=== PATIENT | female | born 1960 | race Caucasian/White ===

== ENCOUNTER → 2018-03-02 08:46 | Outpatient (CLI) | payer MEDICAID, SELFPAY ==
--- NOTE | 2018-03-02 08:52 | XR_ITS ---
XR shoulder LT min 2V HISTORY: ITS.REASON: LT SHOULDER PAIN ORDERING PHYSICIAN: Doyle Wilks MD PATIENT AGE: 57 years Comparison: None FINDINGS: There are mild hypertrophic changes of the acromioclavicular joint inferiorly with mild subacromial stenosis. No fracture or dislocation. No lytic or blastic change. IMPRESSION: Mild subacromial stenosis otherwise negative
== END ==
PROVIDERS: PCP Family Medicine; Visit Provider Family Medicine
DX: M25.512 Pain in left shoulder (principal)
CPT/HCPCS: 73030

== ENCOUNTER → 2018-08-07 14:34 | Outpatient (CLI) | payer MEDICAID, SELFPAY ==
[2018-08-07 14:55] LABS: Basophils % 0.5 % (0.1-2.0); Eosinophils # 0.1 K/mm3 (0.0-0.4); Eosinophils % 1.7 % (0.1-12.0); Hematocrit 48.3 % (37.0-47.0); Hemoglobin 15.5 g/dL (12.2-16.2); Lymphocytes # 2.3 K/mm3 (0.7-4.5); Lymphocytes % 32.7 % (10-50); Mean Corpuscular HGB Conc 32.1 g/dL (31.8-35.4); Mean Corpuscular Hemoglobin 28.9 pg (27.0-31.2); Mean Corpuscular Volume 90.2 fl (81-99); Monocytes # 0.5 K/mm3 (0.1-1.0); Monocytes % 7.3 % (1.7-9.3); Neutrophils # 4.1 K/mm3 (1.8-7.8); Neutrophils % 57.9 % (37.0-80.0); Platelet Count 234 K/mm3 (142-424); Red Blood Count 5.36 M/mm3 (4.20-5.40)
[2018-08-07 16:17] LABS: Alanine Aminotransferase 68 U/L (12-78); Albumin Level 4.1 gm/dL (3.4-5.0); Albumin/Globulin Ratio 1.1 (1.1-1.8); Alkaline Phosphatase 137 U/L (46-116); Anion Gap 14.5 mEq/L (5-15); Aspartate Amino Transferase 25 U/L (15-37); Bilirubin,Total 0.3 mg/dL (0.2-1.0); Blood Urea Nitrogen 21 mg/dL (7-18); Calcium 9.8 mg/dL (8.5-10.1); Carbon Dioxide 28 mmol/L (21.0-32.0); Chloride 99 mmol/L (98-107); Chol/HDL Ratio 3.8 (1-3.5); Cholesterol 154 mg/dL (140-200); Creatinine,Serum 0.86 mg/dL (0.55-1.02); Estimated Glomerular Filt Rate 68 ml/min (>60); GFR (African American) 82 ML/MIN (>60); Globulin 3.6 gm/dl (1.3-3.2); HDL Cholesterol 41 mg/dL (29-89); LDL Cholesterol 90 mg/dL (0-130); Potassium 4.5 mmoL/L (3.5-5.1); Sodium 137 mmol/L (136-145); T4 (Thyroxine) 8.5 ug/dl (4.7-13.3); Thyroid Stimulating Hormone 3.95 uIU/ml (0.358-3.740); Total Protein,Serum 7.7 gm/dL (6.4-8.2); Triglycerides 116 mg/dL (30-200); VLDL Cholesterol 23 mg/dL (0-40)
[2018-08-07 16:21] LABS: Glucose 432 mg/dL (74-106)
[2018-08-07 16:41] LABS: Hemoglobin A1C 11.2 % (0.0-7.0)
[2018-08-10 06:20] LABS: Vitamin D 25 Hydroxy 18.6 ng/mL (30.0-100.0)
[2018-08-10 06:21] LABS: Microalbumin, Urine 8.5 ug/mL (Not Estab.)
== END ==
PROVIDERS: Visit Provider Physician Assistant
DX: E11.69 Type 2 diabetes mellitus with other specified complication (principal); E66.9 Obesity, unspecified; Z79.4 Long term (current) use of insulin; Z79.84 Long term (current) use of oral hypoglycemic drugs
CPT/HCPCS: 80053; 80061; 82043; 82652; 83036; 84436; 84443; 85025

== ENCOUNTER → 2018-08-16 09:38 | Outpatient (CLI) | payer MEDICAID, SELFPAY ==
[2018-08-16 10:30] VITALS: PULSE 78; PULSE 80
--- NOTE | 2018-08-16 15:02 | CT_ITS ---
CT lung screening EXAM: CT LUNG LOW DOSE WO CONTRAST HISTORY: 46 pack year smoking history, asymptomatic for lung cancer ITS.REASON: Smoked from age [age] ORDERING PHYSICIAN: JASON Hagan PATIENT AGE: 58 years COMPARISON: None TECHNIQUE: The exam was performed on a GE Light Speed [address] scanner using 2.90 mGy CTDI. A low dose helical CT CHEST was performed on a multi-detector scanner. All CT scans at the facility use one or more dose reduction, viz: automated exposure control, ma/kV adjustment per patient size (including targeted exams where dose is matched to indication, i.e. head), or iterative reconstruction technique. The LDCT was performed in a facility that meets the criteria for the screening program. Data regarding this exam was submitted to ACR which is an approved registry. The order for this exam indicates that it came as a result of a lung cancer screening counseling shard decision-making visit that included all the elements required of such a visit including smoking cessation. The radiologist interpreting this exam meets the CMS criteria for the LDCT lung cancer screening program. The exam is reported using the Lung-RADS classification scale and reported to the ACR registry. NOTE: This study was performed for the specific purposes of lung cancer screening and is not an alternative to diagnostic chest CT. RADIATION DOSE: CTDI vol(CT dose Index-volume) = 2.90mG DLP (Dose Length Product) = 96.38 mGcm FINDINGS: There is bronchial thickening with mild coarsening of the bronchovascular markings consistent with COPD. No suspicious pulmonary nodules demonstrated. Coronary artery calcifications and stents are noted. IMPRESSION: 1. Lung RADS Category: 1, negative 2. Other findings: COPD, coronary artery disease RECOMMENDATIONS: 12 month LDCT follow-up
== END ==
PROVIDERS: PCP Physician Assistant; Visit Provider Physician Assistant
DX: Z12.2 Encounter for screening for malignant neoplasm of respiratory organs (principal); Z87.891 Personal history of nicotine dependence; R06.00 Dyspnea, unspecified
CPT/HCPCS: 94060; 94640

== ENCOUNTER → 2018-09-07 10:44 | Outpatient (CLI) | payer MEDICAID, SELFPAY ==
--- NOTE | 2018-09-07 10:48 | MM_ITS ---
MM Dig screening mamm BI w/CAD CAD Screening COMPARISON: None, the patient has had previous mammograms but they're not available for review at this time. INDICATION: There is no personal or family history of breast cancer TECHNIQUE: Standard CC and MLO images were obtained. R2 CAD reviewed. FINDINGS: Moderate scattered fibroglandular densities are seen throughout both breasts. There is a benign-appearing microcalcifications left breast. There is no suspicious lesion and there are no suspicious microcalcifications. There are small nodes in both axilla. IMPRESSION: Fibrofatty parenchyma no suspicious lesion seen BI-RADS Category: 2 Benign Finding(s) RECOMMENDED FOLLOW-UP: 1YR - 1 YEAR FOLLOW-UP (A letter has been sent to the patient regarding results of the study.)
== END ==
PROVIDERS: PCP Emergency Medicine; Visit Provider Physician Assistant
DX: Z12.31 Encounter for screening mammogram for malignant neoplasm of breast (principal)
CPT/HCPCS: 77067

== ENCOUNTER 2018-10-15 16:05 | Outpatient (RCR) | payer MEDICAID, SELFPAY | END 2018-11-16 15:32 | disposition home or self-care (01) | LOC: PT 16:05 | PROVIDERS: Visit Provider Internal Medicine | DX: Z95.5 Presence of coronary angioplasty implant and graft (principal) ==

== ENCOUNTER → 2018-11-08 13:58 | Outpatient (CLI) | payer MEDICAID, SELFPAY ==
[2018-11-08 14:51] LABS: Alanine Aminotransferase 38 U/L (12-78); Albumin Level 3.7 gm/dL (3.4-5.0); Albumin/Globulin Ratio 1.1 (1.1-1.8); Alkaline Phosphatase 111 U/L (46-116); Anion Gap 14.3 mEq/L (5-15); Aspartate Amino Transferase 16 U/L (15-37); Bilirubin,Total 0.3 mg/dL (0.2-1.0); Blood Urea Nitrogen 26 mg/dL (7-18); Calcium 9.4 mg/dL (8.5-10.1); Carbon Dioxide 27 mmol/L (21.0-32.0); Chloride 104 mmol/L (98-107); Chol/HDL Ratio 3.4 (1-3.5); Cholesterol 145 mg/dL (140-200); Creatinine,Serum 0.94 mg/dL (0.55-1.02); Estimated Glomerular Filt Rate 61 ml/min (>60); GFR (African American) 74 ML/MIN (>60); Globulin 3.5 gm/dl (1.3-3.2); Glucose 264 mg/dL (74-106); HDL Cholesterol 43 mg/dL (29-89); LDL Cholesterol 82 mg/dL (0-130); Potassium 4.3 mmoL/L (3.5-5.1); Sodium 141 mmol/L (136-145); T4 (Thyroxine) 8.1 ug/dl (4.7-13.3); Thyroid Stimulating Hormone 2.19 uIU/ml (0.358-3.740); Total Protein,Serum 7.2 gm/dL (6.4-8.2); Triglycerides 99 mg/dL (30-200); VLDL Cholesterol 20 mg/dL (0-40)
[2018-11-08 15:09] LABS: Basophils # 0.1 K/mm3 (0-0.2); Basophils % 0.7 % (0.1-2.0); Eosinophils # 0.2 K/mm3 (0.0-0.4); Hematocrit 41.4 % (37.0-47.0); Hemoglobin 13.1 g/dL (12.2-16.2); Lymphocytes # 2.1 K/mm3 (0.7-4.5); Mean Corpuscular HGB Conc 31.6 g/dL (31.8-35.4); Mean Corpuscular Hemoglobin 28.5 pg (27.0-31.2); Mean Corpuscular Volume 90.3 fl (81-99); Mean Platelet Volume 9.1 fl (7.4-10.4); Monocytes # 0.5 K/mm3 (0.1-1.0); Monocytes % 7.6 % (1.7-9.3); Neutrophils # 4.2 K/mm3 (1.8-7.8); Neutrophils % 58.7 % (37.0-80.0); Platelet Count 275 K/mm3 (142-424); Red Blood Count 4.58 M/mm3 (4.20-5.40); White Blood Count 7.1 K/mm3 (4.8-10.8)
[2018-11-08 19:17] LABS: Hemoglobin A1C 9.1 % (0.0-7.0)
[2018-11-10 18:01] LABS: Vitamin D 25 Hydroxy 38.1 ng/mL (30.0-100.0)
== END ==
PROVIDERS: Visit Provider Physician Assistant
DX: E11.9 Type 2 diabetes mellitus without complications (principal); Z79.4 Long term (current) use of insulin
CPT/HCPCS: 80053; 80061; 82652; 83036; 84436; 84443; 85025

== ENCOUNTER → 2019-05-15 13:31 | Outpatient (CLI) | payer OTHER, SELFPAY ==
--- NOTE | 2019-05-15 13:34 | CA_ITS ---
APPROVED REPORT EXAM: Comprehensive 2D, Doppler, and color-flow Echocardiogram Coding Director: Haylie Barron RVT Ht: 5 ft 1 in Wt: 204lbs BSA: 1.90 BP: 142/75 mmHg Indications: Congestive Heart Failure, COPD, Dyspnea, CAD, Hypertension/HDD 2D Dimensions LVOT 1.88 cm (M/F) 1.5-2.5 M-Mode Dimensions RVDd 2.69 cm (0.9-2.6) LVDd 4.58 cm (3.5-5.7) LVDs 3.30 cm (3.5-5.7) IVSd 1.04 cm (0.6-1.1) PWd 0.68 cm (0.6-1.1) EF (Teich) 54.20% FS 27.90% EDV (Teich) 96.30 mL ESV (Teich) 44.10 mL LV Diastology E/A Ratio 0.61 Mitral Valve MV A Velocity 66.00 (40-130 cm/s) Left Ventricle Left atrium is mildly enlarged, left ventricle is normal size, mild concentric left ventricular hypertrophy, visually estimated ejection fraction 55% with no regional wall motion abnormality, grade 1 diastolic dysfunction seen without tissue Doppler evidence of raise left atrial pressure. Right Ventricle Right atrium and right ventricle mildly enlarged with normal contractility. Aortic Valve Aortic valve is minimally thickened and fibrosed. There is no aortic stenosis or aortic insufficiency. Mitral Valve Mitral valve is grossly normal, there is mild mitral regurgitation. Tricuspid Valve Tricuspid valve is grossly normal, there is mild tricuspid regurgitation, tricuspid regurgitation jet velocity is inadequate for calculation of the right ventricular systolic pressure. Pulmonic Valve Pulmonic valve is poorly visualized. Great Vessels Aortic root is normal size. Pericardium No significant pericardial effusion noted. Conclusion 1. Mild biatrial enlargement, normal left ventricular size, mild concentric left ventricular hypertrophy, visually estimated ejection fraction 55% with no regional wall motion abnormality, grade 1 diastolic dysfunction seen without tissue Doppler evidence of raise left atrial pressure. 2. Mildly enlarged right ventricle with normal contractility. 3. Mild mitral and tricuspid regurgitation. 4. No significant pericardial effusion noted. Electronically signed by : Maximilian Chan, 05/16/2019 16:55:14
== END ==
PROVIDERS: PCP Physician Assistant; Visit Provider Internal Medicine Cardiovascular Disease
DX: R00.0 Tachycardia, unspecified (principal); R06.00 Dyspnea, unspecified; I25.10 Atherosclerotic heart disease of native coronary artery without angina pectoris; E78.5 Hyperlipidemia, unspecified; I10 Essential (primary) hypertension; I51.89 Other ill-defined heart diseases
CPT/HCPCS: 93306

== ENCOUNTER → 2019-09-09 10:42 | Outpatient (CLI) | payer OTHER, SELFPAY ==
[2019-09-09 12:03] LABS: Basophils % 0.4 % (0.1-2.0); Eosinophils # 0.2 K/mm3 (0.0-0.4); Eosinophils % 2.1 % (0.1-12.0); Hematocrit 45.1 % (37.0-47.0); Hemoglobin 14.5 g/dL (12.2-16.2); Lymphocytes # 2.5 K/mm3 (0.7-4.5); Lymphocytes % 25.4 % (10-50); Mean Corpuscular HGB Conc 32.2 g/dL (31.8-35.4); Mean Corpuscular Hemoglobin 28.1 pg (27.0-31.2); Mean Corpuscular Volume 87.1 fl (81-99); Mean Platelet Volume 8.3 fl (7.4-10.4); Monocytes # 0.4 K/mm3 (0.1-1.0); Monocytes % 4.4 % (1.7-9.3); Neutrophils # 6.8 K/mm3 (1.8-7.8); Neutrophils % 67.8 % (37.0-80.0); Platelet Count 281 K/mm3 (142-424); Red Blood Count 5.18 M/mm3 (4.20-5.40); Red Cell Distribution Width 14.7 % (11.5-17.5)
[2019-09-09 13:04] LABS: Anion Gap 15.6 mEq/L (5-15); Blood Urea Nitrogen 29 mg/dl (7-17); Calcium 10.2 mg/dl (8.4-10.2); Carbon Dioxide 31 mmol/L (22.0-30.0); Chloride 94 mmol/L (98-107); Estimated Glomerular Filt Rate 85 ml/min (>60); GFR (African American) 103 ML/MIN (>60); Glucose 387 mg/dl (74-100); Potassium 4.6 mmoL/L (3.5-5.1); Sodium 136 mmol/L (136-145)
[2019-09-09 15:23] LABS: Coronavirus 19 IgG Antibody Negative (Negative); Coronavirus 19 IgM Antibody Negative (Negative)
== END ==
PROVIDERS: Visit Provider Surgery
DX: L02.11 Cutaneous abscess of neck (principal)
CPT/HCPCS: 36415; 80048; 85025; 86328

== ENCOUNTER → 2019-09-10 08:02 | Outpatient (CLI) | payer OTHER, SELFPAY ==
--- NOTE | 2019-09-10 08:03 | CT_ITS ---
PROCEDURE: CT LUNG SCREENING CLINICAL INDICATION: 12 mth f/u LDCT Fifty pack-year smoking history, asymptomatic for lung cancer COMPARISON: LUNGSCREEN CT lung screening from 08/16/2018 TECHNIQUE: The exam was performed on a GE [employer] Speed [address] scanner using 2.90 mGy CTDI. A low dose helical CT CHEST was performed on a multi-detector scanner. All CT scans at the facility use one or more dose reduction, viz: automated exposure control, ma/kV adjustment per patient size (including targeted exams where dose is matched to indication, i.e. head), or iterative reconstruction technique. The LDCT was performed in a facility that meets the criteria for the screening program. Data regarding this exam was submitted to ACR which is an approved registry. The order for this exam indicates that it came as a result of a lung cancer screening counseling shard decision-making visit that included all the elements required of such a visit including smoking cessation. The radiologist interpreting this exam meets the CMS criteria for the LDCT lung cancer screening program. The exam is reported using the Lung-RADS classification scale and reported to the ACR registry. NOTE: This study was performed for the specific purposes of lung cancer screening and is not an alternative to diagnostic chest CT. RADIATION DOSE: CTDI vol(CT dose Index-volume) = 2.90mG DLP (Dose Length Product) = 96.38 mGcm Lung Rads Category: FINDINGS: COPD with mild prominence of the interstitium. No suspicious pulmonary nodules. Coronary artery calcifications OTHER FINDINGS: Coronary artery calcifications IMPRESSION: Lung rads category 1, negative Recommend annual LD CT Dictated by: Jules Fuller MD 09/23/2019 10:38 Electronically signed by Jules Fuller MD in [place] 09/23/2019 10:38
== END ==
PROVIDERS: PCP Physician Assistant; Visit Provider Physician Assistant
DX: Z87.891 Personal history of nicotine dependence (principal)

== ENCOUNTER 2019-09-11 06:37 | Day surgery (SDC) | payer OTHER, SELFPAY ==
[2019-09-10 11:48] VITALS: BMI 40.2
[2019-09-11] VITALS (10 sets, daily range): BP systolic 106–135; BP diastolic 54–93; PULSE 72–88; RESP 12–18; TEMP 36.2–36.4; O2SAT 93–99
[2019-09-11 07:18] LABS: POC Glucose,Bedside 258 (70-110)
--- NOTE | 2019-09-11 07:23 | HMH.ANESCL ---
[facility] Anesthesia Checklist - Patient Identification Patient Identification: Arm Band, Verbal (Name & ) - Structural Data Admitted From: Home Planned Operative Procedure/s: ex lesion Consent for Planned Operative Procedure(s) Verified: Yes Verified Documents: History and Physical - NPO Status Verified Time NPO: 00:00 - Additional verifications Patient : No Anesthesia Reactions: No Hx Blood Transfusions: No Blood Transfusion Reaction: No Cephalosporin Allergy: No Previous Colonoscopy: Yes - Cardiovascular Assessment Heart Sounds: S1 & S2 Pulse Strength: Baseline Pulse Rhythm: Regular Peripheral Edema: No - Airway Assessment C-Spine Mobility Assessed: Yes TMJ Mobility Assessed: Yes Dentition: Edentulous - Neurological Assessment Level of Consciousness: Awake, Alert, Appropriate Hx Seizures: No Numbness or tingling in extremities: No - Anesthesia Plan Anesthesia Risk discussed: Yes Anesthesia Plan: Verified ASA Class: III Anesthesia Type: General [facility] History I have reviewed the patient's past medical history: Yes Medical History: Reports:: Atherosclerotic Heart Disease, Chronic Obstructive Pulmonary Disease (COPD), Diabetes Mellitus Type 2, Gastroesophageal Reflux Disease(GERD), Hiatal Hernia, Hyperlipidemia, Hypertension, Kidney Stones, Myocardial Infarction Denies:: Cancer, Deep Vein Thrombosis, Diabetes Mellitus Type 1, Internal Pacemaker, MRSA, Pulmonary Embolism, Seizures, Transient Ischemic Attacks (TIA) *Have you ever received a pneumonia vaccine?: No *Have you received a flu vaccine this season?: No Other Medical History: Reports: Arthritis. Denies: Blood Transfusion Reaction, Thyroid Disease Anesthesia experience/problems:: none Other Surgeries: Yes: Cardiac Catheterization, Colonoscopy, Coronary Stent, Hysterectomy-Total, Other. No: Pacemaker Amputation: No Fractures: No - *Social History Educational Level: Attended High School Smoking Status: Former smoker Tobacco Type: cigarettes # Packs/Day (cigarettes): 1 Alcohol Intake: never Alcohol Intake Frequency:: other Substance Use Type: denies use *Occupational Status:: disabled Housing: house Household Members: spouse *Travel in the last 8 weeks: None Family Hx:: No significant family history
--- NOTE | 2019-09-11 09:06 | HMH.OPNOTE ---
Date of procedure: 09/11/19 Pre-op Diagnosis:: Inflamed sebaceous cysts on the back of the neck Post-op Diagnosis:: Same Procedure performed:: Excision of inflamed, possibly abscessed, posterior neck sebaceous cyst with simple closure Surgeon:: Alvarez Caal MD PSYCHOLOGY PROFESSOR:: Demetrius Haro Anesthesia: LMA Estimated blood loss (mL): 15 Clinical Note:: Patient is a 59-year-old female with history of diabetes, COPD, tobacco dependence, coronary artery disease referred by Carolina Dsouza for abscess on the back of the neck. She was seen in the office a couple of days ago. Patient states that this is been present for about 2 weeks. She states it is quite tender and she states that it interferes with her beauty sleep . This has been refractory to a couple courses of antibiotics. She has never had any drainage. Patient is on Plavix. Plan was made for excision of presumed sebaceous cyst with possible closure. Operative findings:: Consistent with ruptured inflamed sebaceous cyst Operative note:: Consent was obtained and patient was taken the operating room. She was positioned in a supine position. General anesthesia was induced via LMA. She was repositioned in the lateral position. The area was prepped and draped in the standard surgical fashion. It appeared relatively not infected at this time but possibly inflamed. Skin was marked with a skin marker for planned elliptical incision. Skin incision was performed and dissection was carried down. There was some cloudy fluid which exuded from the incision. Dissection was carried out excising the skin ellipse and underlying affected tissues which appeared to be consistent with a previously abscessed sebaceous cyst. This was sent off as a specimen. Wound was irrigated. Hemostasis was achieved with electrocautery. Local anesthetic was infiltrated. The wound was closed with interspersed 3-0 nylon vertical mattress sutures to allow for any wound drainage if necessary. Clean dry sterile dressing was applied. Condition: stable Disposition: PACU Specimens:: Sebaceous cyst Complications:: None immediately apparent
--- NOTE | 2019-09-11 09:06 | HMH.ANESI ---
[facility] Anesthesia Record Part I Intake, IV Amount: 800 Estimated blood loss (mL): 0 Urine output (mL): 0 Blood Pressure: 129/83 SaO2: 93 Pulse Rate: 81 Respiratory Rate: 12 Temperature: 97.5 F Patient is:: Awake, Stable Stable to PACU at:: 09:00
[2019-09-11 09:15] LABS: POC Glucose,Bedside 243 (70-110)
--- NOTE | 2019-09-11 09:21 | PC.NURSE ---
0907-checked fsbs with results of 243, notified LUPE Galarza-no further orders given
--- NOTE | 2019-09-11 09:22 | PC.NURSE ---
0922-pt eating ice chips w/out difficulty , denies nausea
--- NOTE | 2019-09-11 09:35 | PC.NURSE ---
0996-detailed report called to IVAN Mayfield 0984-pt transported to post op via stretcher w/debra rails up and left in care of IVAN Mayfield with bed locked in lowest position, vss, pt stable
--- NOTE | 2019-09-11 11:56 | P.PN_ITS ---
[facility] Anesthesia Record Part II Discharge Time: 09:30 Destination: Surgical Day Care (OP Surgery) PACU nurse assessment reviewed?: Yes Patient Condition:: Good Anesthesia Complications:: None Swallowing reflex intact?: Yes Cyanosis?: No Blood Pressure: 122/65 Pulse Rate: 81 Temperature: 97.2 F Mental Status: Alert & Oriented Pain level:: 0 Nausea and/or vomitting:: None Intake, IV Amount: 0
== END 2019-09-11 10:00 | disposition home or self-care (01) ==
LOC: OR 06:37
PROVIDERS: PCP Physician Assistant; Visit Provider Surgery
PROC: (CPT 11420; principal; 2019-09-11 08:30)
DX: L02.11 Cutaneous abscess of neck (principal); L72.3 Sebaceous cyst; L08.89 Other specified local infections of the skin and subcutaneous tissue; Z79.82 Long term (current) use of aspirin; Z79.4 Long term (current) use of insulin; Z79.51 Long term (current) use of inhaled steroids; Z79.899 Other long term (current) drug therapy; I25.10 Atherosclerotic heart disease of native coronary artery without angina pectoris; J44.9 Chronic obstructive pulmonary disease, unspecified; E11.9 Type 2 diabetes mellitus without complications; K21.9 Gastro-esophageal reflux disease without esophagitis; I25.2 Old myocardial infarction
CPT/HCPCS: 11420; 82962; 96374; J2405

== ENCOUNTER → 2019-09-23 06:05 | Outpatient (CLI) | payer OTHER, SELFPAY ==
--- NOTE | 2019-09-23 | CA_ITS ---
APPROVED REPORT Exam: Pharmacologic Technologist: oumou pemberton, Ht: 5 ft 1 in Wt: 213 lbs BSA: 1.94 m2 HR: 80 bpm BP: 128/74 mmHg Indications: Angina, SOB Medical History Medications: Amlodipine,,,,, Asa,,,,, Metformin,,,,, Synthroid,,,,, Losartan,,,,, Glimepiride,,,,, INSULIN,,,,, Lipitor,,,,, Protonix,,,,, CloPIdogrel,,,,, Vitamin D,,,,, BisOPROLOL,,,,, Allergies: Bees, Chocolate foods. Cardiac Risk Factors: HTN, Hyperlipidemia, Diabetes (insulin), FHX of CAD, Smoking Stress Test Details Test: LEXISCAN HR Resting HR: 88 bpm Max Heart Rate (APMHR): 160 bpm Max HR Achieved: 108 bpm Target HR (85% APMHR): 136 bpm % of APMHR: 67 Recovery HR: 94 bpm BP Resting BP: 128/74 mmHg Max BP: 149/75 mmHg Recovery BP: 143.0/69.0 mmHg ECG Resting ECG: Sinus Rhythm Clinical Exercise duration: 04:00 min Highest Stage Achieved: Exercise capacity: 1.0 METs Stress ECG Conclusion Lexiscan portion completed. Only complaint was SOB that resolved during recovery. Occ PVC. Less than 1.5mm ST Depression. Images to follow. Electronically signed by : Maximilian Chan, 09/23/2019 18:56:00
--- NOTE | 2019-09-23 06:06 | NM_ITS ---
APPROVED REPORT Exam: Nuclear Stress Test Indication: Angina, SOB, Palpitations, CAD, Hx of [place], HTN, DM, High cholesterol, Former tobacco use, Family history Patient Location: Outpatient Stress Tech: Hannah ReedBairoa La [place] Tech:Norma Gaxiola, ARRT, RT (R)(N) Ht: 5 ft 1 in Wt: 213 lbs Bra Size: 38DD HR: 80 bpm BP: 128/74 mmHg BSA: 1.94 m2 BMI: 40.2 History: Angina, SOB, Palpitations, CAD, Hx of [place], HTN, DM, High cholesterol, Former tobacco use, Family history Procedure: Patient received a 0.4 mg of intravenous Lexiscan, resting heart rate 80 bpm, resting blood pressure 128/74 mmHg, with Lexiscan maximum heart rate achived was 105 bpm which is Less than 85 % of the maximum predicted heart rate and blood pressure was 131/86 mmHg. With Lexiscan, patient denied any complaint of chest pain. Electrocardiogram Resting electrocardiogram showed sinus rhythm, with Lexiscan there is less than 1.[address] segment depression noted from the baseline EKG. The EKG portion of the Lexiscan is nondiagnostic. Cardiac Stress and Resting SPECT Images: Cardiac Stress and Resting SPECT images were obtained using technetium 99m Myoview 30.0 mCi stress and 10.24 mCi at rest. Gated SPECT for the analysis of segmental wall motion and calculation of the ejection fraction also done. Cardiac stress and resting SPECT images show a mild fixed defect in the anterior wall with normal contractility to SPECT is likely secondary to soft tissue attenuation, no reversible ischemia seen. Computer derived ejection fraction is over 65% with no regional wall motion abnormality, right ventricle is normal size and contractility. Conclusion: 1. The EKG portion of the Lexiscan is nondiagnostic. 2. No scintigraphic evidence of reversible ischemia seen, computer derived ejection fraction is over 65% with no regional wall motion abnormality, right ventricle is normal size and contractility. 3. Likely normal Lexiscan Myoview study. Electronically signed by : Maximilian Chan, 09/23/2019 18:58:29
--- NOTE | 2019-09-23 07:18 | HMH.ITSHM ---
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 []SERTRALINE [place] LEVOTHYROXINE INSULIN GLIMEPIRIDE METFORMIN VITAMIN D3 BISOPROLOL ASA ALBUTEROL PROTONIX DOXYCYCLINE CLOPIDOGREL ATORVASTATIN AMLODIPINE
== END ==
PROVIDERS: PCP Physician Assistant; Visit Provider Physician Assistant
DX: E11.59 Type 2 diabetes mellitus with other circulatory complications (principal); E11.69 Type 2 diabetes mellitus with other specified complication; E66.9 Obesity, unspecified; E78.5 Hyperlipidemia, unspecified; I10 Essential (primary) hypertension; I20.9 Angina pectoris, unspecified; Z79.4 Long term (current) use of insulin
CPT/HCPCS: 78452; 93017; A9502; J2785

== ENCOUNTER → 2020-08-12 15:40 | Outpatient (CLI) | payer OTHER, SELFPAY ==
--- NOTE | 2020-08-12 15:48 | XR_ITS ---
PROCEDURE: XR KNEE LT 3V CLINICAL INDICATION: l Knee pain COMPARISON: No exams were available for comparison FINDINGS: No fracture or dislocation. No lytic or blastic change. There is normal mineralization. Early degenerative changes with prominence of the intercondylar tubercles are noted. Early osteophyte formation. Mild medial compartment joint space loss. No significant suprapatellar joint effusion. Prepatellar soft tissue swelling is noted. No other soft tissue abnormality. IMPRESSION: No acute fractures or dislocations. Early degenerative changes. Prepatellar soft tissue swelling, likely sequela of injury. Dictated by: Lo Omalley 08/13/2020 09:45 Lo Omalley in [place] 08/13/2020 09:45
== END ==
PROVIDERS: PCP Physician Assistant; Visit Provider Nurse Practitioner Family
DX: M25.569 Pain in unspecified knee (principal)
CPT/HCPCS: 73562

== ENCOUNTER → 2020-08-12 17:49 | Outpatient (CLI) | payer OTHER, SELFPAY ==
[2020-08-12 18:09] LABS: Basophils # 0.1 K/mm3 (0-0.2); Basophils % 0.9 % (0.1-2.0); Eosinophils # 0.1 K/mm3 (0.0-0.4); Eosinophils % 1.5 % (0.1-12.0); Hematocrit 48.9 % (37.0-47.0); Lymphocytes % 36.5 % (10-50); Mean Corpuscular HGB Conc 30.7 g/dL (31.8-35.4); Mean Corpuscular Hemoglobin 29.3 pg (27.0-31.2); Mean Corpuscular Volume 95.5 fl (81-99); Mean Platelet Volume 9.8 fl (7.4-10.4); Monocytes # 0.3 K/mm3 (0.1-1.0); Neutrophils # 3.1 K/mm3 (1.8-7.8); Neutrophils % 55.2 % (37.0-80.0); Platelet Count 234 K/mm3 (142-424); Red Blood Count 5.12 M/mm3 (4.20-5.40); Red Cell Distribution Width 13.9 % (11.5-17.5); White Blood Count 5.5 K/mm3 (4.8-10.8)
[2020-08-12 18:14] LABS: Alanine Aminotransferase 83 U/L (12-78); Albumin Level 4.5 g/dl (3.5-5.0); Albumin/Globulin Ratio 1.6 (1.1-1.8); Alkaline Phosphatase 127 U/L (38-126); Anion Gap 17.9 mEq/L (5-15); Aspartate Amino Transferase 67 U/L (14-36); Bilirubin,Total 0.7 mg/dl (0.2-1.3); Blood Urea Nitrogen 16 mg/dl (7-17); Carbon Dioxide 24 mmol/L (22.0-30.0); Chloride 100 mmol/L (98-107); Chol/HDL Ratio 6.4 (1-3.5); Cholesterol 305 mg/dl (140-200); Estimated Glomerular Filt Rate 125 ml/min (>60); GFR (African American) 152 ML/MIN (>60); Globulin 2.8 g/dL (1.3-3.2); Glucose 385 mg/dl (74-100); HDL Cholesterol 48 mg/dl (40-60); Potassium 4.9 mmoL/L (3.5-5.1); Sodium 137 mmol/L (136-145); Total Protein,Serum 7.3 g/dl (6.3-8.2); Triglycerides 149 mg/dl (30-150); VLDL Cholesterol 30 mg/dL (0-40)
[2020-08-12 18:25] LABS: Direct LDL Cholesterol 220.75 mg/dL (100-129)
[2020-08-12 18:30] LABS: 25-OH Vitamin D, Total 29.1 ng/mL (30-100)
[2020-08-12 18:31] LABS: Free T4 (Free Thyroxine) 1.28 ng/dl (0.78-2.19)
[2020-08-12 18:45] LABS: Thyroid Stimulating Hormone 1.73 uIU/mL (0.465-4.68)
[2020-08-12 22:06] LABS: Hemoglobin A1C > 14.0 % (4.0-6.0)
== END ==
PROVIDERS: Visit Provider Nurse Practitioner Family
DX: I25.10 Atherosclerotic heart disease of native coronary artery without angina pectoris (principal); E03.9 Hypothyroidism, unspecified; E11.69 Type 2 diabetes mellitus with other specified complication; E66.9 Obesity, unspecified; E78.5 Hyperlipidemia, unspecified; Z68.38 Body mass index [BMI] 38.0-38.9, adult; E55.9 Vitamin D deficiency, unspecified; Z79.84 Long term (current) use of oral hypoglycemic drugs
CPT/HCPCS: 80053; 80061; 82306; 83036; 84439; 84443; 85025

== ENCOUNTER 2020-09-21 10:33 | Observation (INO) | payer OTHER, SELFPAY ==
[2020-09-21] VITALS (10 sets, daily range): BP systolic 132–175; BP diastolic 74–103; PULSE 78–108; RESP 16–18; TEMP 36.4–37.1; O2SAT 94–99; BMI 37.8; BMI 38.4; BMI 37.5
--- NOTE | 2020-09-21 12:29 | HMH.EDUTC ---
[facility] [place] Disposition Clinical Impression: Abdominal pain Qualifiers: Abdominal location: unspecified location Qualified Code(s): R10.9 - Unspecified abdominal pain Disposition: Home, Self-Care Condition on Discharge: Good Referrals: Carolina Dsouza PA [Primary Care Provider] - Medical Decision Making - Dewayne Inquiry Pt receiving controlled substance: No Dewayne was queried for this patient: No Vital Signs: 09/21/20 10:47 09/21/20 11:45 09/21/20 12:50 Temperature 98.0 F 98.0 F 97.5 F L Temperature Source Oral Oral Oral Pulse Rate [Left Radial] 104 H 104 H 94 H Respiratory Rate 18 18 16 Blood Pressure [Left Arm] 152/96 H 152/96 H 143/75 H Blood Pressure Mean [Left Arm] 114 114 97 Blood Pressure Source [Left Arm] Automatic Cuff Automatic Cuff Automatic Cuff Blood Pressure Position [Left Arm] Sitting Sitting Sitting 02 Sat by Pulse Oximetry 95 95 97 Oxygen Delivery Method Room Air Room Air Room Air - Lab Data Lab Results 09/21/20 13:03: WBC 6.4, RBC 5.17, Hgb 15.7, Hct 47.6 H, MCV 92.2, MCH 30.4, MCHC 33.0, RDW 13.5, Plt Count 207, MPV 9.5, Neut % (Auto) 57.1, Lymph % (Auto) 35.0, [place] % (Auto) 5.3, Eos % (Auto) 1.9, Baso % (Auto) 0.7, Neut # (Auto) 3.7, Lymph # (Auto) 2.3, [place] # (Auto) 0.3, Eos # (Auto) 0.1, Baso # (Auto) 0.0 09/21/20 13:03: Sodium 136, Potassium 4.9, Chloride 95 L, Carbon Dioxide 29, Anion Gap 16.9 H, BUN 17, Creatinine 0.50 L, Estimated Creat Clear 89, Estimated GFR 125, Est GFR ( Amer) 152, Glucose 568 H*, Calcium 9.9 Result diagrams: 09/21/20 13:03 09/21/20 13:03 Orders (Tests/Meds): ED MEDICATIONS Generic Name Dose Route Start Last Admin Trade Name Freq PRN Reason Stop Dose Admin Lactated Ringer's 1,000 mls @ 999 mls/hr 09/21/20 14:45 09/21/20 15:32 Lactated Ringer's 1000 Ml Bag IV 09/21/20 15:45 999 mls/hr .Q1H1M ALTA Administration Discontinued Medications Generic Name Dose Route Start Last Admin Trade Name Julia PRN Reason Stop Dose Admin Ceftriaxone Sodium 1 gm/ 50 mls @ 100 mls/hr 09/21/20 13:45 09/21/20 13:48 Sodium Chloride IV 09/21/20 14:14 100 mls/hr ONCE ONE Administration Protocol Insulin Human Lispro 10 unit 09/21/20 14:43 09/21/20 15:32 Humalog 100 Units/Ml 3ml Vial (Ssi) SQ 09/21/20 14:44 10 unit ONCE ONE Administration Iopamidol 75 ml 09/21/20 14:53 09/21/20 14:54 Iopamidol-370 (76%);100ml Bottle IV 09/21/20 14:54 75 ml ONCE ONE Administration Sodium Chloride 10 ml 09/21/20 14:53 09/21/20 14:54 Sodium Chloride 0.9% 10ml Syr (Rad Only) IV 09/21/20 14:54 10 ml ONCE ONE Administration ORDERS Category Date Time Status VBG [Venous Blood Gas] Stat RT 09/21/20 14:42 Ordered Medical Decision Narrative: After examining patient and noting redness, warmth and discolored area on left side of umbilical area with redness of surround skin on abdomen extending down towards groin concern for more extensive testing and evaluation was needed. Discussed patient with ED physician Lonnie Ha and he came to [facility] and viewed umbilical area and surrounding redness and agreed Patient to be transferred to ED for CT scan and lab work for further evaluation and testing Called ED spoke with Luis and patient was assigned room 9 Patient transferred without complications [facility] HPI - General Stated complaint: pain, bleeding from navel Time Seen by Provider: 09/21/20 12:29 Mode of Arrival: Ambulatory Source of Information: Patient Limitations: No Limitations Description of Symptoms (Recalled from Triage Doc. by RN): PATIENT C/O SCABBED AREA TO UMBILICUS WITH REDNESS AROUND THE AREA. C/O PAIN WITH BENDING OVER. STATES THAT SHE HAS SEEN PCP FOR IT WHO INSTRUCTED HER TO APPLY TRIPLE ANTIBIOTIC OINTMENT TO IT. HEENT Symptoms (Recalled from RN notes): No Resp Symptoms (Recalled from RN notes): No Skin Symptoms (Recalled from RN notes): Yes MS Symptoms (Recalled from RN notes): No Functional Status (Recalled
--- NOTE | 2020-09-21 12:47 | PC.NURSE ---
PATIENT SENT TO ER PER Quinton RENNER APRN FOR FURTHER EVALUATION FOR POSSIBLE ABSCESS. REPORT GIVEN BY Quinton RENNER APRN TO CANDI LOVE
--- NOTE | 2020-09-21 13:05 | CT_ITS ---
PROCEDURE: CT ABDOMEN PELVIS W CON CLINICAL INDICATION: cellulitis periumbilical COMPARISON: CT ABDPELW/O CT ABD PELVIS W/O CONTRAST from 07/15/2015 TECHNIQUE: IV Contrast: 75ML Isovue 370 Oral Contrast None Axial images obtained with sagittal and coronal reformats. All CT scans at the facility use one or more dose reduction, viz: automated exposure control, ma/kV adjustment per patient size (including targeted exams where dose is matched to indication, i.e. head), or iterative reconstruction technique. FINDINGS: LOWER THORAX: There are 2 nodular opacities in the fissural region on the right the region of the major fissure each measuring 3 mm. Coronary artery calcifications and/or stents noted. ABDOMEN & PELVIS: Mild fatty liver. The gallbladder, spleen, adrenal glands, and pancreas have an unremarkable appearance. No renal or ureteral calculi. No hydronephrosis. There is a 1.5 cm left renal cyst. No intestinal obstruction or free air. There is a mild amount of retained colonic feces. No evidence of appendicitis. No evidence of diverticulitis. There has been a prior hysterectomy. There is an umbilical hernia which contains fat. There is increased density of the fat within the hernia and just deep to the hernia with some fluid density along the lower and anterior aspect of the hernia. There is also mild thickening of the subcutaneous fat at the region of the hernia. The hernia orifice measures approximately 1.9 cm in with previously measuring 1.2 cm in with. No abscess apparent. Degenerative changes are present in the lower thoracic spine. IMPRESSION: There is a small umbilical hernia containing fat and a small amount of fluid. There is increased density of the fat within the hernia and just deep to the hernia within the anterior peritoneal region. There is mild stranding of the subcutaneous fat adjacent to the hernia. Cellulitis/omphalitis is considered. The increased density of the fat within the hernia and a small amount of fluid within the hernia sac could be related to local inflammation as well. A strangulated hernia could have a similar appearance. The hernia has increased in size since 07/15/2015. Dictated by: Jules Fuller MD 09/21/2020 15:33 Jules Fuller MD in [place] 09/21/2020 15:33
--- NOTE | 2020-09-21 13:06 | HMH.EDGENADL ---
ED Disposition Clinical Impression: Abdominal pain Qualifiers: Abdominal location: unspecified location Qualified Code(s): R10.9 - Unspecified abdominal pain Disposition: Home, Self-Care Condition on Discharge: Good Time of Disposition: 14:30 - Critical Care Critical Care Time: No Attestation: On 09/21/20, the high probability of a clinically significant, sudden or life threatening deterioration of the following system(s) required my full and direct attention, intervention and personal management. The time I documented below is in addition to time spent performing reported procedures but includes the following listed in this critical care notation. Medical Decision Making - Dewayne Inquiry Pt receiving controlled substance: No Vital Signs: 09/21/20 10:47 09/21/20 11:45 09/21/20 12:50 Temperature 98.0 F 98.0 F 97.5 F L Temperature Source Oral Oral Oral Pulse Rate Pulse Rate [Left Radial] 104 H 104 H 94 H Respiratory Rate 18 18 16 Blood Pressure Blood Pressure [Left Arm] 152/96 H 152/96 H 143/75 H Blood Pressure Mean Blood Pressure Mean [Left Arm] 114 114 97 Blood Pressure Source [Left Arm] Automatic Cuff Automatic Cuff Automatic Cuff Blood Pressure Position [Left Arm] Sitting Sitting Sitting 02 Sat by Pulse Oximetry 95 95 97 Oxygen Delivery Method Room Air Room Air Room Air 09/21/20 13:30 09/21/20 14:00 09/21/20 15:30 Temperature Temperature Source Pulse Rate 94 H 98 H 96 H Pulse Rate [Left Radial] Respiratory Rate 18 18 18 Blood Pressure 138/89 162/91 H 158/89 H Blood Pressure [Left Arm] Blood Pressure Mean 106 110 Blood Pressure Mean [Left Arm] Blood Pressure Source [Left Arm] Blood Pressure Position [Left Arm] 02 Sat by Pulse Oximetry 94 L 98 94 L Oxygen Delivery Method 09/21/20 16:00 09/21/20 18:32 Temperature 98 F Temperature Source Oral Pulse Rate 93 H 78 Pulse Rate [Left Radial] Respiratory Rate 18 16 Blood Pressure 175/103 H 132/74 Blood Pressure [Left Arm] Blood Pressure Mean 127 Blood Pressure Mean [Left Arm] Blood Pressure Source [Left Arm] Blood Pressure Position [Left Arm] 02 Sat by Pulse Oximetry 95 Oxygen Delivery Method Room Air - Lab Data Lab Results 09/21/20 13:03: WBC 6.4, RBC 5.17, Hgb 15.7, Hct 47.6 H, MCV 92.2, MCH 30.4, MCHC 33.0, RDW 13.5, Plt Count 207, MPV 9.5, Neut % (Auto) 57.1, Lymph % (Auto) 35.0, Blount % (Auto) 5.3, Eos % (Auto) 1.9, Baso % (Auto) 0.7, Neut # (Auto) 3.7, Lymph # (Auto) 2.3, Blount # (Auto) 0.3, Eos # (Auto) 0.1, Baso # (Auto) 0.0 09/21/20 13:03: Sodium 136, Potassium 4.9, Chloride 95 L, Carbon Dioxide 29, Anion Gap 16.9 H, BUN 17, Creatinine 0.50 L, Estimated Creat Clear 89, Estimated GFR 125, Est GFR ( Amer) 152, Glucose 568 H*, Calcium 9.9 09/21/20 14:42: VBG pH 7.28 L, VBG pCO2 56.4 H, VBG pO2 33.8, VBG HCO3 26.1, VBG Total CO2 27.9 H, VBG O2 Saturation 61.1, VBG Base Excess -0.5 09/21/20 16:25: POC Glucose 416 H* 09/21/20 17:30: SARS-CoV-2 (PCR) Not detected, Influenza A Untype (PCR) Not detected, Influenza Type B (PCR) Not detected Result diagrams: 09/22/20 07:48 09/22/20 06:29 Orders (Tests/Meds): ED MEDICATIONS Discontinued Medications Generic Name Dose Route Start Last Admin Trade Name Julia PRN Reason Stop Dose Admin Amlodipine Besylate 2.5 mg 09/22/20 09:00 Amlodipine 2.5mg Tablet PO 10/22/20 08:59 DAILY ALTA Amlodipine Besylate 2.5 mg 09/22/20 09:00 Amlodipine 2.5mg Tablet PO 10/22/20 08:59 DAILY ALTA Aspirin 81 mg 09/22/20 09:00 Aspirin Ec 81mg Tablet PO 10/22/20 08:59 DAILY ALTA Aspirin 81 mg 09/22/20 09:00 09/22/20 09:10 Aspirin Ec 81mg Tablet PO 10/22/20 08:59 81 mg DAILY ALTA Administration Atorvastatin Calcium 40 mg 09/22/20 09:00 Atorvastatin 40mg Tablet PO 10/22/20 08:59 DAILY [facility] Atorvastatin Calcium 40 mg 09/22/20 09:00 Atorvastatin 40mg Tablet PO 10/22/20 08:59 DAILY [facility] Atorvastatin
[2020-09-21 13:11] LABS: Basophils % 0.7 % (0.1-2.0); Eosinophils # 0.1 K/mm3 (0.0-0.4); Eosinophils % 1.9 % (0.1-12.0); Hematocrit 47.6 % (37.0-47.0); Hemoglobin 15.7 g/dL (12.2-16.2); Lymphocytes # 2.3 K/mm3 (0.7-4.5); Mean Corpuscular Hemoglobin 30.4 pg (27.0-31.2); Mean Corpuscular Volume 92.2 fl (81-99); Mean Platelet Volume 9.5 fl (7.4-10.4); Monocytes # 0.3 K/mm3 (0.1-1.0); Monocytes % 5.3 % (1.7-9.3); Neutrophils # 3.7 K/mm3 (1.8-7.8); Neutrophils % 57.1 % (37.0-80.0); Platelet Count 207 K/mm3 (142-424); Red Blood Count 5.17 M/mm3 (4.20-5.40); Red Cell Distribution Width 13.5 % (11.5-17.5); White Blood Count 6.4 K/mm3 (4.8-10.8)
[2020-09-21 14:02] LABS: Chloride 95 mmol/L (98-107); Potassium 4.9 mmoL/L (3.5-5.1); Sodium 136 mmol/L (136-145)
[2020-09-21 14:05] LABS: Blood Urea Nitrogen 17 mg/dl (7-17); Creatinine Clearance Estimated 89 mL/min (50-200); Estimated Glomerular Filt Rate 125 ml/min (>60); GFR (African American) 152 ML/MIN (>60)
[2020-09-21 14:06] LABS: Anion Gap 16.9 mEq/L (5-15); Calcium 9.9 mg/dl (8.4-10.2); Carbon Dioxide 29 mmol/L (22.0-30.0)
[2020-09-21 14:10] LABS: Glucose 568 mg/dl (74-100)
[2020-09-21 15:48] LABS: VBG Base Excess -0.5 mmol/L (-2.4-2.3); VBG HCO3 26.1 mmol/L (23-30); VBG Oxygen Saturation 61.1 % (50-70); VBG PH 7.28 mmol/L (7.31-7.41); VBG PO2 33.8 mmol/L (28-40); VBG Total CO2 27.9 mmol/L (23-27)
[2020-09-21 15:49] LABS: VBG PCO2 56.4 mmol/L (35-51)
--- NOTE | 2020-09-21 16:25 | PC.NURSE ---
patient FSBS recheck is 416
[2020-09-21 16:32] LABS: POC Glucose,Bedside 416 (70-110)
[2020-09-21 17:39] LABS: Coronavirus 19, PCR Not Detected (NotDetected); Influenza A, PCR Not Detected (NotDetected); Influenza B, PCR Not Detected (NotDetected)
--- NOTE | 2020-09-21 17:42 | PC.NURSE ---
HOUSE CALLED FOR BED
--- NOTE | 2020-09-21 18:03 | PC.NURSE ---
REPORT CALLED TO CHIN LOVE
--- NOTE | 2020-09-21 19:56 | HMH.HP ---
*Admission Date: 09/21/20 *Chief complaint: corry-umbilical cellulitis *History of present illness: Patient is a 60-year-old white female who sees our office, primarily Carolina Dsouza. She was seen in the urgent care center previously for increasing redness around her umbilical area. She was initially treated for a Nila infection. The redness and tenderness progressed and she presented again for reevaluation. This included a CT of the abdomen. On examination she has a fairly large periumbilical hernia with some redness and overlying cellulitis. There is no diffuse abdominal tenderness. Patient is a longstanding diabetic. She has been less than compliant with her regimen. 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 I suspect that administration has been somewhat erratic. Her blood sugars are markedly elevated. Patient has a history of coronary artery disease, stent deployment x4. She has episodic palpitations. She is followed by [facility] but has not been seen recently. She has peripheral neuropathy. 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 Spent some time discussing the importance of tight glucose control. We will emphasize this in the office following her discharge from here. [facility] History Medical History: Reports:: Atherosclerotic Heart Disease, Chronic Obstructive Pulmonary Disease (COPD), Coronary Artery Disease, Diabetes Mellitus Type 2, Gastroesophageal Reflux Disease(GERD), Hiatal Hernia, Hyperlipidemia, Hypertension, Kidney Stones, Myocardial Infarction Denies:: Cancer, Deep Vein Thrombosis, Diabetes Mellitus Type 1, Internal Pacemaker, MRSA, Pulmonary Embolism, Seizures, Transient Ischemic Attacks (TIA) *Have you ever received a pneumonia vaccine?: Yes *Have you received a flu vaccine this season?: Yes Other Medical History: Reports: Arthritis, Hypothyroidism. Denies: Blood Transfusion Reaction, Thyroid Disease Other Surgeries: Yes: Cardiac Catheterization, Colonoscopy, Coronary Stent, Hysterectomy-Total, Other. No: Pacemaker Amputation: No Fractures: No - *Social History Last grade of school completed: High school graduate Smoking Status: Former smoker Tobacco Type: cigarettes # Packs/Day (cigarettes): 1 Alcohol Intake: never Alcohol Intake Frequency:: other Substance Use Type: denies use *Occupational Status:: unemployed Housing: house Household Members: spouse *Travel in the last 8 weeks: None Family Hx:: No significant family history Review of Systems - Constitutional Reports weakness, Denies fever(s) - Eyes Reports blurry vision, Reports change in vision, Reports loss of vision - ENT Reports abnormal hearing - *Cardiovascular Reports rapid, pounding, or irregular heartbeat, Denies chest pain - *Respiratory Denies chest congestion - *Gastrointestinal Reports abdominal pain, Denies bloating, Denies black, tarry stools - *Genitourinary Denies difficulty starting urination - *Musculoskeletal Reports numbness - Integumentary/Breasts Reports new lesions, Denies yellowing of the skin - *Neurologic Reports numbness, Denies behavioral changes - Psychiatric Denies behavioral changes - Endocrine Reports increased urination - Hematologic/Lymphatic Denies easy bleeding, Denies easy bruising - Allergic/Immunologic Denies hives Meds Home Medications Medication Instructions Recorded Confirmed Type Pantoprazole Sodium [Protonix 40mg 40 mg PO QHS 03/16/19 09/21/20 History tablet] sertraline 50 mg tablet 50 mg PO DAILY #90 tab 05/22/19 09/21/20 Rx Amlodipine Besylate 2.5 mg PO DAILY 09/10/19 09/21/20 History cholecalciferol (vitamin D3) 25 See Rx Instructions .ROUTE 06/29/20 09/21/20 Rx mcg (1,000 unit) capsule .COMPLEX #90 cap albuterol sulfate 90 mcg/actuation 1 puff INHALATION Q6H PRN #18 g 08/12/20 09/21/20 Rx aerosol inhaler aspirin 81 mg tablet,delayed 81 mg PO DAILY #100 tab 08/12/20 09/21/20 Rx release atorvastatin 40
--- NOTE | 2020-09-21 20:45 | PC.NURSE ---
Ice water passed, trash pulled, and snack passed at this time
[2020-09-22 00:35] LABS: POC Glucose,Bedside 248 (70-110)
[2020-09-22 00:35] LABS: POC Glucose,Bedside 428 (70-110)
--- NOTE | 2020-09-22 03:16 | PC.NURSE ---
No acute changes this shift. Pt rested well all night. IV is patent. Admin meds per JUN. Pt is A/O x4. Room Air. Pt is able to make needs known to staff. VSS, call light within reach. No concerns at this time.
[2020-09-22 04:00] VITALS: BP 155/77; PULSE 94; RESP 16; TEMP 37.2; O2SAT 98
[2020-09-22 05:15] VITALS: BMI 37.5
--- NOTE | 2020-09-22 05:27 | PC.NURSE ---
ice water passed and trash pulled at this time
[2020-09-22 06:58] LABS: Chloride 101 mmol/L (98-107); Potassium 3.6 mmoL/L (3.5-5.1); Sodium 141 mmol/L (136-145)
[2020-09-22 07:00] LABS: Chol/HDL Ratio 6.8 (1-3.5); Cholesterol 291 mg/dl (140-200); HDL Cholesterol 43 mg/dl (40-60); Triglycerides 195 mg/dl (30-150); VLDL Cholesterol 39 mg/dL (0-40)
[2020-09-22 07:01] LABS: Anion Gap 15.6 mEq/L (5-15); Blood Urea Nitrogen 14 mg/dl (7-17); Carbon Dioxide 28 mmol/L (22.0-30.0); Creatinine Clearance Estimated 84 mL/min (50-200); Estimated Glomerular Filt Rate 162 ml/min (>60); GFR (African American) 196 ML/MIN (>60)
[2020-09-22 07:02] LABS: Calcium 9.4 mg/dl (8.4-10.2); Glucose 310 mg/dl (74-100)
[2020-09-22 07:25] VITALS: BP 157/88; PULSE 119; RESP 20; TEMP 37; O2SAT 97
--- NOTE | 2020-09-22 07:25 | HMH.PHAVTE ---
[facility] Pharmacy VTE Monitoring - Patient Demographics Admission date: 09/21/20 Report Date: 09/22/20 Time: 07:25 Allergies/Adverse Reactions: Patient Allergies venom-honey bee [BEE VENOM (HONEY BEE)] Allergy (Unknown, Verified 09/21/20 17:14) CHOCOLATE (FOOD) Allergy (Unknown, Uncoded 08/12/20 14:56) HYPER Height: 1.55 m Weight: 90.265 kg Patient Problems: Current Active Problems (Last Updated 05/09/19 @ 14:54 by Joselyn Oscar RN) Abdominal pain (Acute) Cellulitis (Acute) Omphalitis in adult (Acute) Renal insufficiency (Acute) Hypothyroidism (Acute) Coronary artery disease (Chronic) Stented coronary artery (Acute) Diabetes mellitus type 2 in obese (Chronic) Hypertensive disorder (Chronic) - VTE Risk Labs: VTE Related Lab Results Hgb 15.7 g/dL (12.2-16.2) 09/21/20 13:03 Hct 47.6 % (37.0-47.0) H 09/21/20 13:03 Plt Count 207 K/mm3 (142-424) 09/21/20 13:03 BUN 14 mg/dl (7-17) 09/22/20 06:29 Creatinine 0.40 mg/dl (0.52-1.04) L 09/22/20 06:29 Estimated Creat Clear 84 mL/min (50-200) 09/22/20 06:29 - Prophylaxis VTE Prophylaxis Ordered?: Yes Types of VTE Prophylaxis: IPCS Thigh High, Pharmacological Location of Applied Device: Bilateral Lower Extremeties Pharmacologic Type: Enoxaparin
[2020-09-22 07:32] LABS: Thyroid Stimulating Hormone 3.54 uIU/mL (0.465-4.68)
--- NOTE | 2020-09-22 07:36 | HMH.CNCARD ---
History of Present Illness Consult date: 09/22/20 Requesting physician: Zoran Vergara Consult reason: pre-op evaluation Chief complaint: Umbilical hernia, cellulitis Additional Medical History:: 1. CAD with prior [place] A. Inferolateral STEMI, 3 [place]AN[place] to Circ and LAD, 11/2016 B. LHC, 09/2018, CAD in 2.75 mm Diagonal artery, recommendation for medical therapy unless having recalcitrant angina C. Roverto myoview, 09/2019, No ischemia, EF 65%. 2. Diabetes mellitus type 2, poorly controlled A. Hgb A1c >14, 08/2020 3. Hyperlipidemia A. LDL 214, 09/2020 4. 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 Remote history of tobacco use A. COPD 6. Hypertension A. Echocardiogram, 05/2019, mild biatrial enlargement, normal LV size, mild concentric LVH, EF 55%, grade 1 diastolic dysfunction. No regional wall motion abnormalities. Mildly enlarged right ventricle with normal contractility. Mild MR and TR. 7. GERD History of present illness: 60-year-old white female with known coronary artery disease was admitted for umbilical pain and cellulitis. Work-up included CT of the abdomen revealing evidence of periumbilical hernia with plans for consideration of surgical repair. Cardiology has been consulted for evaluation for preop clearance. Patient was last seen in our office in September 2019 at which time she was having some slight chest discomfort and a stress test was ordered which showed no evidence of ischemia with normal ejection fraction. She does have a known diagonal artery with coronary disease that is best treated medically. Patient denies any chest pain at this time. Patient relates poorly controlled diabetes and a dislike for needles. Hemoglobin A1c last month was greater than 14. Blood sugar on admission was greater than 500. [facility] History Medical History: Reports:: Atherosclerotic Heart Disease, Chronic Obstructive Pulmonary Disease (COPD), Coronary Artery Disease, Diabetes Mellitus Type 2, Gastroesophageal Reflux Disease(GERD), Hiatal Hernia, Hyperlipidemia, Hypertension, Kidney Stones, Myocardial Infarction Denies:: Cancer, Deep Vein Thrombosis, Diabetes Mellitus Type 1, Internal Pacemaker, MRSA, Pulmonary Embolism, Seizures, Transient Ischemic Attacks (TIA) *Have you ever received a pneumonia vaccine?: Yes *Have you received a flu vaccine this season?: Yes Other Medical History: Reports: Arthritis, Hypothyroidism. Denies: Blood Transfusion Reaction, Thyroid Disease Other Surgeries: Yes: Cardiac Catheterization, Colonoscopy, Coronary Stent, Hysterectomy-Total, Other. No: Pacemaker Amputation: No Fractures: No - *Social History Last grade of school completed: High school graduate Smoking Status: Former smoker Tobacco Type: cigarettes # Packs/Day (cigarettes): 1 Alcohol Intake: never Alcohol Intake Frequency:: other Substance Use Type: denies use *Occupational Status:: unemployed Housing: house Household Members: spouse *Travel in the last 8 weeks: None Family Hx:: No significant family history Meds Home Medications Medication Instructions Recorded Confirmed Type Pantoprazole Sodium [Protonix 40mg 40 mg PO QHS 03/16/19 09/21/20 History tablet] sertraline 50 mg tablet 50 mg PO DAILY #90 tab 05/22/19 09/21/20 Rx Amlodipine Besylate 2.5 mg PO DAILY 09/10/19 09/21/20 History cholecalciferol (vitamin D3) 25 See Rx Instructions .ROUTE 06/29/20 09/21/20 Rx mcg (1,000 unit) capsule .COMPLEX #90 cap albuterol sulfate 90 mcg/actuation 1 puff INHALATION Q6H PRN #18 g 08/12/20 09/21/20 Rx aerosol inhaler aspirin 81 mg tablet,delayed 81 mg PO DAILY #100 tab 08/12/20 09/21/20 Rx release atorvastatin 40 mg tablet 40 mg PO DAILY #90 tab 08/12/20 09/21/20 Rx bisoprolol fumarate 10 mg tablet 10 mg PO DAILY #90 tab 08/12/20 09/21/20 Rx clopidogrel 75 mg tablet 75 mg PO DAILY #90 tab 08/12/20 09/21/20 Rx lancets 33 gauge See Rx Instructions .ROUTE 08/12/20 09/21/20 Rx .MEDSUPPLY #100 each losartan 50 mg-hydrochlorothiazide 1
--- NOTE | 2020-09-22 07:58 | CA_ITS ---
APPROVED REPORT EXAM: Comprehensive 2D, Doppler, and color-flow Echocardiogram Wound Care Technician: JAYCE Garces, RVS Ht: 5 ft 1 in Wt: 199lbs BSA: 1.89 BP: 157/88 mmHg Indications: Hypokalemia, CAD, DD, HTN, COPD, HLD Diabetes Echo Enhancing Agent Comments: Poor acoustics throughout exam 2D Dimensions LVOT 1.83 cm (M/F) 1.5-2.5 LA Volume 46.80 mL LA Volume Index 24.80 mL/m2 (M/F) 16-34 M-Mode Dimensions RVDd 2.06 cm (0.9-2.6) LA Diam 3.63 cm (1.9-4.0) LVDd 4.48 cm (3.5-5.7) Ao Diam 2.95 cm (2.0-3.7) LVDs 2.50 cm (3.5-5.7) IVSd 0.89 cm (0.6-1.1) PWd 0.89 cm (0.6-1.1) EF (Teich) 75.60% EPSs 0.40 cm FS 44.20% EDV (Teich) 91.50 mL TAPSE 2.17 (<1.7) ESV (Teich) 22.30 mL LV Diastology E Decel Time 190.00 (160-240 msec) E/A Ratio 0.81 MED E' 7.80 (< 7 cm/sec) MED A' 11.30 cm/s E'/MED E' Ratio 11.12 (>14) LAT E' 11.10 (<10 cm/sec) LAT A' 13.20 cm/s E/LAT E' Ratio 7.81 (>14) Aortic Valve LVOT Max 125.00 (70-110 cm/s) LVOT VTI 22.73 cm AoV Peak Jayson. 172.00 (50-130 cm/s) AO Peak GR. 11.80 mmHg AO Mean GR. 6.50 (<5 mmHg) AO VTI 31.13 (18-25 cm) ASHLEIGH (VTI) 1.92 (2.5-4.5 cm2) Mitral Valve MV A Velocity 107.00 (40-130 cm/s) E/A Ratio 0.81 MV Decel. Time 190.00 (160-240 ms) Pulmonary Valve PV Peak Velocity 106.00 (50-150 cm/s) Tricuspid Valve TR P. Velocity 161.00 cm/s RAP Estimate 10.00 mmHg RVSP 20.40 mmHg Left Ventricle Left atrium is mildly enlarged, left ventricle is normal size, mild concentric left ventricular hypertrophy, visually estimated ejection fraction 55% with no regional wall motion abnormality, grade 1 diastolic dysfunction seen without tissue Doppler evidence of raise left atrial pressure. Right Ventricle Right atrium and right ventricle mildly enlarged with normal contractility. Aortic Valve Aortic valve is minimally thickened and fibrosed, there is no aortic stenosis or aortic insufficiency. Mitral Valve Mitral valve grossly normal, there is trace mitral regurgitation. Tricuspid Valve Tricuspid grossly normal, there is trace tricuspid regurgitation. Tricuspid rotation jet velocity is inadequate for calculation of the right ventricular systolic pressure. Pulmonic Valve Pulmonic valve is poorly visualized. Great Vessels Aortic root is normal size. Pericardium No significant pericardial effusion noted. Conclusion 1. Mild biatrial enlargement, normal left ventricular size, mild concentric left ventricular hypertrophy, visually estimated ejection fraction 55% with no regional wall motion abnormality, grade 1 diastolic dysfunction seen without tissue Doppler evidence of raise left atrial pressure. 2. Mildly enlarged right ventricle with normal contractility. 3. Trace mitral and tricuspid regurgitation. 4. No significant pericardial effusion noted. Electronically signed by : Maximilian Chan, 09/22/2020 21:12:37
[2020-09-22 08:01] LABS: Basophils % 0.5 % (0.1-2.0); Eosinophils # 0.1 K/mm3 (0.0-0.4); Eosinophils % 1.9 % (0.1-12.0); Hematocrit 44.3 % (37.0-47.0); Hemoglobin 14.7 g/dL (12.2-16.2); Lymphocytes # 2.2 K/mm3 (0.7-4.5); Lymphocytes % 32.4 % (10-50); Mean Corpuscular HGB Conc 33.1 g/dL (31.8-35.4); Mean Corpuscular Hemoglobin 30.8 pg (27.0-31.2); Mean Platelet Volume 9.5 fl (7.4-10.4); Monocytes # 0.5 K/mm3 (0.1-1.0); Monocytes % 7.3 % (1.7-9.3); Neutrophils # 3.9 K/mm3 (1.8-7.8); Platelet Count 204 K/mm3 (142-424); Red Blood Count 4.76 M/mm3 (4.20-5.40); Red Cell Distribution Width 13.6 % (11.5-17.5); White Blood Count 6.7 K/mm3 (4.8-10.8)
--- NOTE | 2020-09-22 08:43 | HMH.PHACONS ---
- Pharmacy Consult Date: 09/22/20 Time: 08:43 Referring provider: SEFERINO Reason for Consult:: VANCOMYCIN CONSULT Allergies and ADEs:: Allergies Allergy/AdvReac Type Severity Reaction Status Date / Time venom-honey bee Allergy Unknown Verified 09/21/20 17:14 [BEE VENOM (HONEY BEE)] CHOCOLATE (FOOD) Allergy Unknown HYPER Uncoded 08/12/20 14:56 Home Medications:: Home Medications Medication Instructions Recorded Confirmed Type Pantoprazole Sodium [Protonix 40mg 40 mg PO QHS 03/16/19 09/21/20 History tablet] sertraline 50 mg tablet 50 mg PO DAILY #90 tab 05/22/19 09/21/20 Rx Amlodipine Besylate 2.5 mg PO DAILY 09/10/19 09/21/20 History cholecalciferol (vitamin D3) 25 See Rx Instructions .ROUTE 06/29/20 09/21/20 Rx mcg (1,000 unit) capsule .COMPLEX #90 cap albuterol sulfate 90 mcg/actuation 1 puff INHALATION Q6H PRN #18 g 08/12/20 09/21/20 Rx aerosol inhaler aspirin 81 mg tablet,delayed 81 mg PO DAILY #100 tab 08/12/20 09/21/20 Rx release atorvastatin 40 mg tablet 40 mg PO DAILY #90 tab 08/12/20 09/21/20 Rx bisoprolol fumarate 10 mg tablet 10 mg PO DAILY #90 tab 08/12/20 09/21/20 Rx clopidogrel 75 mg tablet 75 mg PO DAILY #90 tab 08/12/20 09/21/20 Rx lancets 33 gauge See Rx Instructions .ROUTE 08/12/20 09/21/20 Rx .MEDSUPPLY #100 each losartan 50 mg-hydrochlorothiazide 1 tab PO DAILY #30 tab 08/12/20 09/21/20 Rx 12.5 mg tablet pen needle, diabetic 32 gauge x See Rx Instructions .ROUTE 08/12/20 09/21/20 Rx 5/16 .MEDSUPPLY #100 each Glimepiride See Rx Instructions .ROUTE .COMPLEX 09/21/20 09/21/20 History Ipratropium/Albuterol Sulfate 1 puff INHALATION Q6H 09/21/20 09/21/20 History [Combivent Respimat] Levothyroxine Sodium [Synthroid See Rx Instructions .ROUTE .COMPLEX 09/21/20 09/21/20 History 25mcg (0.025mg) tablet] Pen Needle, Diabetic [Techlite Pen See Rx Instructions .ROUTE 09/21/20 09/21/20 History Needle] .MEDSUPPLY Venlafaxine HCl [Effexor Xr] 75 mg PO DAILY 09/21/20 09/21/20 History Height: 1.55 m Weight: 90.265 kg Laboratory Results:: Laboratory Results - last 24 hr 09/21/20 13:03: WBC 6.4, RBC 5.17, Hgb 15.7, Hct 47.6 H, MCV 92.2, MCH 30.4, MCHC 33.0, RDW 13.5, Plt Count 207, MPV 9.5, Neut % (Auto) 57.1, Lymph % (Auto) 35.0, [place] % (Auto) 5.3, Eos % (Auto) 1.9, Baso % (Auto) 0.7, Neut # (Auto) 3.7, Lymph # (Auto) 2.3, [place] # (Auto) 0.3, Eos # (Auto) 0.1, Baso # (Auto) 0.0 09/21/20 13:03: Sodium 136, Potassium 4.9, Chloride 95 L, Carbon Dioxide 29, Anion Gap 16.9 H, BUN 17, Creatinine 0.50 L, Estimated Creat Clear 89, Estimated GFR 125, Est GFR ( Amer) 152, Glucose 568 H*, Calcium 9.9 09/21/20 14:42: VBG pH 7.28 L, VBG pCO2 56.4 H, VBG pO2 33.8, VBG HCO3 26.1, VBG Total CO2 27.9 H, VBG O2 Saturation 61.1, VBG Base Excess -0.5 09/21/20 16:25: POC Glucose 416 H* 09/21/20 17:30: SARS-CoV-2 (PCR) Not detected, Influenza A Untype (PCR) Not detected, Influenza Type B (PCR) Not detected 09/21/20 18:34: POC Glucose 248 H 09/21/20 21:03: POC Glucose 428 H* 09/22/20 06:29: Sodium 141, Potassium 3.6 D, Chloride 101, Carbon Dioxide 28, Anion Gap 15.6 H, BUN 14, Creatinine 0.40 L, Estimated Creat Clear 84, Estimated GFR 162, Est GFR ( Amer) 196 D, Glucose 310 H D, Calcium 9.4, TSH 3.54 09/22/20 06:29: Triglycerides 195 H, Cholesterol 291 H, LDL Cholesterol Direct 214.58 H, VLDL Cholesterol 39, HDL Cholesterol 43, Cholesterol/HDL Ratio 6.8 H 09/22/20 07:48: WBC 6.7, RBC 4.76, Hgb 14.7, Hct 44.3, MCV 93.0, MCH 30.8, MCHC 33.1, RDW 13.6, Plt Count 204, MPV 9.5, Neut % (Auto) 58.0, Lymph % (Auto) 32.4, [place] % (Auto) 7.3, Eos % (Auto) 1.9, Baso % (Auto) 0.5, Neut # (Auto) 3.9, Lymph # (Auto) 2.2, [place] # (Auto) 0.5, Eos # (Auto) 0.1, Baso # (Auto) 0.0 Medical History: Reports:: Atherosclerotic Heart Disease, Chronic Obstructive Pulmonary Disease (COPD), Coronary Artery Disease, Diabetes Mellitus Type 2, Gastroesophageal Reflux Disease(GERD), Hiatal Hernia, Hyperlipidemia, Hypertensi
[2020-09-22 08:45] LABS: POC Glucose,Bedside 356 (70-110)
--- NOTE | 2020-09-22 11:49 | PC.NURSE ---
1104 - Called Dr. Da Silva's office to speak w/ physician, pt's FSBS is 475. Per SS nurse to call MD for additional orderes. 1136 - Charly Sutton called back @ this time, states to given 20 units of humalog SQ.
[2020-09-22 12:10] LABS: POC Glucose,Bedside 475 (70-110)
[2020-09-22 15:10] VITALS: BP 114/67; PULSE 72; RESP 17; TEMP 36.7; O2SAT 96
--- NOTE | 2020-09-22 15:46 | HMH.GSCON ---
*Admission Date: 09/21/20 *Reason for consult:: Umbilical hernia *History of present illness: Patient is a 60-year-old diabetic female. She states that for about a month she has had some irritation and redness at her umbilical area. She had been treated for skin infection with topical therapy. She presented to the emergency department yesterday and was admitted for inpatient management. Surgical consultation was obtained. Review of Systems - Review of Systems Review of systems:: pertinent systems reviewed and negative unless documented below - *Neurologic Reports abnormal hearing, Reports loss of vision, Reports numbness, Reports weakness, Denies behavioral changes [facility] History I have reviewed the patient's past medical history: Yes Medical History: Reports:: Atherosclerotic Heart Disease, Chronic Obstructive Pulmonary Disease (COPD), Coronary Artery Disease, Diabetes Mellitus Type 2, Gastroesophageal Reflux Disease(GERD), Hiatal Hernia, Hyperlipidemia, Hypertension, Kidney Stones, Myocardial Infarction Denies:: Cancer, Deep Vein Thrombosis, Diabetes Mellitus Type 1, Internal Pacemaker, MRSA, Pulmonary Embolism, Seizures, Transient Ischemic Attacks (TIA) *Have you ever received a pneumonia vaccine?: Yes *Have you received a flu vaccine this season?: Yes Other Medical History: Reports: Arthritis, Hypothyroidism. Denies: Blood Transfusion Reaction, Thyroid Disease Other Surgeries: Yes: Cardiac Catheterization, Colonoscopy, Coronary Stent, Hysterectomy-Total, Other. No: Pacemaker Amputation: No Fractures: No - *Social History Last grade of school completed: High school graduate Smoking Status: Former smoker Tobacco Type: cigarettes # Packs/Day (cigarettes): 1 Alcohol Intake: never Alcohol Intake Frequency:: other Substance Use Type: denies use *Occupational Status:: unemployed Housing: house Household Members: spouse *Travel in the last 8 weeks: None Family Hx:: No significant family history Meds Home Medications Medication Instructions Recorded Confirmed Type Pantoprazole Sodium [Protonix 40mg 40 mg PO QHS 03/16/19 09/21/20 History tablet] sertraline 50 mg tablet 50 mg PO DAILY #90 tab 05/22/19 09/21/20 Rx cholecalciferol (vitamin D3) 25 See Rx Instructions .ROUTE 06/29/20 09/22/20 Rx mcg (1,000 unit) capsule .COMPLEX #90 cap aspirin 81 mg tablet,delayed 81 mg PO DAILY #100 tab 08/12/20 09/21/20 Rx release atorvastatin 40 mg tablet 40 mg PO DAILY #90 tab 08/12/20 09/21/20 Rx bisoprolol fumarate 10 mg tablet 10 mg PO DAILY #90 tab 08/12/20 09/21/20 Rx clopidogrel 75 mg tablet 75 mg PO DAILY #90 tab 08/12/20 09/21/20 Rx losartan 50 mg-hydrochlorothiazide 1 tab PO DAILY #30 tab 08/12/20 09/21/20 Rx 12.5 mg tablet Glimepiride 1 tab PO DAILY 09/21/20 09/22/20 History Ipratropium/Albuterol Sulfate 1 puff INHALATION Q6H 09/21/20 09/21/20 History [Combivent Respimat] Levothyroxine Sodium [Synthroid 1 tab PO DAILY 09/21/20 09/22/20 History 25mcg (0.025mg) tablet] Venlafaxine HCl [Effexor Xr] 75 mg PO DAILY 09/21/20 09/21/20 History Allergies Allergy/AdvReac Type Severity Reaction Status Date / Time venom-honey bee Allergy Unknown Verified 09/21/20 17:14 [BEE VENOM (HONEY BEE)] CHOCOLATE (FOOD) Allergy Unknown HYPER Uncoded 08/12/20 14:56 Exam Vital signs and Labs for Last 24 Hours: Temp Pulse Resp BP Pulse Ox 98.1 F 72 17 114/67 96 09/22/20 15:10 09/22/20 15:10 09/22/20 15:10 09/22/20 15:10 09/22/20 15:10 Laboratory Results - last 24 hr 09/21/20 14:42: VBG pH 7.28 L, VBG pCO2 56.4 H, VBG pO2 33.8, VBG HCO3 26.1, VBG Total CO2 27.9 H, VBG O2 Saturation 61.1, VBG Base Excess -0.5 09/21/20 16:25: POC Glucose 416 H* 09/21/20 17:30: SARS-CoV-2 (PCR) Not detected, Influenza A Untype (PCR) Not detected, Influenza Type B (PCR) Not detected 09/21/20 18:34: POC Glucose 248 H 09/21/20 21:03: POC Glucose 428 H* 09/22/20 05:10: POC Glucose 356 H* 09/22/20 06:29: Sodium 141, P
--- NOTE | 2020-09-22 16:03 | HMH.DCSUM ---
General - General Admission date:: 09/21/20 Discharge date: 09/22/20 HPI HPI: Patient is a 60-year-old white female who sees our office, primarily Carolina Dsouza. She was seen in the urgent care center previously for increasing redness around her umbilical area. She was initially treated for a Nila infection. The redness and tenderness progressed and she presented again for reevaluation. This included a CT of the abdomen. On examination she has a fairly large periumbilical hernia with some redness and overlying cellulitis. There is no diffuse abdominal tenderness. Patient is a longstanding diabetic. She has been less than compliant with her regimen. 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 I suspect that administration has been somewhat erratic. Her blood sugars are markedly elevated. Patient has a history of coronary artery disease, stent deployment x4. She has episodic palpitations. She is followed by [facility] but has not been seen recently. She has peripheral neuropathy. 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 Spent some time discussing the importance of tight glucose control. We will emphasize this in the office following her discharge from here. Hospital Course Hospital Course: Patient is a 60-year-old white female who sees our office, primarily Carolina Dsouza. She was seen in the urgent care center previously for increasing redness around her umbilical area. She was initially treated for a Nila infection. The redness and tenderness progressed and she presented again for reevaluation. This included a CT of the abdomen. On examination she has a fairly large periumbilical hernia with some redness and overlying cellulitis. There is no diffuse abdominal tenderness. Patient is a longstanding diabetic. She has been less than compliant with her regimen. 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 I suspect that administration has been somewhat erratic. Her blood sugars are markedly elevated. Patient has a history of coronary artery disease, stent deployment x4. She has episodic palpitations. She is followed by [facility] but has not been seen recently. She has peripheral neuropathy. She has loss of vision in the right eye. Spent some time discussing the importance of tight glucose control. We will emphasize this in the office following her discharge from here. 09/21/20 Abd/Pelvis CT: FINDINGS: LOWER THORAX: There are 2 nodular opacities in the fissural region on the right the region of the major fissure each measuring 3 mm. Coronary artery calcifications and/or stents noted. ABDOMEN & PELVIS: Mild fatty liver. The gallbladder, spleen, adrenal glands, and pancreas have an unremarkable appearance. No renal or ureteral calculi. No hydronephrosis. There is a 1.5 cm left renal cyst. No intestinal obstruction or free air. There is a mild amount of retained colonic feces. No evidence of appendicitis. No evidence of diverticulitis. There has been a prior hysterectomy. There is an umbilical hernia which contains fat. There is increased density of the fat within the hernia and just deep to the hernia with some fluid density along the lower and anterior aspect of the hernia. There is also mild thickening of the subcutaneous fat at the region of the hernia. The hernia orifice measures approximately 1.9 cm in with previously measuring 1.2 cm in with. No abscess apparent. Degenerative changes are present in the lower thoracic spine. IMPRESSION: There is a small umbilical hernia containing fat and a small amount of fluid. There is increased density of the fat within the hernia and just deep to the hernia within the anterior peritoneal region. There is mild stranding of the subcutaneous fat adjacent to the hernia. Cellulitis/omphalitis is considered. The increased density of the fat within the he
[2020-09-22 17:31] LABS: POC Glucose,Bedside 281 (70-110)
--- NOTE | 2020-09-22 17:38 | PC.NURSE ---
DC paperwork reviewed w/ pt, verbalized understanding. Pt educated on diabetic diet and monitoring of blood glucose, pt did have questions and they were answered appropriately. Pt states she does have a glucometer @ home to monitor FSBS. Family member present @ bedside during discharge instructions, no further questions.
[2020-09-22 18:34] LABS: Hemoglobin A1C > 14.0 % (4.0-6.0)
== END 2020-09-22 17:38 | disposition home or self-care (01) ==
LOC: UTC 10:55 → ER 12:48 → 2ND 18:40
PROVIDERS: Admitting Provider Family Medicine; Emergency Provider Family Medicine; PCP Physician Assistant; Visit Provider Emergency Medicine
DX: K42.0 Umbilical hernia with obstruction, without gangrene (principal); L03.316 Cellulitis of umbilicus; L08.82 Omphalitis not of newborn; E11.9 Type 2 diabetes mellitus without complications; I25.10 Atherosclerotic heart disease of native coronary artery without angina pectoris; Z95.5 Presence of coronary angioplasty implant and graft; K21.9 Gastro-esophageal reflux disease without esophagitis; Z79.84 Long term (current) use of oral hypoglycemic drugs; I25.2 Old myocardial infarction; I10 Essential (primary) hypertension; E78.5 Hyperlipidemia, unspecified; Z79.899 Other long term (current) drug therapy; E03.9 Hypothyroidism, unspecified; Z79.01 Long term (current) use of anticoagulants
CPT/HCPCS: 36415; 74177; 80048; 80061; 82803; 82962; 83036; 84443; 85025; 93306; 96365; 96366; 96372; 99284; G0378; J3370; Q9967; U0003

== ENCOUNTER → 2020-12-28 15:11 | Outpatient (CLI) | payer OTHER, SELFPAY ==
[2020-12-28 15:25] LABS: Chloride 99 mmol/L (98-107); Sodium 138 mmol/L (136-145)
[2020-12-28 15:26] LABS: Potassium 4.8 mmoL/L (3.5-5.1)
[2020-12-28 15:27] LABS: Basophils # 0.1 K/mm3 (0-0.2); Basophils % 0.6 % (0.1-2.0); Eosinophils # 0.2 K/mm3 (0.0-0.4); Hematocrit 51.3 % (37.0-47.0); Lymphocytes # 1.9 K/mm3 (0.7-4.5); Lymphocytes % 26.4 % (10-50); Mean Corpuscular HGB Conc 31.2 g/dL (31.8-35.4); Mean Corpuscular Hemoglobin 29.3 pg (27.0-31.2); Mean Corpuscular Volume 93.9 fl (81-99); Mean Platelet Volume 9.7 fl (7.4-10.4); Monocytes # 0.4 K/mm3 (0.1-1.0); Monocytes % 5.4 % (1.7-9.3); Neutrophils # 4.7 K/mm3 (1.8-7.8); Neutrophils % 64.5 % (37.0-80.0); Platelet Count 269 K/mm3 (142-424); Red Blood Count 5.46 M/mm3 (4.20-5.40); Red Cell Distribution Width 13.3 % (11.5-17.5); White Blood Count 7.3 K/mm3 (4.8-10.8)
[2020-12-28 15:28] LABS: Alanine Aminotransferase 58 U/L (12-78); Alkaline Phosphatase 124 U/L (38-126); Anion Gap 13.8 mEq/L (5-15); Aspartate Amino Transferase 48 U/L (14-36); Bilirubin,Total 0.3 mg/dl (0.2-1.3); Blood Urea Nitrogen 23 mg/dl (7-17); Carbon Dioxide 30 mmol/L (22.0-30.0); Cholesterol 187 mg/dl (140-200); Estimated Glomerular Filt Rate 125 ml/min (>60); GFR (African American) 152 ML/MIN (>60); Triglycerides 108 mg/dl (30-150); VLDL Cholesterol 22 mg/dL (0-40)
[2020-12-28 15:29] LABS: Albumin Level 4.3 g/dl (3.5-5.0); Albumin/Globulin Ratio 1.4 (1.1-1.8); Chol/HDL Ratio 3.4 (1-3.5); Globulin 3.1 g/dL (1.3-3.2); Glucose 288 mg/dl (74-100); HDL Cholesterol 55 mg/dl (40-60); Total Protein,Serum 7.4 g/dl (6.3-8.2)
[2020-12-28 15:40] LABS: Direct LDL Cholesterol 103.05 mg/dL (100-129)
[2020-12-28 16:00] LABS: Thyroid Stimulating Hormone 2.34 uIU/mL (0.465-4.68)
[2020-12-28 20:55] LABS: Hemoglobin A1C > 14.0 % (4.0-6.0)
== END ==
PROVIDERS: Visit Provider Nurse Practitioner Family
DX: E03.9 Hypothyroidism, unspecified (principal); E11.69 Type 2 diabetes mellitus with other specified complication; E66.9 Obesity, unspecified; E78.5 Hyperlipidemia, unspecified; I10 Essential (primary) hypertension; I25.10 Atherosclerotic heart disease of native coronary artery without angina pectoris; Z79.4 Long term (current) use of insulin; Z68.39 Body mass index [BMI] 39.0-39.9, adult
CPT/HCPCS: 80053; 80061; 82306; 83036; 84436; 84443; 85025

== ENCOUNTER → 2021-02-08 16:14 | Outpatient (CLI) | payer MEDICARE, OTHER, SELFPAY ==
--- NOTE | 2021-02-08 16:18 | XR_ITS ---
PROCEDURE: XR KNEE LT 3V CLINICAL INDICATION: pain COMPARISON: CR XR KNEE LT 3V from 08/12/2020 FINDINGS: No fracture or dislocation. No lytic or blastic change. There is normal mineralization. Minimal osteoarthritic change medial compartment and patellofemoral joint. Mild prepatellar soft tissue swelling. Overall no significant change from the previous study. Other findings:None. IMPRESSION: No change minimal osteoarthritis Dictated by: Jules Fuller MD 02/08/2021 17:26 Jules Fuller MD in [place] 02/08/2021 17:26
== END ==
PROVIDERS: PCP Physician Assistant; Visit Provider Nurse Practitioner Family
DX: M25.562 Pain in left knee (principal)
CPT/HCPCS: 73562

== ENCOUNTER 2021-04-01 16:27 | Emergency (ER) | payer MEDICARE, OTHER, SELFPAY ==
[2021-04-01 17:04] VITALS: BMI 42.5
[2021-04-01 17:13] LABS: Basophils # 0.1 K/mm3 (0-0.2); Basophils % 1.3 % (0.1-2.0); Eosinophils # 0.1 K/mm3 (0.0-0.4); Eosinophils % 1.9 % (0.1-12.0); Hematocrit 48.5 % (37.0-47.0); Hemoglobin 15.4 g/dL (12.2-16.2); Lymphocytes # 2.2 K/mm3 (0.7-4.5); Lymphocytes % 30.9 % (10-50); Mean Corpuscular HGB Conc 31.8 g/dL (31.8-35.4); Mean Corpuscular Hemoglobin 28.6 pg (27.0-31.2); Mean Corpuscular Volume 90.1 fl (81-99); Mean Platelet Volume 9.2 fl (7.4-10.4); Monocytes # 0.5 K/mm3 (0.1-1.0); Monocytes % 6.5 % (1.7-9.3); Neutrophils # 4.3 K/mm3 (1.8-7.8); Neutrophils % 59.4 % (37.0-80.0); Platelet Count 222 K/mm3 (142-424); Red Blood Count 5.39 M/mm3 (4.20-5.40); White Blood Count 7.2 K/mm3 (4.8-10.8)
--- NOTE | 2021-04-01 17:15 | CT_ITS ---
PROCEDURE INFORMATION: Exam: CT Head Without Contrast Exam date and time: 04/01/2021 5:15 PM Age: 60 years old Clinical indication: Weakness, extremity; Right; Additional info: Stroke TECHNIQUE: Imaging protocol: Computed tomography of the head without contrast. Radiation optimization: All CT scans at this facility use at least one of these dose optimization techniques: automated exposure control; mA and/or kV adjustment per patient size (includes targeted exams where dose is matched to clinical indication); or iterative reconstruction. Other technique: STROKE PROTOCOL was implemented. COMPARISON: No relevant prior studies available. FINDINGS: Brain: Normal. No hemorrhage. Unremarkable white matter. No mass effect. Cerebral ventricles: No ventriculomegaly. Paranasal sinuses: Visualized sinuses are unremarkable. No fluid levels. Mastoid air cells: Visualized mastoid air cells are well aerated. Bones/joints: Unremarkable. No acute fracture. Soft tissues: Unremarkable. IMPRESSION: No acute intracranial abnormality. ASSESSMENT: ASPECTS ([place] Stroke Program Early CT Score) is 10.
--- NOTE | 2021-04-01 17:16 | CT_ITS ---
PROCEDURE INFORMATION: Exam: CT Angiography Head With Contrast, Arteriography Exam date and time: 04/01/2021 5:16 PM Age: 60 years old Clinical indication: Weakness; Additional info: Stroke TECHNIQUE: Imaging protocol: Computed tomography angiography of the head with contrast. Exam focused on the arteries. 3D rendering (Not supervised by radiologist): MIP and/or 3D reconstructed images were created by the technologist. Radiation optimization: All CT scans at this facility use at least one of these dose optimization techniques: automated exposure control; mA and/or kV adjustment per patient size (includes targeted exams where dose is matched to clinical indication); or iterative reconstruction. Contrast material: ISOVUE 370; Contrast volume: 100 ml; Contrast route: INTRAVENOUS (IV); COMPARISON: CT HEAD/BRAIN WO CON 04/01/2021 5:52 PM FINDINGS: ANTERIOR CIRCULATION: Right internal carotid artery: Unremarkable. Intracranial segment is patent with no significant stenosis. No aneurysm. Right middle cerebral artery: Unremarkable. No occlusion or significant stenosis. No aneurysm. Right anterior cerebral artery: Unremarkable. No occlusion or significant stenosis. No aneurysm. Left internal carotid artery: Unremarkable. Intracranial segment is patent with no significant stenosis. No aneurysm. Left middle cerebral artery: Unremarkable. No occlusion or significant stenosis. No aneurysm. Left anterior cerebral artery: Unremarkable. No occlusion or significant stenosis. No aneurysm. POSTERIOR CIRCULATION: Right vertebral artery: Unremarkable. No occlusion or significant stenosis. No aneurysm. Left vertebral artery: Unremarkable. No occlusion or significant stenosis. No aneurysm. Basilar artery: Unremarkable. No occlusion or significant stenosis. No aneurysm. Right posterior cerebral artery: Unremarkable. No occlusion or significant stenosis. No aneurysm. Left posterior cerebral artery: Unremarkable. No occlusion or significant stenosis. No aneurysm. Brain: No definite mass, mass effect, or midline shift. Cerebral ventricles: No ventriculomegaly. Bones/joints: Unremarkable. No acute fracture. Soft tissues: Unremarkable. IMPRESSION: No large vessel stenosis or occlusion.
--- NOTE | 2021-04-01 17:17 | CT_ITS ---
PROCEDURE INFORMATION: Exam: CT Angiography Neck With Contrast Exam date and time: 04/01/2021 5:17 PM Age: 60 years old Clinical indication: Weakness; Additional info: Stroke TECHNIQUE: Imaging protocol: Computed tomography angiography of the neck with contrast. 3D rendering (Not supervised by radiologist): MIP and/or 3D reconstructed images were created by the technologist. Radiation optimization: All CT scans at this facility use at least one of these dose optimization techniques: automated exposure control; mA and/or kV adjustment per patient size (includes targeted exams where dose is matched to clinical indication); or iterative reconstruction. Contrast material: ISOVUE 370; Contrast volume: 100 ml; Contrast route: INTRAVENOUS (IV); COMPARISON: CT HEAD/BRAIN WO CON 04/01/2021 5:52 PM FINDINGS: Right common carotid artery: No stenosis. No dissection or occlusion. Right internal carotid artery: No stenosis of the extracranial segment. No dissection or occlusion. Right external carotid artery: No occlusion or stenosis of the origin. Left common carotid artery: No stenosis. No dissection or occlusion. Left internal carotid artery: No stenosis of the extracranial segment. No dissection or occlusion. Left external carotid artery: No occlusion or stenosis of the origin. Right vertebral artery: No stenosis. No dissection or occlusion. Left vertebral artery: No stenosis. No dissection or occlusion. Soft tissues: Normal. No significant soft tissue swelling. Bones/joints: No acute fracture. IMPRESSION: No stenosis or occlusion. REFERENCES: NASCET CRITERIA. The degree of internal carotid artery stenosis is based on NASCET criteria. Normal is no stenosis. Mild is less than 50% stenosis. Moderate is 50-69% stenosis. Severe is 70% to 99% stenosis. Total occlusion is no detectable patent lumen.
[2021-04-01 17:18] LABS: Alanine Aminotransferase 44 U/L (12-78); Albumin Level 4.3 g/dl (3.5-5.0); Albumin/Globulin Ratio 1.4 (1.1-1.8); Alkaline Phosphatase 107 U/L (38-126); Anion Gap 13.1 mEq/L (5-15); Aspartate Amino Transferase 42 U/L (14-36); Bilirubin,Total 0.4 mg/dl (0.2-1.3); Blood Urea Nitrogen 24 mg/dl (7-17); Carbon Dioxide 28 mmol/L (22.0-30.0); Chloride 99 mmol/L (98-107); Creatinine Clearance Estimated 45 mL/min (50-200); Estimated Glomerular Filt Rate 102 ml/min (>60); GFR (African American) 123 ML/MIN (>60); Globulin 3.1 g/dL (1.3-3.2); Glucose 382 mg/dl (74-100); Potassium 4.1 mmoL/L (3.5-5.1); Sodium 136 mmol/L (136-145); Total Protein,Serum 7.4 g/dl (6.3-8.2)
[2021-04-01 17:59] VITALS: BP 148/98; PULSE 98; RESP 18; O2SAT 98; BMI 42.5
[2021-04-01 18:12] VITALS: BP 192/103; PULSE 97; O2SAT 94
[2021-04-01 18:31] VITALS: BP 189/108; PULSE 105; O2SAT 95
--- NOTE | 2021-04-01 18:41 | HMH.EDWEAK ---
ED Disposition Clinical Impression: Weakness Disposition: Home, Self-Care Condition on Discharge: Good Instructions: DI for Muscle Weakness Additional Instructions: Please follow up with your primary care physician in 2-3 days for further management and MRI. Please continue to monitor your symptoms closely, if numbness, weakness, new visual changes, speech difficulties, difficulty ambulating or any other concerning symptoms occur please return back to emergency department. Referrals: Antonia Hendrickson APRN [Primary Care Provider] - Time of Disposition: 19:40 - Critical Care Critical Care Time: No Attestation: On 04/01/21, the high probability of a clinically significant, sudden or life threatening deterioration of the following system(s) required my full and direct attention, intervention and personal management. The time I documented below is in addition to time spent performing reported procedures but includes the following listed in this critical care notation. Medical Decision Making - Medical Records Medical records reviewed: Yes: I reviewed the patient's medical records. - Dewayne Inquiry Pt receiving controlled substance: No Vital Signs: 04/01/21 17:59 04/01/21 18:12 04/01/21 18:31 Temperature Temperature Source Pulse Rate 97 H 105 H Pulse Rate [Right Radial] 98 H Respiratory Rate 18 Blood Pressure 192/103 H 189/108 H Blood Pressure [Right Arm] 148/98 H Blood Pressure Mean [Right Arm] 114 Blood Pressure Source [Right Arm] Automatic Cuff Blood Pressure Position [Right Arm] Sitting 02 Sat by Pulse Oximetry 98 94 L 95 Oxygen Delivery Method Room Air 04/01/21 18:55 Temperature 98.7 F Temperature Source Oral Pulse Rate 105 H Pulse Rate [Right Radial] Respiratory Rate 18 Blood Pressure 186/100 H Blood Pressure [Right Arm] Blood Pressure Mean [Right Arm] Blood Pressure Source [Right Arm] Blood Pressure Position [Right Arm] 02 Sat by Pulse Oximetry Oxygen Delivery Method Room Air - Lab Data Lab results reviewed: Yes: I reviewed the patient's lab results. Lab Results 04/01/21 16:50: WBC 7.2, RBC 5.39, Hgb 15.4, Hct 48.5 H, MCV 90.1, MCH 28.6, MCHC 31.8, RDW 14.0, Plt Count 222, MPV 9.2, Neut % (Auto) 59.4, Lymph % (Auto) 30.9, Quay % (Auto) 6.5, Eos % (Auto) 1.9, Baso % (Auto) 1.3, Neut # (Auto) 4.3, Lymph # (Auto) 2.2, Quay # (Auto) 0.5, Eos # (Auto) 0.1, Baso # (Auto) 0.1 04/01/21 16:50: Sodium 136, Potassium 4.1, Chloride 99, Carbon Dioxide 28, Anion Gap 13.1, BUN 24 H, Creatinine 0.60, Estimated Creat Clear 45, Estimated GFR 102, Est GFR ( Amer) 123, Glucose 382 H, Calcium 10.0, Total Bilirubin 0.4, AST 42 H, ALT 44, Alkaline Phosphatase 107, Total Protein 7.4, Albumin 4.3, Globulin 3.1, Albumin/Globulin Ratio 1.4 Result diagrams: 04/01/21 16:50 04/01/21 16:50 Orders (Tests/Meds): ED MEDICATIONS Discontinued Medications Generic Name Dose Route Start Last Admin Trade Name Freq PRN Reason Stop Dose Admin Iopamidol 70 ml 04/01/21 18:03 04/01/21 18:04 Iopamidol-370 (76%);100ml Bottle IV 04/01/21 18:04 70 ml ONCE ONE Administration Sodium Chloride 40 ml 04/01/21 18:03 04/01/21 18:04 0.9 % Sodium Chloride 50 Ml Vial IV 04/01/21 18:04 40 ml ONCE ONE Administration Sodium Chloride 10 ml 04/01/21 18:03 04/01/21 18:04 Sodium Chloride 0.9% 10ml Syr (Rad Only) IV 04/01/21 18:04 10 ml ONCE ONE Administration Medical Decision Narrative: Miss Wright is a 60 yo female w/ no significant PMH who presents to the ED for evaluation of weakness, worse in RLE. Patient is neurovascularly intact and hemodynamically stable on arrival. Physical exam benign. No focal deficits on exam. Visual aquity in tact. No gait abnormalities. Differentials to consider but not limited to include: CVA, metabolic/electrolte derangement, peripheral neuropathy. Basic labs are remarkable for no significant electrolte abnormality. CT head and CTA head and
[2021-04-01 18:55] VITALS: BP 186/100; PULSE 105; RESP 18; TEMP 37.1; O2SAT 98
== END 2021-04-01 18:58 | disposition home or self-care (01) ==
PROVIDERS: Emergency Provider Student in an Organized Health Care Education/Training Program; PCP Nurse Practitioner Family
DX: R20.2 Paresthesia of skin (principal); R53.1 Weakness; E11.9 Type 2 diabetes mellitus without complications; I25.2 Old myocardial infarction; E03.9 Hypothyroidism, unspecified; I25.10 Atherosclerotic heart disease of native coronary artery without angina pectoris; J44.9 Chronic obstructive pulmonary disease, unspecified; K21.9 Gastro-esophageal reflux disease without esophagitis; E78.5 Hyperlipidemia, unspecified; I10 Essential (primary) hypertension; Z87.891 Personal history of nicotine dependence; Z79.899 Other long term (current) drug therapy
CPT/HCPCS: 70450; 70496; 70498; 80053; 85025; 99283; Q9967

== ENCOUNTER → 2021-07-19 07:18 | Outpatient (CLI) | payer MEDICARE, OTHER, SELFPAY ==
--- NOTE | 2021-07-19 07:19 | NM_ITS ---
APPROVED REPORT Exam: Nuclear Stress Test Indication: Chest pain, SOB, HTN, CAD, High cholesterol, DM, Family history Patient Location: Outpatient Stress Tech: Chantal Castano [place] Tech:Norma Gaxiola, ARRT, RT (R)(N) Ht: 5 ft 1 in Wt: 224 lbs Bra Size: 38DD HR: 94 bpm BP: 154/104 mmHg BSA: 1.98 m2 BMI: 42.3 History: Chest pain, SOB, HTN, CAD, High cholesterol, DM, Family history Procedure: Patient received a 0.4 mg of intravenous Lexiscan, resting heart rate 94 bpm, resting blood pressure 154/104 mmHg, with Lexiscan maximum heart rate achived was 105 bpm which is Less than 85 % of the maximum predicted heart rate and blood pressure was 169/78 mmHg. Electrocardiogram Resting electrocardiogram showed sinus rhythm, with Lexiscan there is less than 1.[address] segment depression noted from the baseline EKG. The EKG portion of the Lexiscan is nondiagnostic. Cardiac Stress and Resting SPECT Images: Cardiac Stress and Resting SPECT images were obtained using technetium 99m Myoview 29.4 mCi stress and 10.24 mCi at rest. Gated SPECT analysis of segmental wall motion and calculation of the ejection fraction also done. Prone images were also obtained. Cardiac stress and rest SPECT images show uniform myocardial activity without segmental perfusion abnormality, computer derived ejection fraction is over 65% with no regional wall motion abnormality, right ventricle is normal size and contractility. Conclusion: 1. The EKG portion of the Lexiscan is nondiagnostic. 2. No scintigraphic evidence of reversible ischemia seen, computer derived ejection fraction is over 65% with no regional wall motion abnormality, right ventricle is normal size and contractility. 3. Normal Lexiscan Myoview study. Electronically signed by : Maximilian Chan MD 07/19/2021 18:04:18
--- NOTE | 2021-07-19 07:38 | CA_ITS ---
APPROVED REPORT EXAM: Comprehensive 2D, Doppler, and color-flow Echocardiogram Drawer In: Haylie Barron RVT Ht: 5 ft 1 in Wt: 227lbs BSA: 1.99 BP: 180/88 mmHg Indications: CP,DD,GERD,CAD,DM,HTN,HLD,COPD TDS-PT BODY HABITUS,OVERLAYING LUNG 2D Dimensions LVOT 2.09 cm (M/F) 1.5-2.5 LA Volume 18.30 mL LA Volume Index 9.19 mL/m2 (M/F) 16-34 M-Mode Dimensions RVDd 2.80 cm (0.9-2.6) LA Diam 3.43 cm (1.9-4.0) LVDd 4.04 cm (3.5-5.7) Ao Diam 2.97 cm (2.0-3.7) LVDs 2.60 cm (3.5-5.7) IVSd 1.08 cm (0.6-1.1) PWd 0.68 cm (0.6-1.1) EF (Teich) 65.70% FS 35.60% EDV (Teich) 71.70 mL TAPSE 2.13 (<1.7) ESV (Teich) 24.60 mL LV Diastology E Decel Time 150.00 (160-240 msec) E/A Ratio 0.8 MED E' 6.70 (< 7 cm/sec) E'/MED E' Ratio 10.88 (>14) LAT E' 8.60 (<10 cm/sec) E/LAT E' Ratio 8.48 (>14) Aortic Valve AO Peak GR. 4.80 mmHg Mitral Valve MV E Max Jayson. 73.00 (40-130 cm/s) MV A Velocity 89.00 (40-130 cm/s) E/A Ratio 0.82 MV Decel. Time 150.00 (160-240 ms) MV PHT 44.00 ms Pulmonary Valve PV Peak Velocity 101.00 (50-150 cm/s) Left Ventricle Left atrium is mildly enlarged, left ventricle is normal size, mild concentric left ventricular hypertrophy, estimated ejection fraction 55% with no regional wall motion abnormality, grade 1 diastolic dysfunction seen without tissue Doppler evidence of raise left atrial pressure. Right Ventricle Right atrium and right ventricle mildly enlarged with normal contractility. Aortic Valve Aortic valve is minimally thickened and fibrosed there is no aortic stenosis or aortic insufficiency. Mitral Valve Mitral valve is grossly normal, there is trace mitral regurgitation. Tricuspid Valve Tricuspid valve grossly normal, there is trace tricuspid regurgitation, tricuspid regurgitation jet velocity is inadequate for calculation of the right ventricular systolic pressure. Pulmonic Valve Pulmonic valve is poorly visualized. Great Vessels Aortic root is normal size. Inferior vena cava is normal size with normal inspiratory collapse. Pericardium No significant pericardial effusion noted. Conclusion 1. Mild biatrial enlargement, normal left ventricular size, mild concentric left ventricular hypertrophy, estimated ejection fraction 55% with no regional wall motion abnormality, grade 1 diastolic dysfunction seen without tissue Doppler evidence of raised left atrial pressure. 2. Mildly enlarged right ventricle with normal contractility. 3. Trace mitral and tricuspid regurgitation. 4. No significant pericardial effusion noted. 5. Inferior vena cava normal size with normal inspiratory collapse. Electronically signed by : Maximilian Chan MD 07/19/2021 21:20:06
--- NOTE | 2021-07-19 09:35 | HMH.ITSHM ---
Current Home Medications as stated by this patient Georgia Wright or claims customer service representative. []SERTRALINE PANTOPRAZOLE OXYBUTYNIN METFORMIN ASA LOSARTAN INSULIN FLUTICASONE CLOPIDOGREL BISOPROLOL ATORVASTATIN IPRATROPIUM GLIMEPIRIDE
--- NOTE | 2021-07-19 10:15 | CA_ITS ---
APPROVED REPORT Exam: Pharmacologic Technologist: Chantal Gannon, Ht: 5 ft 1 in Wt: 227 lbs BSA: 1.99 m2 HR: 94 bpm BP: 154/104 mmHg Medical History Medications: Aspirin,,,,, Metformin,,,,, Pantoprazole,,,,, Glimepiride,,,,, Flonase,,,,, Duoneb,,,,, CloPIdogrel,,,,, Sertraline,,,,, OxYbutynin,,,,, Losartan HCTZ,,,,, AtorvaASTATIN,,,,, CHloride,,,,, Stress Test Details Test: LEXISCAN HR Resting HR: 97 bpm Max Heart Rate (APMHR): 158 bpm Max HR Achieved: 122 bpm Target HR (85% APMHR): 134 bpm % of APMHR: 77 Recovery HR: 99 bpm BP Resting BP: 154/104 mmHg Max BP: 169/78 mmHg Recovery BP: 158.0/85.0 mmHg ECG Clinical Exercise duration: 04:00 min Highest Stage Achieved: Stress ECG Conclusion Symptoms: dull aching chest pain & SOB with Lexiscan Arrhythmias/Ectopy: None ST-T Changes: <1.5mm ST Segment changes Conclusion: The EKG portion of the Lexiscan is nondiagnostic. Electronically signed by : Maximilian Chan MD 07/19/2021 17:58:25
== END ==
PROVIDERS: PCP Nurse Practitioner Family; Visit Provider Internal Medicine Cardiovascular Disease
DX: E78.2 Mixed hyperlipidemia (principal); I10 Essential (primary) hypertension; I20.9 Angina pectoris, unspecified; I25.10 Atherosclerotic heart disease of native coronary artery without angina pectoris; I51.89 Other ill-defined heart diseases; R06.09 Other forms of dyspnea
CPT/HCPCS: 78452; 93017; 93306; A9502; J2785

== ENCOUNTER → 2021-07-23 10:19 | Outpatient (CLI) | payer MEDICARE, OTHER, SELFPAY ==
[2021-07-23 11:27] LABS: Anion Gap 11.6 mEq/L (5-15); Blood Urea Nitrogen 31 mg/dl (7-17); Calcium 9.8 mg/dl (8.4-10.2); Carbon Dioxide 28 mmol/L (22.0-30.0); Chloride 102 mmol/L (98-107); Estimated Glomerular Filt Rate 85 ml/min (>60); GFR (African American) 103 ML/MIN (>60); Glucose 374 mg/dl (74-100); Potassium 4.6 mmoL/L (3.5-5.1); Sodium 137 mmol/L (136-145)
[2021-07-23 11:34] LABS: NT Pro Brain Natriuretic Pep. 40.8 pg/mL (0-125)
== END ==
PROVIDERS: Visit Provider Internal Medicine Cardiovascular Disease
DX: E78.2 Mixed hyperlipidemia (principal); I10 Essential (primary) hypertension; I20.9 Angina pectoris, unspecified; R06.09 Other forms of dyspnea
CPT/HCPCS: 36415; 80048; 83880

== ENCOUNTER → 2021-09-24 14:44 | Outpatient (CLI) | payer MEDICARE, OTHER, SELFPAY ==
[2021-09-24 15:35] LABS: Potassium 4.3 mmoL/L (3.5-5.1)
[2021-09-24 15:38] LABS: Blood Urea Nitrogen 19 mg/dl (7-17); Carbon Dioxide 30 mmol/L (22.0-30.0); Estimated Glomerular Filt Rate 125 ml/min (>60); GFR (African American) 151 ML/MIN (>60); Glucose 246 mg/dl (74-100)
[2021-09-24 15:39] LABS: Anion Gap 9.3 mEq/L (5-15); Chloride 103 mmol/L (98-107); Sodium 138 mmol/L (136-145)
[2021-09-24 15:40] LABS: Calcium 10.3 mg/dl (8.4-10.2)
[2021-09-24 15:56] LABS: Triiodothryronine (T3) Uptake 32 % (23.5-40.5)
[2021-09-24 15:57] LABS: Free Thyroxine Index 3.3 ug/dL (5.93-13.13); T4 (Thyroxine) 10.3 ug/dl (5.53-11.0)
[2021-09-24 16:11] LABS: Thyroid Stimulating Hormone 2.71 uIU/mL (0.465-4.68)
== END ==
PROVIDERS: PCP Emergency Medicine; Visit Provider Internal Medicine Cardiovascular Disease
DX: E11.69 Type 2 diabetes mellitus with other specified complication (principal); E66.9 Obesity, unspecified; E78.2 Mixed hyperlipidemia; F17.200 Nicotine dependence, unspecified, uncomplicated; I10 Essential (primary) hypertension; I25.10 Atherosclerotic heart disease of native coronary artery without angina pectoris; R06.09 Other forms of dyspnea; Z95.5 Presence of coronary angioplasty implant and graft; Z79.4 Long term (current) use of insulin; Z68.41 Body mass index [BMI] 40.0-44.9, adult
CPT/HCPCS: 36415; 80048; 84436; 84443; 84479

== ENCOUNTER → 2021-10-13 14:31 | Outpatient (CLI) | payer MEDICARE, OTHER, SELFPAY ==
[2021-10-18 12:07] LABS: C-Peptide 3.1 ng/mL (1.1-4.4)
== END ==
PROVIDERS: PCP Emergency Medicine; Visit Provider Emergency Medicine
DX: E11.69 Type 2 diabetes mellitus with other specified complication (principal); E66.9 Obesity, unspecified; Z79.4 Long term (current) use of insulin; Z68.41 Body mass index [BMI] 40.0-44.9, adult
CPT/HCPCS: 84681

== ENCOUNTER → 2021-11-24 06:36 | Outpatient (CLI) | payer MEDICARE, OTHER, SELFPAY ==
[2021-11-24 18:04] LABS: Alanine Aminotransferase 35 U/L (12-78); Albumin Level 3.9 g/dl (3.5-5.0); Albumin/Globulin Ratio 1.4 (1.1-1.8); Alkaline Phosphatase 142 U/L (38-126); Anion Gap 21.5 mEq/L (5-15); Aspartate Amino Transferase 36 U/L (14-36); Bilirubin,Total 0.5 mg/dl (0.2-1.3); Blood Urea Nitrogen 21 mg/dl (7-17); Calcium 9.2 mg/dl (8.4-10.2); Carbon Dioxide 18 mmol/L (22.0-30.0); Chloride 99 mmol/L (98-107); Estimated Glomerular Filt Rate 73 ml/min (>60); GFR (African American) 88 ML/MIN (>60); Globulin 2.7 g/dL (1.3-3.2); Potassium 5.5 mmoL/L (3.5-5.1); Sodium 133 mmol/L (136-145); Total Protein,Serum 6.6 g/dl (6.3-8.2)
[2021-11-24 18:19] LABS: Glucose 517 mg/dl (74-100)
[2021-11-24 19:37] LABS: Hemoglobin A1C > 14.0 % (4.0-6.0)
== END ==
PROVIDERS: PCP Emergency Medicine; Visit Provider Emergency Medicine
DX: E11.69 Type 2 diabetes mellitus with other specified complication (principal); E66.9 Obesity, unspecified; Z79.84 Long term (current) use of oral hypoglycemic drugs; Z68.41 Body mass index [BMI] 40.0-44.9, adult
CPT/HCPCS: 80053; 83036

== ENCOUNTER → 2022-01-06 10:30 | Outpatient (CLI) | payer MEDICARE, OTHER, SELFPAY | PROVIDERS: PCP Student in an Organized Health Care Education/Training Program; Visit Provider Student in an Organized Health Care Education/Training Program | DX: J02.9 Acute pharyngitis, unspecified (principal) | CPT/HCPCS: 87070 ==

== ENCOUNTER 2022-01-07 03:51 | Inpatient (IN) | payer MEDICARE, OTHER, SELFPAY ==
[2022-01-07] VITALS (30 sets, daily range): BP systolic 110–177; BP diastolic 37–125; PULSE 88–110; RESP 14–28; TEMP 36.4–36.9; O2SAT 79–100; BMI 39.5; BMI 32.8; BMI 32.7
--- NOTE | 2022-01-07 03:53 | HMH.EDABDPAI ---
Discharge Plan Disposition Chief Complaint: Abdominal Pain Prescriptions Prescriptions: No Action aspirin 81 mg tablet,delayed release (DR/EC) 81 mg PO DAILY Qty: 100 4RF atorvastatin 40 mg tablet 40 mg PO DAILY Qty: 90 0RF pantoprazole 40 mg tablet,delayed release (DR/EC) 40 mg PO QHS Qty: 90 3RF (DME) Comfort EZ Pen [place] 33 gauge x 3/16 needle See Rx Instructions .Route Qty: 100 0RF Rx Instructions: As directed fluticasone propionate [Flonase Allergy Relief] 50 mcg/actuation spray,suspension 1 spray INTRANASAL QDAY Qty: 9.9 0RF Rx Instructions: administer into each nostril spironolactone [Aldactone] 25 mg tablet 25 mg PO DAILY Qty: 30 5RF bisoprolol fumarate 10 mg tablet 10 mg PO BID Qty: 60 5RF doxycycline hyclate 100 mg tablet 100 mg PO BID Qty: 20 0RF Trelegy Ellipta 200-62.5-25 mcg blister with device 1 inh inhalation DAILY Qty: 28 2RF glipizide 10 mg tablet extended release 24hr 10 mg PO BID Qty: 180 3RF Farxiga 10 mg tablet 10 mg PO DAILY Qty: 90 3RF Januvia 100 mg tablet 100 mg PO QDAY Qty: 90 3RF azithromycin [Zithromax Z-Nolberto] 250 mg tablet See Rx Instructions PO .COMPLEX Qty: 6 0RF Rx Instructions: For 250 mg dose pack: take 500 mg today (day 1), then 250 mg for 4 days (days 2-5) PO mupirocin 2 % ointment 1 applic topical BID Qty: 15 0RF dextromethorphan-guaifenesin 30-600 mg tablet extended release 12 hr 1 tab PO Q12H Qty: 60 0RF sertraline 50 mg tablet 50 mg PO DAILY Qty: 90 3RF oxybutynin chloride 15 mg tablet extended release 24hr 15 mg PO DAILY Qty: 30 2RF (DME) insulin pump cartridge Cartridge See Rx Instructions .ROUTE .MEDSUPPLY Qty: 15 2RF Rx Instructions: change every 72 hours. clopidogrel 75 mg tablet 75 mg PO DAILY Qty: 90 3RF (DME) FreeStyle Michele 2 [place] Misc See Rx Instructions .ROUTE .COMPLEX Qty: 1 0RF Dose Instruction: USE DIRECTED Rx Instructions: USE DIRECTED losartan-hydrochlorothiazide 100-25 mg tablet See Rx Instructions .ROUTE .COMPLEX Qty: 30 11RF Dose Instruction: TAKE ONE TABLET BY MOUTH EVERY DAY Rx Instructions: TAKE ONE TABLET BY MOUTH EVERY DAY [place] 100/33 100 unit-33 mcg/mL insulin pen 15 unit SQ DAILY Qty: 15 2RF (DME) pen needle, diabetic [Comfort EZ Pen [place]] 32 gauge x 5/16 needle See Rx Instructions .Route Qty: 100 0RF Rx Instructions: As directed (DME) FreeStyle Michele 2 Sensor Kit See Rx Instructions .ROUTE .COMPLEX Qty: 2 0RF Dose Instruction: USE DIRECTED. CHANGE sensor every 14 DAYS Rx Instructions: USE DIRECTED. CHANGE sensor every 14 DAYS ipratropium-albuterol 120 PUFF mist 1 puff INHALATION Q6H Instructions Patient Instructions: DI for Acute Abdominal Pain Discharge ED Provider: Gloria Hernandez Abdominal Pain HPI General Chief Complaint: Abdominal Pain Stated Complaint: Hernia pain Time Seen by Provider: 01/07/22 03:54 Mode of Arrival: EMS Source of Information: EMS and Medical Record Limitations: Altered Mental Status History of Present Illness HPI narrative: 61yo F w/pmhx of insulin dependent DM and umbilical hernia w/cc of confusion, abdominal pain, and inability to ambulate by herself to the restroom. History is limited because patient is confused and there is no family at bedside. Per EMS, patient has not taken her DM meds in several days. Per record review, umbilical hernia has been discolored with occasional bleeding at baseline. Seen yesteray at PCP for hernia. MD complaint: abdominal pain Onset (ago): day(s) Location: periumbilical Related Data Home Medications Medication Instructions Recorded Confirmed ipratropium 20 mcg-albuterol 100 1 puff inhalation Q6H Asthma 09/21/20 01/06/22 mcg/actuation mist for inhalation Previous Rx's Medication Instructions Recorded sertraline 50 mg tabl
--- NOTE | 2022-01-07 04:02 | CT_ITS ---
PROCEDURE INFORMATION: Exam: CT Abdomen And Pelvis With Contrast Exam date and time: 01/07/2022 5:43 AM Age: 61 years old Clinical indication: Abdominal pain TECHNIQUE: Imaging protocol: Computed tomography of the abdomen and pelvis with contrast. Radiation optimization: All CT scans at this facility use at least one of these dose optimization techniques: automated exposure control; mA and/or kV adjustment per patient size (includes targeted exams where dose is matched to clinical indication); or iterative reconstruction. Contrast material: ISOVUE; Contrast volume: 75 ml; Contrast route: IV; COMPARISON: CT ABDOMEN PELVIS W CON 09/21/2020 2:47 PM FINDINGS: Lungs: Small area of consolidation in the left lower lobe. Liver: Normal. No mass. Gallbladder and bile ducts: Normal. No calcified stones. No ductal dilation. Pancreas: Normal. No ductal dilation. Spleen: Normal. No splenomegaly. Adrenal glands: Normal. No mass. Kidneys and ureters: Are left renal cyst. No hydronephrosis. Stomach and bowel: Unremarkable. No obstruction. No mucosal thickening. Appendix: No evidence of appendicitis. Intraperitoneal space: Unremarkable. No free air. No significant fluid collection. Vasculature: Moderate burden of atherosclerotic plaque in the abdominal aorta and branch vessels. No aneurysm. Lymph nodes: Unremarkable. No enlarged lymph nodes. Urinary bladder: Verduzco catheter in the bladder. Circumferential bladder wall thickening. Reproductive: Hysterectomy. Bones/joints: Unremarkable. No acute fracture. Soft tissues: Moderate fat containing umbilical hernia. IMPRESSION: 1. Circumferential bladder wall thickening may be seen in the setting of cystitis. 2. Small area of consolidation in the left lower lobe could reflect atelectasis versus infection. COMMENTS: Consistent with the [employer]'s Incidental Findings Committee white paper (J Am Laxmi Radiol 2018): Any incidental renal lesion less than 1 cm or classified as too small to characterize, or any incidental cystic renal lesion characterized as simple-appearing, is likely benign. No follow-up imaging is recommended for these lesions per consensus recommendations based on imaging criteria.
--- NOTE | 2022-01-07 04:02 | XR_ITS ---
PROCEDURE INFORMATION: Exam: XR Chest Exam date and time: 01/07/2022 5:44 AM Age: 61 years old Clinical indication: Screening exam; Other screening; Additional info: R/O underlying infection TECHNIQUE: Imaging protocol: Radiologic exam of the chest. Views: 1 view. COMPARISON: CR XR CHEST 2V 03/16/2019 10:05 PM FINDINGS: Lungs: Patchy left basilar airspace opacities. Pleural spaces: Unremarkable. No pleural effusion. No pneumothorax. Heart/Mediastinum: Unremarkable. No cardiomegaly. Bones/joints: Unremarkable. IMPRESSION: Patchy left basilar airspace opacities may reflect atelectasis versus pneumonia.
--- NOTE | 2022-01-07 04:12 | ECG_ITS ---
APPROVED REPORT Exam: Resting ECG HR:110 bpm ECG Measurements Heart Rate 110 AXES NC 136 P 53 QRSd 88 QRS 90 QT 343 T 40 QTc [address] ELEVATION is noted, but similar to changes in 2019 UNCONFIRMED REPORT Electronically signed by : Lico Ramos MD 01/08/2022 17:41:08
[2022-01-07 04:13] LABS: Microscopic, Urine URINE MICROSCOPIC (MICROSCOPIC)
[2022-01-07 04:13] LABS: Coronavirus 19, PCR Not Detected (NotDetected); Influenza A, PCR Not Detected (NotDetected); Influenza B, PCR Not Detected (NotDetected)
[2022-01-07 04:15] LABS: Basophils # 0.1 K/mm3 (0-0.2); Basophils % 0.8 % (0.1-2.0); Eosinophils % 0.2 % (0.1-12.0); Hemoglobin 16.3 g/dL (12.2-16.2); Lymphocytes # 0.6 K/mm3 (0.7-4.5); Lymphocytes % 8.2 % (10-50); Mean Corpuscular HGB Conc 26.3 g/dL (31.8-35.4); Mean Corpuscular Hemoglobin 29.5 pg (27.0-31.2); Mean Corpuscular Volume 112.4 fl (81-99); Mean Platelet Volume 9.3 fl (7.4-10.4); Monocytes # 0.3 K/mm3 (0.1-1.0); Monocytes % 4.2 % (1.7-9.3); Neutrophils # 6.8 K/mm3 (1.8-7.8); Neutrophils % 86.6 % (37.0-80.0); Platelet Count 247 K/mm3 (142-424); Red Blood Count 5.54 M/mm3 (4.20-5.40); Red Cell Distribution Width 14.1 % (11.5-17.5); White Blood Count 7.8 K/mm3 (4.8-10.8)
--- NOTE | 2022-01-07 04:16 | PC.NURSE ---
Fall risk bracelet placed on pt left arm
[2022-01-07 04:20] LABS: Acetone, Serum (Rapid) Small (None Detect)
[2022-01-07 04:21] LABS: Appearance,Urine CLEAR (Clear); Bilirubin,Urine Negative (Negative); Blood, Urine 2+ (Negative); Color,Urine YELLOW (Yellow); Glucose,Urine (UA) 3+ (Negative); Ketones,Urine TRACE (Negative); Leukocyte Esterase,Urine Negative (Negative); Nitrate,Urine Negative (Negative); PH,Urine 5.5 (5.0-8.5); Protein,Urine Negative (Negative); Specific Gravity, Urine <= 1.005 (1.005-1.030); Urobilinogen,Urine 0.2 EU/dl (0.2)
[2022-01-07 04:23] LABS: VBG Base Excess -7.6 mmol/L (-2.4-2.3); VBG HCO3 19.7 mmol/L (23-30); VBG Oxygen Saturation 74.4 % (50-70); VBG PCO2 46.9 mmol/L (35-51); VBG PH 7.24 mmol/L (7.31-7.41); VBG PO2 44.6 mmol/L (28-40); VBG Total CO2 21.2 mmol/L (23-27)
[2022-01-07 04:23] LABS: Alanine Aminotransferase 48 U/L (12-78); Albumin Level 4.6 g/dl (3.5-5.0); Albumin/Globulin Ratio 1.8 (1.1-1.8); Alkaline Phosphatase 191 U/L (38-126); Anion Gap 33.3 mEq/L (5-15); Aspartate Amino Transferase 39 U/L (14-36); Bilirubin,Total 0.4 mg/dl (0.2-1.3); Blood Urea Nitrogen 72 mg/dl (7-17); Calcium 9.6 mg/dl (8.4-10.2); Carbon Dioxide 18 mmol/L (22.0-30.0); Chloride 77 mmol/L (98-107); Creatine Kinase 69 U/L (30-135); Estimated Glomerular Filt Rate 50 ml/min (>60); GFR (African American) 61 ML/MIN (>60); Globulin 2.5 g/dL (1.3-3.2); Sodium 122 mmol/L (136-145); Total Protein,Serum 7.1 g/dl (6.3-8.2)
[2022-01-07 04:25] LABS: Hematocrit 62.2 % (37.0-47.0); MANUAL DIFFERENTIAL MANUAL DIFFERENTIAL (MANUAL DIFF)
--- NOTE | 2022-01-07 04:26 | PC.NURSE ---
Patients blood glucose was high on bedside glucometer. I asked the patient what her blood glucose has been running at home and she states that the glucometer she has has just been reading high at home for the prior 3 days. I asked the patient if she has been taking her diabetes medication and she said that she has not because her glucometer has been reading high.
--- NOTE | 2022-01-07 04:28 | PC.NURSE ---
Spoke with Rosario in lab. Critical hematocrit of 62.2 called. notified. Orders being entered.
[2022-01-07 04:33] LABS: Bacteria,Urine 2+ /lpf
--- NOTE | 2022-01-07 04:33 | PC.NURSE ---
Patient is oriented to name, date of and location, however, she is very lethargic and difficult to rouse. Patient is confused about why she is here and is unable to focus on the conversation. Patient is only able to answer very short questions and is quick to fall asleep during the conversation.
[2022-01-07 04:35] LABS: CKMB Relative Index 2.9 U/L (0-4.0)
[2022-01-07 04:42] LABS: Lipase 96 U/L (23-300); Magnesium 2.1 mg/dl (1.6-2.3); Troponin I < 0.01 ng/ml (0.00-0.034)
[2022-01-07 04:53] LABS: Lactic Acid 4.8 mmol/L (0.7-2.1)
--- NOTE | 2022-01-07 04:54 | PC.NURSE ---
Critical lactic of 4.8 called by Rosario in Lab. notified. No new orders.
[2022-01-07 05:25] LABS: Creatinine Clearance Estimated 93 mL/min (50-200); Potassium 6.3 mmoL/L (3.5-5.1)
--- NOTE | 2022-01-07 05:25 | PC.NURSE ---
Critical potassium of 6.3 called by Rosario in lab. notified.
--- NOTE | 2022-01-07 05:33 | PC.NURSE ---
RAD at for CXR
--- NOTE | 2022-01-07 05:42 | PC.NURSE ---
Lab called and provided update that glucose is still reading greater than 1250 and they will continue to dilute.
[2022-01-07 05:51] LABS: Glucose 2006 mg/dl (74-100)
--- NOTE | 2022-01-07 05:53 | PC.NURSE ---
Patients blood glucose is 2005, called by Rosario in lab. notified.
--- NOTE | 2022-01-07 05:53 | PC.NURSE ---
Critical glucose of 2006 reported to MD at this time. Awaiting new orders.
[2022-01-07 06:01] LABS: Lymphocytes % 11 % (10-50); Macrocytosis 2+; Monocytes % 1 % (2-9); Neutrophils % 88 % (42-76); Platelet Estimate Normal; Total Cells Counted 100
--- NOTE | 2022-01-07 06:14 | EXP.HP ---
History of Present Illness *Admission Date: 01/07/22 *Reason for visit:: confusion, abdominal pain *History of present illness: Ms. Wright is a 61 year old female with a past medical history that is positive for Diabetes, Emphysema, CAD, GERD, Hyperlipidemia, known umbilical hernia and Urinary Incontinence. She presented to the facility by EMS due to abdominal pain and confusion. Blood glucose was found to in the 2000 mg/dl range, with a high anion gap, small ketones and high anion gap metabolic acidosis. The patient was also noted to be confused, she has a known umbilical hernia that is discolored that she has been followed by her PCP. Information for the patient's history and physical was obtained from the chart and ER staff due to the patient's confusion. ER staff reports that for the last 3 days her home glucometer has been reading high so the patient has not been taking her diabetic medications. The patient will be admitted with initial impression: DKA. She will be transitioned from the ER to the ICU. She has been placed on the facility DKA protocol. In addition, chart review shows cardiac history including: CAD, history of GHANSHYAM 11/2016.? She continues on aspirin and Plavix Cardiac cath 09/2018, coronary disease in a 2.75 mm diagonal artery for which medical therapy was recommended. Patient's son gave additional history after arriving to the floor. Patient has been afebrile. She has been urinating frequently. Was marginally confused yesterday but more or less at her baseline. Not complaining of any headaches but has been complaining of abdominal pain for the past few days. [facility] Medical History CAD (coronary artery disease) Chest pain COPD (chronic obstructive pulmonary disease) Coronary artery disease Diabetes mellitus type 2 in obese Dyspnea Dyspnea and respiratory abnormalities Emphysema of lung Ex-smoker for more than 1 year Gastroesophageal reflux disease Hyperlipidemia Hypertensive disorder Sinus tachycardia Urinary incontinence Social History (Updated 01/07/22 @ 12:17 by Kassandra Pacheco RN) Smoking Status: Current every day smoker tobacco type: cigarettes packs per day: 1 alcohol intake: never substance use type: denies use current occupational status: unemployed Travel in the last 8 weeks: None household members: spouse housing: house lives independently: Yes marital status: number of children: 1 current occupational exposures/hazards: No 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 Complete review of systems performed, pertinent positives and negatives as per HPI Meds Home Medications and Allergies Home Medications Medication Instructions Recorded Confirmed Type sertraline 50 mg tablet 50 mg PO DAILY Depression #90 tabs 05/22/19 01/06/22 Rx atorvastatin 40 mg tablet 40 mg PO DAILY Cholesterol #90 tabs 08/12/20 01/06/22 Rx ipratropium 20 mcg-albuterol 100 1 puff inhalation Q6H Asthma 09/21/20 01/06/22 History mcg/actuation mist for inhalation pen needle, diabetic 33 gauge x #100 ea 10/26/20 01/06/22 Rx 3/16 (Comfort EZ Pen [place]) fluticasone propionate 50 1 spray intranasal QDAY #9.9 mL 02/08/21 01/06/22 Rx mcg/actuation nasal spray,suspension (Flonase Allergy Relief) insulin pump cartridge #15 ea 07/28/21 01/06/22 Rx bisoprolol fumarate 10 mg tablet 10 mg PO BID High blood pressure 08/27/21 01/07/22 Rx #60 tabs flash glucose scanning reader #1 ea 10/26/21 01/06/22 Rx (FreeStyle Michele 2 [place]) insulin glargine 100 15 unit (0.15 mL) SQ DAILY #15 mL 11/29/21 01/06/22 Rx unit-lixisenatide 33 mcg/mL subcutaneous pe
--- NOTE | 2022-01-07 06:33 | CT_ITS ---
FINAL REPORT CLINICAL HISTORY: confusion, ams COMPARISON: 04/01/2021 FINDINGS: Axial images of the head were obtained without contrast. Coronal reformatted images were also obtained.This study was performed with techniques to keep radiation doses as low as reasonably achievable (ALARA). Individualized dose reduction techniques using automated exposure control or adjustment of mA and/or kV according to the patient's size were employed. Residual contrast in the vasculature makes evaluation difficult. There is a questionable focus of contrast enhancement in the right frontal lobe on image 46. This is of uncertain significance. Mild hemorrhage is felt unlikely. The ventricular size is within normal limits. There is no evidence of shift of the midline structures. No abnormal extra axial fluid collection is identified. No skull abnormality is seen on the bone window images. IMPRESSION: Questionable focus of contrast enhancement in the right frontal lobe of uncertain significance. Further evaluation with MR of the head without and with contrast may be helpful. Reviewed, Interpreted and Dictated by Alvarez Messer III, MD Transcribed by Sussy Lin Authenticated and [facility]
--- NOTE | 2022-01-07 06:46 | PC.NURSE ---
Per , she requests that the patients insulin drip not be titrated from 10ml/hr until or Binu (hospitalist) sees the patients and makes the change as part of their inpatient assessment.
--- NOTE | 2022-01-07 06:55 | PC.NURSE ---
Unable to complete med rec d/t pt AMS she can not remember her meds
--- NOTE | 2022-01-07 07:21 | PC.NURSE ---
shift report received by alee rn
--- NOTE | 2022-01-07 07:24 | PC.NURSE ---
received in shift report by that insulin drip not be titrated until dr mims evaluates pt and orders otherwise. fsbs to be recollected at 0730.
--- NOTE | 2022-01-07 07:26 | PC.NURSE ---
per , hold pepcid and lovenox. medication not given at this time
--- NOTE | 2022-01-07 07:34 | PC.NURSE ---
yudith heller checked fsbs at this time, read high on monitor. Notified ARGENIS CAMERON. Notified ER a BMP is scheduled for pt at 0800 would it be okay to go ahead and draw this and that way we could verify glucose level also, ER states yes go ahead and draw BMP. yudith Heller at
--- NOTE | 2022-01-07 07:44 | PC.NURSE ---
lab called for bmp collection
--- NOTE | 2022-01-07 07:45 | PC.NURSE ---
per MD dr mims states to increase the drip by 50% until he sees and evaluates pt for further orders. to place order.
--- NOTE | 2022-01-07 07:52 | PC.NURSE ---
speaking with pharmacy for insulin drip order placement
--- NOTE | 2022-01-07 08:04 | PC.NURSE ---
lab at the bedside for blood collection
--- NOTE | 2022-01-07 08:15 | PC.NURSE ---
drip adjusted per order
--- NOTE | 2022-01-07 08:25 | PC.NURSE ---
spoke with pharmacy to clarify drip order for pt. verified new pump settings with yudith francisco
--- NOTE | 2022-01-07 08:26 | PC.NURSE ---
2000ml emptied from monzon
[2022-01-07 08:34] LABS: Reflex Lactic Add Lactic Reflex
[2022-01-07 08:37] LABS: Chloride 93 mmol/L (98-107)
[2022-01-07 08:38] LABS: Potassium 4.7 mmoL/L (3.5-5.1); Sodium 139 mmol/L (136-145)
[2022-01-07 08:40] LABS: Blood Urea Nitrogen 65 mg/dl (7-17); Creatinine Clearance Estimated 102 mL/min (50-200); Estimated Glomerular Filt Rate 63 ml/min (>60); GFR (African American) 77 ML/MIN (>60)
[2022-01-07 08:41] LABS: Anion Gap 27.7 mEq/L (5-15); Calcium 10.1 mg/dl (8.4-10.2); Carbon Dioxide 23 mmol/L (22.0-30.0)
[2022-01-07 09:09] LABS: Glucose 1316 mg/dl (74-100)
--- NOTE | 2022-01-07 09:15 | PC.NURSE ---
critical glucose called from lab. notified
[2022-01-07 09:19] LABS: Lactic Acid Follow Up (RFLX 1) 4.8 mmol/L (0.7-2.1)
--- NOTE | 2022-01-07 09:22 | PC.NURSE ---
notified dr. sanchez of critical lactic, also notified him of 0800 BMP values (anion gap and glucose and uop). Also notified him of pt requesting something to drink, reports if pt is alert enough to drink he is okay with her drinking fluids.
--- NOTE | 2022-01-07 09:25 | PC.NURSE ---
attempted to call report to second floor, nurse requested that she call me back r/t in with another pt.
--- NOTE | 2022-01-07 09:36 | EXP.PHA.VTE ---
[facility] Pharmacy VTE Monitoring Patient Demographics Admission date: 01/07/22 Report Date: 01/07/22 Time: 09:36 Patient Allergies insulin lispro Allergy (Intermediate, Verified 01/06/22 10:13) Vomiting venom-honey bee [BEE VENOM (HONEY BEE)] Allergy (Unknown, Verified 01/07/22 07:40) Unknown allergy reaction chocolate flavor Adverse Reaction (Verified 01/07/22 07:40) Hyper Height: 1.68 m Weight: 111.13 kg Current Active Problems (Updated 01/07/22 @ 06:42 by Binu Humphrey DNP) Umbilical hernia (Acute) Hyperkalemia (Acute) Urinary incontinence (Acute) Hyperlipidemia (Acute) CAD (coronary artery disease) (Acute) COPD (chronic obstructive pulmonary disease) (Acute) High anion gap metabolic acidosis (Acute) Encephalopathy acute (Acute) DKA (diabetic ketoacidosis) (Acute) VTE Risk Labs: VTE Related Lab Results Hgb 16.3 g/dL (12.2-16.2) H 01/07/22 04:01 Hct 62.2 % (37.0-47.0) H* 01/07/22 04:01 Plt Count 247 K/mm3 (142-424) 01/07/22 04:01 BUN 65 mg/dl (7-17) H 01/07/22 08:00 Creatinine 0.90 mg/dl (0.52-1.04) 01/07/22 08:00 Estimated Creat Clear 102 mL/min (50-200) 01/07/22 08:00 Prophylaxis VTE Prophylaxis Ordered?: Yes Types of VTE Prophylaxis: Pharmacological Pharmacologic Type: Enoxaparin
--- NOTE | 2022-01-07 09:44 | PC.NURSE ---
Pt son @ bs at this time, son just got to ED and asked for update on mother, Landy RN is speaking with pt at this time
--- NOTE | 2022-01-07 09:46 | PC.NURSE ---
pt given glass of water
--- NOTE | 2022-01-07 09:49 | PC.NURSE ---
report called to yudith zhu on second floor at this time. states she will send staff down to transport pt
--- NOTE | 2022-01-07 10:01 | PC.NURSE ---
med surg staff to the ed to take pt to the floor
--- NOTE | 2022-01-07 10:03 | PC.NURSE ---
green top sent to lab at this time for stat glucose r/t fsbs continuing to read high. 2 sticks to obtain blood on pt.
--- NOTE | 2022-01-07 10:07 | PC.NURSE ---
pateint arrived by stretcher form ED
[2022-01-07 10:32] LABS: Glucose,Random 990 mg/dL (74-100)
--- NOTE | 2022-01-07 10:33 | PC.NURSE ---
[address] Elizabeth that the pt fsbs reads hi . per pt does not need a stat glucose ordered at this time, no changes in insulin drip (16units/hr) lab called critical lab result of glucose of 990. 1032 nno
[2022-01-07 10:51] LABS: Reflex Lactic (2 hrs) Add Lactic Reflex
--- NOTE | 2022-01-07 11:27 | PC.NURSE ---
fsbs reading of hi. per md keep drip at current rate. blood draw not needed at this time.
--- NOTE | 2022-01-07 11:31 | PC.NURSE ---
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
[2022-01-07 12:09] LABS: Basophils % 0.4 % (0.1-2.0); Eosinophils # 0.2 K/mm3 (0.0-0.4); Eosinophils % 1.7 % (0.1-12.0); Hematocrit 53.6 % (37.0-47.0); Hemoglobin 16.5 g/dL (12.2-16.2); Lymphocytes # 1.2 K/mm3 (0.7-4.5); Lymphocytes % 10.7 % (10-50); Mean Corpuscular HGB Conc 30.7 g/dL (31.8-35.4); Mean Corpuscular Hemoglobin 29.2 pg (27.0-31.2); Mean Corpuscular Volume 95.1 fl (81-99); Mean Platelet Volume 9.5 fl (7.4-10.4); Monocytes # 0.6 K/mm3 (0.1-1.0); Neutrophils # 9.2 K/mm3 (1.8-7.8); Neutrophils % 82.2 % (37.0-80.0); Platelet Count 270 K/mm3 (142-424); Red Blood Count 5.64 M/mm3 (4.20-5.40); White Blood Count 11.2 K/mm3 (4.8-10.8)
[2022-01-07 12:14] LABS: Chloride 102 mmol/L (98-107); Potassium 3.7 mmoL/L (3.5-5.1); Sodium 147 mmol/L (136-145)
[2022-01-07 12:17] LABS: Anion Gap 20.7 mEq/L (5-15); Blood Urea Nitrogen 57 mg/dl (7-17); Carbon Dioxide 28 mmol/L (22.0-30.0); Creatinine Clearance Estimated 85 mL/min (50-200); Estimated Glomerular Filt Rate 63 ml/min (>60); GFR (African American) 77 ML/MIN (>60)
[2022-01-07 12:18] LABS: Calcium 10.5 mg/dl (8.4-10.2)
[2022-01-07 12:30] LABS: Glucose 738 mg/dl (74-100); Lactic Acid Follow up (RFLX 2) 5.8 mmol/L (0.7-2.1)
--- NOTE | 2022-01-07 12:32 | PC.NURSE ---
critical lab values reported to Dr Elizabeth at 1230. lactic acid 5.8 glucose 738 no new orders. drip to stay at the same rate of 16units/hr
--- NOTE | 2022-01-07 13:03 | PC.NURSE ---
pt placed on 2 lpm o2 r/t sats dropping to the mid to upper 80's when asleep. since being on o2 while alseep sats have been 95
--- NOTE | 2022-01-07 13:56 | PC.NURSE ---
[address] Elizabeth that pt fsbs was 525. per MD change insulin drip to 0.1unit/kg/hr (9 units/hr)
--- NOTE | 2022-01-07 14:01 | PC.NURSE ---
pt is still noticeably confused and restless in the bed. family remains at bedside and attempting to keep pt calm. will continue to monitor.
[2022-01-07 16:06] LABS: VBG Base Excess 4.8 mmol/L (-2.4-2.3); VBG HCO3 28.1 mmol/L (23-30); VBG Oxygen Saturation 64.9 % (50-70); VBG PCO2 37.3 mmol/L (35-51); VBG PO2 28.9 mmol/L (28-40); VBG Total CO2 29.3 mmol/L (23-27)
--- NOTE | 2022-01-07 16:21 | PC.NURSE ---
[address] Elizabeth that pt o2 sats continue to drop to the mis 80's when asleep, even though pt is currently on 3lpm nc. new orders are to place the pt on 40% venti. also notified Dr elizabeth that pt VBG results were available in the computer. new orders are for a stat abg. RT notified
[2022-01-07 16:26] LABS: Chloride 103 mmol/L (98-107); Potassium 3.8 mmoL/L (3.5-5.1); Sodium 149 mmol/L (136-145)
[2022-01-07 16:27] LABS: ABG Base Excess 2.4 mmol/L (-2.4-2.3); ABG Oxygen Saturation 97 % (90-100); ABG PCO2 30.3 mmhg (35.0-45.0); ABG PH 7.53 mmol/L (7.35-7.45); ABG TCO2 25.9 mmhg (23-27)
[2022-01-07 16:28] LABS: Allen's Test Acceptable; Source Left Radial
[2022-01-07 16:29] LABS: Anion Gap 19.8 mEq/L (5-15); Blood Urea Nitrogen 53 mg/dl (7-17); Calcium 10.4 mg/dl (8.4-10.2); Carbon Dioxide 30 mmol/L (22.0-30.0); Creatinine Clearance Estimated 85 mL/min (50-200); Estimated Glomerular Filt Rate 85 ml/min (>60); GFR (African American) 103 ML/MIN (>60)
[2022-01-07 16:39] LABS: Glucose 459 mg/dl (74-100)
--- NOTE | 2022-01-07 17:31 | PC.NURSE ---
notified Dr Elizabeth that labs ordered were available for review. also gave verbal order at 1640 for pt to have 0.25mg of ativan x 1 and 20units of lantus x 1. 1730 order received to decrease insulin drip to 4.5units/hr ativan and lantus administered at 1645 awaiting order to be entered into computer. medications were verified with Albert Ramirez RN.
--- NOTE | 2022-01-07 18:51 | PC.NURSE ---
pt has remained confused since admission this am. this afternoon pt became noticeably more qagitated and expressed feeling of anxiety to family. lung sounds remain clear, bowel sounds active. pt does have noted grimacing with palpation of abdomen. skin is intact with the exception of healing scratches to legs. nad noted. pt responded well to ativan that was given. pt appears more relaxed and was able to sleep.
[2022-01-07 20:25] LABS: POC Glucose,Bedside 376 (70-110)
[2022-01-07 20:49] LABS: Chloride 105 mmol/L (98-107); Potassium 3.8 mmoL/L (3.5-5.1); Sodium 147 mmol/L (136-145)
[2022-01-07 20:52] LABS: Anion Gap 14.8 mEq/L (5-15); Blood Urea Nitrogen 52 mg/dl (7-17); Calcium 9.8 mg/dl (8.4-10.2); Carbon Dioxide 31 mmol/L (22.0-30.0); Creatinine Clearance Estimated 85 mL/min (50-200); Estimated Glomerular Filt Rate 85 ml/min (>60); GFR (African American) 103 ML/MIN (>60)
[2022-01-07 21:00] LABS: Glucose 330 mg/dl (74-100)
[2022-01-07 21:17] LABS: POC Glucose,Bedside 267 (70-110)
--- NOTE | 2022-01-07 21:26 | PC.NURSE ---
Addendum entered by Connie Patel RN 01/07/22 21:54: did talk with Binu about allergy to lispro, Binu stated that it was ok to give Original Note: Deb Schmid DNP rounded on patient and reviewed labs and FSBS, Binu stated to stop insulin gtt based on latest labs, she will put in order for sliding scale insulin and another dose of lantus for tonight, stated to keep the 1/2 NS @ 125 mL/hr
[2022-01-07 22:04] LABS: POC Glucose,Bedside 266 (70-110)
[2022-01-07 23:22] LABS: POC Glucose,Bedside 293 (70-110)
--- NOTE | 2022-01-07 23:33 | PC.NURSE ---
Binu, DNP notified of pt's HTN, will review meds and put in orders, also stated it was ok to do FSBS every 2 hours instead of every hour
[2022-01-08] VITALS (15 sets, daily range): BP systolic 82–161; BP diastolic 39–94; PULSE 60–91; RESP 16–20; TEMP 36.4–36.6; O2SAT 94–100; BMI 33.1
[2022-01-08 00:14] LABS: POC Glucose,Bedside 287 (70-110)
[2022-01-08 02:13] LABS: POC Glucose,Bedside 375 (70-110)
[2022-01-08 02:40] LABS: POC Glucose,Bedside 458 (70-110)
[2022-01-08 02:40] LABS: POC Glucose,Bedside 525 (70-110)
[2022-01-08 02:40] LABS: POC Glucose,Bedside 424 (70-110)
[2022-01-08 02:40] LABS: POC Glucose,Bedside 368 (70-110)
[2022-01-08 02:40] LABS: POC Glucose,Bedside 321 (70-110)
[2022-01-08 02:40] LABS: POC Glucose,Bedside 376 (70-110)
[2022-01-08 04:13] LABS: POC Glucose,Bedside 347 (70-110)
--- NOTE | 2022-01-08 05:12 | PC.NURSE ---
at beginning of shift, pt was oriented but delayed with her speech, as shift progressed pt became more alert and was able to converse easier, she has remained oriented t/o shift, insulin gtt turned off around 2130 per Binu, ERIC, FS done every 2 hours from 0000 on, pt did have some HTN and Binu was contacted, reviewed home medications and gave one time doses for those meds, has remained on venti mask with O2 sats 96-100%, monzon in place and is draining bright yellow urine, pt able to get up to BSC with assistance to have a BM this shift
[2022-01-08 06:05] LABS: POC Glucose,Bedside 382 (70-110)
--- NOTE | 2022-01-08 06:08 | PC.NURSE ---
Binu rounded at this time and gave the ok to leave pt on room air, O2 sats currently 97% on room air
--- NOTE | 2022-01-08 07:45 | EXP.ACUTE.PN ---
Subjective *Date: 01/08/22 *Time: 10:36 Interval history: Continues to have hyperglycemia. On rounds this morning she is doing significantly better. She is alert and oriented to person place and time. Does not recall how she got to the hospital. Son at bedside feels she is at baseline mentation. Denies any chest pain or shortness of breath. Denies any confusion. Able to carry on an appropriate conversation with appropriate answers to questioning. Abdominal pain is better today. Denies any pain with her umbilical hernia. Is off of supplemental oxygen. No nausea or vomiting. Further history today, she reports that she has been missing her insulin/diabetes meds most days. Does not take it many times when she gets frustrated with her . [place] that she was doing okay and that it would not hurt her. Remains afebrile. Tolerating breakfast. Medical Exam Vital signs and Labs for Last 24 Hours: Temp Pulse Resp BP Pulse Ox 97.9 F 72 20 111/94 H 97 01/08/22 04:00 01/08/22 07:00 01/08/22 07:00 01/08/22 07:00 01/08/22 07:00 Laboratory Results - last 24 hr 01/07/22 03:55: Urine Color Yellow, Urine Appearance Clear, Urine pH 5.5, Ur Specific [place] <= 1.005, Urine Protein Negative, Urine Glucose (UA) 3+, Urine Ketones Trace, Urine Blood 2+, Urine Nitrate Negative, Urine Bilirubin Negative, Urine Urobilinogen 0.2, Ur Leukocyte Esterase Negative, Urine RBC 10-20, Urine WBC 3-5, Urine Bacteria 2+ 01/07/22 08:00: Sodium 139, Potassium 4.7 D, Chloride 93 L, Carbon Dioxide 23, Anion Gap 27.7 H, BUN 65 H, Creatinine 0.90, Estimated Creat Clear 102, Estimated GFR 63, Est GFR ( Amer) 77 D, Glucose 1316 H* D, Calcium 10.1 01/07/22 08:45: Lactate 4.8 H 01/07/22 10:01: Random Glucose 990 H* 01/07/22 12:00: Sodium 147 H, Potassium 3.7 D, Chloride 102, Carbon Dioxide 28, Anion Gap 20.7 H, BUN 57 H, Creatinine 0.90, Estimated Creat Clear 85, Estimated GFR 63, Est GFR ( Amer) 77, Glucose 738 H* D, Calcium 10.5 H 01/07/22 12:00: WBC 11.2 H D, RBC 5.64 H, Hgb 16.5 H, Hct 53.6 H, MCV 95.1, MCH 29.2, MCHC 30.7 L, RDW 14.0, Plt Count 270, MPV 9.5, Neut % (Auto) 82.2 H, Lymph % (Auto) 10.7, [place] % (Auto) 5.0, Eos % (Auto) 1.7, Baso % (Auto) 0.4, Neut # (Auto) 9.2 H, Lymph # (Auto) 1.2, [place] # (Auto) 0.6, Eos # (Auto) 0.2, Baso # (Auto) 0.0 01/07/22 12:00: Lactate 5.8 H 01/07/22 13:50: POC Glucose 525 H* 01/07/22 14:37: POC Glucose 458 H* 01/07/22 14:55: VBG pH 7.50 H, VBG pCO2 37.3, VBG pO2 28.9, VBG HCO3 28.1, VBG Total CO2 29.3 H, VBG O2 Saturation 64.9, VBG Base Excess 4.8 H 01/07/22 15:50: POC Glucose 424 H* 01/07/22 15:55: Sodium 149 H, Potassium 3.8, Chloride 103, Carbon Dioxide 30, Anion Gap 19.8 H, BUN 53 H, Creatinine 0.70 D, Estimated Creat Clear 85, Estimated GFR 85, Est GFR ( Amer) 103 D, Glucose 459 H* D, Calcium 10.4 H 01/07/22 16:12: Specimen Source Left radial, O2 % 3lpm, ABG pH 7.53 H, ABG pCO2 30.3 L, ABG pO2 79.0 L, ABG HCO3 25.0, ABG Total CO2 25.9, ABG O2 Saturation 97, ABG Base Excess 2.4 H, Jules Test Acceptable 01/07/22 16:58: POC Glucose 376 H* 01/07/22 18:11: POC Glucose 321 H* 01/07/22 18:51: POC Glucose 368 H* 01/07/22 20:05: POC Glucose 376 H* 01/07/22 20:33: Sodium 147 H, Potassium 3.8, Chloride 105, Carbon Dioxide 31 H, Anion Gap 14.8, BUN 52 H, Creatinine 0.70, Estimated Creat Clear 85, Estimated GFR 85, Est GFR ( Amer) 103, Glucose 330 H D, Calcium 9.8 01/07/22 20:56: POC Glucose 267 H 01/07/22 21:50: POC Glucose 266 H 01/07/22 23:07: POC Glucose 293 H 01/08/22 00:05: POC Glucose 287 H 01/08/22 02:05: POC Glucose 375 H* 01/08/22 04:04: POC Glucose 347 H* 01/08/22 05:58: POC Glucose 382 H* I & O for Labs for Last 24 Hours: Intake & Output 01/05/22 01/06/22 01/07/22 01/08/22 23:59 23:59 23:59 23:59 Intake Total 1458 / 1458 Output Total 2625 / 2625 0 / 0 Balance -1167 / -1167 0 / 0 Weight 92.27 kg 93.6 kg Microbiology Reports for the Last 24 Hours: Microbiology 01/07/22
[2022-01-08 08:11] LABS: VBG Base Excess 4.3 mmol/L (-2.4-2.3); VBG HCO3 28.8 mmol/L (23-30); VBG Oxygen Saturation 78.5 % (50-70); VBG PH 7.42 mmol/L (7.31-7.41); VBG Total CO2 30.2 mmol/L (23-27)
[2022-01-08 09:23] LABS: Basophils # 0.2 K/mm3 (0-0.2); Basophils % 1.5 % (0.1-2.0); Eosinophils % 0.2 % (0.1-12.0); Hematocrit 44.3 % (37.0-47.0); Lymphocytes # 2.6 K/mm3 (0.7-4.5); Lymphocytes % 19.8 % (10-50); Mean Corpuscular HGB Conc 31.6 g/dL (31.8-35.4); Mean Corpuscular Volume 91.8 fl (81-99); Mean Platelet Volume 10.5 fl (7.4-10.4); Monocytes # 0.6 K/mm3 (0.1-1.0); Monocytes % 4.5 % (1.7-9.3); Neutrophils # 9.6 K/mm3 (1.8-7.8); Platelet Count 211 K/mm3 (142-424); Red Blood Count 4.82 M/mm3 (4.20-5.40); Red Cell Distribution Width 14.5 % (11.5-17.5)
[2022-01-08 09:28] LABS: Chloride 101 mmol/L (98-107); Potassium 3.9 mmoL/L (3.5-5.1); Sodium 141 mmol/L (136-145)
[2022-01-08 09:31] LABS: Alanine Aminotransferase 31 U/L (12-78); Albumin Level 3.5 g/dl (3.5-5.0); Albumin/Globulin Ratio 1.3 (1.1-1.8); Anion Gap 12.9 mEq/L (5-15); Aspartate Amino Transferase 38 U/L (14-36); Blood Urea Nitrogen 45 mg/dl (7-17); Carbon Dioxide 31 mmol/L (22.0-30.0); Creatinine Clearance Estimated 86 mL/min (50-200); Estimated Glomerular Filt Rate 85 ml/min (>60); GFR (African American) 103 ML/MIN (>60); Globulin 2.8 g/dL (1.3-3.2); Total Protein,Serum 6.3 g/dl (6.3-8.2)
[2022-01-08 09:39] LABS: Alkaline Phosphatase 99 U/L (38-126); Bilirubin,Total 0.2 mg/dl (0.2-1.3); Calcium 8.7 mg/dl (8.4-10.2); Glucose 351 mg/dl (74-100)
[2022-01-08 11:31] LABS: POC Glucose,Bedside 335 (70-110)
[2022-01-08 14:57] LABS: Hemoglobin A1C > 14.0 % (4.0-6.0)
--- NOTE | 2022-01-08 16:15 | PC.NURSE ---
per Dr. Elizabeth: give 15 units SSI instead of 10 units for FSBS 277 and give 1L bolus LR over 2hrs for hypotension.
[2022-01-08 16:18] LABS: POC Glucose,Bedside 277 (70-110)
--- NOTE | 2022-01-08 17:30 | PC.NURSE ---
shift summary: GCS 15. Continues with hyperglycemia. FSBS ACHS. Hypotension requiring 1L LR bolus. On RA. Denies dyspnea, n/v/d, and pain. Tolerates a diabetic diet. Bed or chair alarm on at all times. Continued education provided regarding diabetes dx and medication management when discharged home.
[2022-01-08 20:18] LABS: POC Glucose,Bedside 157 (70-110)
[2022-01-09] VITALS: BP 95/57; PULSE 73; RESP 18; TEMP 36.7; O2SAT 96
[2022-01-09 03:26] VITALS: BP 109/60; PULSE 73; RESP 16; TEMP 36.8; O2SAT 96
--- NOTE | 2022-01-09 04:59 | PC.NURSE ---
NO ACUTE CHANGES SINCE PREVIOUS ASSESSMENT. PT HAS RESTED WELL THIS SHIFT. LUNG SOUNDS ARE CLEAR BILATERALLY AND IS TOLERATING ROOM AIR WELL. PT HAS AMBULATED TO THE BATHROOM WITH STANDBY ASSIST. PT HAS BECOME SLIGHTLY SHORT OF BREATH WHEN WALKING BACK FROM THE BATHROOM. PT QUICKLY CATCHES HER BREATH WHEN RESTING. VSS. NO C/O N/V/D. BED ALARM IN PLACE FOR PT SAFETY.
[2022-01-09 05:00] VITALS: BMI 33.3
[2022-01-09 06:00] LABS: POC Glucose,Bedside 172 (70-110)
--- NOTE | 2022-01-09 07:40 | EXP.DC.SUM ---
General Admission date:: 01/07/22 Discharge date: 01/09/22 HPI HPI HPI: Ms. Wright is a 61 year old female with a past medical history that is positive for Diabetes, Emphysema, CAD, GERD, Hyperlipidemia, known umbilical hernia and Urinary Incontinence. She presented to the facility by EMS due to abdominal pain and confusion. Blood glucose was found to in the 2000 mg/dl range, with a high anion gap, small ketones and high anion gap metabolic acidosis. The patient was also noted to be confused, she has a known umbilical hernia that is discolored that she has been followed by her PCP. Information for the patient's history and physical was obtained from the chart and ER staff due to the patient's confusion. ER staff reports that for the last 3 days her home glucometer has been reading high so the patient has not been taking her diabetic medications. The patient will be admitted with initial impression: DKA. She will be transitioned from the ER to the ICU. She has been placed on the facility DKA protocol. In addition, chart review shows cardiac history including: CAD, history of GHANSHYAM 11/2016.? She continues on aspirin and Plavix Cardiac cath 09/2018, coronary disease in a 2.75 mm diagonal artery for which medical therapy was recommended. Patient's son gave additional history after arriving to the floor. Patient has been afebrile. She has been urinating frequently. Was marginally confused yesterday but more or less at her baseline. Not complaining of any headaches but has been complaining of abdominal pain for the past few days. Hospital Course Hospital Course Hospital Course: 61-year-old female admitted for severely elevated glucose concerning for DKA versus HHS.? Also noted to have acute gap metabolic acidosis, and MAURICIO.? Did well over the course of her first day of admission with DKA protocol. Was able to wean off insulin drip and transition to a basal/bolus regimen. Has tolerated titration of this regimen well with improved control of her glucose. Has returned back to baseline mentation, stable on room air for the past 24 hours. Meeting criteria for discharge home. Would benefit from close follow-up with her primary care (Dr. Da Silva) for further adjustments to her diabetes and hypertensive regimen. Problems addressed as follows: Hyperglycemia DKA/HHS Hyperkalemia/hypo and hypernatremia, resolved Uncontrolled type 2 diabetes -Initially on an insulin drip, transitioned back to a basal bolus regimen. Treated with Lantus while admitted, will transition back to her Soliqua on discharge. Patient to take 40 units of Soliqua daily once home. Additionally on metformin, and Farxiga. A1c consistently above 14 for the past year. Needs close follow-up and monitoring. UTI -Urine abnormal on presentation. Positive for bacteria and leukesterase. Culture grew E cloacae A. Sensitive to Levaquin. Will finish empiric 7-day course given severity of illness on presentation. Encephalopathy, resolved after correcting metabolic disturbances. Has been back to baseline for more than 24 hours.? No focal neurologic deficits. Umbilical Hernia Discolored on Exam - Underwent a CT of the abdomen and Pelvis, no incarceration. Has follow-up scheduled with surgery to address as an outpatient COPD - Continue Home Inhalers CAD Essential hypertension - Continue Atorvastatin, Aspirin, Bisoprolol, Hold Spironolactone, Losartan at half dose for now Spent 35 minutes in discharge counseling and direct care with patient and family. Counseled on changes to medication. Importance of adhering to diabetes regimen and the need for close follow-up and monitoring with her PCP. Exam Data for Last 24 hours Vital signs and Labs for Last 24 Hours: Temp Pulse Resp BP Pulse Ox 98.2 F 73 16 109/60 L 96 01/09/22 03:26 01/09/22 03:26 01/09/22 03:26 01/09/22 03:26 01/09/22 03:26 Laboratory Results - last 24 hr 01/08/22 07:35: VBG pH 7.42 H, VBG
[2022-01-09 07:41] VITALS: BP 124/65; PULSE 77; RESP 18; TEMP 36.9; O2SAT 96
--- NOTE | 2022-01-09 10:29 | DIET.NUTRFU ---
Included diabetic handouts in discharge information, can also consult RD as outpatient.
[2022-01-09 11:10] LABS: Chloride 101 mmol/L (98-107); Potassium 3.9 mmoL/L (3.5-5.1); Sodium 138 mmol/L (136-145)
[2022-01-09 11:13] LABS: Alanine Aminotransferase 47 U/L (12-78); Albumin Level 3.4 g/dl (3.5-5.0); Albumin/Globulin Ratio 1.3 (1.1-1.8); Alkaline Phosphatase 112 U/L (38-126); Anion Gap 14.9 mEq/L (5-15); Aspartate Amino Transferase 66 U/L (14-36); Bilirubin,Total 0.3 mg/dl (0.2-1.3); Blood Urea Nitrogen 37 mg/dl (7-17); Carbon Dioxide 26 mmol/L (22.0-30.0); Creatinine Clearance Estimated 87 mL/min (50-200); Estimated Glomerular Filt Rate 63 ml/min (>60); GFR (African American) 77 ML/MIN (>60); Globulin 2.7 g/dL (1.3-3.2); Total Protein,Serum 6.1 g/dl (6.3-8.2)
[2022-01-09 11:14] LABS: Glucose 284 mg/dl (74-100)
[2022-01-09 11:33] LABS: Basophils # 0.1 K/mm3 (0-0.2); Basophils % 1.3 % (0.1-2.0); Eosinophils # 0.1 K/mm3 (0.0-0.4); Eosinophils % 1.1 % (0.1-12.0); Hematocrit 47.3 % (37.0-47.0); Lymphocytes # 2.6 K/mm3 (0.7-4.5); Lymphocytes % 33.4 % (10-50); Mean Corpuscular HGB Conc 31.7 g/dL (31.8-35.4); Mean Corpuscular Hemoglobin 29.7 pg (27.0-31.2); Mean Corpuscular Volume 93.8 fl (81-99); Mean Platelet Volume 11.2 fl (7.4-10.4); Monocytes # 0.5 K/mm3 (0.1-1.0); Monocytes % 6.3 % (1.7-9.3); Neutrophils # 4.5 K/mm3 (1.8-7.8); Neutrophils % 57.8 % (37.0-80.0); Platelet Count 210 K/mm3 (142-424); Red Blood Count 5.04 M/mm3 (4.20-5.40); Red Cell Distribution Width 14.5 % (11.5-17.5); White Blood Count 7.8 K/mm3 (4.8-10.8)
[2022-01-09 11:42] LABS: POC Glucose,Bedside 283 (70-110)
[2022-01-09 12:00] VITALS: BP 106/55; PULSE 78; RESP 18; TEMP 36.8; O2SAT 96
--- NOTE | 2022-01-10 13:24 | CARE MANAGER ---
Contacted patient related to hospital discharge. Patient states her Free Style Michele read as sugar being high and so she checked with finger prick and it was 350. She is taking her anti-diabetic medications as ordered and has not eaten anything crazy. She states she wouldn't have known it was high by how she felt she only knew because of checking it. She states she does not feel bad and has appt. with Dr. Da Silva tomorrow at 1030. Discussed with patient importance of continuing to monitor her blood sugar and seeking medical attention if she starts to feel bad or blood sugar continues to climb. She denies any questions at this time. IVAN Orr
== END 2022-01-09 14:35 | disposition home or self-care (01) | DRG 637 ==
LOC: ER 04:17 → 2ND 06:35
PROVIDERS: Admitting Provider Internal Medicine Adolescent Medicine; Emergency Provider Emergency Medicine; PCP Physician Assistant; Visit Provider Internal Medicine Adolescent Medicine
DX: E11.10 Type 2 diabetes mellitus with ketoacidosis without coma (principal); G93.41 Metabolic encephalopathy; E87.0 Hyperosmolality and hypernatremia; N39.0 Urinary tract infection, site not specified; E87.1 Hypo-osmolality and hyponatremia; K42.9 Umbilical hernia without obstruction or gangrene; E87.5 Hyperkalemia; I25.10 Atherosclerotic heart disease of native coronary artery without angina pectoris; E78.5 Hyperlipidemia, unspecified; R32 Unspecified urinary incontinence; E03.9 Hypothyroidism, unspecified; Z79.4 Long term (current) use of insulin; J43.9 Emphysema, unspecified
CPT/HCPCS: 36415; 51702; 70450; 71045; 74177; 80048; 80053; 81001; 82009; 82550; 82553; 82803; 82947; 82962; 83036; 83605; 83690; 83735; 83930; 84100; 84484; 85007; 85025; 87040; 87070; 87086; 87088; 87186; 93005; 94640; 99291; C9803; J1956; Q9967; U0003; U0005

== ENCOUNTER → 2022-04-22 07:39 | Outpatient (CLI) | payer MEDICARE, OTHER, SELFPAY ==
--- NOTE | 2022-04-22 07:39 | CT_ITS ---
FINAL REPORT TECHNIQUE: Axial CT images of the chest were obtained without contrast. Low-dose protocol was utilized. This study was performed with techniques to keep radiation doses as low as reasonably achievable (ALARA). Individualized dose reduction techniques using automated exposure control or adjustment of mA and/or kV according to the patient's size were employed. CLINICAL HISTORY: lung cancer screening former smoker 2.5ppd x46 years COMPARISON: 09/10/2019 FINDINGS: CT CHEST WITHOUT, LOW DOSE SCREENING CT Di Vol: 2.90 mGy DLP: 85.95 mGy*cm There is no axillary, mediastinal, or hilar adenopathy. The heart size is normal. Prominent coronary artery calcifications. There is no pleural or pericardial effusion. The lung windows show a subpleural 4 mm right lower lobe nodule seen on image 28, unchanged from prior study. The lungs are otherwise clear. Limited images of the upper abdomen are unremarkable. IMPRESSION: Right lower lobe nodule. LR Category 2: 12 month follow-up low-dose chest CT is recommended. Modifier S: Extensive coronary artery calcifications. Reviewed, Interpreted and Dictated by Massiel Davenport MD Transcribed by Jael Garvin Authenticated and [facility]
== END ==
PROVIDERS: PCP Emergency Medicine; Visit Provider Emergency Medicine
DX: Z87.891 Personal history of nicotine dependence (principal); Z12.2 Encounter for screening for malignant neoplasm of respiratory organs
CPT/HCPCS: 71271

== ENCOUNTER → 2022-05-19 09:23 | Outpatient (CLI) | payer MEDICARE, OTHER, SELFPAY ==
--- NOTE | 2022-05-19 09:28 | XR_ITS ---
FINAL REPORT CLINICAL HISTORY: b/l foot pain FINDINGS: Weight-bearing AP, oblique and lateral views of the left foot were obtained. There is no prior exam for comparison. There is no acute fracture or dislocation. The joint spaces are preserved. Soft tissues are normal. IMPRESSION: No acute osseous abnormality of the left foot. Reviewed, Interpreted and Dictated by Massiel Davenport MD Transcribed by Bethany Betancourt Authenticated and [facility]
--- NOTE | 2022-05-19 09:28 | XR_ITS ---
FINAL REPORT CLINICAL HISTORY: b/l foot pain FINDINGS: Weight-bearing AP, oblique and lateral views of the right foot were obtained. There is no prior exam for comparison. There is no acute fracture or dislocation. The joint spaces are preserved. Soft tissues are normal. IMPRESSION: No acute osseous abnormality of the right foot. Reviewed, Interpreted and Dictated by Massiel Davenport MD Transcribed by Bethany Betancourt Authenticated and [facility]
== END ==
PROVIDERS: PCP Emergency Medicine; Visit Provider Nurse Practitioner Family
DX: M79.671 Pain in right foot (principal); M79.672 Pain in left foot
CPT/HCPCS: 73630

== ENCOUNTER → 2022-06-01 14:02 | Outpatient (CLI) | payer MEDICARE, OTHER, SELFPAY ==
[2022-06-01 15:11] LABS: Anion Gap 13.5 mEq/L (5-15); Blood Urea Nitrogen 35 mg/dl (7-17); Calcium 9.7 mg/dl (8.4-10.2); Carbon Dioxide 26 mmol/L (22.0-30.0); Chloride 101 mmol/L (98-107); Estimated Glomerular Filt Rate 73 ml/min (>60); GFR (African American) 88 ML/MIN (>60); Glucose 264 mg/dl (74-100); Potassium 4.5 mmoL/L (3.5-5.1); Sodium 136 mmol/L (136-145)
[2022-06-01 15:17] LABS: NT Pro Brain Natriuretic Pep. 31.6 pg/mL (0-125)
== END ==
PROVIDERS: PCP Emergency Medicine; Visit Provider Internal Medicine Cardiovascular Disease
DX: I51.89 Other ill-defined heart diseases (principal); I50.9 Heart failure, unspecified
CPT/HCPCS: 36415; 80048; 83880

== ENCOUNTER → 2022-06-10 11:29 | Outpatient (CLI) | payer MEDICARE, OTHER, SELFPAY ==
[2022-06-10 12:07] LABS: Chloride 97 mmol/L (98-107); Sodium 137 mmol/L (136-145)
[2022-06-10 12:08] LABS: Potassium 4.3 mmoL/L (3.5-5.1)
[2022-06-10 12:10] LABS: Anion Gap 13.3 mEq/L (5-15); Blood Urea Nitrogen 34 mg/dl (7-17); Carbon Dioxide 31 mmol/L (22.0-30.0); Estimated Glomerular Filt Rate 85 ml/min (>60); GFR (African American) 103 ML/MIN (>60)
[2022-06-10 12:11] LABS: Calcium 9.5 mg/dl (8.4-10.2); Glucose 285 mg/dl (74-100)
[2022-06-10 12:21] LABS: NT Pro Brain Natriuretic Pep. 25.5 pg/mL (0-125)
== END ==
PROVIDERS: PCP Emergency Medicine; Visit Provider Internal Medicine Cardiovascular Disease
DX: E78.5 Hyperlipidemia, unspecified (principal); I20.9 Angina pectoris, unspecified; I51.89 Other ill-defined heart diseases; R60.0 Localized edema; R06.00 Dyspnea, unspecified
CPT/HCPCS: 36415; 80048; 83880

== ENCOUNTER → 2022-07-15 06:30 | Outpatient (CLI) | payer MEDICARE, OTHER, SELFPAY | PROVIDERS: PCP Emergency Medicine; Visit Provider Internal Medicine Cardiovascular Disease | DX: E78.5 Hyperlipidemia, unspecified (principal); I51.89 Other ill-defined heart diseases; R60.0 Localized edema; I20.8 Other forms of angina pectoris | CPT/HCPCS: 78452; 93017; A9502; J2785 ==

== ENCOUNTER → 2022-08-09 23:19 | Outpatient (CLI) | payer MEDICARE, OTHER, SELFPAY ==
[2022-08-09 20:35] LABS: Anion Gap 21.8 mEq/L (5-15); Blood Urea Nitrogen 35 mg/dl (7-17); Calcium 9.1 mg/dl (8.4-10.2); Carbon Dioxide 25 mmol/L (22.0-30.0); Chloride 96 mmol/L (98-107); Estimated Glomerular Filt Rate 85 ml/min (>60); GFR (African American) 102 ML/MIN (>60); Glucose 308 mg/dl (74-100); Potassium 4.8 mmoL/L (3.5-5.1); Sodium 138 mmol/L (136-145)
[2022-08-11 11:26] LABS: C-Peptide 2.6 ng/mL (1.1-4.4)
== END ==
PROVIDERS: PCP Emergency Medicine; Visit Provider Emergency Medicine
DX: E11.51 Type 2 diabetes mellitus with diabetic peripheral angiopathy without gangrene (principal); I51.89 Other ill-defined heart diseases; Z79.4 Long term (current) use of insulin
CPT/HCPCS: 80048; 84681

== ENCOUNTER 2022-10-25 08:49 | Day surgery (SDC) | payer MEDICARE, SELFPAY ==
--- NOTE | 2022-10-18 10:27 | SUR.PREOP ---
pt called department and stated that she was not given instructions for her procedure but that she was told to be here today at 12 and not to take her diabetes medicines. After further discussion pt states she had not ate but had been drinking liquids all night. apologized to patient and pt to be rescheduled for 10/28/2022. instructions given at this time regarding pt's procedure and pt in agreeance. pt informed that she would receive a phone call on regarding procedure.
[2022-10-25] VITALS (13 sets, daily range): BP systolic 103–153; BP diastolic 56–89; PULSE 75–81; RESP 15–18; O2SAT 95–97; BMI 41.5
--- NOTE | 2022-10-25 07:14 | IR_ITS ---
APPROVED REPORT Patient Location: Outpatient PROCEDURES Left heart catheterization Left ventriculogram Selective coronary angiogram Drug-eluting stent deployment to the proximal mid and distal circumflex artery Drug-eluting stent deployment to the ostial proximal and mid dominant right coronary INDICATION Accelerated angina pectoris, Coronary artery disease Informed consent was obtained prior to the procedure. COMPLICATIONS None Estimated Blood Loss: Less than 10 mls TECHNIQUE One percent lidocaine was used to anesthetize the right groin. The right femoral artery was accessed via the Seldinger technique. A 4-Pashto sheath was placed in the right femoral artery. The JL-4 and JR-4 catheter was also used to perform left heart catheterization left ventriculogram and selective coronary angiogram. At the end the diagnostic angiogram the 4 Pashto sheath exchanged for a 6 Pashto sheath and therapeutic heparin was administered giving a therapeutic ACT. An EBU 3.75 guide catheter was placed in the left main artery followed by Choice PT extra-support wire down the circumflex artery. A 2.75 x 38 mm Yousif frontier stent was deployed at 20 stephanie reducing the severe stenosis to 0%. RAF-3 flow was present before and after the procedure. Following this the apparatus was removed and a JR4 catheter was used to cannulate the right coronary followed by Choice PT extra-support wire. A 2.75 x 38 mm Yousif frontier stent was deployed at 20 stephanie in the ostial proximal and mid segment. This reduced the severe stenosis to 0%. RAF-3 flow was present before and after the procedure. At the end the procedure the apparatus was removed the groin was reprepped closure change sheath was removed and hemostasis was achieved using Perclose device patient was transferred to the postop putting in stable condition ANGIOGRAPHIC RESULTS The left main artery Normal The left anterior descending artery Has proximal 30% stenosis followed by a stent which extends throughout the mid segment. There is mild to moderate mid LAD in-stent restenosis of approximately 30 to 40%. The distal LAD is widely patent. A large first diagonal artery has a stent in the ostial segment which has 70 to 80% concentric in-stent restenosis The circumflex artery Is a codominant vessel and has a long proximal tubular eccentric 70 to 80% stenosis. Distally 2 moderate-sized obtuse marginal arteries are widely patent The right coronary artery Is a dominant vessel and has proximal 50% stenosis with additional proximal 80 to 90% stenosis. Distally there are diffuse 30% stenosis The KWON ventriculogram reveals Normal 65% The left ventricular end-diastolic pressure 10 mmHg IMPRESSION Severe two-vessel coronary disease as described above Successful stenting of the proximal mid circumflex artery severe disease reduced to 0% with 1 drug-eluting stent Successful stenting of the ostial proximal mid codominant right coronary severe disease reduced to 0% with 1 drug-eluting stent Normal ejection fraction Normal left ventricular end-diastolic pressure Mild to moderate proximal LAD disease Severe disease in the first diagonal artery which is accompanied by RAF-3 flow and is best managed medically PLAN 1. Dual antiplatelet therapy 2. Patient requires much tighter control of diabetes. Morning blood sugar was 408. This is likely the etiology for her accelerated coronary artery disease 3. LDL less than 55 to be achieved with high intensity statin 4. Cardiac rehabilitation 5. Avoidance of tobacco products 6. Aggressive risk factor modification Electronically signed by : Koby Rios MD 10/25/2022 14:16:05
[2022-10-25 09:21] LABS: Basophils # 0.1 K/mm3 (0-0.2); Eosinophils # 0.3 K/mm3 (0.0-0.4); Eosinophils % 3.5 % (0.1-12.0); Hemoglobin 15.2 g/dL (12.2-16.2); Lymphocytes # 2.4 K/mm3 (0.7-4.5); Lymphocytes % 29.4 % (10-50); Mean Corpuscular HGB Conc 31.1 g/dL (31.8-35.4); Mean Corpuscular Hemoglobin 27.8 pg (27.0-31.2); Mean Corpuscular Volume 89.4 fl (81-99); Mean Platelet Volume 10.2 fl (7.4-10.4); Monocytes # 0.6 K/mm3 (0.1-1.0); Monocytes % 7.5 % (1.7-9.3); Neutrophils # 4.8 K/mm3 (1.8-7.8); Neutrophils % 58.5 % (37.0-80.0); Platelet Count 238 K/mm3 (142-424); Red Blood Count 5.49 M/mm3 (4.20-5.40); Red Cell Distribution Width 14.8 % (11.5-17.5); White Blood Count 8.2 K/mm3 (4.8-10.8)
[2022-10-25 09:27] LABS: Chloride 98 mmol/L (98-107); Potassium 5.4 mmoL/L (3.5-5.1); Sodium 135 mmol/L (136-145)
[2022-10-25 09:30] LABS: Anion Gap 13.4 mEq/L (5-15); Blood Urea Nitrogen 51 mg/dl (7-17); Carbon Dioxide 29 mmol/L (22.0-30.0); Creatinine Clearance Estimated 43 mL/min (50-200); Estimated Glomerular Filt Rate 72 ml/min (>60); GFR (African American) 88 ML/MIN (>60)
[2022-10-25 09:31] LABS: Calcium 9.4 mg/dl (8.4-10.2)
[2022-10-25 09:33] LABS: Glucose 408 mg/dl (74-100)
[2022-10-25 14:07] LABS: CATHL Activated Clotting Time 307 SEC (74-125)
[2022-10-25 14:44] LABS: POC Glucose,Bedside 260 (70-110)
--- NOTE | 2022-10-25 14:52 | P.CONPHA_ITS ---
PHA Superintendent Stations Discharge Med Service Delivery Director: [place] Terra Kyle has received discharge medication counseling on the following medications: ASPIRIN 81 MG DAILY ATORVASTATIN 40 MG DAILY CLOPIDOGREL 75 MG DAILY LOSARTAN HCTZ 50 MG/12.5 MG DAILY METOPROLOL SUCCINATE 100 MG DAILY PATIENT HOLDING METFORMIN UNTIL MONDAY.
== END 2022-10-25 16:05 | disposition home or self-care (01) ==
PROVIDERS: PCP Emergency Medicine; Visit Provider Internal Medicine
DX: E78.5 Hyperlipidemia, unspecified (principal); R00.2 Palpitations; R60.0 Localized edema; I25.118 Atherosclerotic heart disease of native coronary artery with other forms of angina pectoris; E11.9 Type 2 diabetes mellitus without complications; Z79.4 Long term (current) use of insulin; Z79.899 Other long term (current) drug therapy; I10 Essential (primary) hypertension
CPT/HCPCS: 80048; 82962; 85025; 85347; 92928; 93458; 99152; 99153; C1725; C1760; C1769; C1876; C9600; J1644; Q9967

== ENCOUNTER → 2022-11-02 15:00 | Outpatient (CLI) | payer MEDICARE, SELFPAY ==
[2022-11-02 18:57] LABS: Creatinine,Urine Random 28 mg/dL (Not Estab.)
[2022-11-02 18:59] LABS: Microalbumin/Creatinine Ratio 146.7
--- NOTE | 2022-12-23 14:02 | PC.NURSE ---
Spoke with patient about a overnight pulse ox and she refused at this time. Left message with Dr. Lin's staff.
== END ==
PROVIDERS: PCP Emergency Medicine; Visit Provider Emergency Medicine
DX: E11.9 Type 2 diabetes mellitus without complications (principal); Z79.4 Long term (current) use of insulin
CPT/HCPCS: 82043; 82570

== ENCOUNTER → 2023-02-13 10:29 | Outpatient (CLI) | payer MEDICARE, SELFPAY | PROVIDERS: PCP Emergency Medicine; Visit Provider Emergency Medicine | DX: M54.9 Dorsalgia, unspecified (principal); B96.29 Other Escherichia coli [E. coli] as the cause of diseases classified elsewhere | CPT/HCPCS: 87086 ==

== ENCOUNTER → 2023-03-06 15:22 | Outpatient (CLI) | payer MEDICARE, SELFPAY ==
[2023-03-06 15:27] LABS: Microscopic, Urine URINE MICROSCOPIC (MICROSCOPIC)
[2023-03-06 15:55] LABS: Basophils # 0.1 K/mm3 (0-0.2); Basophils % 0.8 % (0.1-2.0); Eosinophils # 0.2 K/mm3 (0.0-0.4); Eosinophils % 2.4 % (0.1-12.0); Hematocrit 48.6 % (37.0-47.0); Hemoglobin 15.7 g/dL (12.2-16.2); Lymphocytes # 2.4 K/mm3 (0.7-4.5); Lymphocytes % 28.4 % (10-50); Mean Corpuscular HGB Conc 32.2 g/dL (31.8-35.4); Mean Corpuscular Hemoglobin 29.1 pg (27.0-31.2); Mean Corpuscular Volume 90.4 fl (81-99); Mean Platelet Volume 9.1 fl (7.4-10.4); Monocytes # 0.6 K/mm3 (0.1-1.0); Monocytes % 6.8 % (1.7-9.3); Neutrophils # 5.1 K/mm3 (1.8-7.8); Neutrophils % 61.6 % (37.0-80.0); Platelet Count 221 K/mm3 (142-424); Red Blood Count 5.38 M/mm3 (4.20-5.40); Red Cell Distribution Width 14.5 % (11.5-17.5); White Blood Count 8.3 K/mm3 (4.8-10.8)
[2023-03-06 16:48] LABS: Anion Gap 16.5 mEq/L (5-15); Blood Urea Nitrogen 34 mg/dl (7-17); Calcium 9.4 mg/dl (8.4-10.2); Carbon Dioxide 23 mmol/L (22.0-30.0); Chloride 102 mmol/L (98-107); Estimated Glomerular Filt Rate 85 ml/min (>60); GFR (African American) 102 ML/MIN (>60); Glucose 264 mg/dl (74-100); Potassium 4.5 mmoL/L (3.5-5.1); Sodium 137 mmol/L (136-145)
[2023-03-06 17:19] LABS: Appearance,Urine CLEAR (Clear); Bilirubin,Urine Negative (Negative); Blood, Urine TRACE-I (Negative); Color,Urine YELLOW (Yellow); Glucose,Urine (UA) 3+ (Negative); Ketones,Urine 1+ (Negative); Leukocyte Esterase,Urine Negative (Negative); Nitrate,Urine Negative (Negative); Protein,Urine 1+ (Negative); Specific Gravity, Urine 1.025 (1.005-1.030); Urobilinogen,Urine 0.2 EU/dl (0.2)
[2023-03-06 18:37] LABS: WBC,Urine Occasional #/hpf (0-3)
[2023-03-06 18:38] LABS: RBC,Urine Occasional #/hpf (0-3); Squamous Epithelial Cell,Urine Occasional #/hpf (0-5)
== END ==
PROVIDERS: PCP Physician Assistant; Visit Provider Urology
DX: N39.0 Urinary tract infection, site not specified (principal); J43.9 Emphysema, unspecified; R32 Unspecified urinary incontinence; B96.89 Other specified bacterial agents as the cause of diseases classified elsewhere
CPT/HCPCS: 36415; 80048; 81001; 82565; 84520; 85025; 87086

== ENCOUNTER → 2023-03-16 08:44 | Outpatient (CLI) | payer MEDICARE, SELFPAY ==
--- NOTE | 2023-03-16 08:55 | CT_ITS ---
FINAL REPORT CLINICAL HISTORY: abdominal pain, RECURRENT UTI'S COMPARISON: 01/07/2022 FINDINGS: The lung bases are clear. There is moderate fatty infiltration of the liver. The gallbladder is present. The spleen is unremarkable. The adrenals are normal. The pancreas is unremarkable. There are benign-appearing cysts present in the left kidney. A large amount of stool is present throughout the colon. There is a moderate fat-containing umbilical hernia defect measuring 2 cm in size, stable. Precontrast images demonstrate no nephrolithiasis. The appendix is normal in appearance. The bladder is incompletely distended. The uterus is surgically absent. IMPRESSION: No acute process Large amount of stool present in the colon. Moderate fat-containing umbilical hernia defect measuring 2 cm in size, stable. Moderate fatty infiltration of the liver. Reviewed, Interpreted and Dictated by Jeremiah Heller MD Transcribed by Emilee Edouard Authenticated and [facility]
== END ==
PROVIDERS: PCP Physician Assistant; Visit Provider Urology
DX: N39.0 Urinary tract infection, site not specified (principal)
CPT/HCPCS: 74178; Q9967

== ENCOUNTER 2023-03-20 08:41 | Day surgery (SDC) | payer MEDICARE, SELFPAY ==
[2023-03-20] MEDS: LACTATED RINGERS 1000ML 1,000 ML 25 ML IV ×2 (08:54→09:11)
[2023-03-20 09:11] VITALS: BP 144/70; PULSE 68; RESP 18; TEMP 36.6; O2SAT 96; BMI 41.1
[2023-03-20] MEDS: IPRATROPIUM/ALBUTEROL 3 ML NEB IH (09:12)
[2023-03-20 09:13] VITALS: PULSE 68; PULSE 70
[2023-03-20 09:20] LABS: POC Glucose,Bedside 112 (70-110)
--- NOTE | 2023-03-20 10:26 | EXP.ANES.CKL ---
[facility] Disclaimer: The information contained in this section may have been updated after the patient was seen, as this information can be updated by other users. Medical History (Updated 03/20/23 @ 08:58 by Paul Acevedo RN) CAD (coronary artery disease) Chest pain COPD (chronic obstructive pulmonary disease) Coronary artery disease Diabetes mellitus type 2 in obese Diastolic dysfunction DKA (diabetic ketoacidosis) Dyspnea Dyspnea and respiratory abnormalities Dyspnea on exertion Edema of both lower extremities Emphysema of lung Encounter for screening for malignant neoplasm of lung Ex-smoker for more than 1 year Foot pain, bilateral Gastroesophageal reflux disease History of smoking 30 or more pack years Hyperlipidemia Hypertensive disorder Nodule of right lung Oxygen dependent Palpitations Sinus tachycardia SOB (shortness of breath) on exertion Typical angina Urinary incontinence Surgical History H/O eye surgery History of intravascular stent placement History of partial hysterectomy Family History (Updated 03/20/23 @ 08:58 by Paul Acevedo RN) Other Family history of diabetes mellitus Family history of heart disease No significant family history Social History (Updated 03/20/23 @ 09:00 by Paul Acevedo RN) Smoking Status: Former smoker tobacco type: cigarettes packs per day: 1 smoking status stop date: 2006 alcohol intake: former substance use type: denies use current occupational status: unemployed Travel in the last 8 weeks: None household members: spouse housing: house lives independently: Yes marital status: number of children: 1 current occupational exposures/hazards: No 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 [facility] Anesthesia Checklist Patient Identification Patient Identification: Arm Band, Family and Verbal (Name & ) Structural Data Admitted From: Home Planned Operative Procedure/s: Cysto, colposcopy Consent for Planned Operative Procedure(s) Verified: Yes Verified Documents: Surgical Consent and History and Physical NPO Status Verified Time NPO: 23:45 Chart Verification Results Verified: CBC, BMP, ECG and Chest Xray Additional verifications Fingerstick Blood Glucose: 112 Patient : No Anesthesia Reactions: No Hx Blood Transfusions: No Blood Transfusion Reaction: No Cardiovascular Assessment Heart Sounds: S1 & S2 Pulse Rhythm: Irregular Peripheral Edema: Yes (3+ JORGE LUIS LE) Airway Assessment Mallampati Score:: Class III C-Spine Mobility Assessed: Yes (FROM) TMJ Mobility Assessed: Yes Dentition: Edentulous Neurological Assessment Level of Consciousness: Awake, Alert, Appropriate and Follows Commands Hx Seizures: No Numbness or tingling in extremities: No Anesthesia Plan Anesthesia Risk discussed: Yes Anesthesia Plan: Verified ASA Class: IV Anesthesia Type: MAC
[2023-03-20] MEDS: LIDOCAINE 2% UROJET 10ML 10 ML (10:35)
[2023-03-20] MEDS: SODIUM CHLORIDE IRRIG SOLUTION 3,000 ML 100 ML IR (10:36)
[2023-03-20 10:47] VITALS: BP 148/97; PULSE 70; RESP 16; TEMP 36.4; O2SAT 94
--- NOTE | 2023-03-20 10:52 | EXP.ANES.I ---
[facility] Anesthesia Record Part I Anesthesia Record I Intake, IV Amount: 100 Hydration: Adequate Estimated blood loss (mL): 0 Urine output (mL): 0 Blood Products used (#): none Blood Pressure: 148/97 SaO2: 93 Pulse Rate: 74 Airway Patency: Patent Respiratory Rate: 16 Temperature: 97.5 F Patient is:: Awake (Talking) and Stable Stable to PACU at:: 10:52
[2023-03-20 10:53] VITALS: BP 148/97; PULSE 74; RESP 16; TEMP 36.4; O2SAT 93
[2023-03-20 10:57] VITALS: BP 129/79; PULSE 75; RESP 16; O2SAT 93
[2023-03-20 11:07] VITALS: BP 122/76; PULSE 69; RESP 18; O2SAT 94
--- NOTE | 2023-03-20 13:40 | P.PCN_ITS ---
[facility] Procedure Note Date: 03/20/23 Time: 10:00 Procedure Note:: The patient was brought to the operating room. She was prepped and draped using a sterile technique. The patient was then the Jules rhoades. She underwent flexible cystoscopy. The patient has a noted urethrocele. The patient does leak with cough in the supine position. This leak seems to be corrected when the finger supports the anterior vaginal wall. This suggest that a pelvic sling would be helpful to control her stress urinary incontinence. However the patient also has an issue of urge incontinence. The urge incontinence requires medication. Patient's been fairly refractory to helping with her urge inconti nence being on a anticholinergic and beta agonist for the urinary bladder. The patient could be considered a candidate for Botox if the above pharmaceuticals do not reach goal. I recommend management of the overactive bladder component prior to surgical sling. The urethra endoscopically is normal. The bladder wall is also free of stone tumor hemorrhage or infection. There were ureteral orifices were normal bilaterally. The patient's bladder capacity is reduced to about 150 cc.
--- NOTE | 2023-03-21 07:02 | HMH.PROCNOTE ---
[facility] Procedure Note Date: 03/20/23 Time: 10:00 Procedure Note:: Cystoscopy--Female SURGEON: Paul Nunez M.D. ANESTHESIA: Under clean conditions, 2% Xylocaine jelly anesthetizes the urethra. FINDINGS AND PROCEDURE: Before the procedure, I reviewed the patient history, physical findings, and current medications. I discussed the procedure with the patient, including possible complications of pain, scar, infection, perforation, or blood. The patient was prepped and draped in the usual fashion for cystoscopy in the supine position in [facility].? Cystoscopy was performed using the flexible cystoscope and sterile water.?? Urethra:? Endoscopically Normal?? __Hypermobile Bladder: No tumors or CIS noted.? No significant trabeculation noted.? Ureter:? Orifices typical configuration and location. POP-Q Measurements: ? (patient)? (normal range) ? Aa: _1 __cm? (-3) ? Ba: _-2__cm? (-2) . ? Ap: _-2__cm? (-2) ? Bp: __-1_cm? (-2) . I removed the cystoscope.? The patient tolerated the procedure well. The patient has a urethrocele. A vaginal sling will help her stress urinary incontinence situation. However, I have emphasized to the patient that her overactive bladder and urge incontinence will need pharmaceutical management and that the surgery would not repair her overactive bladder component. Simple Urodynamics: A simple Cystometrogram was done in the supine position to determine bladder function during filling phase with sterile solution.? Various sensations, compliance and functional capacity were measured as indicated on the record. Patient felt the first sensation of filling at __50___ml.? Patient felt fullness at __140___ml, Patient felt the first urge to void at _150__ml.? Total amount infused into the bladder was _150___ ml. The patient has a reduced bladder capacity.
== END 2023-03-20 11:10 | disposition home or self-care (01) ==
PROVIDERS: PCP Physician Assistant; Visit Provider Urology
PROC: 0TJB8ZZ Inspection of Bladder, Via Natural or Artificial Opening Endoscopic (ICD-10-PCS; CPT 52000; principal; 2023-03-20 09:45)
DX: N81.0 Urethrocele (principal); N39.3 Stress incontinence (female) (male); N32.81 Overactive bladder; E11.9 Type 2 diabetes mellitus without complications
CPT/HCPCS: 51725; 52000; 82962; 94640

== ENCOUNTER 2023-06-21 23:36 | Emergency (ER) | payer MEDICARE, SELFPAY ==
[2023-06-21 23:36] VITALS: BP 100/79; PULSE 75; RESP 18; TEMP 36.4; O2SAT 97; BMI 37.8
--- NOTE | 2023-06-22 00:14 | PC.NURSE ---
vbg results received
[2023-06-22 01:07] VITALS: BP 163/87; PULSE 74; RESP 16; TEMP 36.8; O2SAT 97
--- NOTE | 2023-06-22 01:08 | ED_ITS ---
Discharge Plan Disposition Patient Disposition: Home, Self-Care Prescriptions Prescriptions: No Action spironolactone [Aldactone] 25 mg tablet 25 mg PO BID Qty: 60 5RF losartan-hydrochlorothiazide 50-12.5 mg tablet 1 tab PO DAILY Patient Comments: TAKE 1 TABLET BY MOUTH ONCE DAILY mupirocin 2 % ointment 1 applic topical BID Patient Comments: APPLY OINTMENT TOPICALLY TWICE DAILY ipratropium-albuterol 0.5 mg-3 mg(2.5 mg base)/3 mL solution for nebulization 3 ml inhalation Q4-6H PRN (Reason: shortness of breath or wheezing) Qty: 180 1RF albuterol sulfate 0.63 mg/3 mL solution for nebulization 0.63 mg inhalation Q4-6H PRN (Reason: shortness of breath or wheezing) Qty: 90 2RF lidocaine-prilocaine 2.5-2.5 % cream 1 applic topical ONCE (DME) Dexcom G6 Business Development Analyst Misc See Rx Instructions .Route Qty: 1 0RF Rx Instructions: As directed (DME) Dexcom G6 Transmitter Device See Rx Instructions .Route Qty: 1 3RF Rx Instructions: As directed acetaminophen-codeine 300-30 mg tablet 1 tab PO BID Qty: 30 0RF (DME) Dexcom G6 Sensor Device See Rx Instructions .Route Qty: 3 1RF Rx Instructions: As directed glipizide 10 mg tablet extended release 24hr 10 mg PO BID Qty: 180 3RF oxybutynin chloride 15 mg tablet extended release 24hr See Rx Instructions .ROUTE .COMPLEX Qty: 30 2RF Dose Instruction: TAKE ONE TABLET BY MOUTH EVERY DAY FOR OVERACTIVE FOR BLADDER Rx Instructions: TAKE ONE TABLET BY MOUTH EVERY DAY FOR OVERACTIVE FOR BLADDER mirabegron 50 mg tablet extended release 24 hr 50 mg PO DAILY Qty: 30 3RF (DME) pen needle, diabetic [Comfort EZ Pen [place]] 32 gauge x 5/16 needle See Rx Instructions .Route Qty: 100 2RF Rx Instructions: As directed Fiasp FlexTouch U-100 Insulin 100 unit/mL (3 mL) insulin pen 10 unit SQ BID Qty: 15 2RF atorvastatin 40 mg tablet See Rx Instructions .ROUTE .COMPLEX Qty: 30 1RF Dose Instruction: TAKE ONE TABLET BY MOUTH EVERY DAY Rx Instructions: TAKE ONE TABLET BY MOUTH EVERY DAY levothyroxine 25 mcg tablet See Rx Instructions .ROUTE .COMPLEX Qty: 90 0RF Dose Instruction: Take 1 tablet by mouth once daily Rx Instructions: Take 1 tablet by mouth once daily cephalexin 500 mg capsule 500 mg PO TID Qty: 30 0RF metoprolol succinate 100 mg tablet extended release 24 hr 100 mg PO DAILY Qty: 90 3RF (DME) Omnipod 5 G6 Intro Kit (Gen 5) Cartridge See Rx Instructions .Route Qty: 1 2RF Rx Instructions: As directed (DME) Omnipod 5 G6 Pods (Gen 5) Cartridge See Rx Instructions .Route Qty: 5 1RF Rx Instructions: As directed sertraline 100 mg tablet See Rx Instructions .ROUTE .COMPLEX Qty: 30 2RF Dose Instruction: TAKE ONE TABLET BY MOUTH EVERY DAY Rx Instructions: TAKE ONE TABLET BY MOUTH EVERY DAY Jardiance 25 mg tablet 25 mg PO DAILY Qty: 30 2RF aspirin 81 mg tablet,delayed release (DR/EC) 81 mg PO DAILY clopidogrel 75 mg tablet 75 mg PO DAILY 30 Days Qty: 30 0RF pantoprazole 40 mg tablet,delayed release (DR/EC) 40 mg PO HS 30 Days Qty: 30 0RF Trelegy Ellipta 200-62.5-25 mcg blister with device 1 inh inhalation DAILY 30 Days Qty: 1 0RF Activity Restrictions/Add. Instructions Additional Instructions/Restrictions: Please call in the morning to troubleshoot your devices. Please follow-up with your primary care provider. Please return to the emergency department if you develop any new or worsening symptoms or become concerned for your health. Clinical Impressions Clinical Impression: Hyperglycemia due to type 2 diabetes mellitus, Dehydration Discharge ED Provider: Shyam Hermosillo Adult HPI General Chief complaint: Recheck/Abnormal Lab/Rx Stated complaint: high blood sugar Time Seen by Provider: 06/21/23 23:45 History of Present Illness HPI narrative: 62-year-old female with history of type 2 diabetes with chronic insulin use, obesity, chronic kidney disease, coronary artery disease presents with hyperglycemia. She reports that she has a Dexcom and an insulin reservoir that requires refilling. She has a electronic device that communicates with the reservoir to administer her insulin. The last couple of days it has not been working. She reports that her blood sugar has been in the 200s, but today got up to 400 and so she presents to the ER. She denies any other symptoms such as fever or chills urinary urgency or frequency or pain, reports normal fluid intake. Patient complains of mild low back pain that has been ongoing for the last several months. No recent change. Related Data Home Medications Medication Instructions Recorded Confirmed aspirin 81 mg tablet,delayed 81 mg PO DAILY history of cardiac 01/07/22 03/20/23 release stents mupirocin 2 % topical ointment 1 applic topical BID 01/11/22 03/20/23 lidocaine-prilocaine 2.5 %-2.5 % 1 applic topical ONCE 08/09/22 03/20/23 topical cream losartan 50 mg-hydrochlorothiazide 1 tab PO DAILY 10/13/22 03/20/23 12.5 mg tablet Previous Rx's Medication Instructions Recorded clopidogrel 75 mg tablet 75 mg PO DAILY history of cardiac 01/09/22 stents 30 days #30 tabs fluticasone fur. 200 mcg-umeclid 1 inh inhalation DAILY lung 01/09/22 62.5 mcg-vilant 25 mcg disease 30 days #1 ea inhalat.powder (Trelegy Ellipta) pantoprazole 40 mg tablet,delayed 40 mg PO HS acid reflux 30 days 01/09/22 release #30 tabs pen needle, diabetic 32 gauge x #100 ea 03/18/2208/16 (Comfort EZ Pen [place]) ipratropium 0.5 mg-albuterol 3 mg 3 ml inhalation Q4-6H PRN 04/06/22 (2.5 mg base)/3 mL nebulization shortness of breath or wheezing soln #180 mL albuterol sulfate 0.63 mg/3 mL 0.63 mg (3 mL) inhalation Q4-6H 04/07/22 solution for nebulization PRN shortness of breath or wheezing #90 mL spironolactone 25 mg tablet 25 mg PO BID Hypertension #60 tabs 05/27/22 (Aldactone) insulin aspart 10 unit SQ BID #15 mL 01/19/23 (niacinamide)(U-100) 100 unit/mL(3 mL) subcutaneous pen (Fiasp FlexTouch U-100 Insulin) atorvastatin 40 mg tablet See Rx Instructions .Route 02/01/23 .COMPLEX #30 tabs acetaminophen 300 mg-codeine 30 mg 1 tab PO BID #30 tabs 02/13/23 tablet blood-glucose meter,continuous #1 ea 02/13/23 (Dexcom G6 Business Development Analyst) blood-glucose transmitter (Dexcom #1 ea 02/13/23 G6 Transmitter device) blood-glucose sensor (Dexcom G6 #3 ea 02/14/23 Sensor device) glipizide 10 mg tablet, extended 10 mg PO BID #180 tabs 02/14/23 release 24 hr levothyroxine 25 mcg tablet See Rx Instructions .Route 02/15/23 .COMPLEX #90 tabs cephalexin 500 mg capsule 500 mg PO TID #30 caps 02/21/23 mirabegron 50 mg tablet,extended 50 mg PO DAILY #30 tabs 03/06/23 release 24 hr oxybutynin chloride 15 mg See Rx Instructions .Route 03/06/23 tablet,extended release 24 hr .COMPLEX #30 tabs insulin pump cart,automated,BT #5 ea 03/16/23 (Omnipod 5 G6 Pods (Gen 5) subcutaneous cartridge) insulin pump cartridge,automated #1 ea 03/16/23 dose,BT with controller subcutaneous (Omnipod 5 G6 Intro Kit (Gen 5) subcutaneous cartridge with controller) metoprolol succinate 100 mg 100 mg PO DAILY #90 tabs 03/16/23 tablet,extended release 24 hr sertraline 100 mg tablet See Rx Instructions .Route 03/16/23 .COMPLEX #30 tabs empagliflozin 25 mg tablet 25 mg PO DAILY #30 tabs 04/17/23 (Jardiance) Allergies Allergy/AdvReac Type Severity Reaction Status Date / Time insulin lispro Allergy Intermediate Vomiting Verified 03/20/23 09:03 venom-honey bee Allergy Unknown Unknown Verified 03/20/23 09:03 [BEE VENOM (HONEY BEE)] allergy reaction chocolate flavor AdvReac Hyper Verified 03/20/23 09:03 [facility] Disclaimer: The information contained in this section may have been updated after the patient was seen, as this information can be updated by other users. Medical History (Updated 06/22/23 @ 01:19 by Shyam Hermosillo MD) Oxygen dependent Encounter for screening for malignant neoplasm of lung Nodule of right lung History of smoking 30 or more pack years Dyspnea on exertion SOB (shortness of breath) on exertion Palpitations Typical angina Edema of both lower extremities Diastolic dysfunction Foot pain, bilateral DKA (diabetic ketoacidosis) CAD (coronary artery disease) COPD (chronic obstructive pulmonary disease) Sinus tachycardia Gastroesophageal reflux disease Urinary incontinence Chest pain Dyspnea Dyspnea and respiratory abnormalities Coronary artery disease Ex-smoker for more than 1 year Emphysema of lung Diabetes mellitus type 2 in obese Hyperlipidemia Hypertensive disorder Surgical History History of partial hysterectomy History of intravascular stent placement H/O eye surgery Family History (Updated 03/20/23 @ 08:58 by Paul Acevedo RN) Other Family history of diabetes mellitus Family history of heart disease No significant family history Social History (Updated 03/20/23 @ 09:00 by Paul Acevedo RN) Smoking Status: Former smoker tobacco type: cigarettes packs per day: 1 smoking status stop date: 2006 alcohol intake: former substance use type: denies use current occupational status: unemployed Travel in the last 8 weeks: None household members: spouse housing: house lives independently: Yes marital status: number of children: 1 current occupational exposures/hazards: No 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 for 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: Yes ROS Obtained: Yes All systems reviewed & no additional complaints except as documented Physical Exam General General appearance: alert and in no apparent distress Head Head exam: atraumatic and normocephalic Eye Eye exam: Present normal appearance, PERRL and EOMI ENT ENT exam: Present normal external ear exam and other (Dry mucous membranes) Neck Neck exam: Present normal inspection and full ROM Chest Chest inspection: Present normal inspection and symmetric chest wall rise; A bsent tenderness Respiratory Respiratory exam: Present normal lung sounds bilaterally; Absent respiratory distress Cardiovascular Cardiovascular exam: Present regular rate and normal rhythm Abdominal Exam Abdominal exam: Present soft; Absent distention, tenderness or guarding Extremities Exam Extremities exam: Present normal inspection; Absent edema or joint swelling Back Exam Back exam: Present normal inspection; Absent tenderness Neurological Exam Neurological exam: Present alert and oriented X3; Absent motor sensory deficit Psychiatric Psychiatric exam: Present normal affect and normal mood Skin Skin exam: Present warm, dry and normal color Lymphatic Lymphatic Findings: no adenopathy Medical Decision Making Medical Records Medical records reviewed: Yes I reviewed the patient's medical records. Dewayne Inquiry Pt receiving controlled substance: No Dewayne was queried for this patient: No Lab Data Lab results reviewed: Yes I reviewed the patient's lab results. Orders (Tests/Meds): ORDERS Category Date Time Status Acetone, Serum (Rapid) Stat Lab 06/22/23 01:10 Ordered Complete Blood Count Auto Diff Stat Lab 06/22/23 01:10 Ordered Comprehensive Metabolic Panel Stat Lab 06/22/23 01:10 Ordered Urinalysis and Microscopic Stat Lab 06/22/23 01:10 Ordered VBG [Venous Blood Gas] Stat RT 06/22/23 00:05 Ordered VBG [Venous Blood Gas] Stat RT 06/22/23 01:10 Ordered Medical Decision Narrative: 62-year-old female with history of insulin-dependent type 2 diabetes, CAD, CKD, obesity presents with hypoglycemia at home today, reports that her insulin delivery system has not been functioning properly and she has not been getting insulin.. History was obtained interactive discussion with patient. On arrival, patient is [afebrile, hemodynamically stable, satting appropriately, alert, oriented x4, GCS 15], moving all extremities spontaneously. Full physical exam performed and significant for dry mucous membranes, otherwise no significant physical exam abnormality. Fingerstick on arrival 420. Differential includes but is not limited to hyperglycemia, HHS, DKA, electrolyte derangement, UTI. Patient was given 1 L fluid bolus, Tylenol, lidocaine patch for symptomatic management and correction of underlying abnormalities. Workup initiated including CBC CMP acetone VBG UA. On re-evaluation, patient [remains afebrile, HD stable.] Laboratory workup independently interpreted by me and significant for blood be gar 371 on CMP, normal anion gap, no leukocytosis, urinalysis not convincing for acute UTI given lack of symptoms. VBG shows mildly elevated lactate and minimal acidosis. Likely result of dehydration.. Insulin administration was considered, but on fingerstick recheck after 1 L fluid bolus, patient's blood sugar is 250. Given patient history, exam and workup, patient's presentation most likely represents mild hypoglycemia as result of malfunctioning insulin delivery system as well as mild dehydration. No evidence of DKA HHS or other emergent pathology at this time. Patient will call her equipment hotline in the morning to get it sorted out. Return precautions given. Procedures Risk/Benefits of Procedure(s) Were Explained: Yes Critical Care Critical Care Time Critical Care Time: No
[2023-06-22 01:10] VITALS: BMI 37.8
[2023-06-22 01:19] LABS: VBG HCO3 26.6 mmol/L (23-30); VBG PH 7.29 mmol/L (7.31-7.41); VBG PO2 33.8 mmol/L (28-40); VBG Total CO2 28.3 mmol/L (23-27)
[2023-06-22 01:21] LABS: Lactate Venous 3.6 mmol/L (0.4-2.0); VBG PCO2 56.7 mmol/L (35-51)
[2023-06-22] MEDS: LACTATED RINGERS 1000ML 1,000 ML 999 ML IV (01:23)
[2023-06-22] MEDS: ACETAMINOPHEN 1,000MG/100ML VIAL 1000 MG IV (01:24)
[2023-06-22 01:26] LABS: Alanine Aminotransferase 42 U/L (12-78); Albumin Level 4.6 g/dl (3.5-5.0); Albumin/Globulin Ratio 1.6 (1.1-1.8); Alkaline Phosphatase 103 U/L (38-126); Anion Gap 11.8 mEq/L (5-15); Aspartate Amino Transferase 42 U/L (14-36); Bilirubin,Total 0.5 mg/dl (0.2-1.3); Blood Urea Nitrogen 24 mg/dl (7-17); Calcium 9.3 mg/dl (8.4-10.2); Carbon Dioxide 29 mmol/L (22.0-30.0); Chloride 101 mmol/L (98-107); Creatinine Clearance Estimated 82 mL/min (50-200); Estimated Glomerular Filt Rate 85 ml/min (>60); GFR (African American) 102 ML/MIN (>60); Globulin 2.9 g/dL (1.3-3.2); Glucose 371 mg/dl (74-100); Potassium 3.8 mmoL/L (3.5-5.1); Sodium 138 mmol/L (136-145); Total Protein,Serum 7.5 g/dl (6.3-8.2)
[2023-06-22 01:28] LABS: Acetone, Serum (Rapid) None Detected (None Detect)
[2023-06-22 01:30] VITALS: BP 157/80; PULSE 69; O2SAT 98
[2023-06-22 01:36] LABS: Appearance,Urine CLEAR (Clear); Bilirubin,Urine Negative (Negative); Blood, Urine Negative (Negative); Color,Urine YELLOW (Yellow); Glucose,Urine (UA) 3+ (Negative); Hemoglobin 15.4 g/dL (12.2-16.2); Ketones,Urine Negative (Negative); Leukocyte Esterase,Urine Negative (Negative); Mean Corpuscular HGB Conc 31.4 g/dL (31.8-35.4); Mean Corpuscular Hemoglobin 29.6 pg (27.0-31.2); Mean Corpuscular Volume 94.2 fl (81-99); Microscopic, Urine URINE MICROSCOPIC (MICROSCOPIC); Nitrate,Urine Negative (Negative); Protein,Urine Negative (Negative); Urobilinogen,Urine 0.2 EU/dl (0.2)
[2023-06-22 01:37] LABS: Bacteria,Urine 1+ /lpf; Basophils # 0.1 K/mm3 (0-0.2); Basophils % 1.3 % (0.1-2.0); Eosinophils # 0.2 K/mm3 (0.0-0.4); Eosinophils % 2.9 % (0.1-12.0); Lymphocytes # 1.8 K/mm3 (0.7-4.5); Lymphocytes % 29.4 % (10-50); Mean Platelet Volume 9.4 fl (7.4-10.4); Monocytes # 0.4 K/mm3 (0.1-1.0); Monocytes % 6.1 % (1.7-9.3); Neutrophils # 3.5 K/mm3 (1.8-7.8); Neutrophils % 58.7 % (37.0-80.0); Platelet Count 206 K/mm3 (142-424)
[2023-06-22 01:45] VITALS: BP 157/80; PULSE 70; RESP 16; TEMP 36.7; O2SAT 98
[2023-06-22 05:20] LABS: Reflex Lactic Add Lactic Reflex
== END 2023-06-22 01:55 | disposition home or self-care (01) ==
PROVIDERS: Emergency Provider Emergency Medicine; PCP Internal Medicine
DX: E11.65 Type 2 diabetes mellitus with hyperglycemia (principal); E86.0 Dehydration; E11.22 Type 2 diabetes mellitus with diabetic chronic kidney disease; N18.9 Chronic kidney disease, unspecified; I25.118 Atherosclerotic heart disease of native coronary artery with other forms of angina pectoris; M54.50 Low back pain, unspecified; J44.9 Chronic obstructive pulmonary disease, unspecified; K21.9 Gastro-esophageal reflux disease without esophagitis; E78.5 Hyperlipidemia, unspecified; Z87.891 Personal history of nicotine dependence
CPT/HCPCS: 80053; 81001; 82009; 82803; 85025; 96361; 96374; 99285; J0131

== ENCOUNTER 2023-08-11 18:29 | Outpatient (CLI) | payer MEDICARE, SELFPAY ==
[2023-08-11 19:09] LABS: Chloride 103 mmol/L (98-107); Sodium 138 mmol/L (136-145)
[2023-08-11 19:10] LABS: Potassium 4.7 mmoL/L (3.5-5.1)
[2023-08-11 19:12] LABS: Alanine Aminotransferase 23 U/L (12-78); Alkaline Phosphatase 134 U/L (38-126); Anion Gap 13.7 mEq/L (5-15); Aspartate Amino Transferase 25 U/L (14-36); Bilirubin,Total 0.6 mg/dl (0.2-1.3); Blood Urea Nitrogen 23 mg/dl (7-17); Calcium 10.3 mg/dl (8.4-10.2); Carbon Dioxide 26 mmol/L (22.0-30.0); Estimated Glomerular Filt Rate 101 ml/min (>60); GFR (African American) 122 ML/MIN (>60)
[2023-08-11 19:13] LABS: Albumin Level 4.3 g/dl (3.5-5.0); Albumin/Globulin Ratio 1.9 (1.1-1.8); Globulin 2.3 g/dL (1.3-3.2); Total Protein,Serum 6.6 g/dl (6.3-8.2)
[2023-08-11 19:34] LABS: Glucose 421 mg/dl (74-100)
== END 2023-08-11 23:59 | disposition home or self-care (01) ==
LOC: LAB 18:33
PROVIDERS: PCP Family Medicine; Visit Provider Family Medicine
DX: E11.69 Type 2 diabetes mellitus with other specified complication (principal); E66.9 Obesity, unspecified; Z68.41 Body mass index [BMI] 40.0-44.9, adult; Z79.4 Long term (current) use of insulin; Z79.84 Long term (current) use of oral hypoglycemic drugs
CPT/HCPCS: 80053; 82043

== ENCOUNTER 2023-08-25 19:04 | Emergency (ER) | payer MEDICARE, SELFPAY ==
[2023-08-25 19:06] VITALS: BP 183/98; PULSE 86; RESP 16; TEMP 36.6; O2SAT 96; BMI 39.6
--- NOTE | 2023-08-25 19:20 | XR_ITS ---
PROCEDURE INFORMATION: Exam: XR Left Knee Exam date and time: 08/25/2023 7:59 PM Age: 63 years old Clinical indication: Injury or trauma; Fall; Blunt trauma; Knee; Left TECHNIQUE: Imaging protocol: Radiologic exam of the left knee. Views: 1 or 2 views. COMPARISON: CR XR KNEE LT 3V 02/08/2021 4:20 PM FINDINGS: Bones/joints: No evidence of acute fracture or malalignment. No significant knee joint effusion. Soft tissues: Unremarkable. IMPRESSION: No evidence of acute osseous abnormality in the left knee.
[2023-08-25 19:30] VITALS: BP 181/107; PULSE 85; RESP 18; O2SAT 96
[2023-08-25 20:00] VITALS: BP 190/104; PULSE 82; RESP 17; O2SAT 94
--- NOTE | 2023-08-25 20:07 | XR_ITS ---
PROCEDURE INFORMATION: Exam: XR Left Femur Exam date and time: 08/25/2023 8:11 PM Age: 63 years old Clinical indication: Injury or trauma; Fall; Blunt trauma; Knee; Left; Additional info: Fall, pain TECHNIQUE: Imaging protocol: Radiologic exam of the left femur. Views: 2 views. COMPARISON: CR XR KNEE LT 2V 08/25/2023 7:59 PM FINDINGS: Bones/joints: No evidence of acute fracture or malalignment. Soft tissues: Unremarkable. IMPRESSION: No evidence of acute osseous abnormality in the left femur.
--- NOTE | 2023-08-25 20:07 | XR_ITS ---
PROCEDURE INFORMATION: Exam: XR Left Hip Exam date and time: 08/25/2023 8:13 PM Age: 63 years old Clinical indication: Hip pain; Left hip; Additional info: Fall, pain TECHNIQUE: Imaging protocol: Radiologic exam of the left hip. Views: 2 or 3 views hip with pelvis when performed. COMPARISON: CT ABDOMEN PELVIS WO/W CON 03/16/2023 9:05 AM FINDINGS: Bones/joints: No evidence of acute fracture or malalignment. Pubic symphysis and bilateral sacroiliac joints are congruent. Soft tissues: Unremarkable. IMPRESSION: No evidence of acute osseous abnormality in the left hip.
--- NOTE | 2023-08-25 20:17 | PC.NURSE ---
Pt transported to XR via w/c
--- NOTE | 2023-08-25 21:26 | PC.NURSE ---
Pt ambulated around nurses station with her cane with no issues.
[2023-08-25 21:32] VITALS: BP 146/91; PULSE 82; RESP 16; TEMP 36.6; O2SAT 98
--- NOTE | 2023-08-25 21:43 | ED_ITS ---
Discharge Plan Disposition Patient Disposition: Home, Self-Care Condition: Good Prescriptions Prescriptions: No Action losartan-hydrochlorothiazide 50-12.5 mg tablet 1 tab PO DAILY Patient Comments: TAKE 1 TABLET BY MOUTH ONCE DAILY (DME) Dexcom G6 Sensor Device See Rx Instructions .Route Qty: 3 1RF Rx Instructions: As directed quetiapine [Seroquel] 25 mg tablet 12.5 mg PO ONCE HS Qty: 15 2RF ipratropium-albuterol 0.5 mg-3 mg(2.5 mg base)/3 mL solution for nebulization 3 ml inhalation Q4-6H PRN (Reason: shortness of breath or wheezing) Qty: 180 1RF albuterol sulfate 0.63 mg/3 mL solution for nebulization 0.63 mg inhalation Q4-6H PRN (Reason: shortness of breath or wheezing) Qty: 90 2RF (DME) Dexcom G6 P[employer] Worker Misc See Rx Instructions .Route Qty: 1 0RF Rx Instructions: As directed (DME) Dexcom G6 Transmitter Device See Rx Instructions .Route Qty: 1 3RF Rx Instructions: As directed glipizide 10 mg tablet extended release 24hr 10 mg PO BID Qty: 180 3RF oxybutynin chloride 15 mg tablet extended release 24hr See Rx Instructions .ROUTE .COMPLEX Qty: 30 2RF Dose Instruction: TAKE ONE TABLET BY MOUTH EVERY DAY FOR OVERACTIVE FOR BLADDER Rx Instructions: TAKE ONE TABLET BY MOUTH EVERY DAY FOR OVERACTIVE FOR BLADDER ciprofloxacin HCl [Cipro] 500 mg tablet 500 mg PO BID Qty: 60 0RF (DME) pen needle, diabetic [Comfort EZ Pen [place]] 32 gauge x 5/16 needle See Rx Instructions .Route Qty: 100 2RF Rx Instructions: As directed Fiasp FlexTouch U-100 Insulin 100 unit/mL (3 mL) insulin pen 10 unit SQ BID Qty: 15 2RF levothyroxine 25 mcg tablet See Rx Instructions .ROUTE .COMPLEX Qty: 90 0RF Dose Instruction: Take 1 tablet by mouth once daily Rx Instructions: Take 1 tablet by mouth once daily metoprolol succinate 100 mg tablet extended release 24 hr 100 mg PO DAILY Qty: 90 3RF Jardiance 25 mg tablet 25 mg PO DAILY Qty: 30 2RF (DME) Omnipod 5 G6 Intro Kit (Gen 5) Cartridge See Rx Instructions .Route Qty: 1 2RF Rx Instructions: As directed (DME) Omnipod 5 G6 Pods (Gen 5) Cartridge See Rx Instructions .Route Qty: 5 1RF Rx Instructions: As directed atorvastatin 40 mg tablet See Rx Instructions .ROUTE .COMPLEX Qty: 30 1RF Dose Instruction: TAKE ONE TABLET BY MOUTH EVERY DAY Rx Instructions: TAKE ONE TABLET BY MOUTH EVERY DAY sertraline 100 mg tablet 150 mg PO DAILY Qty: 45 2RF aspirin 81 mg tablet,delayed release (DR/EC) 81 mg PO DAILY Referrals Follow up/Referrals: Jennifer Saeed PA [Primary Care Provider] - See instructions Activity Restrictions/Add. Instructions Additional Instructions/Restrictions: You were evaluated in the emergency department today. Please follow-up closely with orthopedics for further evaluation and management if you continue to have severe pain. Take Tylenol and ibuprofen at home as needed for pain. Return to the emergency department for new or worsening symptoms. Clinical Impressions Clinical Impression: Acute pain of left knee, Fall, Contusion of knee Instructions Patient Instructions: DI for Knee Pain Discharge ED Provider: Faviola Be General Adult HPI General Chief complaint: Extremity Injury, Lower Stated complaint: AO fall 08/21 left knee pain swelling Time Seen by Provider: 08/25/23 19:54 Mode of Arrival: Ambulatory Source of Information: Patient Limitations: No Limitations Description of Symptoms (Recalled from ER Triage Doc. by RN): Pt presents with left knee pain after a fall onto concrete on 08/21. Pt states she is a diabetic and has increased swelling in both legs and feet since fall. History of Present Illness HPI narrative: This patient is a 63-year-old female with history of CAD, obesity, type 2 diabetes presenting to the emergency department for evaluation with concern for left knee pain has been persistent after a fall onto concrete 08/21. She states that she has had increased swelling in her leg and foot since. No other concerns noted. No chest pain, shortness of breath, or other issues. No head injury, loss of consciousness, or pain elsewhere as a result of the fall. Related Data Home Medications Medication Instructions Recorded Confirmed aspirin 81 mg tablet,delayed 81 mg PO DAILY history of cardiac 01/07/22 08/23/23 release stents losartan 50 mg-hydrochlorothiazide 1 tab PO DAILY 10/13/22 08/23/23 12.5 mg tablet Previous Rx's Medication Instructions Recorded pen needle, diabetic 32 gauge x #100 ea 03/18/2208/16 (Comfort EZ Pen [place]) ipratropium 0.5 mg-albuterol 3 mg 3 ml inhalation Q4-6H PRN 04/06/22 (2.5 mg base)/3 mL nebulization shortness of breath or wheezing soln #180 mL albuterol sulfate 0.63 mg/3 mL 0.63 mg (3 mL) inhalation Q4-6H 04/07/22 solution for nebulization PRN shortness of breath or wheezing #90 mL insulin aspart 10 unit SQ BID #15 mL 01/19/23 (niacinamide)(U-100) 100 unit/mL(3 mL) subcutaneous pen (Fiasp FlexTouch U-100 Insulin) blood-glucose meter,continuous #1 ea 02/13/23 (Dexcom G6 P[employer] Worker) blood-glucose transmitter (Dexcom #1 ea 02/13/23 G6 Transmitter device) glipizide 10 mg tablet, extended 10 mg PO BID #180 tabs 02/14/23 release 24 hr levothyroxine 25 mcg tablet See Rx Instructions .Route 02/15/23 .COMPLEX #90 tabs oxybutynin chloride 15 mg See Rx Instructions .Route 03/06/23 tablet,extended release 24 hr .COMPLEX #30 tabs metoprolol succinate 100 mg 100 mg PO DAILY #90 tabs 03/16/23 tablet,extended release 24 hr empagliflozin 25 mg tablet 25 mg PO DAILY #30 tabs 04/17/23 (Jardiance) insulin pump cart,automated,BT #5 ea 06/26/23 (Omnipod 5 G6 Pods (Gen 5) subcutaneous cartridge) insulin pump cartridge,automated #1 ea 06/26/23 dose,BT with controller subcutaneous (Omnipod 5 G6 Intro Kit (Gen 5) subcutaneous cartridge with controller) blood-glucose sensor (Dexcom G6 #3 ea 08/02/23 Sensor device) quetiapine 25 mg tablet (Seroquel) 12.5 mg (1/2 x 25 mg) PO ONCE HS 08/03/23 #15 tabs ciprofloxacin HCl 500 mg tablet 500 mg PO BID #60 tabs 08/11/23 (Cipro) atorvastatin 40 mg tablet See Rx Instructions .Route 08/14/23 .COMPLEX #30 tabs sertraline 100 mg tablet 150 mg (1.5 x 100 mg) PO DAILY #45 08/24/23 tabs Allergies Allergy/AdvReac Type Severity Reaction Status Date / Time insulin lispro Allergy Intermediate Vomiting Verified 08/23/23 14:57 venom-honey bee Allergy Unknown Unknown Verified 08/23/23 14:57 [BEE VENOM (HONEY BEE)] allergy reaction chocolate flavor AdvReac Hyper Verified 08/23/23 14:57 [facility] Disclaimer: The information contained in this section may have been updated after the patient was seen, as this information can be updated by other users. Medical History Oxygen dependent Encounter for screening for malignant neoplasm of lung Nodule of right lung History of smoking 30 or more pack years Dyspnea on exertion SOB (shortness of breath) on exertion Palpitations Typical angina Edema of both lower extremities Diastolic dysfunction Foot pain, bilateral DKA (diabetic ketoacidosis) CAD (coronary artery disease) COPD (chronic obstructive pulmonary disease) Sinus tachycardia Gastroesophageal reflux disease Urinary incontinence Chest pain Dyspnea Dyspnea and respiratory abnormalities Coronary artery disease Ex-smoker for more than 1 year Emphysema of lung Diabetes mellitus type 2 in obese Hyperlipidemia Hypertensive disorder Surgical History History of partial hysterectomy History of intravascular stent placement H/O eye surgery Family History Other Family history of diabetes mellitus Family history of heart disease No significant family history Social History Smoking Status: Current every day smoker tobacco type: cigarettes packs per day: 1 smoking status stop date: 2006 alcohol intake: former substance use type: denies use current occupational status: unemployed Travel in the last 8 weeks: None household members: spouse housing: house lives independently: Yes marital status: number of children: 1 current occupational exposures/hazards: No 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 ROS Obtained: Yes All systems reviewed & no additional complaints except as documented Physical Exam General General appearance: alert and in no apparent distress Head Head exam: atraumatic and normocephalic Eye Eye exam: Present normal appearance, PERRL and EOMI ENT ENT exam: Present normal exam, normal oropharynx, mucous membranes moist and normal external ear exam Neck Neck exam: Present normal inspection, full ROM and trachea midline; Absent tenderness Chest Chest inspection: Present normal inspection and symmetric chest wall rise; Absent tenderness Respiratory Respiratory exam: Present normal lung sounds bilaterally; Absent respiratory distress, wheezes, stridor or accessory muscle use Cardiovascular Cardiovascular exam: Present regular rate and normal rhythm Abdominal Exam Abdominal exam: Present soft; Absent distention, tenderness or guarding Extremities Exam Extremities exam: Present full ROM, tenderness (Left knee with superficial abrasion. All compartments soft. Neurovascularly intact distally. Intact range of motion and able to bear weight.) and normal capillary refill; Absent edema Back Exam Back exam: Present normal inspection and full ROM; Absent tenderness Neurological Exam Neurological exam: Present alert, oriented X3, CN II-XII intact and normal gait; Absent motor sensory deficit Psychiatric Psychiatric exam: Present normal affect and normal mood Skin Skin exam: Present warm and dry Medical Decision Making Medical Records Medical records reviewed: Yes I reviewed the patient's medical records. Dewayne Inquiry Pt receiving controlled substance: No Vital Signs: 08/25/23 19:06 08/25/23 19:30 08/25/23 20:00 Temperature 98 F Temperature Source Oral Pulse Rate 85 82 Pulse Rate [Left] 86 Respiratory Rate 16 18 17 Blood Pressure 181/107 H 190/104 H Blood Pressure [Right Arm] 183/98 H Blood Pressure Mean 131 132 Blood Pressure Mean [Right Arm] 126 Blood Pressure Source [Right Arm] Automatic Cuff Blood Pressure Position Blood Pressure Position [Right Arm] Sitting 02 Sat by Pulse Oximetry 96 96 94 L Oxygen Delivery Method Room Air 08/25/23 21:32 Temperature 98 F Temperature Source Oral Pulse Rate 82 Pulse Rate [Left] Respiratory Rate 16 Blood Pressure 146/91 H Blood Pressure [Right Arm] Blood Pressure Mean Blood Pressure Mean [Right Arm] Blood Pressure Source [Right Arm] Blood Pressure Position Sitting Blood Pressure Position [Right Arm] 02 Sat by Pulse Oximetry Oxygen Delivery Method Room Air Lab Data Lab results reviewed: Yes I reviewed the patient's lab results. Orders (Tests/Meds): ORDERS Category Date Time Status Knee XR left 2 views [XR knee LT 2V] Stat Exams 08/25/23 19:20 Completed XR femur LT 2V Stat Exams 08/25/23 20:07 Completed XR hip LT 2-3V w/pelvis Stat Exams 08/25/23 20:07 Completed Medical Decision Narrative: In summary, this patient is a 63-year-old female presenting to the Emergency Department for evaluation of left knee pain after a fall 3 days ago. Differential diagnoses considered include but are not limited to fracture, contusion, strain/sprain, hematoma, abrasion. Ruling out the most morbid conditions drove assessment. It should be noted patient's history includes CAD, hypertension, hyperlipidemia, diabetes which may or may not be at goal therapy. This complicates all aspects of care by increasing patient's risk for morbidity. On exam, the patient is ambulatory, well-appearing, and does not have any significant swelling to the lower extremity. She does have an abrasion to her left knee with associated tenderness to palpation. All compartments soft, neurovascularly intact distally. Workup included x-rays of the left hip/pelvis, femur, and knee.. I independently interpreted x-ray prior to the radiologist read and noted cute fracture. Please see their read for final interpretation. At this time based on reassuring workup and exam with the patient being able to ambulate without difficulty, I feel that she is appropriate for discharge home with close follow-up. She was given strict return precautions and was discharged after all questions were answered. Critical Care Critical Care Time Critical Care Time: No
== END 2023-08-25 21:42 | disposition home or self-care (01) ==
PROVIDERS: Emergency Provider Emergency Medicine; PCP Student in an Organized Health Care Education/Training Program
DX: M25.562 Pain in left knee (principal); S80.02XA Contusion of left knee, initial encounter; E11.9 Type 2 diabetes mellitus without complications; F17.210 Nicotine dependence, cigarettes, uncomplicated; J44.9 Chronic obstructive pulmonary disease, unspecified; I11.9 Hypertensive heart disease without heart failure; I25.119 Atherosclerotic heart disease of native coronary artery with unspecified angina pectoris; E78.5 Hyperlipidemia, unspecified; Z99.81 Dependence on supplemental oxygen; Z79.4 Long term (current) use of insulin; Z79.84 Long term (current) use of oral hypoglycemic drugs; W19.XXXA Unspecified fall, initial encounter
CPT/HCPCS: 73502; 73552; 73560; 99284

== ENCOUNTER 2023-10-25 09:34 | Outpatient (CLI) | payer MEDICARE, SELFPAY ==
[2023-10-25 10:55] VITALS: PULSE 89; PULSE 96
[2023-10-25] MEDS: ALBUTEROL 0.083% 2.5 MG/3 ML NEB IH (10:55)
== END 2023-10-25 23:59 | disposition home or self-care (01) ==
LOC: RT 09:36
PROVIDERS: PCP Family Medicine; Visit Provider Nurse Practitioner Family
DX: R06.09 Other forms of dyspnea (principal)
CPT/HCPCS: 94060; 94640; 94726; 94729; J7613

== ENCOUNTER 2023-10-27 10:39 | Outpatient (CLI) | payer MEDICARE, SELFPAY ==
--- NOTE | 2023-10-27 | CA_ITS ---
APPROVED REPORT Exam: Pharmacologic Technologist: Gina Dunn, Ht: 5 ft 1 in Wt: 204 lbs BSA: 1.90 m2 HR: 89 bpm BP: 173/94 mmHg Rhythm: NSR, low voltage QRS, LPFB Medical History Medications: Levothyroxine,,,,, Aspirin,,,,, Metoprolol,,,,, Atorvastatin,,,,, Glipizide,,,,, Duoneb,,,,, INSULIN,,,,, Albuterol,,,,, OxYbutynin,,,,, JaRDiance,,,,, Sertaline,,,,, Furosemide,,,,, Cardiac Risk Factors: HTN, Hyperlipidemia, Diabetes (insulin), FHX of CAD, Smoking Stress Test Details Test: LEXISCAN HR Resting HR: 87 bpm Max Heart Rate (APMHR): 156 bpm Max HR Achieved: 108 bpm Target HR (85% APMHR): 133 bpm % of APMHR: 69 Recovery HR: 89 bpm BP Resting BP: 173.0/94.0 mmHg Max BP: 197.0/77.0 mmHg Recovery BP: 173.0/89.0 mmHg ECG Resting ECG: NSR, low voltage QRS, LPFB Stress ECG: No significant ST changes Arrhythmia: NSVT Clinical Exercise duration: 04:00 min Highest Stage Achieved: Exercise capacity: 1.0 METs Stress ECG Conclusion During lexiscan pt experinced mild SOA and fluttering chest discomfort. After lexiscan injection pt had a ventricular couplet followed by a brief episode of 6 beat NSVT. No significant changes. Conclusion: No significant ST changes after Lexiscan administration. 1 episode of NSVT (6 beats) Myoview images reported separately. Test Summary REST . . . . . . . Sitting REST 03:29 . . 87 . 173/ 94 . . Stage 1 01:00 . . 104 . . . . Stage 2 01:00 . . 101 . 172/ 85 . . Stage 3 01:00 . . 98 . 180/ 84 . . Stage 4 01:00 . . 95 . 197/ 77 . Stop exercise at 04:00 RECOVERY 01:00 . . 95 . 145/ 72 . . RECOVERY 02:00 . . 95 . 145/ 72 . . RECOVERY 03:00 . . 95 . 159/ 73 . . RECOVERY 03:21 . . 96 . 159/ 73 . . Electronically signed by : Mandy Sheikh MD 10/29/2023 01:07:42
--- NOTE | 2023-10-27 10:40 | CA_ITS ---
APPROVED REPORT EXAM: Comprehensive 2D, Doppler, and color-flow Echocardiogram Rolloff Truck Driver: Marilu Bob RDCS Ht: 5 ft 1 in Wt: 201lbs BSA: 1.89 BP: 161/79 mmHg Indications: SOA,PALPS,COPD,EDEMA,DM TDS BODY HABITUS,COPD 2D Dimensions Left Atrium 3.41 cm F: 2.7 - 3.8 LVOT 1.85 cm (M/F) 1.5-2.5 M-Mode Dimensions RVDd 3.35 cm (0.9-2.6) LVDd 5.14 cm (3.5-5.7) Ao Diam 3.14 cm (2.0-3.7) LVDs 3.49 cm (3.5-5.7) IVSd 0.72 cm (0.6-1.1) PWd 0.63 cm (0.6-1.1) EF (Teich) 60.00% FS 32.10% EDV (Teich) 126.10 mL TAPSE 1.84 (<1.7) ESV (Teich) 50.50 mL LV Diastology E Decel Time 178 (160-240 msec) E/A Ratio 0.8 MED E' 4.5 (>= 7 cm/sec) E'/MED E' Ratio 16.11 (<= 14) LAT E' 4.0 (>= 10 cm/sec) E/LAT E' Ratio 18.12 (<= 14) Mitral Valve MV E Max Jayson. 73.0 (40-130 cm/s) MV A Velocity 92.0 (40-130 cm/s) E/A Ratio 0.78 MV Decel. Time 178 (160-240 ms) Left Ventricle The left ventricle is normal size. The left ventricular systolic function is normal. The left ventricular ejection fraction is within the normal range. There is increased LV wall thickness. Proximal septal thickening is noted. There is normal LV segmental wall motion. Transmitral Doppler flow pattern suggests impaired LV relaxation. LVEF is 60%. Right Ventricle The right ventricle is normal size. The right ventricular systolic function is normal. Atria The left atrium size is normal. The right atrium size is normal. The interatrial septum is not well-visualized. Aortic Valve The aortic valve opens well. There is no aortic valvular stenosis. No aortic regurgitation is present. Mitral Valve The mitral valve is normal in structure. No evidence of mitral valve stenosis. Trace mitral valve regurgitation noted. Tricuspid Valve The tricuspid valve leaflets are thin and pliable. Trace tricuspid regurgitation. There is insufficient TR jet to estimate RVSP. Pulmonic Valve The pulmonary valve is normal in structure. Trace pulmonic regurgitation. Great Vessels The aortic root is normal in size. The ascending aorta is not well-visualized. IVC is normal in size and collapses >50% with inspiration. Pericardium There is no pericardial effusion. Other Information Study Quality: Technically Difficult Conclusion Technically difficult study due to poor acoustic windows. Normal biventricular systolic function. No significant valvular stenosis or regurgitation. Electronically signed by : Mandy Sheikh MD 10/29/2023 23:50:22
--- NOTE | 2023-10-27 10:44 | NM_ITS ---
APPROVED REPORT Exam: Nuclear Stress Test Indication: cp..soa..fatigue Patient Location: Outpatient Stress Tech: Gina GARCIA Tech:Kassandra ZimmermanMARS RT(R)(N) Ht: 5 ft 1 in Wt: 202 lbs Bra Size: 38dd HR: 89 bpm BP: 173/94 mmHg BSA: 1.90 m2 Rhythm: NSR TID: 1.30 BMI: 38.1 History: cp..soa..fatigue Procedure: Patient received 0.4 mg of intravenous Lexiscan, resting heart rate 89 bpm, resting blood pressure 173/94 mmHg, with Lexiscan maximum heart rate achieved was 103 bpm which is 85 % of the maximum predicted heart rate and blood pressure was 172/85 mmHg. With Lexiscan, patient denied any complaint of chest pain. Patient not able to lay on her belly for prone images. Cardiac Stress and Resting SPECT Images: Cardiac Stress and Resting SPECT images were obtained using technetium 99m Myoview 32.9 mCi stress and 9.92 mCi at rest. Technically difficult study due to significant GI radiotracer uptake in close proximity to the inferior border of the LV wall. The patient could not not lie on her abdomen. Therefore, prone stress imaging could not be performed. These may affect the diagnostic interpretation of the study findings. Resting and stress imaging in supine positions demonstrate no evidence of fixed or reversible perfusion defects. There is increased transient ischemic dilatation ratio (TID 1.30), suggestive of possible multivessel disease or balanced ischemia. Gated imaging demonstrates normal global and regional LV systolic function. LVEF is calculated at 70%. Conclusion: Technically difficult study. No evidence of fixed or reversible perfusion defects. There is increased transient ischemic dilatation ratio (TID 1.30), suggestive of possible multivessel disease or balanced ischemia. Gated imaging demonstrates normal global and regional LV systolic function. LVEF is calculated at 70%. Of note, the patient had 1 brief episode of 6-beat NSVT after Lexiscan administration. Electronically signed by : Mandy Sheikh MD 10/29/2023 01:10:09
[2023-10-27 11:21] LABS: Blood Urea Nitrogen 23 mg/dl (7-17); Estimated Glomerular Filt Rate 101 ml/min (>60); GFR (African American) 122 ML/MIN (>60)
== END 2023-10-27 23:59 | disposition home or self-care (01) ==
LOC: RAD 10:40
PROVIDERS: PCP Family Medicine; Visit Provider Nurse Practitioner Family
DX: R06.02 Shortness of breath (principal); R00.2 Palpitations; I25.118 Atherosclerotic heart disease of native coronary artery with other forms of angina pectoris; F17.210 Nicotine dependence, cigarettes, uncomplicated; R09.89 Other specified symptoms and signs involving the circulatory and respiratory systems
CPT/HCPCS: 36415; 78452; 82565; 84520; 93017; 93018; 93306; A9502; J2785

== ENCOUNTER 2023-11-01 12:48 | Outpatient (CLI) | payer MEDICARE, SELFPAY ==
--- NOTE | 2023-11-01 12:50 | CT_ITS ---
FINAL REPORT TECHNIQUE: The patient was injected with IV contrast. Axial images were obtained through the chest in a PE protocol. 3-D reconstruction images were also performed. Individualized dose reduction techniques using automated exposure control or adjustment of the MA and/or KV according to patient's size were employed. CLINICAL HISTORY: Shortness of breath COMPARISON: 04/22/2022 FINDINGS: Mediastinal vasculature is adequately opacified. No pulmonary artery filling defects are identified to suggest PE. There is no aortic dissection. There is no axillary adenopathy. There is no hilar or mediastinal adenopathy. The heart size is normal. There is no pericardial or pleural effusion. Limited images of the upper abdomen are unremarkable. Tiny nodule in the periphery of the right lower lobe is stable. No new nodules identified. IMPRESSION: No pulmonary embolus. Stable subtle right lower lobe nodule. Reviewed, Interpreted and Dictated by Jeremiah Heller MD Transcribed by Jael Garvin Authenticated and [facility]
== END 2023-11-01 23:59 | disposition home or self-care (01) ==
LOC: RAD 12:49
PROVIDERS: PCP Family Medicine; Visit Provider Nurse Practitioner Family
DX: R06.02 Shortness of breath (principal); R00.2 Palpitations; I25.118 Atherosclerotic heart disease of native coronary artery with other forms of angina pectoris; R09.89 Other specified symptoms and signs involving the circulatory and respiratory systems; F17.210 Nicotine dependence, cigarettes, uncomplicated
CPT/HCPCS: 71275; Q9967

== ENCOUNTER 2023-11-20 08:18 | Day surgery (SDC) | payer MEDICARE, SELFPAY ==
[2023-11-20] VITALS (12 sets, daily range): BP systolic 99–172; BP diastolic 56–99; PULSE 75–100; RESP 16–20; TEMP 36.8; O2SAT 90–100; BMI 38.3
--- NOTE | 2023-11-20 07:04 | IR_ITS ---
APPROVED REPORT Patient Location: Outpatient PROCEDURES Left heart catheterization Left ventriculogram Selective coronary angiogram INDICATION Abnormal Myoview, Angina pectoris, Informed consent was obtained prior to the procedure. COMPLICATIONS NONE Estimated Blood Loss: LESS THAN 10 ML TECHNIQUE One percent lidocaine used to anesthetize the medial anterior aspect of the right wrist. The right ulnar artery was accessed via the Seldinger technique. A 6 Japanese sheath was placed in the right ulnar artery. 2.5 mg of Verapamil, 800 mcg of nitroglycerin, 1mg Lidocaine and 5000 U Heparin were given through the arterial sheath. The papa catheter was also used to perform left heart catheterization, left ventriculogram and selective coronary angiogram. At the end of the procedure the sheath was removed good hemostasis was achieved using Traclet band, patient was transferred to the postop holding area in stable condition. ANGIOGRAPHIC RESULTS The left main artery Normal The left anterior descending artery Has proximal eccentric 20 to 30% stenosis followed by mid vessel stent which is widely patent with minimal mid vessel in-stent restenosis. The medium to large first diagonal artery has a bifurcating stent off the mid LAD which has concentric 60% stenosis The circumflex artery Nondominant yet still large which gives rise to a tortuous moderate-sized first obtuse marginal artery and a large second obtuse marginal artery which has a stent in the proximal segment which is widely patent. Distal to the stent is a concentric 30 to 40% stenosis followed by significant distal tortuosity The right coronary artery Is dominant and has stents in the proximal and mid segment which are widely patent with minimal in-stent restenosis. Distally there are 20 and 30% stenoses. The KWON ventriculogram reveals Normal 65% The left ventricular end-diastolic pressure 15 mmHg IMPRESSION Coronary artery disease as described above Normal ejection fraction Borderline LVEDP PLAN 1. Continue medical management for coronary disease Electronically signed by : Koby Rios MD 11/20/2023 13:16:27
[2023-11-20 08:53] LABS: Basophils # 0.1 K/mm3 (0-0.2); Basophils % 1.2 % (0.1-2.0); Eosinophils # 0.2 K/mm3 (0.0-0.4); Eosinophils % 2.6 % (0.1-12.0); Hematocrit 47.2 % (37.0-47.0); Hemoglobin 14.8 g/dL (12.2-16.2); Lymphocytes # 2.5 K/mm3 (0.7-4.5); Lymphocytes % 31.5 % (10-50); Mean Corpuscular HGB Conc 31.4 g/dL (31.8-35.4); Mean Corpuscular Hemoglobin 29.6 pg (27.0-31.2); Mean Corpuscular Volume 94.4 fl (81-99); Mean Platelet Volume 11.8 fl (7.4-10.4); Monocytes # 0.5 K/mm3 (0.1-1.0); Neutrophils # 4.5 K/mm3 (1.8-7.8); Neutrophils % 57.6 % (37.0-80.0); Platelet Count 205 K/mm3 (142-424); Red Cell Distribution Width 15.4 % (11.5-17.5); White Blood Count 7.8 K/mm3 (4.8-10.8)
[2023-11-20 09:51] LABS: Anion Gap 12.6 mEq/L (5-15); Blood Urea Nitrogen 15 mg/dl (7-17); Calcium 8.8 mg/dl (8.4-10.2); Carbon Dioxide 24 mmol/L (22.0-30.0); Chloride 106 mmol/L (98-107); Creatinine Clearance Estimated 83 mL/min (50-200); Estimated Glomerular Filt Rate 124 ml/min (>60); GFR (African American) 150 ML/MIN (>60); Glucose 238 mg/dl (74-100); Potassium 3.6 mmoL/L (3.5-5.1); Sodium 139 mmol/L (136-145)
[2023-11-20] MEDS: diphenhydrAMINE 50MG/ML VIAL 50 MG IV ×2 (11:50)
[2023-11-20] MEDS: LIDOCAINE 1% 10ML MDV 20 ML IJ (11:50)
[2023-11-20] MEDS: VERAPAMIL 2.5MG/ML 2ML VIAL 2.5 MG IV (11:50)
[2023-11-20] MEDS: MIDAZOLAM HCL 1MG/1ML 5ML VIAL 1 MG IV (11:50)
[2023-11-20] MEDS: HEPARIN 1,000 UNITS/ML 10ML VIAL (CATH LAB) 10000 UNIT IV (11:51)
[2023-11-20] MEDS: 0.9 % SODIUM CHLORIDE 500 ML 25 ML IV (11:51)
[2023-11-20] MEDS: HEPARIN 1,000 UNITS/500ML NS (CATH LAB) 3000 UNIT IV (11:51)
[2023-11-20] MEDS: IOPAMIDOL-370 (76%);100ML BOTTLE 50 ML IV (13:29)
== END 2023-11-20 14:33 | disposition home or self-care (01) ==
PROVIDERS: PCP Family Medicine; Visit Provider Internal Medicine
DX: R93.1 Abnormal findings on diagnostic imaging of heart and coronary circulation (principal); R00.2 Palpitations; R06.02 Shortness of breath; Z95.5 Presence of coronary angioplasty implant and graft; I25.118 Atherosclerotic heart disease of native coronary artery with other forms of angina pectoris; E78.5 Hyperlipidemia, unspecified; I10 Essential (primary) hypertension; E66.01 Morbid (severe) obesity due to excess calories; Z68.41 Body mass index [BMI] 40.0-44.9, adult; Z79.899 Other long term (current) drug therapy; E11.9 Type 2 diabetes mellitus without complications
CPT/HCPCS: 80048; 85025; 93458; 99152; C1725; C1769; J1200; J1644; J2250; Q9967

== ENCOUNTER 2023-12-18 14:20 | Outpatient (CLI) | payer MEDICARE, SELFPAY ==
[2023-12-18 19:11] LABS: Alanine Aminotransferase 24 U/L (12-78); Albumin Level 4.3 g/dl (3.5-5.0); Albumin/Globulin Ratio 1.3 (1.1-1.8); Alkaline Phosphatase 122 U/L (38-126); Aspartate Amino Transferase 27 U/L (14-36); Bilirubin,Total 0.5 mg/dl (0.2-1.3); Blood Urea Nitrogen 22 mg/dl (7-17); Carbon Dioxide 24 mmol/L (22.0-30.0); Chloride 101 mmol/L (98-107); Estimated Glomerular Filt Rate 101 ml/min (>60); GFR (African American) 122 ML/MIN (>60); Globulin 3.2 g/dL (1.3-3.2); Sodium 136 mmol/L (136-145); Total Protein,Serum 7.5 g/dl (6.3-8.2)
[2023-12-18 19:22] LABS: Glucose 416 mg/dl (74-100)
[2023-12-18 20:06] LABS: Anion Gap 15.5 mEq/L (5-15); Potassium 4.5 mmoL/L (3.5-5.1)
[2023-12-18 21:21] LABS: Creatinine,Urine Random 41 mg/dL (Not Estab.)
[2023-12-18 21:38] LABS: Microalbumin/Creatinine Ratio 1125.6
== END 2023-12-18 23:59 | disposition home or self-care (01) ==
LOC: LAB.DROPOF 12-19 13:32
PROVIDERS: PCP Family Medicine; Visit Provider Family Medicine
DX: E11.69 Type 2 diabetes mellitus with other specified complication (principal); E66.9 Obesity, unspecified; Z68.37 Body mass index [BMI] 37.0-37.9, adult
CPT/HCPCS: 80053; 82043; 82570

== ENCOUNTER 2024-03-21 15:15 | Outpatient (CLI) | payer MEDICARE, SELFPAY | END 2024-03-21 23:59 | disposition home or self-care (01) | LOC: LAB.DROPOF 03-22 10:11 | PROVIDERS: PCP Family Medicine; Visit Provider Family Medicine | DX: J02.9 Acute pharyngitis, unspecified (principal) | CPT/HCPCS: 87070 ==

== ENCOUNTER 2024-03-27 08:31 | Emergency (ER) | payer MEDICARE, SELFPAY ==
[2024-03-27 08:32] VITALS: BP 136/76; PULSE 94; RESP 16; TEMP 36.6; O2SAT 100; BMI 34.9
[2024-03-27 08:37] VITALS: BP 136/76; PULSE 100; O2SAT 93
[2024-03-27 08:42] LABS: Coronavirus 19, PCR Not Detected (NotDetected); Influenza B, PCR Not Detected (NotDetected)
--- NOTE | 2024-03-27 08:53 | XR_ITS ---
PROCEDURE INFORMATION: Exam: XR Chest Exam date and time: 03/27/2024 8:48 AM Age: 63 years old Clinical indication: Cough; Additional info: Cough SOB TECHNIQUE: Imaging protocol: Radiologic exam of the chest. Views: 2 views. COMPARISON: CT ANGIO CHEST PE PROTOCOL 11/01/2023 1:03 PM FINDINGS: Lungs: Unremarkable. No consolidation. Pleural spaces: Unremarkable. No pleural effusion. No pneumothorax. Heart/Mediastinum: Unremarkable. No cardiomegaly. Bones/joints: There are multilevel anterolateral degenerative endplate osteophytes throughout the mid-lower thoracic spine unchanged. No acute bony abnormalities. This is IMPRESSION: Stable chest. No active disease.
[2024-03-27] MEDS: IPRATROPIUM/ALBUTEROL 3 ML NEB IH (09:03)
[2024-03-27] MEDS: predniSONE 20MG TAB 40 MG PO (09:04)
[2024-03-27] MEDS: AZITHROMYCIN 250MG TABLET 500 MG PO (09:04)
[2024-03-27 09:10] LABS: Albumin Level 4.5 g/dl (3.5-5.0); Chloride 99 mmol/L (98-107); Hematocrit 49.8 % (37.0-47.0); Hemoglobin 16.1 g/dL (12.2-16.2); Mean Corpuscular Volume 89.7 fl (81-99); Potassium 4.9 mmoL/L (3.5-5.1); Red Blood Count 5.55 M/mm3 (4.20-5.40); Sodium 131 mmol/L (136-145); White Blood Count 4.4 K/mm3 (4.8-10.8)
[2024-03-27 09:11] LABS: Mean Corpuscular HGB Conc 32.3 g/dL (31.8-35.4); Mean Platelet Volume 12.1 fl (7.4-10.4); Neutrophils % 66.6 % (37.0-80.0); Platelet Count 184 K/mm3 (142-424); Red Cell Distribution Width 13.6 % (11.5-17.5)
[2024-03-27 09:13] LABS: Alanine Aminotransferase 24 U/L (12-78); Albumin/Globulin Ratio 1.3 (1.1-1.8); Alkaline Phosphatase 124 U/L (38-126); Anion Gap 13.9 mEq/L (5-15); Aspartate Amino Transferase 42 U/L (14-36); Basophils % 0.9 % (0.1-2.0); Bilirubin,Total 0.6 mg/dl (0.2-1.3); Blood Urea Nitrogen 30 mg/dl (7-17); Carbon Dioxide 23 mmol/L (22.0-30.0); Creatinine Clearance Estimated 75 mL/min (50-200); Eosinophils % 0.5 % (0.1-12.0); Estimated Glomerular Filt Rate 84 ml/min (>60); GFR (African American) 102 ML/MIN (>60); Globulin 3.5 g/dL (1.3-3.2); Lymphocytes # 0.7 K/mm3 (0.7-4.5); Lymphocytes % 15.5 % (10-50); Monocytes # 0.7 K/mm3 (0.1-1.0)
[2024-03-27 09:14] LABS: Calcium 9.7 mg/dl (8.4-10.2); Glucose 325 mg/dl (74-100)
[2024-03-27 09:23] LABS: Influenza A, PCR Detected (NotDetected)
[2024-03-27 09:30] VITALS: BP 103/82; PULSE 61; O2SAT 93
[2024-03-27 09:43] LABS: VBG HCO3 19.5 mmol/L (23-30); VBG Oxygen Saturation 52.5 % (50-70); VBG PCO2 46.7 mmol/L (35-51); VBG PH 7.24 mmol/L (7.31-7.41); VBG PO2 29.6 mmol/L (28-40); VBG Total CO2 20.9 mmol/L (23-27)
[2024-03-27 09:44] LABS: Troponin I < 0.01 ng/ml (0.00-0.034)
--- NOTE | 2024-03-27 10:01 | ED_ITS ---
Discharge Plan Disposition Patient Disposition: Home, Self-Care Prescriptions Prescriptions: New prednisone 50 mg tablet 50 mg PO DAILY 3 Days Qty: 3 0RF azithromycin [Zithromax Z-Nolberto] 250 mg tablet 250 mg PO DAILY 4 Days Qty: 4 0RF Rx Instructions: start on day 2 of therapy No Action quetiapine [Seroquel] 25 mg tablet 12.5 mg PO ONCE HS Qty: 15 2RF mupirocin 2 % ointment 1 applic topical BID Qty: 15 0RF metoprolol succinate 200 mg tablet extended release 24 hr 200 mg PO DAILY Qty: 30 5RF (DME) Omnipod 5 G6 Intro Kit (Gen 5) Cartridge See Rx Instructions .Route Qty: 1 2RF Rx Instructions: As directed nystatin 100,000 unit/gram cream 1 applic topical TID Qty: 30 0RF ipratropium-albuterol 0.5 mg-3 mg(2.5 mg base)/3 mL solution for nebulization 3 ml inhalation Q4-6H PRN (Reason: shortness of breath or wheezing) Qty: 180 1RF albuterol sulfate 0.63 mg/3 mL solution for nebulization 0.63 mg inhalation Q4-6H PRN (Reason: shortness of breath or wheezing) Qty: 90 2RF oxybutynin chloride 15 mg tablet extended release 24hr See Rx Instructions .ROUTE .COMPLEX Qty: 30 2RF Dose Instruction: TAKE ONE TABLET BY MOUTH EVERY DAY FOR OVERACTIVE FOR BLADDER Rx Instructions: TAKE ONE TABLET BY MOUTH EVERY DAY FOR OVERACTIVE FOR BLADDER (DME) pen needle, diabetic [Comfort EZ Pen [place]] 32 gauge x 5/16 needle See Rx Instructions .Route Qty: 100 2RF Rx Instructions: As directed albuterol sulfate 90 mcg/actuation HFA aerosol inhaler 1 inh inhalation Q6H PRN (Reason: shortness of breath or wheezing) Qty: 8.5 0RF Trelegy Ellipta 100-62.5-25 mcg blister with device 1 inh inhalation DAILY Qty: 60 2RF Jardiance 25 mg tablet See Rx Instructions .ROUTE .COMPLEX Qty: 90 2RF Dose Instruction: TAKE ONE TABLET BY MOUTH EVERY DAY Rx Instructions: TAKE ONE TABLET BY MOUTH EVERY DAY Soliqua 100/33 100 unit-33 mcg/mL insulin pen 30 unit SQ DAILY 30 Days Qty: 9 3RF levothyroxine 25 mcg tablet See Rx Instructions .ROUTE .COMPLEX Qty: 90 0RF Dose Instruction: TAKE ONE TABLET BY MOUTH EVERY DAY Rx Instructions: TAKE ONE TABLET BY MOUTH EVERY DAY losartan-hydrochlorothiazide 50-12.5 mg tablet 1 tab PO DAILY Qty: 30 0RF doxycycline hyclate 100 mg tablet 100 mg PO BID 10 Days Qty: 20 0RF metoprolol succinate 100 mg tablet extended release 24 hr 100 mg PO DAILY Qty: 90 3RF sertraline 100 mg tablet 150 mg PO DAILY Qty: 45 2RF glipizide 10 mg tablet extended release 24hr See Rx Instructions .ROUTE .COMPLEX Qty: 180 2RF Dose Instruction: TAKE ONE TABLET BY MOUTH TWICE DAILY Rx Instructions: TAKE ONE TABLET BY MOUTH TWICE DAILY clopidogrel [Plavix] 75 mg tablet 75 mg PO QDAY Qty: 90 3RF atorvastatin 40 mg tablet See Rx Instructions .ROUTE .COMPLEX Qty: 90 1RF Dose Instruction: TAKE ONE TABLET BY MOUTH EVERY DAY Rx Instructions: TAKE ONE TABLET BY MOUTH EVERY DAY furosemide 20 mg tablet See Rx Instructions .ROUTE .COMPLEX Qty: 20 0RF Dose Instruction: TAKE ONE TABLET BY MOUTH EVERY OTHER DAY Rx Instructions: TAKE ONE TABLET BY MOUTH EVERY OTHER DAY Daytime-Nighttime Cough 15mg/15mL(d)/ 12.5-30mg/30mL liquid, sequential 15 ml PO BID Qty: 710 0RF aspirin 81 mg tablet,delayed release (DR/EC) 81 mg PO DAILY Referrals Follow up/Referrals: Jessi Wright APRN [Primary Care Provider] - See instructions Activity Restrictions/Add. Instructions Additional Instructions/Restrictions: At this time it was felt you are safe to be discharged home. If new or worsening symptoms please do not hesitate to return the emergency department. Please take antibiotics as prescribed and follow-up with your family doctor next week as discussed. Clinical Impressions Clinical Impression: Influenza A with pneumonia Print Language Print Language: Slovenian Discharge ED Provider: Lazaro Pinzon General Adult HPI General Chief complaint: Weakness Stated complaint: Body aches,[place]OW,cough, Time Seen by Provider: 03/27/24 08:42 Mode of Arrival: Ambulatory Source of Information: Patient Limitations: No Limitations Description of Symptoms (Recalled from ER Triage Doc. by RN): pt presents to ED with c/o head cold, chest ocld ongoing since feb 13. pt reports to seeing pcp and give doxycycline but no relief. pt reports joint aches brougth her in to ED today History of Present Illness HPI narrative: Patient is a 63-year-old female with past medical history of COPD on oxygen who presents to the emergency department for evaluation of intermittent cough and cold symptoms. She has had some symptoms of cough that last for days at a time with interval resolution however over the last 7 days she has had resurgence of the symptoms and presents here for continued evaluation. No chest pain. She is at her baseline oxygen requirement and her main complaint is cough. She has arthritis and she states that whenever she gets sick at the same joints that are osteoarthritis and ache predominantly her shoulder which is currently aching, no trauma. No other acute complaints at this time. Related Data Home Medications ?Medication ?Instructions ?Recorded ?Confirmed aspirin 81 mg tablet,delayed 81 mg PO DAILY history of cardiac 01/07/22 03/21/24 release stents Previous Rx's ?Medication ?Instructions ?Recorded ipratropium 0.5 mg-albuterol 3 mg 3 ml inhalation Q4-6H PRN 04/06/22 (2.5 mg base)/3 mL nebulization shortness of breath or wheezing soln #180 mL albuterol sulfate 0.63 mg/3 mL 0.63 mg (3 mL) inhalation Q4-6H 04/07/22 solution for nebulization PRN shortness of breath or wheezing #90 mL oxybutynin chloride 15 mg See Rx Instructions .Route 03/06/23 tablet,extended release 24 hr .COMPLEX #30 tabs metoprolol succinate 100 mg 100 mg PO DAILY #90 tabs 03/16/23 tablet,extended release 24 hr quetiapine 25 mg tablet (Seroquel) 12.5 mg (1/2 x 25 mg) PO ONCE HS 08/03/23 #15 tabs sertraline 100 mg tablet 150 mg (1.5 x 100 mg) PO DAILY #45 08/24/23 tabs mupirocin 2 % topical ointment 1 applic topical BID #15 grams 09/01/23 glipizide 10 mg tablet, extended See Rx Instructions .Route 09/04/23 release 24 hr .COMPLEX #180 tabs pen needle, diabetic 32 gauge x #100 ea 09/06/23/16 (Comfort EZ Pen [place]) albuterol sulfate 90 mcg/actuation 1 inh inhalation Q6H PRN shortness 10/25/23 aerosol inhaler of breath or wheezing #8.5 grams fluticasone fur. 100 mcg-umeclid 1 inh inhalation DAILY #60 ea 10/25/23 62.5 mcg-vilant 25 mcg inhalat.powder (Trelegy Ellipta) metoprolol succinate 200 mg 200 mg PO DAILY #30 tabs 12/05/23 tablet,extended release 24 hr clopidogrel 75 mg tablet (Plavix) 75 mg PO QDAY #90 tabs 12/15/23 insulin pump cartridge,automated #1 ea 12/18/23 dose,BT with controller subcutaneous (Omnipod 5 G6 Intro Kit (Gen 5) subcutaneous cartridge with controller) nystatin 100,000 unit/gram topical 1 applic topical TID #30 grams 12/18/23 cream atorvastatin 40 mg tablet See Rx Instructions .Route 01/08/24 .COMPLEX #90 tabs furosemide 20 mg tablet See Rx Instructions .Route 01/09/24 .COMPLEX #20 tabs doxylamine-DM 15 mg/15 mL (d)/12.5 15 ml PO BID cough #710 mL 01/12/24 mg-30 mg/30 mL (n) oral liquids seq (Daytime-Nighttime Cough) doxycycline hyclate 100 mg tablet 100 mg PO BID 10 days #20 tabs 03/21/24 empagliflozin 25 mg tablet See Rx Instructions .Route 03/21/24 (Jardiance) .COMPLEX #90 tabs insulin glargine 100 30 unit (0.3 mL) SQ DAILY 30 days 03/21/24 unit-lixisenatide 33 mcg/mL #9 mL subcutaneous pen (Soliqua 100/33) levothyroxine 25 mcg tablet See Rx Instructions .Route 03/21/24 .COMPLEX #90 tabs losartan 50 mg-hydrochlorothiazide 1 tab PO DAILY #30 tabs 03/21/24 12.5 mg tablet azithromycin 250 mg tablet 250 mg PO DAILY atypical 03/27/24 (Zithromax Z-Nolberto) pneumionia 4 days #4 tabs prednisone 50 mg tablet 50 mg PO DAILY 3 days #3 tabs 03/27/24 Allergies Allergy/AdvReac Type Severity Reaction Status Date / Time insulin lispro Allergy Intermediate Vomiting Verified 03/21/24 14:30 venom-honey bee (BEE VENOM Allergy Unknown Unknown Verified 03/21/24 14:30 (HONEY BEE)) allergy reaction chocolate flavor AdvReac Hyper Verified 03/21/24 14:30 [facility] Disclaimer: The information contained in this section may have been updated after the patient was seen, as this information can be updated by other users. Medical History (Updated 03/27/24 @ 10:06 by Lazaro Pinzon MD) UTI (urinary tract infection) Abnormal nuclear cardiac imaging test Acute pain of left knee Fall Contusion of knee Oxygen dependent Encounter for screening for malignant neoplasm of lung Nodule of right lung History of smoking 30 or more pack years Dyspnea on exertion SOB (shortness of breath) on exertion Palpitations Typical angina Edema of both lower extremities Diastolic dysfunction Foot pain, bilateral DKA (diabetic ketoacidosis) CAD (coronary artery disease) COPD (chronic obstructive pulmonary disease) Sinus tachycardia Gastroesophageal reflux disease Urinary incontinence Chest pain Dyspnea Dyspnea and respiratory abnormalities Coronary artery disease Ex-smoker for more than 1 year Emphysema of lung Diabetes mellitus type 2 in obese Hyperlipidemia Hypertensive disorder Surgical History History of partial hysterectomy History of intravascular stent placement H/O eye surgery Family History Other Family history of diabetes mellitus Family history of heart disease No significant family history Social History Smoking Status: Former smoker tobacco type: cigarettes packs per day: 1 smoking status stop date: 2006 alcohol intake: former substance use type: denies use current occupational status: unemployed Travel in the last 8 weeks: None household members: spouse housing: house lives independently: Yes marital status: number of children: 1 current occupational exposures/hazards: No 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 Have you lived/traveled outside [place] in past 30 days?: No Contact w/someone who lives/traveled outside [place] past 30 days?: No Exposure to someone with infectious disease in past 14 days?: No Do you have a fever (greater than 100.4 F or 38 C)?: No Have you tested positive for COVID-19: No Exposed to someone with COVID-19 in past 14 days?: No Do you have a sore throat?: No Do you have a cough?: Yes Do you have any weakness?: Yes Do you have any diarrhea?: No Are you experiencing any unusual bleeding?: No Do you have any muscle aches/pain?: Yes Do you have any abdominal pain?: No Are you experiencing loss of taste or smell?: No Other Medical History Have you received the Flu Vaccine for this season: No Have you received the Pneumonia Vaccine: Yes ROS Obtained: Yes Systems reviewed as appropriate & no additional complaints except as documented Physical Exam General General appearance: alert and in no apparent distress Head Head exam: atraumatic and normocephalic Eye Eye exam: Present PERRL ENT ENT exam: Present mucous membranes moist Neck Neck exam: Present normal inspection Chest Chest inspection: Present normal inspection and symmetric chest wall rise Respiratory Respiratory exam: Present wheezes (Scant, expiratory phase, good air movement); Absent normal lung sounds bilaterally or respiratory distress Cardiovascular Cardiovascular exam: Present regular rate and normal rhythm Abdominal Exam Abdominal exam: Present soft; Absent tenderness Extremities Exam Extremities exam: Present normal inspection Neurological Exam Neurological exam: Present alert Psychiatric Psychiatric exam: Present normal affect Skin Skin exam: Present warm and dry Medical Decision Making Medical Records Screening: Per USPSTF and CDC recommendations, given the prevalence of disease in our region, it is our hospital?s policy to screen for HIV and viral Hepatitis for all patients aged 18 and over and those with ongoing risk factors. [place]ayne Inquiry Pt receiving controlled substance: No Vital Signs: 03/27/24 08:32 Temperature 97.9 F Temperature Source Oral Pulse Rate [Left Radial] 94 H Respiratory Rate 16 Blood Pressure [Right Arm] 136/76 Blood Pressure Mean [Right Arm] 96 02 Sat by Pulse Oximetry 100 Oxygen Delivery Method Room Air Lab Data Lab Results 03/27/24 08:38: SARS-CoV-2 (PCR) Not detected, Influenza A Untype (PCR) Detected A, Influenza Type B (PCR) Not detected 03/27/24 08:44: WBC 4.4 L, RBC 5.55 H, Hgb 16.1, Hct 49.8 H, MCV 89.7, MCH 29.0, MCHC 32.3, RDW 13.6, Plt Count 184, MPV 12.1 H, Neut % (Auto) 66.6, Lymph % (Auto) 15.5, [place] % (Auto) 16.0 H, Eos % (Auto) 0.5, Baso % (Auto) 0.9, Neut # (Auto) 3.0, Lymph # (Auto) 0.7, [place] # (Auto) 0.7, Eos # (Auto) 0.0, Baso # (Auto) 0.0, Sodium 131 L, Potassium 4.9, Chloride 99, Carbon Dioxide 23, Anion Gap 13.9, BUN 30 H, Creatinine 0.70, Estimated Creat Clear 75, Estimated GFR 84, Est GFR ( Amer) 102, Glucose 325 H, Calcium 9.7, Total Bilirubin 0.6, AST 42 H, ALT 24, Alkaline Phosphatase 124, Troponin I < 0.01, Total Protein 8.0, Albumin 4.5, Globulin 3.5 H, Albumin/Globulin Ratio 1.3 03/27/24 08:44 03/27/24 08:44 Orders (Tests/Meds): ED MEDICATIONS Discontinued Medications Generic Name Dose Route Start Last Admin Trade Name Freq PRN Reason Stop Dose Admin Albuterol/Ipratropium 3 ml 03/27/24 08:53 03/27/24 09:03 Ipratropium/Albuterol 3 Ml Neb IH 03/27/24 08:54 3 ml ONCE ONE Administration Azithromycin 500 mg 03/27/24 08:54 03/27/24 09:04 Azithromycin 250mg Tablet PO 03/27/24 08:55 500 mg ONCE ONE Administration Prednisone 40 mg 03/27/24 08:53 03/27/24 09:04 Prednisone 20mg Tab PO 03/27/24 08:54 40 mg ONCE ONE Administration ORDERS Category Date Time Status CXR 2 view (NOT portable) [XR chest 2V] Stat Exams 03/27/24 08:53 Taken CBC w/Auto Diff [Complete Blood Count Auto Diff] Stat Lab 03/27/24 08:44 Completed CMP [Comprehensive Metabolic Panel] Stat Lab 03/27/24 08:44 Completed HIV (1&2) Antibody Rapid Stat Lab 03/27/24 08:45 Received Hep C Ab with Reflex to RNA Stat Lab 03/27/24 08:45 Received Rapid PCR Covid and Flu A/B Stat Lab 03/27/24 08:38 Completed Rapid Strep Scrn Group A [Strep Scrn Group A (Rapid)] Lab 03/27/24 08:53 Ordered Stat Trop I [Troponin I] Stat Lab 03/27/24 08:44 Completed Troponin I Q3H Lab 03/27/24 12:00 Ordered Troponin I Q3H Lab 03/27/24 15:00 Ordered VBG [Venous Blood Gas] Stat RT 03/27/24 09:45 Ordered Medical Decision Narrative: In summary patient is 63-year-old female past medical history described above who presents emergency department for evaluation of cough and shortness of breath in setting of COPD on home oxygen. Patient is hemodynamically stable nontoxic-appearing upon arrival, afebrile, appearing euvolemic on my exam. Patient is scant expiratory phase wheezing but good air movement. Differential diagnosis includes viral pneumonia, bacterial pneumonia, among others. Workup we conducted with hematologic labs, chest x-ray, EKG, single troponin. Initial inventions include oral azithromycin and oral prednisone and DuoNeb. Initial workup reviewed by me, no significant leukocytosis, no MAURICIO or critical electrolyte abnormality, glucose is elevated without evidence of DKA, there is very mild hyponatremia which is nonactionable at this time initial troponin undetectably low. Viral swab remarkable for influenza A. Chest x-ray informally interpreted by me, interstitial opacities without dense lobar consolidation, no large pneumothorax. Upon repeat evaluation patient was well- appearing, no ongoing wheezing which was minimal before and is on her baseline oxygen requirement without significant tachypnea. Patient is outside the window for Tamiflu. I do not feel the patient would benefit from inpatient hospitalization at this time and shared decision-making discussion was had and patient will follow-up with her PCP closely. Patient be covered with azithromycin for atypical coverage given the prevalence of atypical pneumonia in this community although it is likely she just has influenza pneumonia. Patient be discharged with a course of steroids and was given multiple return precautions and verbalized understanding. Critical Care Critical Care Time Critical Care Time: No
[2024-03-27 10:20] VITALS: BP 98/80; PULSE 96; RESP 20; TEMP 36.6; O2SAT 98
[2024-03-27 11:13] LABS: Lactate Venous 2.3 mmol/L (0.4-2.0)
[2024-03-27 12:24] LABS: HIV Combo NEGATIVE (Negative)
[2024-03-27 13:45] LABS: Reflex Lactic Add Lactic Reflex
--- NOTE | 2024-03-27 15:24 | PC.NURSE ---
pt states that she is feeling better since she left, educated the need to take glucose reading more frequent due to her steroid use. aware of pt update
[2024-03-29 07:08] LABS: HCV Ab Non Reactive (Non Reactive)
== END 2024-03-27 10:25 | disposition home or self-care (01) ==
PROVIDERS: Emergency Provider Emergency Medicine; PCP Family Medicine
DX: J09.X1 Influenza due to identified novel influenza A virus with pneumonia (principal); R06.02 Shortness of breath; R51.9 Headache, unspecified; R05.9 Cough, unspecified; M79.10 Myalgia, unspecified site; R06.2 Wheezing; Z87.891 Personal history of nicotine dependence
CPT/HCPCS: 71046; 80053; 82803; 84484; 85025; 86803; 87389; 87636; 99283; J7620

== ENCOUNTER 2024-05-29 15:50 | Outpatient (CLI) | payer MEDICARE, SELFPAY ==
[2024-05-29 19:51] LABS: Basophils % 0.8 % (0.1-2.0); Eosinophils % 0.6 % (0.1-12.0); Hematocrit 46.6 % (37.0-47.0); Lymphocytes # 1.7 K/mm3 (0.7-4.5); Lymphocytes % 31.9 % (10-50); Mean Corpuscular HGB Conc 32.2 g/dL (31.8-35.4); Mean Platelet Volume 12.5 fl (7.4-10.4); Monocytes # 0.5 K/mm3 (0.1-1.0); Monocytes % 8.7 % (1.7-9.3); Neutrophils % 57.8 % (37.0-80.0); Platelet Count 229 K/mm3 (142-424); Red Blood Count 5.18 M/mm3 (4.20-5.40); Red Cell Distribution Width 14.6 % (11.5-17.5); White Blood Count 5.2 K/mm3 (4.8-10.8)
[2024-05-29 20:01] LABS: Creatinine,Urine Random 22 mg/dL (Not Estab.)
[2024-05-29 20:24] LABS: Alanine Aminotransferase 38 U/L (12-78); Albumin Level 4.4 g/dl (3.5-5.0); Albumin/Globulin Ratio 1.5 (1.1-1.8); Alkaline Phosphatase 119 U/L (38-126); Anion Gap 21.3 mEq/L (5-15); Aspartate Amino Transferase 30 U/L (14-36); Bilirubin,Total 0.6 mg/dl (0.2-1.3); Blood Urea Nitrogen 14 mg/dl (7-17); Carbon Dioxide 18 mmol/L (22.0-30.0); Chloride 101 mmol/L (98-107); Chol/HDL Ratio 5.8 (1-3.5); Cholesterol 272 mg/dl (140-200); Estimated Glomerular Filt Rate 124 ml/min (>60); GFR (African American) 150 ML/MIN (>60); HDL Cholesterol 47 mg/dl (40-60); Potassium 4.3 mmoL/L (3.5-5.1); Sodium 136 mmol/L (136-145); Total Protein,Serum 7.4 g/dl (6.3-8.2); Triglycerides 205 mg/dl (30-150); VLDL Cholesterol 41 mg/dL (0-40)
[2024-05-29 20:30] LABS: Glucose 412 mg/dl (74-100)
[2024-05-29 20:35] LABS: Direct LDL Cholesterol 170.11 mg/dL (100-129)
[2024-05-29 20:38] LABS: Microalbumin > 1140.000 mg/L (0-16.7)
[2024-05-29 20:39] LABS: 25-OH Vitamin D, Total 24.1 ng/mL (30-100)
[2024-05-29 20:57] LABS: Thyroid Stimulating Hormone 2.37 uIU/mL (0.465-4.68)
== END 2024-05-29 23:59 | disposition home or self-care (01) ==
LOC: LAB.DROPOF 05-30 15:51
PROVIDERS: PCP Family Medicine; Visit Provider Family Medicine
DX: E78.5 Hyperlipidemia, unspecified (principal); E11.65 Type 2 diabetes mellitus with hyperglycemia; Z79.4 Long term (current) use of insulin; E66.01 Morbid (severe) obesity due to excess calories; Z68.41 Body mass index [BMI] 40.0-44.9, adult; E03.9 Hypothyroidism, unspecified
CPT/HCPCS: 80053; 80061; 82043; 82306; 82570; 84443; 85025

== ENCOUNTER 2024-06-19 15:39 | Emergency (ER) | payer MEDICARE, SELFPAY ==
[2024-06-19 15:47] VITALS: BP 155/90; PULSE 109; RESP 18; TEMP 36.8; O2SAT 97; BMI 32.1
--- NOTE | 2024-06-19 15:51 | HMH.EDGENADL ---
Discharge Plan Disposition Patient Disposition: Home, Self-Care Condition: Good Prescriptions Prescriptions: New bmdnspbllfmglsl-soiupzbxd-PC [Bromfed DM] 2-30-10 mg/5 mL syrup 5 ml PO Q4H PRN (Reason: sinus symptoms) Qty: 118 0RF doxycycline hyclate 100 mg capsule 100 mg PO BID 10 Days Qty: 20 0RF prednisone 50 mg tablet 50 mg PO DAILY 5 Days Qty: 5 0RF No Action mupirocin 2 % ointment 1 applic topical BID Qty: 15 0RF metoprolol succinate 200 mg tablet extended release 24 hr 200 mg PO DAILY Qty: 30 5RF nystatin 100,000 unit/gram cream 1 applic topical TID Qty: 30 0RF Trelegy Ellipta 100-62.5-25 mcg blister with device 1 inh inhalation DAILY Qty: 60 2RF glipizide 10 mg tablet extended release 24hr See Rx Instructions .ROUTE .COMPLEX Qty: 180 2RF Dose Instruction: TAKE ONE TABLET BY MOUTH TWICE DAILY Rx Instructions: TAKE ONE TABLET BY MOUTH TWICE DAILY losartan-hydrochlorothiazide 50-12.5 mg tablet 1 tab PO DAILY Qty: 30 0RF oxybutynin chloride 15 mg tablet extended release 24hr See Rx Instructions .ROUTE .COMPLEX Qty: 30 2RF Dose Instruction: TAKE ONE TABLET BY MOUTH EVERY DAY FOR OVERACTIVE FOR BLADDER Rx Instructions: TAKE ONE TABLET BY MOUTH EVERY DAY FOR OVERACTIVE FOR BLADDER aspirin 81 mg tablet,delayed release (DR/EC) 81 mg PO DAILY Qty: 90 1RF Jardiance 25 mg tablet See Rx Instructions .ROUTE .COMPLEX Qty: 90 2RF Dose Instruction: TAKE ONE TABLET BY MOUTH EVERY DAY Rx Instructions: TAKE ONE TABLET BY MOUTH EVERY DAY levothyroxine 25 mcg tablet See Rx Instructions .ROUTE .COMPLEX Qty: 90 0RF Dose Instruction: TAKE ONE TABLET BY MOUTH EVERY DAY Rx Instructions: TAKE ONE TABLET BY MOUTH EVERY DAY Ozempic 0.25 mg or 0.5 mg (2 mg/3 mL) pen injector 0.5 mg SQ WEEKLY Qty: 3 0RF Rx Instructions: for 4 weeks sertraline 100 mg tablet 150 mg PO DAILY Qty: 45 2RF clopidogrel [Plavix] 75 mg tablet 75 mg PO QDAY Qty: 90 3RF atorvastatin 40 mg tablet See Rx Instructions .ROUTE .COMPLEX Qty: 90 1RF Dose Instruction: TAKE ONE TABLET BY MOUTH EVERY DAY Rx Instructions: TAKE ONE TABLET BY MOUTH EVERY DAY (DME) Blood Glucose Test Strip See Rx Instructions .Route Qty: 50 6RF Rx Instructions: As directed, bid testing (DME) lancets [Accu-Chek Softclix Lancets] Misc See Rx Instructions .Route Qty: 100 6RF Rx Instructions: As directed, bid testing (DME) blood-glucose meter [Blood Glucose Monitoring] Kit See Rx Instructions .Route Qty: 1 0RF Rx Instructions: As directed, bid testing oydtqrxilkoqgfx-hnpixaufo-WQ [Bromfed DM] 2-30-10 mg/5 mL syrup 10 ml PO Q6H Qty: 118 0RF Referrals Follow up/Referrals: Jessi Wright APRN [Primary Care Provider] - See instructions Activity Restrictions/Add. Instructions Additional Instructions/Restrictions: Have sent cough medicine and a steroid and antibiotics into your pharmacy. Please follow-up with your PCP within 48 hours for recheck. If you have any new or worsening signs or symptoms follow-up sooner or return to the ER as needed. Clinical Impressions Clinical Impression: Infection of lower respiratory tract, Right-sided chest wall pain Stand Alone Forms Stand Alone Forms: Work/School Release Instructions Patient Instructions: DI for Cough -- Adult Print Language Print Language: Kosovan Discharge ED Provider: Charles Obregon General Adult HPI <JASON Vilchis - Last Filed: 06/19/24 20:40> General Chief complaint: Upper Respiratory Infection Stated complaint: rt side rib pain, no acc Time Seen by Provider: 06/19/24 15:47 Mode of Arrival: Ambulatory Source of Information: Patient Description of Symptoms (Recalled from ER Triage Doc. by RN): Pt states she has had a cold and has been coughing. Pt is concerned she cracked a rib on the right side. History of Present Illness HPI narrative: Patient presents for evaluation of acute right chest wall pain. Patient reports that she has had a persistent cough for about a week. She denies fever cardiac chest pain shortness of breath hemoptysis hematochezia melena nausea vomiting diarrhea. Patient had a protracted coughing episode today and she felt something pop in her right chest wall that hurt immediately and has progressively been more tender throughout the day. Related Data Previous Rx's ?Medication ?Instructions ?Recorded sertraline 100 mg tablet 150 mg (1.5 x 100 mg) PO DAILY #45 08/24/23 tabs mupirocin 2 % topical ointment 1 applic topical BID #15 grams 09/01/23 metoprolol succinate 200 mg 200 mg PO DAILY #30 tabs 12/05/23 tablet,extended release 24 hr clopidogrel 75 mg tablet (Plavix) 75 mg PO QDAY #90 tabs 12/15/23 nystatin 100,000 unit/gram topical 1 applic topical TID #30 grams 12/18/23 cream atorvastatin 40 mg tablet See Rx Instructions .Route 01/08/24 .COMPLEX #90 tabs empagliflozin 25 mg tablet See Rx Instructions .Route 03/21/24 (Jardiance) .COMPLEX #90 tabs levothyroxine 25 mcg tablet See Rx Instructions .Route 03/21/24 .COMPLEX #90 tabs aspirin 81 mg tablet,delayed 81 mg PO DAILY history of cardiac 05/29/24 release stents #90 tabs fluticasone fur. 100 mcg-umeclid 1 inh inhalation DAILY #60 ea 05/29/24 62.5 mcg-vilant 25 mcg inhalat.powder (Trelegy Ellipta) glipizide 10 mg tablet, extended See Rx Instructions .Route 05/29/24 release 24 hr .COMPLEX #180 tabs losartan 50 mg-hydrochlorothiazide 1 tab PO DAILY #30 tabs 05/29/24 12.5 mg tablet oxybutynin chloride 15 mg See Rx Instructions .Route 05/29/24 tablet,extended release 24 hr .COMPLEX #30 tabs blood sugar diagnostic (Blood #50 ea 05/30/24 Glucose Test strips) blood-glucose meter (Blood Glucose #1 ea 05/30/24 Monitoring kit) lancets (Accu-Chek Softclix #100 ea 05/30/24 Lancets) anlxkbmvotyvfzb-xtkipxljkvwtyse-JP 10 ml PO Q6H #118 mL 06/13/24 2 mg-30 mg-10 mg/5 mL oral syrup (Bromfed DM) semaglutide 0.25 mg or 0.5 mg (2 0.5 mg (0.736 mL) SQ WEEKLY #3 mL 06/17/24 mg/3 mL) subcutaneous pen injector (Ozempic) hzlbicqlkkkmwlt-hatwbokfbhiyfxu-IK 5 ml PO Q4H PRN sinus symptoms 06/19/24 2 mg-30 mg-10 mg/5 mL oral syrup #118 mL (Bromfed DM) doxycycline hyclate 100 mg capsule 100 mg PO BID 10 days #20 caps 06/19/24 prednisone 50 mg tablet 50 mg PO DAILY 5 days #5 tabs 06/19/24 Allergies Allergy/AdvReac Type Severity Reaction Status Date / Time insulin lispro Allergy Intermediate Vomiting Verified 06/17/24 13:30 venom-honey bee (BEE VENOM Allergy Unknown Unknown Verified 06/17/24 13:30 (HONEY BEE)) allergy reaction chocolate flavor AdvReac Hyper Verified 06/17/24 13:30 PFS <JASON Vilchis - Last Filed: 06/19/24 20:40> [facility] Disclaimer: The information contained in this section may have been updated after the patient was seen, as this information can be updated by other users. Medical History Dehydration Candidiasis Sore throat Influenza A with pneumonia UTI (urinary tract infection) present on admission. UA abnormal, UC pending Abnormal nuclear cardiac imaging test Acute pain of left knee Fall Contusion of knee Oxygen dependent Encounter for screening for malignant neoplasm of lung Nodule of right lung History of smoking 30 or more pack years Dyspnea on exertion SOB (shortness of breath) on exertion Palpitations Typical angina Edema of both lower extremities Diastolic dysfunction Foot pain, bilateral DKA (diabetic ketoacidosis) CAD (coronary artery disease) COPD (chronic obstructive pulmonary disease) Sinus tachycardia Gastroesophageal reflux disease Urinary incontinence Chest pain Dyspnea Dyspnea and respiratory abnormalities Coronary artery disease Ex-smoker for more than 1 year Emphysema of lung Diabetes mellitus type 2 in obese Hyperlipidemia Hypertensive disorder Surgical History History of partial hysterectomy History of intravascular stent placement H/O eye surgery Family History Other Family history of diabetes mellitus Family history of heart disease No significant family history Social History Smoking Status: Current every day smoker tobacco type: cigarettes packs per day: 1 smoking status stop date: 2006 alcohol intake: former substance use type: denies use current occupational status: unemployed Travel in the last 8 weeks: None household members: spouse housing: house lives independently: Yes marital status: number of children: 1 current occupational exposures/hazards: No 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 Have you lived/traveled outside [place] in past 30 days?: No Contact w/someone who lives/traveled outside [place] past 30 days?: No Exposure to someone with infectious disease in past 14 days?: No Do you have a fever (greater than 100.4 F or 38 C)?: No Have you tested positive for COVID-19: No Exposed to someone with COVID-19 in past 14 days?: No Do you have a sore throat?: No Do you have a cough?: No Do you have any weakness?: No Do you have any diarrhea?: No Are you experiencing any unusual bleeding?: No Do you have any muscle aches/pain?: No Do you have any abdominal pain?: No Are you experiencing loss of taste or smell?: No Other Medical History Have you received the Flu Vaccine for this season: No Have you received the Pneumonia Vaccine: Yes <JASON Vilchis - Last Filed: 06/19/24 20:40> ROS Obtained: Yes Systems reviewed as appropriate & no additional complaints except as documented Physical Exam <JASON Vilchis - Last Filed: 06/19/24 20:40> General General appearance: alert and in no apparent distress Respiratory Respiratory exam: Present normal lung sounds bilaterally; Absent respiratory distress, wheezes or accessory muscle use Cardiovascular Cardiovascular exam: Present tachycardia Neurological Exam Neurological exam: Present alert and oriented X3 Medical Decision Making <JASON Vilchis - Last Filed: 06/19/24 20:40> Medical Records Medical records reviewed: Yes I reviewed the patient's medical records. Screening: Per USPSTF and CDC recommendations, given the prevalence of disease in our region, it is our hospital?s policy to screen for HIV and viral Hepatitis for all patients aged 18 and over and those with ongoing risk factors. Dewayne Inquiry Pt receiving controlled substance: No Vital Signs: 06/19/24 15:47 06/19/24 16:43 06/19/24 17:40 Temperature 98.2 F 98.3 F Temperature Source Oral Oral Pulse Rate 97 H 88 Pulse Rate [Right] 109 H Respiratory Rate 18 20 Blood Pressure 164/100 H 120/80 Blood Pressure [Right Arm] 155/90 H Blood Pressure Mean [Right Arm] 111 Blood Pressure Source Automatic Cuff Blood Pressure Source [Right Arm] Automatic Cuff Blood Pressure Position [Right Arm] Sitting 02 Sat by Pulse Oximetry 97 93 L Oxygen Delivery Method Room Air Room Air Room Air Lab Data Lab results reviewed: Yes I reviewed the patient's lab results. Lab Results 06/19/24 15:47: SARS-CoV-2 (PCR) Not detected, Influenza A Untype (PCR) Not detected, Influenza Type B (PCR) Not detected Orders (Tests/Meds): ED MEDICATIONS Discontinued Medications Generic Name Dose Route Start Last Admin Trade Name Freq PRN Reason Stop Dose Admin Ketorolac Tromethamine 10 mg 06/19/24 16:00 06/19/24 16:08 Ketorolac 10mg Tablet PO 06/24/24 15:59 10 mg Q6H ALTA Administration ORDERS Category Date Time Status CT chest wo con Stat Cat Scan 06/19/24 15:59 Completed Rapid PCR Covid and Flu A/B Stat Lab 06/19/24 15:47 Completed Medical Decision Narrative: In summary patient is a 63-year-old female who presents to the emergency department for evaluation of cough and right chest wall pain. Patient is hemodynamically stable with a blood pressure 155/90 slightly tachycardic at 109 breathing 18 times a minute satting at 97% on room air upon arrival, afebrile at 98.2. Exam is remarkable for clear breath sounds with no increased work of breathing accessory muscle use or adventitious sounds. Patient has tenderness to palpation in the right lateral chest wall without palpable bony deformity swelling ecchymosis edema.. Differential diagnosis includes viral bacterial respiratory tract infection versus costochondritis versus rib separation versus possible rib fracture etc. Initial workup will be conducted with COVID and flu swabs CT scan of the chest without contrast. Initial interventions include Tylenol Toradol for now. Initial workup reviewed by me and her COVID and flu swabs are negative however my informal interpretation of her CT scan of the chest shows several scattered solid and groundglass opacities bilaterally prior to radiology read.. Upon repeat evaluation patient actually reported significant improvement in her chest wall pain after initial intervention. Given this patient has signs and symptoms of possible atypical infection given the length of time thus patient will be given a prescription for Bromfed doxycycline steroids and close follow-up with her PCP within 48 hours for recheck sooner if she has worsening signs or symptoms. <Charles Obregon MD - Last Filed: 06/19/24 21:01> Vital Signs: 06/19/24 15:47 06/19/24 16:43 06/19/24 17:40 Temperature 98.2 F 98.3 F Temperature Source Oral Oral Pulse Rate 97 H 88 Pulse Rate [Right] 109 H Respiratory Rate 18 20 Blood Pressure 164/100 H 120/80 Blood Pressure [Right Arm] 155/90 H Blood Pressure Mean [Right Arm] 111 Blood Pressure Source Automatic Cuff Blood Pressure Source [Right Arm] Automatic Cuff Blood Pressure Position [Right Arm] Sitting 02 Sat by Pulse Oximetry 97 93 L Oxygen Delivery Method Room Air Room Air Room Air Lab Data Lab Results 06/19/24 15:47: SARS-CoV-2 (PCR) Not detected, Influenza A Untype (PCR) Not detected, Influenza Type B (PCR) Not detected Orders (Tests/Meds): ED MEDICATIONS Discontinued Medications Generic Name Dose Route Start Last Admin Trade Name Julia PRN Reason Stop Dose Admin Ketorolac Tromethamine 10 mg 06/19/24 16:00 06/19/24 16:08 Ketorolac 10mg Tablet PO 06/24/24 15:59 10 mg Q6H ALTA Administration ORDERS Category Date Time Status CT chest wo con Stat Cat Scan 06/19/24 15:59 Completed Rapid PCR Covid and Flu A/B Stat Lab 06/19/24 15:47 Completed Medical Decision Narrative: In summary patient is a 63-year-old female who presents to the emergency department for evaluation of cough and right chest wall pain. Patient is hemodynamically stable with a blood pressure 155/90 slightly tachycardic at 109 breathing 18 times a minute satting at 97% on room air upon arrival, afebrile at 98.2. Exam is remarkable for clear breath sounds with no increased work of breathing accessory muscle use or adventitious sounds. Patient has tenderness to palpation in the right lateral chest wall without palpable bony deformity swelling ecchymosis edema.. Differential diagnosis includes viral bacterial respiratory tract infection versus costochondritis versus rib separation versus possible rib fracture etc. Initial workup will be conducted with COVID and flu swabs CT scan of the chest without contrast. Initial interventions include Tylenol Toradol for now. Initial workup reviewed by me and her COVID and flu swabs are negative however my informal interpretation of her CT scan of the chest shows several scattered solid and groundglass opacities bilaterally prior to radiology read.. Upon repeat evaluation patient actually reported significant improvement in her chest wall pain after initial intervention. Given this patient has signs and symptoms of possible atypical infection given the length of time thus patient will be given a prescription for Bromfed doxycycline steroids and close follow-up with her PCP within 48 hours for recheck sooner if she has worsening signs or symptoms. I was consulted by the JAMI, and we discussed the complexity of the problems being addressed. I approved the treatment and management plan for this patient's care in the Emergency Department, thus performing a substantive portion of the medical decision making. Charles Obregon MD Critical Care <JASON Vilchis - Last Filed: 06/19/24 20:40> Critical Care Time Critical Care Time: Yes Attestation: On 06/19/24, the high probability of a clinically significant, sudden or life threatening deterioration of the following system(s) required my full and direct attention, intervention and personal management. The time I documented below is in addition to time spent performing reported procedures but includes the following listed in this critical care notation. Total Time Total Critical Care Time: 35
[2024-06-19 15:53] LABS: Coronavirus 19, PCR Not Detected (NotDetected); Influenza A, PCR Not Detected (NotDetected); Influenza B, PCR Not Detected (NotDetected)
--- NOTE | 2024-06-19 15:59 | CT_ITS ---
PROCEDURE INFORMATION: Exam: CT Chest Without Contrast; Diagnostic Exam date and time: 06/19/2024 4:16 PM Age: 63 years old Clinical indication: Cough; Additional info: Persistent cough, right chest wall pain TECHNIQUE: Imaging protocol: Diagnostic computed tomography of the chest without contrast. Radiation optimization: All CT scans at this facility use at least one of these dose optimization techniques: automated exposure control; mA and/or kV adjustment per patient size (includes targeted exams where dose is matched to clinical indication); or iterative reconstruction. COMPARISON: CT ANGIO CHEST PE PROTOCOL 11/01/2023 1:03 PM FINDINGS: Lungs: Apical predominant mild paraseptal and centrilobular emphysema. Several scattered tiny tree-in-bud opacities and scattered small ground-glass nodules and small patchy opacities bilaterally. Pleural spaces: Unremarkable. No pneumothorax. No pleural effusion. Heart: Normal heart size. No pericardial fluid. Severe coronary vessel atherosclerosis, status post stenting. Lymph nodes: Unremarkable. No enlarged lymph nodes. Vasculature: See Heart finding. Bones/joints: Unremarkable. No acute fracture. Soft tissues: Unremarkable. IMPRESSION: Several scattered tiny solid and ground-glass nodules and small patchy ground-glass opacities bilaterally. Concerning for infectious (including atypical) versus inflammatory etiology. Recommend imaging follow-up to resolution. COMMENTS: The presence of pulmonary emphysema on CT is an independent risk factor for lung cancer. In the absence of a history or active diagnosis of lung cancer, it is recommended that this patient with emphysema be evaluated for enrollment in a low dose CT lung cancer screening program.
[2024-06-19] MEDS: KETOROLAC 10MG TABLET 10 MG PO (16:08)
--- NOTE | 2024-06-19 16:11 | PC.NURSE ---
patient given meds per provider order, warm blanket given no other needs voiced at this time
[2024-06-19 16:43] VITALS: BP 164/100; PULSE 97; O2SAT 93
[2024-06-19 17:40] VITALS: BP 120/80; PULSE 88; RESP 20; TEMP 36.8; O2SAT 95
== END 2024-06-19 17:41 | disposition home or self-care (01) ==
PROVIDERS: Emergency Provider Emergency Medicine; PCP Family Medicine
DX: J22 Unspecified acute lower respiratory infection (principal); R05.9 Cough, unspecified; R09.89 Other specified symptoms and signs involving the circulatory and respiratory systems; F17.210 Nicotine dependence, cigarettes, uncomplicated
CPT/HCPCS: 71250; 87636; 99291

== ENCOUNTER 2024-08-19 13:10 | Emergency (ER) | payer MEDICARE, SELFPAY ==
--- NOTE | 2024-08-19 13:15 | ECG_ITS ---
APPROVED REPORT Exam: Resting ECG HR:105 bpm ECG Measurements Heart Rate 105 AXES OR 145 P 71 QRSd 68 QRS 89 QT 335 T 51 QTc 396 Conclusion SINUS TACHYCARDIA NONSPECIFIC ST ELEVATION [0.05+ mV ST ELEVATION] ABNORMAL RHYTHM ECG UNCONFIRMED REPORT Electronically signed by : Alessia Burris, 08/19/2024 16:25:44
[2024-08-19 13:24] VITALS: RESP 16; O2SAT 98; BMI 29.9
[2024-08-19 14:00] VITALS: BP 159/91; PULSE 97; RESP 17; O2SAT 97
--- NOTE | 2024-08-19 14:14 | XR_ITS ---
FINAL REPORT CLINICAL HISTORY: Finger pain/injury COMPARISON: None FINDINGS: 3 views of the left hand were obtained. There is no acute fracture or dislocation. There is moderate DIP and PIP joint space narrowing. There is no acute soft tissue abnormality. IMPRESSION: Degenerative changes without acute abnormality. Reviewed, Interpreted and Dictated by Jeremiah Heller MD Transcribed by Chanel Miner Authenticated and [facility]
--- NOTE | 2024-08-19 14:15 | XR_ITS ---
FINAL REPORT CLINICAL HISTORY: Tendinopathy versus avulsion COMPARISON: None FINDINGS: 3 views of the left elbow were obtained. There is no acute fracture or dislocation. The joint spaces are well-preserved. There is no acute soft tissue abnormality. IMPRESSION: No acute abnormality identified. Reviewed, Interpreted and Dictated by Jeremiah Hellre MD Transcribed by Chanel Miner Authenticated and [facility]
--- NOTE | 2024-08-19 14:15 | XR_ITS ---
FINAL REPORT CLINICAL HISTORY: Forearm pain COMPARISON: None FINDINGS: 2 views of the left forearm were obtained. There is no acute fracture or dislocation. There are mild hypertrophic changes at the distal radial ulnar joint. There are no soft tissue abnormalities. IMPRESSION: Degenerative changes without acute process. Reviewed, Interpreted and Dictated by Jeremiah Heller MD Transcribed by Chanel Miner Authenticated and [facility]
--- NOTE | 2024-08-19 14:44 | HMH.EDGENADL ---
Discharge Plan Disposition Chief Complaint: Extremity Injury, Upper Prescriptions Prescriptions: No Action mupirocin 2 % ointment 1 applic topical BID Qty: 15 0RF metoprolol succinate 200 mg tablet extended release 24 hr 200 mg PO DAILY Qty: 30 5RF nystatin 100,000 unit/gram cream 1 applic topical TID Qty: 30 0RF Trelegy Ellipta 100-62.5-25 mcg blister with device 1 inh inhalation DAILY Qty: 60 2RF glipizide 10 mg tablet extended release 24hr See Rx Instructions .ROUTE .COMPLEX Qty: 180 2RF Dose Instruction: TAKE ONE TABLET BY MOUTH TWICE DAILY Rx Instructions: TAKE ONE TABLET BY MOUTH TWICE DAILY oxybutynin chloride 15 mg tablet extended release 24hr See Rx Instructions .ROUTE .COMPLEX Qty: 30 2RF Dose Instruction: TAKE ONE TABLET BY MOUTH EVERY DAY FOR OVERACTIVE FOR BLADDER Rx Instructions: TAKE ONE TABLET BY MOUTH EVERY DAY FOR OVERACTIVE FOR BLADDER aspirin 81 mg tablet,delayed release (DR/EC) 81 mg PO DAILY Qty: 90 1RF Jardiance 25 mg tablet See Rx Instructions .ROUTE .COMPLEX Qty: 90 2RF Dose Instruction: TAKE ONE TABLET BY MOUTH EVERY DAY Rx Instructions: TAKE ONE TABLET BY MOUTH EVERY DAY levothyroxine 25 mcg tablet See Rx Instructions .ROUTE .COMPLEX Qty: 90 0RF Dose Instruction: TAKE ONE TABLET BY MOUTH EVERY DAY Rx Instructions: TAKE ONE TABLET BY MOUTH EVERY DAY sertraline 100 mg tablet 150 mg PO DAILY Qty: 45 2RF clopidogrel [Plavix] 75 mg tablet 75 mg PO QDAY Qty: 90 3RF atorvastatin 40 mg tablet See Rx Instructions .ROUTE .COMPLEX Qty: 90 1RF Dose Instruction: TAKE ONE TABLET BY MOUTH EVERY DAY Rx Instructions: TAKE ONE TABLET BY MOUTH EVERY DAY (DME) Blood Glucose Test Strip See Rx Instructions .Route Qty: 50 6RF Rx Instructions: As directed, bid testing (DME) lancets [Accu-Chek Softclix Lancets] Misc See Rx Instructions .Route Qty: 100 6RF Rx Instructions: As directed, bid testing (DME) blood-glucose meter [Blood Glucose Monitoring] Kit See Rx Instructions .Route Qty: 1 0RF Rx Instructions: As directed, bid testing Ozempic 0.25 mg or 0.5 mg (2 mg/3 mL) pen injector 0.5 mg SQ QWEEK 28 Days Qty: 2.944 5RF Rx Instructions: for 4 weeks losartan-hydrochlorothiazide 50-12.5 mg tablet 1 tab PO DAILY Qty: 90 1RF jaepafxuaquhukc-kugpdvmeb-YU [Bromfed DM] 2-30-10 mg/5 mL syrup 5 ml PO Q4H PRN (Reason: sinus symptoms) Qty: 118 0RF doxycycline hyclate 100 mg capsule 100 mg PO BID 10 Days Qty: 20 0RF prednisone 50 mg tablet 50 mg PO DAILY 5 Days Qty: 5 0RF Referrals Follow up/Referrals: Jessi Wright APRN [Primary Care Provider] - See instructions Clinical Impressions Clinical Impression: Finger pain, left, Nerve pain Print Language Print Language: Turkish Discharge ED Provider: Alessia Burris General Adult HPI General Chief complaint: Extremity Injury, Upper Stated complaint: Chest Pain Time Seen by Provider: 08/19/24 13:44 Mode of Arrival: Wheelchair Source of Information: Patient Description of Symptoms (Recalled from ER Triage Doc. by RN): Pt arrives with complaints of left elbow and hand pain that began after she pushed a small cart in her home. Pt states it feels like something is pulling in her forearm and elbow when she closes her fist. Denies SOA and CP at this time. Pt drove herself here and lives at home alone. History of Present Illness HPI narrative: Georgia Wright is a 64 y/o female presenting with arm pain. Patient describes clearing a path through her house from her front door to her laundry area in preparation for an appliance delivery tomorrow. Patient was moving multiple items around the house. Patient reports experiencing an acute onset burning sensation in her left middle finger that seem to radiate to her elbow. Patient states this pain had gone away prior to arrival at the ER. Patient reports poorly controlled diabetes and lower leg edema that is not new. Patient reports intermittent neuropathy in her feet. Patient denies chest pain, shortness of breath, syncope or lightheadedness. Patient denies weakness or numbness in her left upper extremity. Related Data Previous Rx's ?Medication ?Instructions ?Recorded sertraline 100 mg tablet 150 mg (1.5 x 100 mg) PO DAILY #45 08/24/23 tabs mupirocin 2 % topical ointment 1 applic topical BID #15 grams 09/01/23 metoprolol succinate 200 mg 200 mg PO DAILY #30 tabs 12/05/23 tablet,extended release 24 hr clopidogrel 75 mg tablet (Plavix) 75 mg PO QDAY #90 tabs 12/15/23 nystatin 100,000 unit/gram topical 1 applic topical TID #30 grams 12/18/23 cream atorvastatin 40 mg tablet See Rx Instructions .Route 01/08/24 .COMPLEX #90 tabs empagliflozin 25 mg tablet See Rx Instructions .Route 03/21/24 (Jardiance) .COMPLEX #90 tabs levothyroxine 25 mcg tablet See Rx Instructions .Route 03/21/24 .COMPLEX #90 tabs aspirin 81 mg tablet,delayed 81 mg PO DAILY history of cardiac 05/29/24 release stents #90 tabs fluticasone fur. 100 mcg-umeclid 1 inh inhalation DAILY #60 ea 05/29/24 62.5 mcg-vilant 25 mcg inhalat.powder (Trelegy Ellipta) glipizide 10 mg tablet, extended See Rx Instructions .Route 05/29/24 release 24 hr .COMPLEX #180 tabs oxybutynin chloride 15 mg See Rx Instructions .Route 05/29/24 tablet,extended release 24 hr .COMPLEX #30 tabs blood sugar diagnostic (Blood #50 ea 05/30/24 Glucose Test strips) blood-glucose meter (Blood Glucose #1 ea 05/30/24 Monitoring kit) lancets (Accu-Chek Softclix #100 ea 05/30/24 Lancets) rmwbytoxuaystrw-qrpercrmbncbcyl-HN 5 ml PO Q4H PRN sinus symptoms 06/19/24 2 mg-30 mg-10 mg/5 mL oral syrup #118 mL (Bromfed DM) doxycycline hyclate 100 mg capsule 100 mg PO BID 10 days #20 caps 06/19/24 prednisone 50 mg tablet 50 mg PO DAILY 5 days #5 tabs 06/19/24 semaglutide 0.25 mg or 0.5 mg (2 0.5 mg (0.736 mL) SQ QWEEK 4 weeks 07/09/24 mg/3 mL) subcutaneous pen injector #2.944 mL (Ozempic) losartan 50 mg-hydrochlorothiazide 1 tab PO DAILY #90 tabs 08/01/24 12.5 mg tablet Allergies Allergy/AdvReac Type Severity Reaction Status Date / Time insulin lispro Allergy Intermediate Vomiting Verified 06/24/24 13:35 venom-honey bee (BEE VENOM Allergy Unknown Unknown Verified 06/24/24 13:35 (HONEY BEE)) allergy reaction chocolate flavor AdvReac Hyper Verified 06/24/24 13:35 [facility] Disclaimer: The information contained in this section may have been updated after the patient was seen, as this information can be updated by other users. Medical History Dehydration Candidiasis Sore throat Influenza A with pneumonia UTI (urinary tract infection) present on admission. UA abnormal, UC pending Abnormal nuclear cardiac imaging test Acute pain of left knee Fall Contusion of knee Oxygen dependent Encounter for screening for malignant neoplasm of lung Nodule of right lung History of smoking 30 or more pack years Dyspnea on exertion SOB (shortness of breath) on exertion Palpitations Typical angina Edema of both lower extremities Diastolic dysfunction Foot pain, bilateral DKA (diabetic ketoacidosis) CAD (coronary artery disease) COPD (chronic obstructive pulmonary disease) Sinus tachycardia Gastroesophageal reflux disease Urinary incontinence Chest pain Dyspnea Dyspnea and respiratory abnormalities Coronary artery disease Ex-smoker for more than 1 year Emphysema of lung Diabetes mellitus type 2 in obese Hyperlipidemia Hypertensive disorder Surgical History History of partial hysterectomy History of intravascular stent placement H/O eye surgery Family History Other Family history of diabetes mellitus Family history of heart disease No significant family history Social History Smoking Status: Current every day smoker tobacco type: cigarettes packs per day: 1 smoking status stop date: 2006 alcohol intake: former substance use type: denies use current occupational status: unemployed Travel in the last 8 weeks?: None household members: spouse housing: house lives independently: Yes marital status: number of children: 1 current occupational exposures/hazards: No 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 Have you lived/traveled outside [place] in past 30 days?: No Contact w/someone who lives/traveled outside US past 30 days?: No Exposure to someone with infectious disease in past 14 days?: No Do you have a fever (greater than 100.4 F or 38 C)?: No Have you tested positive for COVID-19?: No Exposed to someone with COVID-19 in past 14 days?: No Do you have a sore throat?: No Do you have a cough?: No Do you have any weakness?: No Do you have any diarrhea?: No Are you experiencing any unusual bleeding?: No Do you have any muscle aches/pain?: No Do you have any abdominal pain?: No Are you experiencing loss of taste or smell?: No Other Medical History Have you received the Flu Vaccine for this season: No Have you received the Pneumonia Vaccine: Yes ROS Obtained: Yes All systems reviewed & no additional complaints except as documented Physical Exam General General appearance: alert and in no apparent distress Respiratory Respiratory exam: Present normal lung sounds bilaterally; Absent respiratory distress Cardiovascular Cardiovascular exam: Present regular rate and normal rhythm; Absent JVD Abdominal Exam Abdominal exam: Present soft; Absent distention, tenderness or guarding Extremities Exam Extremities exam: Present normal inspection, full ROM and normal capillary refill; Absent calf tenderness Expanded Upper Extremity Exam Left: Shoulder exam: Present normal inspection and full ROM; Absent tenderness or swelling Arm exam: Present normal inspection Elbow exam: Present normal inspection and full ROM; Absent tenderness, swelling or erythema Forearm/Wrist exam: Present normal inspection and full ROM; Absent tenderness, swelling or tenderness over anatomical snuff box Hand exam: Present normal inspection and full ROM; Absent tenderness, swelling, ecchymosis, deformity or erythema Neuromotor exam: Normal wrist extension, thumb opposition, thumb IP flexion, thumb adduction and fingers 2-5 abduction Neurosensory exam: Normal radial nerve, ulnar nerve and median nerve Neurological Exam Neurological exam: Present alert and oriented X3 Skin Skin exam: Present warm, dry, intact and normal color Medical Decision Making Medical Records Medical records reviewed: Yes I reviewed the patient's medical records. Screening: Per USPSTF and CDC recommendations, given the prevalence of disease in our region, it is our hospital?s policy to screen for HIV and viral Hepatitis for all patients aged 18 and over and those with ongoing risk factors. Dewayne Inquiry Pt receiving controlled substance: No Vital Signs: 08/19/24 13:24 08/19/24 14:00 08/19/24 15:01 Pulse Rate 97 H 99 H Respiratory Rate 16 17 18 Blood Pressure 159/91 H 205/116 H Blood Pressure Mean 113 02 Sat by Pulse Oximetry 98 97 96 Oxygen Delivery Method Room Air Room Air 08/19/24 15:31 Pulse Rate 98 H Respiratory Rate 12 Blood Pressure 194/137 H Blood Pressure Mean 02 Sat by Pulse Oximetry 96 Oxygen Delivery Method Room Air Orders (Tests/Meds): ORDERS Category Date Time Status Elbow XR left mininum 3 views [XR elbow LT min 3V] Stat Exams 08/19/24 14:15 Completed Forearm XR left 2 views [XR forearm LT 2V] Stat Exams 08/19/24 14:15 Completed Hand XR left minimum 3 views [XR hand LT min 3V] Stat Exams 08/19/24 14:14 Completed Medical Decision Narrative: In summary, this is a 64-year-old female presenting with left hand pain. Differential diagnosis includes but is not limited to, fracture, dislocation, neurovascular injury, muscle strain, muscle sprain, tendinitis, osteoarthritis flare, among others. Patient's symptoms have fully resolved prior to arrival to ER. Based on the burning description of her pain, is likely nerve compression induced. Patient has no neurologic deficits on exam. Patient's symptoms also occurred in her nondominant hand and may be related to overuse and new physical use. Patient will be evaluated with XR of her left hand, elbow and forearm. Patient not complaining of pain or requesting pain medication at this time. Laboratory evaluation would not change patient's management today, therefore it was not ordered. XR personally reviewed by me and negative for fracture or malalignment. Final radiologic read support my findings. Patient given results of her XR and advised of discharge with follow-up to her primary care provider. Patient also recommended to better control her hyperglycemia to prevent further complications of her disease process. Patient questions answered. Return precautions given and patient discharged in stable condition. Alessia Burris MD Critical Care Critical Care Time Critical Care Time: No
[2024-08-19 15:01] VITALS: BP 205/116; PULSE 99; RESP 18; O2SAT 96
[2024-08-19 15:31] VITALS: BP 194/137; PULSE 98; RESP 12; O2SAT 96
[2024-08-19 16:01] VITALS: BP 216/132; PULSE 98; RESP 25; O2SAT 96
[2024-08-19 16:38] VITALS: BP 167/88; PULSE 94; RESP 16; TEMP 36.7; O2SAT 97
--- NOTE | 2024-08-19 16:48 | PC.NURSE ---
Pt verbalizes understanding of discharge, shuttle called for pt to take her to car
== END 2024-08-19 16:49 | disposition home or self-care (01) ==
PROVIDERS: Emergency Provider Student in an Organized Health Care Education/Training Program; PCP Family Medicine
DX: M25.522 Pain in left elbow (principal); M79.642 Pain in left hand; M79.2 Neuralgia and neuritis, unspecified; R00.0 Tachycardia, unspecified; F17.210 Nicotine dependence, cigarettes, uncomplicated; E11.40 Type 2 diabetes mellitus with diabetic neuropathy, unspecified
CPT/HCPCS: 73080; 73090; 73130; 93005; 99284

== ENCOUNTER 2024-10-03 10:30 | Outpatient (CLI) | payer MEDICARE, SELFPAY ==
--- OUTSIDE RECORDS SUMMARY | 2024-10-07 10:42 | XMS_ITS | Clinical Summary ---
Author Organization [facility] Address [address] [place] [address] Care Team Providers Care Cranberry Bog Supervisor Name Role Phone Antonia Hendrickson DANIEL Primary Care Provider +1- [phone] Allergies Active Allergy Reactions Criticality Noted Date Comments Bee Pollen Hives High 04/05/2021 Chocolate Flavoring Agent (Non-Screening) Unknown - Patient states they do not know rxn details Low 04/05/2021 Insulin Lispro Other - please document in the comment field Low 01/04/2023 Patient stated Lispro makes her vomit and sweat. Medications albuterol (Ventolin HFA) 108 (90 Base) MCG/ACT inhaler 07/09/2019 Act leslee amLODIPine (Norvasc) 2.5 MG tablet TAKE 1 TABLET Bedtime 07/09/2019 Active Aspirin Buf,CaCarb-MgCa rb-MgO, 81 MG tablet 07/09/2019 Active atorvastatin (Lipitor) 40 MG tablet TAKE 1 TABLET AT BEDTIME. 07/09/2019 Active bisoprolol (Zebeta) 10 MG tablet TAKE 1 TABLET ONCE DAILY. 07/09/2019 Active cholecalciferol (Vitamin D-3) 125 MCG (5000 UT) capsule 07/09/2019 Active clopidogrel (Plavix) 75 MG tablet TAKE 1 TABLET DAILY. 07/09/2019 Active glimepiride (Amaryl) 4 MG tablet 04/27/2020 Active levothyroxine (Synthroid, Levoxyl) 25 MCG tablet TAKE ONE TABLET BY MOUTH DAILY 07/09/2019 Active losartan-hydroC HLOROthiazide (Hyzaar) 50-12.5 MG tablet 07/09/2019 Active pantoprazole (ProtoNix) 40 MG EC tablet TAKE 1 TABLET DAILY. 07/09/2019 Active sertraline (Zoloft) 50 MG tablet 07/09/2019 Active SITagliptin (Januvia) 100 MG tablet TAKE 1 TABLET DAILY. 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 associated with type 2 diabetes mellitus 09/14/2022 Macular scar, right 09/14/2022 Hypertension 08/12/2014 11/02/2022 Needle phobia 08/12/2014 11/02/2022 Uncontrolled type 2 diabetes mellitus with compl ication 08/12/2014 11/02/2022 Family History Medical History Relation Name Comments Cardiac disorder Mother Diabetes Mother Diabetes Sister 1 Hypertension Sister 2 Relation Name Status Comments Mother Sister 1 Sister 2 Social History Tobacco Use Types Packs/Day Years Used Date Smoking Tobacco: Former Cigarettes Q uit: 2017 Smokeless Tobacco: Never Tobacco Cessation:Counseling Given: Yes Alcohol Use Standard Drinks/Week Comments No 0 (1 standard drink = 0.6 oz pur e alcohol) Comments Unknown Sex and Gender Information Value Date Recorded Sex Assigned at Not on file Legal Sex Female 7:01 PM EDT Gender Identity Not on file Sexual Orientation Not on file Last Filed Vital Signs Vital Sign Reading Time Taken Comments Blood Pressure 129/77 02/20/2015 3:05 PM EST Pulse - - Temperature - - Respiratory Rate - - Oxygen Saturation - - Inhaled Oxygen Concentration - - Weight 99.8 kg (220 lb) 04/27/2020 1:04 PM EST Height 165.1 cm (5' 5 ) 04/27/2020 1:04 PM EST Body Mass Index 36.61 04/27/2020 1:04 PM EST Plan of Treatment Health Maintenance Due Date Last Done Comments [facility]-Bone Density Scan 1959 [facility]-Depression Screening 1959 [facility]-Diabetes: Hemoglobin A1C 1959 [facility]-Hepatitis C Screening 1959 [facility]-Medicare Annual Wellness (AWV) 1959 [facility]-/Child/Adol SDOH Screenings 1959 [id number] Vaccine (#1) 07/09/1964 Diabetes: Dental Exam 07/09/1969 [facility]- SDOH Screenings 07/09/1977 [facility]-Adult SDOH Screenings 07/09/1977 CT Colonography 07/09/2004 Colonoscopy 07/09/2004 FIT-DNA 07/09/2004 FIT 07/09/2004 FOBT 07/09/2004 Sigmoidoscopy 07/09/2004 [facility]-Colorectal Cancer Screening 07/09/2004 [facility]-Breast Cancer Screening 07/09/2009 [facility]-RSV Vaccine: 60+ Years o r (1 - Risk 60-74 years 1-dose series) 2019 [facility]-Influenza Vaccine (#1) 2024 01/21/2016 [facility]-DTaP,Tdap,and Td Vaccine s (2 - Td or Tdap) 09/27/2032 09/27/2022 [facility]-Pneumococcal Vaccine: 50 + Years Completed 07/20/2022 [facility]-Zoster Vaccines Completed 09/27/2022, 07/20/2022 HPV Vaccines Aged Out No longer eligi ble based on patient's age to complete this topic [facility]-HIB Vaccines Aged Out No longer e ligible based on patient's age to complete this topic [facility]-Hepatitis A Vaccines Aged Out No longer eligible based on patient's age to complete this topic [facility]-IPV Vaccines Aged Out No longer e ligible based on patient's age to complete this topic [facility]-Rotavirus Vaccines Aged Out No lo nger eligible based on patient's age to complete this topic Insurance [place] [id number] AN[employer]M MEDICARE Care Teams Cranberry Bog Supervisor Relationship Specialty Start Date End Date Antonia Hendrickson APRN [address] [place] [address] [place] [address] PCP - General 07/07/21
--- OUTSIDE RECORDS SUMMARY | 2024-10-07 11:41 | XMS_ITS | CCD ---
Author Organization Unknown Care Team Providers Care Security Operations Center Analyst Name Role Phone Unavailable Primary Care Provider Unavailabl e Unavailable Chronic Care Management Unavaila ble Summary Purpose DataExchange Insurance Providers Payer name Policy type / Coverage type Covered republican ID Effective Begin Date Effective End Date [facility] [id number] Unknown Unknown Family History Family History data not found Medication Administered No Medication Administered data Reason For Visit No Reason For Visit data Medical Equipment No Medical Equipment data Advance Directives No Advance Directive data
--- OUTSIDE RECORDS SUMMARY | 2024-10-07 11:41 | XMS_ITS | CCD ---
Author Organization Unknown Care Team Providers Care Travel Ot Name Role Phone Unavailable Primary Care Provider Unavailabl e Unavailable Chronic Care Management Unavaila ble Summary Purpose DataExchange Insurance Providers Payer name Policy type / Coverage type Covered democrat ID Effective Begin Date Effective End Date [facility] [id number] Unknown Unknown Family History Family History data not found Medication Administered No Medication Administered data Reason For Visit No Reason For Visit data Medical Equipment No Medical Equipment data Advance Directives No Advance Directive data
== END 2024-10-03 23:59 | disposition home or self-care (01) ==
LOC: LAB.DROPOF 10-07 10:31
PROVIDERS: PCP Family Medicine; Visit Provider Student in an Organized Health Care Education/Training Program
DX: N39.0 Urinary tract infection, site not specified (principal)
CPT/HCPCS: 87086

== ENCOUNTER 2024-11-06 09:06 | Outpatient (CLI) | payer MEDICARE, SELFPAY ==
--- OUTSIDE RECORDS SUMMARY | 2024-11-06 09:08 | XMS_ITS | Clinical Summary ---
Author Organization [facility] Address [address] [place] [address] Care Team Providers Care Security Control Center Operator Name Role Phone Antonia Hendrickson DANIEL Primary Care Provider +1- [phone] Allergies Active Allergy Reactions Criticality Noted Date [...] Screening 1959 [facility]-Medicare Annual Wellness (AWV) 1959 [facility]-Infant/Child/Adol SDOH Screenings 1959 [id number] Vaccine (#1) 07/09/1964 Diabetes: Dental Exam 07/09/1969 [...] to complete this topic Insurance [place] [id number] AN[employer]M MEDICARE Care Teams Security Control Center Operator Relationship Specialty Start Date End Date Antonia Hendrickson APRN [address] [place] [address] [place] [address] PCP - General 07/07/21
[2024-11-06 09:31] LABS: Hematocrit 46.6 % (37.0-47.0); Hemoglobin 15.0 g/dL (12.2-16.2); Immature Granulocytes % 0.3 %; Mean Corpuscular HGB Conc 32.2 g/dL (31.8-35.4); Mean Corpuscular Hemoglobin 28.7 pg (27.0-31.2); Mean Corpuscular Volume 89.3 fl (81-99); Nucleated Red Blood Cells % 0 %; Platelet Count 268 K/mm3 (142-424); Red Blood Count 5.22 M/mm3 (4.20-5.40); Red Cell Distribution Width-SD 45.2 fL; White Blood Count 7.9 K/mm3 (4.8-10.8)
[2024-11-06 09:56] LABS: Albumin Level 3.9 g/dl (3.5-5.0)
[2024-11-06 09:57] LABS: Chloride 104 mmol/L (98-107); Potassium 4.1 mmoL/L (3.5-5.1); Sodium 138 mmol/L (136-145)
[2024-11-06 09:59] LABS: Alanine Aminotransferase 22 U/L (12-78); Alkaline Phosphatase 117 U/L (38-126); Anion Gap 9.1 mEq/L (5-15); Aspartate Amino Transferase 24 U/L (14-36); Bilirubin,Direct 0.2 mg/dl (0.0-0.4); Bilirubin,Indirect 0.0 mg/dL (0.0-0.9); Bilirubin,Total 0.2 mg/dl (0.2-1.3); Bilirubin,Unconjugated 0.1 mg/dL (0.0-1.1); Blood Urea Nitrogen 22 mg/dl (7-17); Carbon Dioxide 29 mmol/L (22.0-30.0); Creatinine,Serum 0.60 mg/dl (0.52-1.04); Estimated Glomerular Filt Rate 100 ml/min (>60); GFR (African American) 121 ML/MIN (>60); Total Protein,Serum 6.6 g/dl (6.3-8.2)
[2024-11-06 10:00] LABS: Cholesterol 197 mg/dl (140-200); HDL Cholesterol 47 mg/dl (40-60); Magnesium 1.8 mg/dl (1.6-2.3); Triglycerides 130 mg/dl (30-150)
--- OUTSIDE RECORDS SUMMARY | 2024-11-06 10:08 | XMS_ITS | CCD ---
Author Organization Unknown Care Team Providers Care Financial Services Specialist Name Role Phone Unavailable Primary Care Provider Unavailabl e Unavailable Chronic Care Management Unavaila ble Summary Purpose DataExchange Insurance Providers Payer name Policy type / Coverage type Covered libertarian ID Effective Begin Date Effective End Date [facility] [id number] Unknown Unknown Family History Family History data not found Medication Administered No Medication Administered data Reason For Visit No Reason For Visit data Medical Equipment No Medical Equipment data Advance Directives No Advance Directive data
--- OUTSIDE RECORDS SUMMARY | 2024-11-06 10:08 | XMS_ITS | CCD ---
Author Organization Unknown Care Team Providers Care Vacuum Closing Machine Operator Name Role Phone Unavailable Primary Care Provider Unavailabl e Unavailable Chronic Care Management Unavaila ble Summary Purpose DataExchange Insurance Providers Payer name Policy type / Coverage type Covered alliance party ID Effective Begin Date Effective End Date [facility] [id number] Unknown Unknown Family History Family History data not found Medication Administered No Medication Administered data Reason For Visit No Reason For Visit data Medical Equipment No Medical Equipment data Advance Directives No Advance Directive data
[2024-11-06 10:14] LABS: Free T4 (Free Thyroxine) 1.01 ng/dl (0.78-2.19)
[2024-11-06 10:17] LABS: Hemoglobin A1C 11.0 % (4.0-6.0)
[2024-11-06 11:08] LABS: Calcium 9.2 mg/dl (8.4-10.2); Glucose 239 mg/dl (74-100)
[2024-11-06 12:42] LABS: Thyroid Stimulating Hormone 3.11 uIU/mL (0.465-4.68)
== END 2024-11-06 23:59 | disposition home or self-care (01) ==
LOC: LAB 09:07
PROVIDERS: PCP Family Medicine; Visit Provider Nurse Practitioner
DX: I25.118 Atherosclerotic heart disease of native coronary artery with other forms of angina pectoris (principal); E78.5 Hyperlipidemia, unspecified; I10 Essential (primary) hypertension; E11.69 Type 2 diabetes mellitus with other specified complication; E66.9 Obesity, unspecified
CPT/HCPCS: 36415; 80048; 80061; 80076; 83036; 83735; 84439; 84443; 85025

== ENCOUNTER 2024-11-28 11:30 | Outpatient (CLI) | payer MEDICARE, SELFPAY ==
--- OUTSIDE RECORDS SUMMARY | 2024-11-28 11:33 | XMS_ITS | Clinical Summary ---
Author Organization [facility] Address [address] [place] [address] Care Team Providers Care Marine Equipment Sales Engineer Name Role Phone Antonia Hendrickson DANIEL Primary Care Provider +1- [phone] Allergies Active Allergy Reactions Criticality Noted Date [...] Wellness (AWV) 1959 [facility]-Infant/Child/Adol SDOH Screenings 1959 [id number] Vaccine (#1) 07/09/1964 Diabetes: Dental Exam 07/09/1969 [...] to complete this topic Insurance [place] [id number] [employer] MEDICARE Care Teams Marine Equipment Sales Engineer Relationship Specialty Start Date End Date Antonia Hendrickson APRN [address] [place] [address] [place] [address] PCP - General 07/07/21
[2024-11-28 11:35] LABS: Lyme Ab IgM CIA ND
[2024-11-30 12:11] LABS: Lyme Ab CIA Negative (Negative)
== END 2024-11-28 23:59 | disposition home or self-care (01) ==
LOC: LAB 11:31
PROVIDERS: PCP Family Medicine; Visit Provider Student in an Organized Health Care Education/Training Program
DX: S00.96XA Insect bite (nonvenomous) of unspecified part of head, initial encounter (principal); W57.XXXA Bitten or stung by nonvenomous insect and other nonvenomous arthropods, initial encounter
CPT/HCPCS: 36415; 86618

== ENCOUNTER 2025-01-17 13:41 | Emergency (ER) | payer MEDICARE, SELFPAY ==
--- OUTSIDE RECORDS SUMMARY | 2024-12-02 20:00 | XMS_ITS | Clinical Summary ---
Author Organization Unknown Care Team Providers Care Sausage Cooker Name Role Phone SEVERO DOOR WORKER, CIRILO Unavailable Unavailable ESTELITA RN, LUISA Unavailable Unavailable OLIVA BARNARDN, AYLEEN Unavailable Unavailable SOURAV PT, CHIP Unavailable Unavailable LUL SYSTEMS ENGINEERING MANAGER, BEN Unavailable Unavailable GARTH OT, ALBERT Unavailable Unavailable LEXY SW, CAMRON Unavailable Unavailable Payers Payer Name Policy Type Policy Number Effective Date Expira tion Date SANDRA [id number] Problems Condition Name Condition Details Condition Category Status Onset Date Resolution Date Last Treatment Date Treating Clinician Comments EMPHYSEMA, UNSPECIFIED Active 10-02 00:00: 00 OTHER SPECIFIED CHRONIC OBSTRUCTIVE PULMONARY DISEASE Active 10-08 00:00: 00 TYPE 2 DIABETES MELLITUS WITH HYPERGLYCEMI A Active 10-01 00:00: 00 HYPERTENSIVE HEART DISEASE WITHOUT HEART FAILURE Active 10-08 00:00: 00 ATHSCL HEART DISEASE OF [place] CORONARY ARTERY W/O ANG PCTRS Active 10-08 00:00: 00 MAJOR DEPRESSIVE DISORDER, SINGLE EPISODE, UNSPECIFIED Active 10-08 00:00: 00 UMBILICAL HERNIA WITHOUT OBSTRUCTION OR GANGRENE Active 10-08 00:00: 00 GENERALIZED ANXIETY DISORDER Active 10-08 00:00: 00 PERSONAL HISTORY OF URINARY (TRACT) INFECTIONS Active 10-08 00:00: 00 DEPENDENCE ON SUPPLEMENTAL OXYGEN Active 10-08 00:00: 00 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 Active 10-08 00:00: 00 MCC (CURRENT) USE OF ORAL HYPOGLYCEMIC DRUGS Active 10-08 00:00: 00 LNG TRM (CRNT) USE INJECTABLE NON-INSULIN ANTIDIABETIC DRUGS Active 10-08 00:00: 00 Allergies, Adverse Reactions, Alerts Allergy Name Allergy Type Status Severity Reaction(s) Onset Date Inactive Date Treating Clinician Comments VENOM-BEES Propensity to adverse reactions Active 10-08 23:05: 15 CHOCOLATE FLAVOR Propensity to adverse reactions Active 10-08 23:05: 28 LISPRO INSULIN Propensity to adverse reactions Active 10-08 23:05: 41 Medications Ordered Medication Name Filled Medication Name Start Date Stop Date Current Medication? Ordering Clinician Indication Dosage Frequency Signature (SIG) Comments Components sulfamethox azole 800 mg-trimetho prim 160 mg tablet 09-19 00:00: 00 11-13 23:59 :00 No [id number] ATB 800 mg TWICE DAILY FOR 10 DAYS 800 mg TWICE DAILY FOR 10 DAYS (route: oral) Med Classific ation: Anti-Infe ctive Agents albuterol sulfate 0.63 mg/3 mL solution for nebulizatio n 09-17 00:00: 00 Yes [id number] SHORTNESS OF BREATH 3 mL EVERY 4 TO 6 HOURS NEEDED 3 mL EVERY 4 TO 6 HOURS NEEDED (route: inhalation ) Med Classific ation: Respirato ry Therapy Agents Jardiance 25 mg tablet 09-13 00:00: 00 Yes [id number] DM 25 mg EVERY DAY 25 mg EVERY DAY (route: oral) Med Classific ation: Endocrine oxybutynin chloride ER 15 mg tablet,exte nded release 24 hr 09-13 00:00: 00 Yes [id number] BLADDER 15 mg EVERY DAY 15 mg EVERY DAY (route: oral) Med Classific ation: Genitouri nary Therapy Ozempic 0.25 mg or 0.5 mg (2 mg/3 mL) subcutaneou s pen injector 09-09 00:00: 00 Yes [id number] Unavailable Per instruc tions 05mg SUBCUTANEO USLY every WEEK Per instructio ns 05mg SUBCUTANEO USLY every WEEK (route: subcutaneo us) Med Classific ation: Endocrine acetaminoph en 300 mg-codeine 60 mg tablet 10-08 00:00: 00 11-13 23:59 :00 No [id number] PAIN 300 mg 2 TIMES DAILY 300 mg 2 TIMES DAILY (route: oral) Med Classific ation: Analgesic , Anti-infl ammatory or Antipyret ic aspirin 81 mg tablet 10-08 00:00: 00 Yes [id number] BLOOD THINNER 81 mg DAILY 81 mg DAILY (route: oral) Med Classific ation: Hematolog ical Agents atorvastati n 20 mg tablet 10-08 00:00: 00 10-15 23:59 :00 No [id number] CHOLESTEROL 20 mg BEDTIME 20 mg BEDTIME (route: oral) Med Classific ation: Cardiovas cular Therapy Agents clopidogrel 75 mg tablet 10-08 00:00: 00 Yes [id number] ANTIPLATELE T 75 mg DAILY 75 mg DAILY (route: oral) Med Classific ation: Hematolog ical Agents glipizide 10 mg tablet 10-08 00:00: 00 11-13 23:59 :00 No [id number] DM 10 mg 2 TIMES DAILY 10 mg 2 TIMES DAILY (route: oral) Med Classific ation: Endocrine guaifenesin ER 600 mg tablet, extended release 12 hr 10-08 00:00: 00 Yes [id number] NEEDED FOR COUGH 600 mg EVERY 12 HOURS 600 mg EVERY 12 HOURS (route: oral) Med Classific ation: Respirato ry Therapy Agents ipratropium 0.5 mg-albutero l 3 mg (2.5 mg base)/3 mL nebulizatio n soln 10-08 00:00: 00 Yes [id number] NEEDED FOR SHORTNESS OF BREATH 3 mL EVERY 4 HOURS 3 mL EVERY 4 HOURS (route: inhalation ) Med Classific ation: Respirato ry Therapy Agents levothyroxi ne 100 mcg capsule 10-08 00:00: 00 Yes [id number] THYROID 100 mcg DAILY 100 mcg DAILY (route: oral) Med Classific ation: Endocrine losartan 100 mg-hydrochl orothiazide 12.5 mg tablet 10-08 00:00: 00 10-15 23:59 :00 No [id number] HTN 100 mg DAILY 100 mg DAILY (route: oral) Med Classific ation: Cardiovas cular Therapy Agents metoprolol succinate ER 100 mg tablet,exte nded release 24 hr 10-08 00:00: 00 11-13 23:59 :00 No [id number] HTN 100 mg DAILY 100 mg DAILY (route: oral) Med Classific ation: Cardiovas cular Therapy Agents mirabegron ER 50 mg tablet,exte nded release 24 hr 10-08 00:00: 00 11-13 23:59 :00 No [id number] OVERACTIVE BLADDER 50 mg DAILY 50 mg DAILY (route: oral) Med Classific ation: Genitouri nary Therapy pantoprazol e 40 mg tablet,leo yed release 10-08 00:00: 00 Yes [id number] GERD 40 mg DAILY 40 mg DAILY (route: oral) Med Classific ation: Gastroint estinal Therapy Agents sertraline 100 mg tablet 10-08 00:00: 00 Yes [id number] DEPRESSION 100 mg DAILY 100 mg DAILY (route: oral) Med Classific ation: Central Nervous System Agents Soliqua 100/33 100 unit-33 mcg/mL subcutaneou s insulin pen 10-08 00:00: 00 11-13 23:59 :00 No [id number] DM 15 unit DAILY 15 unit DAILY (route: subcutaneo us) Med Classific ation: Endocrine spironolact one 25 mg tablet 10-08 00:00: 00 11-13 23:59 :00 No [id number] HTN 25 mg 2 TIMES DAILY 25 mg 2 TIMES DAILY (route: oral) Med Classific ation: Cardiovas cular Therapy Agents Trelegy Ellipta 100 mcg-62.5 mcg-25 mcg powder for inhalation 10-08 00:00: 00 11-13 23:59 :00 No [id number] COPD 1 inhalat ion DAILY 1 inhalation DAILY (route: inhalation ) Med Classific ation: Respirato ry Therapy Agents atorvastati n 40 mg tablet 10-15 00:00: 00 Yes [id number] CHLORESTORO L 40 mg BEDTIME 40 mg BEDTIME (route: oral) Med Classific ation: Cardiovas cular Therapy Agents bromphenira mine-pseudo ephedrine-D M 2 mg-30 mg-10 mg/5 mL oral syrup 10-15 00:00: 00 Yes [id number] FOR COUGH 5 mL EVERY 4 HOURS 5 mL EVERY 4 HOURS (route: oral) Med Classific ation: Respirato ry Therapy Agents cetirizine 10 mg tablet 10-15 00:00: 00 Yes [id number] ALLERGIES 10 mg DAILY 10 mg DAILY (route: oral) Med Classific ation: Respirato ry Therapy Agents losartan 50 mg-hydrochl orothiazide 12.5 mg tablet 10-15 00:00: 00 Yes [id number] BP 1 tablet DAILY 1 tablet DAILY (route: oral) Med Classific ation: Cardiovas cular Therapy Agents metformin ER 500 mg tablet,exte nded release 24 hr 10-15 00:00: 00 Yes [id number] DIABETES 2 tablet DAILY 2 tablet DAILY (route: oral) Med Classific ation: Endocrine Tylenol Arthritis Pain 650 mg tablet,exte nded release 10-15 00:00: 00 Yes [id number] FOR ARTHRITIS 3 tablet DAILY 3 tablet DAILY (route: oral) Med Classific ation: Analgesic , Anti-infl ammatory or Antipyret ic Breo Ellipta 100 mcg-25 mcg/dose powder for inhalation 11-13 00:00: 00 Yes [id number] COPD 1 inhalat ion 2 TIMES A WEEK 1 inhalation 2 TIMES A WEEK (route: inhalation ) Med Classific ation: Respirato ry Therapy Agents metoprolol succinate ER 200 mg tablet,exte nded release 24 hr 2023-04 2- 00:00: 00 Yes [id number] BP 200 mg DAILY 200 mg DAILY (route: oral) Med Classific ation: Cardiovas cular Therapy Agents repaglinide 1 mg tablet 8- 00:00: 00 Yes [id number] STOMACH 1 mg 2 TIMES DAILY 1 mg 2 TIMES DAILY (route: oral) Med Classific ation: Endocrine Tums Gas Relief 750 mg-80 mg chewable tablet 11-13 00:00: 00 Yes [id number] ACID REFLUX Per instruc tions DAILY Per instructio ns DAILY (route: oral) Med Classific ation: Gastroint estinal Therapy Agents doxycycline hyclate 100 mg tablet 11-27 00:00: 00 12-11 23:59 :00 No [id number] LYME DX Per instruc tions 2 TIMES DAILY Per instructio ns 2 TIMES DAILY (route: oral) Med Classific ation: Anti-Infe ctive Agents triamcinolo ne acetonide 0.1 % topical ointment 11-27 00:00: 00 Yes [id number] ITCHING Per instruc tions NEEDED Per instructio ns NEEDED (route: topical) Med Classific ation: Dermatolo gical Vital Signs Vital Name Observation Time Observation Value Commen ts Temperature 2024-12-03 10:08:00.000 97.4 [degF] Temperature 2024-11-29 10:23:00.000 97.7 [degF] Temperature 2024-11-13 15:56:00.000 97.5 [degF] Temperature 2024-10-25 17:29:00.000 98.2 [degF] Temperature 2024-10-24 13:00:00.000 98 [degF] Temperature 2024-10-23 10:29:00.000 98 [degF] Temperature 2024-10-22 15:06:00.000 98.9 [degF] Temperature 2024-10-18 14:26:00.000 98.2 [degF] Temperature 2024-10-18 13:47:00.000 97.5 [degF] Temperature 2024-10-15 15:41:00.000 98.2 [degF] Temperature 2024-10-08 17:15:00.000 98.4 [degF] BMI (%) 2024-10-08 23:15:08.000 30 kg/m2 Height 2024-10-08 23:15:02.000 61 [in_us] Pulse 2024-12-03 10:08:00.000 78 /min Pulse 2024-11-29 10:23:00.000 87 /min Pulse 2024-11-22 16:16:00.000 85 /min Pulse 2024-11-13 15:56:00.000 81 /min Pulse 2024-10-25 17:29:00.000 98 /min Pulse 2024-10-24 13:00:00.000 71 /min Pulse 2024-10-23 10:29:00.000 84 /min Pulse 2024-10-22 15:06:00.000 91 /min Pulse 2024-10-18 14:26:00.000 82 /min Pulse 2024-10-18 13:50:00.000 87 /min Pulse 2024-10-18 13:47:00.000 87 /min Pulse 2024-10-15 15:41:00.000 101 /min Pulse 2024-10-08 17:15:00.000 96 /min O2 Saturation (%) 2024-12-03 10:08:00.000 95 % O2 Saturation (%) 2024-11-29 10:23:00.000 92 % O2 Saturation (%) 2024-11-22 16:16:00.000 97 % O2 Saturation (%) 2024-11-13 15:57:00.000 96 % O2 Saturation (%) 2024-10-24 13:01:00.000 96 % O2 Saturation (%) 2024-10-23 10:29:00.000 94 % O2 Saturation (%) 2024-10-22 15:10:00.000 92 % O2 Saturation (%) 2024-10-18 14:28:00.000 98 % O2 Saturation (%) 2024-10-18 13:50:00.000 96 % O2 Saturation (%) 2024-10-18 13:47:00.000 96 % O2 Saturation (%) 2024-10-15 15:43:00.000 94 % O2 Saturation (%) 2024-10-08 17:15:00.000 90 % Respirations 2024-12-03 10:08:00.000 18 /min Respirations 2024-11-29 10:23:00.000 18 /min Respirations 2024-11-22 16:16:00.000 18 /min Respirations 2024-11-13 15:56:00.000 18 /min Respirations 2024-10-25 17:29:00.000 18 /min Respirations 2024-10-24 13:00:00.000 18 /min Respirations 2024-10-23 10:29:00.000 18 /min Respirations 2024-10-22 15:06:00.000 18 /min Respirations 2024-10-18 14:26:00.000 18 /min Respirations 2024-10-18 13:50:00.000 18 /min Respirations 2024-10-18 13:47:00.000 18 /min Respirations 2024-10-15 15:41:00.000 18 /min Respirations 2024-10-08 17:15:00.000 20 /min Weight (lbs) 2024-10-08 23:15:08.000 163.8 [lb_av] Systolic Blood Pressure 2024-12-03 10:08:00.000 100 mm [Hg] Systolic Blood Pressure 2024-11-29 10:23:00.000 118 mm [Hg] Systolic Blood Pressure 2024-11-22 16:16:00.000 108 mm [Hg] Systolic Blood Pressure 2024-11-13 15:56:00.000 104 mm [Hg] Systolic Blood Pressure 2024-10-25 17:29:00.000 128 mm [Hg] Systolic Blood Pressure 2024-10-24 13:00:00.000 115 mm [Hg] Systolic Blood Pressure 2024-10-23 10:29:00.000 92 mm[ Hg] Systolic Blood Pressure 2024-10-22 15:06:00.000 118 mm [Hg] Systolic Blood Pressure 2024-10-18 14:26:00.000 111 mm [Hg] Systolic Blood Pressure 2024-10-18 13:50:00.000 106 mm [Hg] Systolic Blood Pressure 2024-10-18 13:47:00.000 106 mm [Hg] Systolic Blood Pressure 2024-10-15 15:41:00.000 132 mm [Hg] Systolic Blood Pressure 2024-10-08 17:15:00.000 112 mm [Hg] Diastolic Blood Pressure 2024-12-03 10:08:00.000 60 mm [Hg] Diastolic Blood Pressure 2024-11-29 10:23:00.000 72 mm [Hg] Diastolic Blood Pressure 2024-11-22 16:16:00.000 68 mm [Hg] Diastolic Blood Pressure 2024-11-13 15:56:00.000 64 mm [Hg] Diastolic Blood Pressure 2024-10-25 17:29:00.000 88 mm [Hg] Diastolic Blood Pressure 2024-10-24 13:00:00.000 60 mm [Hg] Diastolic Blood Pressure 2024-10-23 10:29:00.000 64 mm [Hg] Diastolic Blood Pressure 2024-10-22 15:06:00.000 64 mm [Hg] Diastolic Blood Pressure 2024-10-18 14:26:00.000 64 mm [Hg] Diastolic Blood Pressure 2024-10-18 13:50:00.000 64 mm [Hg] Diastolic Blood Pressure 2024-10-18 13:47:00.000 64 mm [Hg] Diastolic Blood Pressure 2024-10-15 15:41:00.000 86 mm [Hg] Diastolic Blood Pressure 2024-10-08 17:15:00.000 72 mm [Hg] Plan of Treatment Planned Activity Planned Date Details Comments Future Scheduled Test RN TO OBSE RVE, ASSESS, EVALUATE, AND DEVELOP AN INDIVIDUALIZED PLAN OF CARE. AGENCY MAY ACCEPT ORDERS FROM CONSULTING PHYSICIANS RN TO OBSERVE AND ASSESS, ASSET PROTECTION OFFICER/REGISTERED NURSE CARDIAC TO OBSERVE FOR RISK FOR FALLS AND INSTRUCT IN FALL PREVENTION, HOME SAFETY, MEDICATION MANAGEMENT, INFECTION PREVENTION, AND NUTRITION MANAGEMENT. RN/ASSET PROTECTION OFFICER/REGISTERED NURSE CARDIAC NURSE MAY PERFORM O2 SATURATION LEVEL ON ADMISSION AND PRN FOR RN TO ASSESS/ASSET PROTECTION OFFICER TO OBSERVE PATIENT, WITH NOTIFICATION TO THE PHYSICIAN IF SATURATION IS 90% IN THE ABSENCE OF MORE SPECIFIC PARAMETERS FROM THE PHYSICIAN. AGENCY MAY PERFORM A RESUMPTION OF CARE VISIT FOLLOWING ANY HOSPITAL ADMISSION. RN/ASSET PROTECTION OFFICER/REGISTERED NURSE CARDIAC TO MONITOR CO-MORBID CONDITIONS LISTED ON THE PLAN OF CARE AND ANY NEW CONDITIONS THAT PRESENT THEMSELVES DURING THIS EPISODE TO IDENTIFY CHANGES AND INTERVENE TO MINIMIZE COMPLICATIONS. [code = RN TO OBSERVE, ASSESS, EVALUATE, AND DEVELOP AN INDIVIDUALIZED PLAN OF CARE. AGENCY MAY ACCEPT ORDERS FROM CONSULTING PHYSICIANS RN TO OBSERVE AND ASSESS, ASSET PROTECTION OFFICER/REGISTERED NURSE CARDIAC TO OBSERVE FOR RISK FOR FALLS AND INSTRUCT IN FALL PREVENTION, HOME SAFETY, MEDICATION MANAGEMENT, INFECTION PREVENTION, AND NUTRITION MANAGEMENT. RN/ASSET PROTECTION OFFICER/REGISTERED NURSE CARDIAC NURSE MAY PERFORM O2 SATURATION LEVEL ON ADMISSION AND PRN FOR RN TO ASSESS/ASSET PROTECTION OFFICER TO OBSERVE PATIENT, WITH NOTIFICATION TO THE PHYSICIAN IF SATURATION IS 90% IN THE ABSENCE OF MORE SPECIFIC PARAMETERS FROM THE PHYSICIAN. AGENCY MAY PERFORM A RESUMPTION OF CARE VISIT FOLLOWING ANY HOSPITAL ADMISSION. RN/ASSET PROTECTION OFFICER/REGISTERED NURSE CARDIAC TO MONITOR CO-MORBID CONDITIONS LISTED ON THE PLAN OF CARE AND ANY NEW CONDITIONS THAT PRESENT THEMSELVES DURING THIS EPISODE TO IDENTIFY CHANGES AND INTERVENE TO MINIMIZE COMPLICATIONS.] Future Scheduled Test COPD MONIT ORING RN/REGISTERED NURSE CARDIAC/ASSET PROTECTION OFFICER TO MONITOR FOR SIGNS AND SYMPTOMS OF COPD EXACERBATION, MONITOR FOR ADHERENCE TO MEDICATION AND COPD MANAGEMENT. [code = COPD MONITORING RN/REGISTERED NURSE CARDIAC/ASSET PROTECTION OFFICER TO MONITOR FOR SIGNS AND SYMPTOMS OF COPD EXACERBATION, MONITOR FOR ADHERENCE TO MEDICATION AND COPD MANAGEMENT.] Future Scheduled Test DIABETES M ONITORING RN/REGISTERED NURSE CARDIAC/ASSET PROTECTION OFFICER TO MONITOR BLOOD SUGAR LOG FOR BLOOD SUGAR READINGS THAT ARE BEING CHECKED BY CG 2 TIMES A DAY. PATIENT THERAPEUTIC BLOOD SUGAR PARAMETERS ARE 70-120. REPORT BLOOD SUGARS OUT OF RANGE TO PHYSICIAN. NURSE MAY PERFORM FINGER STICK BLOOD GLUCOSE NEEDED FOR SIGNS AND SYMPTOMS OF HYPO AND HYPERGLYCEMIA. RN/REGISTERED NURSE CARDIAC/ASSET PROTECTION OFFICER TO MONITOR ADHERENCE OF CG PERFORMING DIABETIC FOOT CARE AND MAY PERFORM DIABETIC FOOT CARE PRN. RN/REGISTERED NURSE CARDIAC/ASSET PROTECTION OFFICER TO MONITOR FOR ADHERENCE TO DIABETIC SELF-CARE AND MANAGEMENT INCLUDING MEDICATIONS. [code = DIABETES MONITORING RN/REGISTERED NURSE CARDIAC/ASSET PROTECTION OFFICER TO MONITOR BLOOD SUGAR LOG FOR BLOOD SUGAR READINGS THAT ARE BEING CHECKED BY CG 2 TIMES A DAY. PATIENT THERAPEUTIC BLOOD SUGAR PARAMETERS ARE 70-120. REPORT BLOOD SUGARS OUT OF RANGE TO PHYSICIAN. NURSE MAY PERFORM FINGER STICK BLOOD GLUCOSE NEEDED FOR SIGNS AND SYMPTOMS OF HYPO AND HYPERGLYCEMIA. RN/REGISTERED NURSE CARDIAC/ASSET PROTECTION OFFICER TO MONITOR ADHERENCE OF CG PERFORMING DIABETIC FOOT CARE AND MAY PERFORM DIABETIC FOOT CARE PRN. RN/REGISTERED NURSE CARDIAC/ASSET PROTECTION OFFICER TO MONITOR FOR ADHERENCE TO DIABETIC SELF-CARE AND MANAGEMENT INCLUDING MEDICATIONS.] Future Scheduled Test RN/ASSET PROTECTION OFFICER/REGISTERED NURSE CARDIAC TO MONITOR/INSTRUCT PATIENT WITH STABLE DEPRESSION ON SIGNS AND SYMPTOMS OF WORSENING DEPRESSION, IMPORTANCE OF ADHERENCE TO PRESCRIBED MEDICATION/TREATMENT REGIMEN, AND AVAILABLE RESOURCES INCLUDING [address] [employer] CRISIS LIFELINE. [code = RN/ASSET PROTECTION OFFICER/REGISTERED NURSE CARDIAC TO MONITOR/INSTRUCT PATIENT WITH STABLE DEPRESSION ON SIGNS AND SYMPTOMS OF WORSENING DEPRESSION, IMPORTANCE OF ADHERENCE TO PRESCRIBED MEDICATION/TREATMENT REGIMEN, AND AVAILABLE RESOURCES INCLUDING 988 SUICIDE CRISIS LIFELINE.] Future Scheduled Test RISK FOR H OSPITALIZATION; RN TO ASSESS/TEACH, REGISTERED NURSE CARDIAC/ASSET PROTECTION OFFICER TO OBSERVE/TEACH PATIENT/CAREGIVER ON RISK FOR HOSPITALIZATION/EMERGENCY ROOM VISITS, TEACH SIGNS AND SYMPTOMS THAT PUT PATIENT AT RISK, WHEN TO NOTIFY NURSE/PHYSICIAN OF COMPLICATIONS/DECLINE, AND WHEN TO CALL 911. [code = RISK FOR HOSPITALIZATION; RN TO ASSESS/TEACH, REGISTERED NURSE CARDIAC/ASSET PROTECTION OFFICER TO OBSERVE/TEACH PATIENT/CAREGIVER ON RISK FOR HOSPITALIZATION/EMERGENCY ROOM VISITS, TEACH SIGNS AND SYMPTOMS THAT PUT PATIENT AT RISK, WHEN TO NOTIFY NURSE/PHYSICIAN OF COMPLICATIONS/DECLINE, AND WHEN TO CALL 911.] Future Scheduled Test CARDIOVASC ULAR SYSTEM; RN TO ASSESS/TEACH, ASSET PROTECTION OFFICER/REGISTERED NURSE CARDIAC TO OBSERVE/TEACH RELATED TO ALTERED CARDIOVASCULAR STATUS TO MINIMIZE COMPLICATIONS AND REDUCE HOSPITALIZATION. [code = CARDIOVASCULAR SYSTEM; RN TO ASSESS/TEACH, ASSET PROTECTION OFFICER/REGISTERED NURSE CARDIAC TO OBSERVE/TEACH RELATED TO ALTERED CARDIOVASCULAR STATUS TO MINIMIZE COMPLICATIONS AND REDUCE HOSPITALIZATION.] Future Scheduled Test HYPERTENSI ON MANAGEMENT; RN TO ASSESS AND TEACH, ASSET PROTECTION OFFICER/REGISTERED NURSE CARDIAC TO OBSERVE AND TEACH WARNING SIGNS AND SYMPTOMS TO AVOID HOSPITALIZATION. [code = HYPERTENSION MANAGEMENT; RN TO ASSESS AND TEACH, ASSET PROTECTION OFFICER/REGISTERED NURSE CARDIAC TO OBSERVE AND TEACH WARNING SIGNS AND SYMPTOMS TO AVOID HOSPITALIZATION.] Future Scheduled Test RESPIRATOR Y SYSTEM MANAGEMENT; RN TO ASSESS AND TEACH, ASSET PROTECTION OFFICER/REGISTERED NURSE CARDIAC TO OBSERVE AND TEACH RELATED TO ALTERED RESPIRATORY STATUS TO MINIMIZE COMPLICATIONS AND REDUCE HOSPITALIZATION. [code = RESPIRATORY SYSTEM MANAGEMENT; RN TO ASSESS AND TEACH, ASSET PROTECTION OFFICER/REGISTERED NURSE CARDIAC TO OBSERVE AND TEACH RELATED TO ALTERED RESPIRATORY STATUS TO MINIMIZE COMPLICATIONS AND REDUCE HOSPITALIZATION.] Future Scheduled Test COPD MANAG EMENT; RN TO ASSESS AND TEACH, ASSET PROTECTION OFFICER/REGISTERED NURSE CARDIAC TO OBSERVE AND TEACH SIGNS/SYMPTOMS OF COPD EXACERBATION AND PROVIDE EARLY INTERVENTIONS TO MINIMIZE RISK OF HOSPITALIZATION. RN/ASSET PROTECTION OFFICER/REGISTERED NURSE CARDIAC TO INSTRUCT ON SELF-CARE MANAGEMENT INCLUDING BREATHING TECHNIQUES, AIRWAY CLEARANCE, AND PROPER USE OF COPD MEDICATIONS. RN TO ASSESS AND TEACH, ASSET PROTECTION OFFICER/REGISTERED NURSE CARDIAC TO OBSERVE AND TEACH PATIENT/CAREGIVER ABILITY TO MONITOR AND RECORD VITAL SIGNS INCLUDING PULSE OXIMETRY AND BLOOD PRESSURE. PULSE OXIMETER AND BP MONITOR TO BE PROVIDED IF NEEDED [code = COPD MANAGEMENT; RN TO ASSESS AND TEACH, ASSET PROTECTION OFFICER/REGISTERED NURSE CARDIAC TO OBSERVE AND TEACH SIGNS/SYMPTOMS OF COPD EXACERBATION AND PROVIDE EARLY INTERVENTIONS TO MINIMIZE RISK OF HOSPITALIZATION. RN/ASSET PROTECTION OFFICER/REGISTERED NURSE CARDIAC TO INSTRUCT ON SELF-CARE MANAGEMENT INCLUDING BREATHING TECHNIQUES, AIRWAY CLEARANCE, AND PROPER USE OF COPD MEDICATIONS. RN TO ASSESS AND TEACH, ASSET PROTECTION OFFICER/REGISTERED NURSE CARDIAC TO OBSERVE AND TEACH PATIENT/CAREGIVER ABILITY TO MONITOR AND RECORD VITAL SIGNS INCLUDING PULSE OXIMETRY AND BLOOD PRESSURE. PULSE OXIMETER AND BP MONITOR TO BE PROVIDED IF NEEDED] Future Scheduled Test OXYGEN THE RAPY; RN/ASSET PROTECTION OFFICER/REGISTERED NURSE CARDIAC TO INSTRUCT ON OXYGEN MANAGEMENT INCLUDING: ADMINISTRATION AT 3 L/MIN VIA NC CONTINUOUS, CARE OF EQUIPMENT AND SAFETY. [code = OXYGEN THERAPY; RN/ASSET PROTECTION OFFICER/REGISTERED NURSE CARDIAC TO INSTRUCT ON OXYGEN MANAGEMENT INCLUDING: ADMINISTRATION AT 3 L/MIN VIA NC CONTINUOUS, CARE OF EQUIPMENT AND SAFETY.] Future Scheduled Test PAIN MANAG EMENT; RN TO ASSESS AND TEACH, REGISTERED NURSE CARDIAC/ASSET PROTECTION OFFICER TO OBSERVE AND TEACH AND PROVIDE EDUCATION ON PAIN MANAGEMENT TECHNIQUES. [code = PAIN MANAGEMENT; RN TO ASSESS AND TEACH, REGISTERED NURSE CARDIAC/ASSET PROTECTION OFFICER TO OBSERVE AND TEACH AND PROVIDE EDUCATION ON PAIN MANAGEMENT TECHNIQUES.] Future Scheduled Test DIABETES M ANAGEMENT; RN TO ASSESS AND TEACH, REGISTERED NURSE CARDIAC/ASSET PROTECTION OFFICER TO OBSERVE AND TEACH INSTRUCTIONS OF DIABETIC CARE TO INCLUDE: DIET: NCS SKIN CARE, SIGNS AND SYMPTOMS OF HYPO/HYPERGLYCEMIA, PROPER ADMINISTRATION OF DIABETIC MEDICATION. RN/REGISTERED NURSE CARDIAC/ASSET PROTECTION OFFICER TO INSTRUCT ON DIABETIC FOOT CARE AND MONITOR FOR SKIN LESIONS ON LOWER EXTREMITIES. BLOOD GLUCOSE TESTING TID RN TO ASSESS AND TEACH, REGISTERED NURSE CARDIAC/ASSET PROTECTION OFFICER TO OBSERVE AND TEACH PATIENT/CAREGIVER ABILITY TO PERFORM AND RECORD BLOOD GLUCOSE TESTING ORDERED AND TO REPORT ABNORMAL FINDINGS TO PHYSICIAN. RN/REGISTERED NURSE CARDIAC/ASSET PROTECTION OFFICER MAY PERFORM BLOOD GLUCOSE TEST NEEDED. RN/REGISTERED NURSE CARDIAC/ASSET PROTECTION OFFICER TO REPORT TO PHYSICIAN BLOOD GLUCOSE READINGS GREATER THAN 300 OR LESS THAN 60 RN/REGISTERED NURSE CARDIAC/ASSET PROTECTION OFFICER TO INSTRUCT PATIENT ON IMPORTANCE OF HGBA1C MONITORING, KIDNEY FUNCTION TEST, EYE AND FOOT EXAMS. [code = DIABETES MANAGEMENT; RN TO ASSESS AND TEACH, REGISTERED NURSE CARDIAC/ASSET PROTECTION OFFICER TO OBSERVE AND TEACH INSTRUCTIONS OF DIABETIC CARE TO INCLUDE: DIET: NCS SKIN CARE, SIGNS AND SYMPTOMS OF HYPO/HYPERGLYCEMIA, PROPER ADMINISTRATION OF DIABETIC MEDICATION. RN/REGISTERED NURSE CARDIAC/ASSET PROTECTION OFFICER TO INSTRUCT ON DIABETIC FOOT CARE AND MONITOR FOR SKIN LESIONS ON LOWER EXTREMITIES. BLOOD GLUCOSE TESTING TID RN TO ASSESS AND TEACH, REGISTERED NURSE CARDIAC/ASSET PROTECTION OFFICER TO OBSERVE AND TEACH PATIENT/CAREGIVER ABILITY TO PERFORM AND RECORD BLOOD GLUCOSE TESTING ORDERED AND TO REPORT ABNORMAL FINDINGS TO PHYSICIAN. RN/REGISTERED NURSE CARDIAC/ASSET PROTECTION OFFICER MAY PERFORM BLOOD GLUCOSE TEST NEEDED. RN/REGISTERED NURSE CARDIAC/ASSET PROTECTION OFFICER TO REPORT TO PHYSICIAN BLOOD GLUCOSE READINGS GREATER THAN 300 OR LESS THAN 60 RN/REGISTERED NURSE CARDIAC/ASSET PROTECTION OFFICER TO INSTRUCT PATIENT ON IMPORTANCE OF HGBA1C MONITORING, KIDNEY FUNCTION TEST, EYE AND FOOT EXAMS.] Future Scheduled Test FALL REDUC TION MANAGEMENT; RN TO ASSESS AND OBSERVE, ASSET PROTECTION OFFICER/REGISTERED NURSE CARDIAC TO OBSERVE FALL RISK FACTORS AND EDUCATE PATIENT/CAREGIVER ON STRATEGIES TO MINIMIZE THE RISK OF FALLING. [code = FALL REDUCTION MANAGEMENT; RN TO ASSESS AND OBSERVE, ASSET PROTECTION OFFICER/REGISTERED NURSE CARDIAC TO OBSERVE FALL RISK FACTORS AND EDUCATE PATIENT/CAREGIVER ON STRATEGIES TO MINIMIZE THE RISK OF FALLING.] Future Scheduled Test PHYSICAL T HERAPIST TO EVALUATE FOR WEAKNESS [code = PHYSICAL THERAPIST TO EVALUATE FOR WEAKNESS] Future Scheduled Test OCCUPATION AL THERAPIST TO EVALUATE FOR WEAKNESS [code = OCCUPATIONAL THERAPIST TO EVALUATE FOR WEAKNESS] Future Scheduled Test SPEECH THE RAPIST TO EVALUATE FOR SHORTNESS OF BREATH, DIFFICULTY SWALLOWING [code = SPEECH THERAPIST TO EVALUATE FOR SHORTNESS OF BREATH, DIFFICULTY SWALLOWING] Future Scheduled Test MEDICAL SO CIAL SERVICES FOR EVALUATION TO ASSESS SOCIAL AND EMOTIONAL FACTORS RELATED TO THE PATIENT'S ILLNESS, NEED FOR CARE, RESPONSE TO TREATMENT AND ADJUSTMENT TO CARE. [code = MEDICAL ORTHOPEDIC TECHNICIAN FOR EVALUATION TO ASSESS SOCIAL AND EMOTIONAL FACTORS RELATED TO THE PATIENT'S ILLNESS, NEED FOR CARE, RESPONSE TO TREATMENT AND ADJUSTMENT TO CARE.] Future Scheduled Test PRN VISITS ; NUMBER OF RN/ASSET PROTECTION OFFICER/REGISTERED NURSE CARDIAC VISITS: 3 RN/ASSET PROTECTION OFFICER/REGISTERED NURSE CARDIAC TO PERFORM: ASSESSMENT OF RESPIRATORY STATUS FOR THE FOLLOWING REASONS: COMPLICATIONS RELATED TO RESPIRATORY STATUS [code = PRN VISITS; NUMBER OF RN/ASSET PROTECTION OFFICER/REGISTERED NURSE CARDIAC VISITS: 3 RN/ASSET PROTECTION OFFICER/REGISTERED NURSE CARDIAC TO PERFORM: ASSESSMENT OF RESPIRATORY STATUS FOR THE FOLLOWING REASONS: COMPLICATIONS RELATED TO RESPIRATORY STATUS] Future Scheduled Test OCCUPATION AL THERAPY EVALUATION PERFORMED. NO ADDITIONAL VISITS REQUIRED. PROVIDED SKILLED INTERVENTION INCLUDING: THERAPIST PROVIDED PATIENT WITH FOAM TUBING TO ENABLE HER TO PROJECT CONTROLS SCHEDULER UTENSILS/GROOMING TOOLS EASIER AND DEMONSTRATED PROPER USE. THERAPIST PROVIDED SHOWER STOOL AND EDUCATED PATIENT ON PROPER USE/SAFETY. THERAPIST INSTRUCTED PATIENT IN HEP FOR BILATERAL PROJECT CONTROLS SCHEDULER TO MAINTAIN/STRENGTHEN GRASP. THERAPIST REINFORCED CALL US FIRST PROTOCOL AND THE NUMBERS TO USE TO CONTACT. PATIENT VERBALIZED UNDERSTANDING OF ALL INSTRUCTION PROVIDED DURING OT EVALUATION. [code = OCCUPATIONAL THERAPY EVALUATION PERFORMED. NO ADDITIONAL VISITS REQUIRED. PROVIDED SKILLED INTERVENTION INCLUDING: THERAPIST PROVIDED PATIENT WITH FOAM TUBING TO ENABLE HER TO PROJECT CONTROLS SCHEDULER UTENSILS/GROOMING TOOLS EASIER AND DEMONSTRATED PROPER USE. THERAPIST PROVIDED SHOWER STOOL AND EDUCATED PATIENT ON PROPER USE/SAFETY. THERAPIST INSTRUCTED PATIENT IN HEP FOR BILATERAL PROJECT CONTROLS SCHEDULER TO MAINTAIN/STRENGTHEN GRASP. THERAPIST REINFORCED CALL US FIRST PROTOCOL AND THE NUMBERS TO USE TO CONTACT. PATIENT VERBALIZED UNDERSTANDING OF ALL INSTRUCTION PROVIDED DURING OT EVALUATION.] Future Scheduled Test AGENCY MAY PERFORM A RESUMPTION OF CARE VISIT FOLLOWING ANY HOSPITAL ADMISSION. PT TO EVALUATE, OBSERVE / ASSESS, AND MONITOR, SYSTEMS ENGINEERING MANAGER TO OBSERVE AND MONITOR, PROVIDE SKILLED THERAPEUTIC INTERVENTION, ACTIVITY, EDUCATION, AND TRAINING TO ADDRESS; PT/SYSTEMS ENGINEERING MANAGER TO PROVIDE GAIT TRAINING FOR IMPROVED MOBILITY AND /OR TO NORMALIZE GAIT PATTERN THERAPEUTIC EXERCISES AND ESTABLISHING A HOME EXERCISE PROGRAM (PT/SYSTEMS ENGINEERING MANAGER) SIT TO/FROM STAND TRANSFERS (PT/SYSTEMS ENGINEERING MANAGER) PT / SYSTEMS ENGINEERING MANAGER TO MONITOR AND EDUCATE ON OXYGEN SATURATION DURING ADLS/IADLS, NOTIFY PHYSICIAN AND/OR THE RN CLINICAL MICROSOFT APPLICATION DEVELOPER FOR PHYSICIAN NOTIFICATION AND IF O2 SATS BELOW PHYSICIAN ORDERED PARAMETERS AFTER 10 MIN OF REST PT / SYSTEMS ENGINEERING MANAGER TO INSTRUCT PATIENT/CAREGIVER ON RISK FOR HOSPITALIZATION/EMERGENCY ROOM VISITS, TEACH SIGNS AND SYMPTOMS THAT PUT PATIENT AT RISK, WHEN TO NOTIFY NURSE/PHYSICIAN OF COMPLICATIONS/DECLINE, AND WHEN TO CALL 911. PT/SYSTEMS ENGINEERING MANAGER TO IDENTIFY FALL RISK FACTORS; EDUCATE THE PATIENT/CAREGIVER ON WAYS TO REDUCE FALL RISK FACTORS AND ESTABLISH HOME EXERCISE PROGRAM TO MINIMIZE FALL RISK. MAY TEACH THE PATIENT FLOOR RECOVERY WHEN CLINICALLY APPROPRIATE [code = AGENCY MAY PERFORM A RESUMPTION OF CARE VISIT FOLLOWING ANY HOSPITAL ADMISSION. PT TO EVALUATE, OBSERVE / ASSESS, AND MONITOR, SYSTEMS ENGINEERING MANAGER TO OBSERVE AND MONITOR, PROVIDE SKILLED THERAPEUTIC INTERVENTION, ACTIVITY, EDUCATION, AND TRAINING TO ADDRESS; PT/SYSTEMS ENGINEERING MANAGER TO PROVIDE GAIT TRAINING FOR IMPROVED MOBILITY AND /OR TO NORMALIZE GAIT PATTERN THERAPEUTIC EXERCISES AND ESTABLISHING A HOME EXERCISE PROGRAM (PT/SYSTEMS ENGINEERING MANAGER) SIT TO/FROM STAND TRANSFERS (PT/SYSTEMS ENGINEERING MANAGER) PT / SYSTEMS ENGINEERING MANAGER TO MONITOR AND EDUCATE ON OXYGEN SATURATION DURING ADLS/IADLS, NOTIFY PHYSICIAN AND/OR THE RN CLINICAL MICROSOFT APPLICATION DEVELOPER FOR PHYSICIAN NOTIFICATION AND IF O2 SATS BELOW PHYSICIAN ORDERED PARAMETERS AFTER 10 MIN OF REST PT / SYSTEMS ENGINEERING MANAGER TO INSTRUCT PATIENT/CAREGIVER ON RISK FOR HOSPITALIZATION/EMERGENCY ROOM VISITS, TEACH SIGNS AND SYMPTOMS THAT PUT PATIENT AT RISK, WHEN TO NOTIFY NURSE/PHYSICIAN OF COMPLICATIONS/DECLINE, AND WHEN TO CALL 911. PT/SYSTEMS ENGINEERING MANAGER TO IDENTIFY FALL RISK FACTORS; EDUCATE THE PATIENT/CAREGIVER ON WAYS TO REDUCE FALL RISK FACTORS AND ESTABLISH HOME EXERCISE PROGRAM TO MINIMIZE FALL RISK. MAY TEACH THE PATIENT FLOOR RECOVERY WHEN CLINICALLY APPROPRIATE] Future Scheduled Test AGENCY MAY PERFORM A RESUMPTION OF CARE VISIT FOLLOWING ANY HOSPITAL ADMISSION. ST TO EVALUATE, ASSESS AND MONITOR, PROVIDE SKILLED THERAPEUTIC INTERVENTION, ACTIVITY, EDUCATION, AND TRAINING TO ADDRESS: DYSPHAGIA ST TO ASSESS AND PROVIDE DIET MODIFICATION AND DIET TOLERANCE/TRIALS ST TO EDUCATE ON COMPENSATORY STRATEGIES FOR SAFE ORAL INTAKE ST TO EDUCATE ON THERAPEUTIC EXERCISES ST TO IDENTIFY FALL RISK FACTORS; EDUCATE THE PATIENT/CAREGIVER ON WAYS TO REDUCE FALL RISK FACTORS. ST TO OBSERVE FOR EARLY SIGNS AND SYMPTOMS OF DEPRESSION OR DEPRESSION GETTING WORSE AND TO EDUCATE ON HOW TO FIND HELP. ST MAY EDUCATE ON PAIN MANAGEMENT CLINICALLY INDICATED, INCLUDING NON-PHARMACOLOGICAL PAIN REDUCTION TECHNIQUES (RELAXATION/DISTRACTION/REPOSITIONING/BIO FEEDBACK) FOR PAIN MANAGEMENT [code = AGENCY MAY PERFORM A RESUMPTION OF CARE VISIT FOLLOWING ANY HOSPITAL ADMISSION. ST TO EVALUATE, ASSESS AND MONITOR, PROVIDE SKILLED THERAPEUTIC INTERVENTION, ACTIVITY, EDUCATION, AND TRAINING TO ADDRESS: DYSPHAGIA ST TO ASSESS AND PROVIDE DIET MODIFICATION AND DIET TOLERANCE/TRIALS ST TO EDUCATE ON COMPENSATORY STRATEGIES FOR SAFE ORAL INTAKE ST TO EDUCATE ON THERAPEUTIC EXERCISES ST TO IDENTIFY FALL RISK FACTORS; EDUCATE THE PATIENT/CAREGIVER ON WAYS TO REDUCE FALL RISK FACTORS. ST TO OBSERVE FOR EARLY SIGNS AND SYMPTOMS OF DEPRESSION OR DEPRESSION GETTING WORSE AND TO EDUCATE ON HOW TO FIND HELP. ST MAY EDUCATE ON PAIN MANAGEMENT CLINICALLY INDICATED, INCLUDING NON-PHARMACOLOGICAL PAIN REDUCTION TECHNIQUES (RELAXATION/DISTRACTION/REPOSITIONING/BIO FEEDBACK) FOR PAIN MANAGEMENT] Goal 2024-12-03 Patient Goal - I WISH I COULD BREATH BETTER Goal Provider Goal - A PLAN OF CARE WILL BE ESTABLISHED THAT MEETS THE PATIENT S NEEDS. PATIENT WILL DEMONSTRATE OXYGEN SATURATION WITHIN NORMAL LIMITS OR PATIENT S OPTIMAL LEVEL ESTABLISHED BY THE PHYSICIAN THROUGHOUT CARE. CHANGES TO CO-MORBID CONDITIONS AND ANY NEW CONDITIONS WILL BE IDENTIFIED AND REPORTED TO THE PHYSICIAN. Goal Provider Goal - COPD WILL BE CONTROLLED THROUGHOUT THE EPISODE. Goal Provider Goal - BLOOD SUGARS WILL REMAIN WITHIN ESTABLISHED RANGES AND DIABETES CONTROLLED THROUGHOUT EPISODE. Goal Provider Goal - PATIENT DEPRESSION REMAINED STABLE THROUGHOUT THE EPISODE. Goal Provider Goal - PATIENT/CAREGIVER WILL VERBALIZE UNDERSTANDING OF SIGNS AND SYMPTOMS THAT PUT THE PATIENT AT RISK FOR HOSPITALIZATION /EMERGENCY ROOM VISITS, WHEN TO NOTIFY NURSE/PHYSICIAN OF COMPLICATIONS/DECLINE AND WHEN TO CALL 911. Goal Provider Goal - PATIENT / CAREGIVER WILL VERBALIZE/DEMONSTRATE UNDERSTANDING OF MEASURES TO MANAGE ALTERED CARDIOVASCULAR STATUS BY THE END OF THE CERT PERIOD. Goal Provider Goal - PATIENT / CAREGIVER WILL VERBALIZE/DEMONSTRATE AN ABILITY TO ADHERE TO SELF-MANAGEMENT OF HTN TO MINIMIZE COMPLICATIONS AND AVOID HOSPITALIZATION BY END OF EPISODE. Goal Provider Goal - PATIENT / CAREGIVER WILL VERBALIZE/DEMONSTRATE UNDERSTANDING OF MEASURES TO MANAGE ALTERED RESPIRATORY STATUS BY END OF EPISODE. Goal Provider Goal - PATIENT / CAREGIVER WILL VERBALIZE/DEMONSTRATE AN ABILITY TO ADHERE TO SELF-MANAGEMENT OF COPD TO MINIMIZE COMPLICATIONS AND AVOID HOSPITALIZATION BY END OF EPISODE. Goal Provider Goal - PATIENT/CAREGIVER WILL VERBALIZE/DEMONSTRATE UNDERSTANDING OF CARE AND MANAGEMENT OF OXYGEN THERAPY BY END OF EPISODE Goal Provider Goal - PATIENT / CAREGIVER WILL VERBALIZE / DEMONSTRATE UNDERSTANDING OF PAIN CONTROL MEASURES BY THE END OF THE CERT PERIOD. Goal Provider Goal - PATIENT / CAREGIVER WILL VERBALIZE / DEMONSTRATE AN ABILITY TO ADHERE TO SELF-MANAGEMENT OF DIABETES MANAGEMENT BY THE END OF THE CERT PERIOD. Goal Provider Goal - PATIENT/CAREGIVER WILL VERBALIZE/DEMONSTRATE UNDERSTANDING OF FALL RISK FACTORS AND IMPLEMENT STRATEGIES TO MINIMIZE FALL RISK. PATIENT/CAREGIVER WILL VERBALIZE/DEMONSTRATE AN ABILITY TO ADHERE TO FALL REDUCTION SELF-MANAGEMENT AND LIFE-STYLE CHANGES BY THE END OF THE CERT PERIOD. Goal Provider Goal - Goal Provider Goal - Goal Provider Goal - Goal Provider Goal - Goal Provider Goal - Goal Provider Goal - PATIENT / CAREGIVER WITHIN 1 VISIT WILL BE ABLE TO VERBALIZE / DEMONSTRATE UNDERSTANDING OF ALL INSTRUCTION PROVIDED DURING OT EVALUATION. GOAL MET. Goal Provider Goal - PT STG: PATIENT WILL DEMONSTRATE IMPROVED 6 MINUTE WALK TEST AMBULATION FROM 50 FT MIN TO 150 FT SBA WITH APPROPRIATE AD WITHIN 4 WEEKS. PT LTG: PATIENT WILL DEMONSTRATE IMPROVED 6 MINUTE WALK TEST AMBULATION FROM 50 FT MIN TO 300 FT IND WITH APPROPRIATE AD WITHIN 8 WEEKS. PT STG: PATIENT WILL DEMONSTRATE IMPROVEMENT ON CHAIR RISE TEST FROM 2 TO 4 INDICATING DECREASED FALL RISK WITHIN 4 WEEKS. PT LTG: PATIENT WILL DEMONSTRATE IMPROVEMENT ON CHAIR RISE TEST FROM 2 TO 6 INDICATING DECREASED FALL RISK WITHIN 8 WEEKS. PT LTG: PATIENT WILL DEMONSTRATE INDEPENDENCE AND COMPLIANCE WITH HEP WITHIN 4 WEEKS PT STG: PATIENT WILL DEMONSTRATE IMPROVED ABILITY TO PERFORM SIT TO/FROM STAND TRANSFERS TO REDUCE THE RISK OF SKIN BREAKDOWN AND REDUCE FALL RISK FROM CGA TO IND WITHIN 8 WEEKS PT LTG: PATIENT WILL MAINTAIN OXYGEN SATURATION WITHIN PHYSICIAN ORDERED PARAMETERS THROUGHOUT EPISODE OF CARE. PT GOAL: PATIENT/CAREGIVER WILL VERBALIZE UNDERSTANDING OF SIGNS AND SYMPTOMS THAT PUT THE PATIENT AT RISK FOR HOSPITALIZATION /EMERGENCY ROOM VISITS, WHEN TO NOTIFY NURSE/PHYSICIAN OF COMPLICATIONS/DECLINE AND WHEN TO CALL 911. PT LTG: PATIENT/CAREGIVER WILL DEMONSTRATE ADHERENCE TO FALL REDUCTION SELF-MANAGEMENT AND REDUCING FALL RISK FACTORS TO MINIMIZE FALL RISK BY END OF EPISODE. Goal Provider Goal - ST STG: : PT WILL TOLERATE THIN LIQUIDS WITHOUT OVERT S/SX ASPIRATION PROGRESSING FROM 60% TO 80% OF TRIALS WITHIN [address] LTG: PATIENT WILL TOLERATE MECH SOFT SOLIDS WITHOUT OVERT S/SX ASPIRATION IN 80% TRIALS WITHIN [address] LTG: PATIENT WILL HAVE IMPROVED SAFE ORAL INTAKE EVIDENCED BY EAT 10 SCORE (>3 INDICATES DECREASED SWALLOWING EFFICIENCY AND SAFETY) IMPROVING FROM 21 TO [address] LTG: PT WILL INDEPENDENTLY AVOID DIFFICULT/TOUGH TEXTURE ITEMS (HARD/ TOUGH MEATS, MIXED CONSISTENCIES, DRY/PIECEY ITEMS) WITHIN 8 WEEKS TO MINIMIZE CHOKING/ASPIRATION RISK ST STG: PT WILL RETURN DEMO SAFE SWALLOW STRATEGIES GIVEN MIN CUES WITHIN [address] LTG: PATIENT WILL DEMONSTRATE INCREASED USE OF COMPENSATORY STRATEGIES FROM MOD CUES TO INDEPENDENT CARRYOVER WITHIN [address] STG : PT WILL RETURN DEMO PHARYNGEAL SWALLOW EXERCISES GIVEN MIN CUES AND MODELS WITHIN [address] LTG: PATIENT WILL BE ABLE TO RETURN DEMONSTRATE THERAPEUTIC EXERCISES FOR IMPROVED SWALLOW FUNCTION/SAFETY PROGRESSING FROM MODERATE TO MILD IMPAIRMENT WITHIN [address] LTG: PATIENT/CAREGIVER WILL DEMONSTRATE ADHERENCE TO FALL REDUCTION SELF-MANAGEMENT AND REDUCING FALL RISK FACTORS TO MINIMIZE FALL RISK BY END OF EPISODE ST LTG: EARLY IDENTIFICATION OF WORSENING DEPRESSION WITH TIMELY SN AND/OR PHYSICIAN NOTIFICATION. ST LTG: PATIENT WILL DEMONSTRATE UNDERSTANDING OF PAIN MANAGEMENT TECHNIQUES EVIDENCED BY REDUCED PAIN BY END OF CERT Reason for Visit INDEPENDENT WITH USE OF ASSISTIVE DEVICE Encounters Start Date/Time End Date/Time Encounter Type Admission Type Attending [facility] Care Facility Care Department Encounter ID Discharge Date Discharge Status Discharge Condition Discharge Reason Percent Goals Met 2024-10-08 00:00:00 2024-12-03 00:00:00 Outpatient NEW ADMISSION [facility] [id number] 2024-12-03 00:00:00 DISCHARGE TO HOME OR SELF CARE INDEPENDEN T WITH USE OF ASSISTIVE DEVICE HH - NON COMPLIANT WITH PLAN OF TREATMENT 47.22
[2025-01-17] VITALS (13 sets, daily range): BP systolic 125–183; BP diastolic 59–88; PULSE 88–109; RESP 14–25; TEMP 36.9–37; O2SAT 92–99; BMI 30.9
--- OUTSIDE RECORDS SUMMARY | 2025-01-17 14:03 | XMS_ITS | Clinical Summary ---
Author Organization [facility] Address [address] [place] [address] Care Team Providers Care Professor Of Spanish Name Role Phone Antonia Hendrickson DANIEL Primary Care Provider [phone] Allergies Active Allergy Reactions Criticality Noted Date [...] Wellness (AWV) 1960 [place]-Infant/Child/Adol SDOH Screenings 1960 [id number] Vaccine (#1) 07/09/1964 Diabetes: Dental Exam 07/09/1969 [...] to complete this topic Insurance [place] [id number] [employer] MEDICARE Care Teams Professor Of Spanish Relationship Specialty Start Date End Date Antonia Hendrickson APRN [address] [place] [address] [place] [id number] PCP - General 07/07/21
[2025-01-17 14:08] LABS: Coronavirus 19, PCR Not Detected (NotDetected); Influenza A, PCR Not Detected (NotDetected); Influenza B, PCR Not Detected (NotDetected)
--- NOTE | 2025-01-17 14:08 | ECG_ITS ---
APPROVED REPORT Exam: Resting ECG HR:94 bpm ECG Measurements Heart Rate 94 AXES OH 146 P 77 QRSd 85 QRS 98 QT 352 T 69 QTc 404 Conclusion SINUS RHYTHM BORDERLINE RIGHT AXIS DEVIATION [QRS AXIS > 90] BORDERLINE ECG Electronically signed by : PHILLIP ESCALANTE, 01/21/2025 15:29:29
--- NOTE | 2025-01-17 14:13 | CT_ITS ---
FINAL REPORT TECHNIQUE: Axial imaging of the chest is obtained after the administration of contrast. 3-D MIP reformatted images were also obtained and reviewed per PE protocol. CLINICAL HISTORY: shortness of breath COMPARISON: 11/01/2023 FINDINGS: The pulmonary arteries are well filled. There is no evidence of pulmonary embolus. There is no aortic dissection. Heart size is normal. There is no mediastinal, hilar, or axillary lymphadenopathy. There are scattered reticulonodular opacities in the right lung favored to represent bronchopneumonia. Otherwise, the lungs are clear.. There is no pleural or pericardial effusion. Limited evaluation of the upper abdomen is without acute abnormality. No acute osseous abnormality. IMPRESSION: No evidence of pulmonary embolism or aortic dissection. Scattered reticulonodular opacities in the right lung most consistent with bronchopneumonia. Consider three-month follow-up. Reviewed, Interpreted and Dictated by Massiel Davenport MD Transcribed by Jael Garvin Authenticated and [facility]
--- NOTE | 2025-01-17 14:27 | ED_ITS ---
Discharge Plan Disposition Patient Disposition: Home, Self-Care Condition: Good Prescriptions Prescriptions: New azithromycin 500 mg tablet 500 mg PO DAILY 5 Days Qty: 5 0RF cefdinir 300 mg capsule 300 mg PO BID 10 Days Qty: 20 0RF No Action metoprolol succinate 200 mg tablet extended release 24 hr 200 mg PO DAILY Qty: 30 5RF aspirin 81 mg tablet,delayed release (DR/EC) 81 mg PO DAILY Qty: 90 1RF (DME) blood-glucose meter [Accu-Chek Guide Me Glucose Mtr] Misc See Rx Instructions .ROUTE .MEDSUPPLY Qty: 1 Patient Comments: FOR diabetes; test blood sugar TWICE DAILY DIRECTED Rx Instructions: As directed (DME) pen needle, diabetic 31 gauge x 5/16 needle See Rx Instructions .ROUTE .MEDSUPPLY Qty: 1200 Patient Comments: USE DIRECTED Rx Instructions: As directed (DME) Dexcom G7 Space Control Agent Misc See Rx Instructions miscellaneous .MEDSUPPLY Qty: 1 0RF Rx Instructions: As directed insulin glargine [Lantus U-100 Insulin] 100 unit/mL solution 15 unit SQ HS Qty: 10 4RF repaglinide 1 mg tablet 1 mg PO BID Qty: 60 2RF Rx Instructions: administer within 30 minutes of a meal or snack (DME) Dexcom G7 Sensor Device See Rx Instructions miscellaneous .MEDSUPPLY Qty: 9 1RF Rx Instructions: As directed insulin glargine [Lantus Solostar U-100 Insulin] 100 unit/mL (3 mL) insulin pen SQ Patient Comments: INJECT 15 UNITS SUBCUTANEOUSLY EVERY DAY AT BEDTIME triamcinolone acetonide 0.1 % ointment 1 applic topical BID Qty: 30 0RF doxycycline hyclate 100 mg tablet 100 mg PO BID 14 Days Qty: 28 0RF levothyroxine 25 mcg tablet See Rx Instructions .ROUTE .COMPLEX Qty: 90 2RF Dose Instruction: TAKE ONE TABLET BY MOUTH EVERY DAY Rx Instructions: TAKE ONE TABLET BY MOUTH EVERY DAY acetaminophen [Tylenol Arthritis Pain] 650 mg tablet extended release 650 mg PO Q12H fluticasone furoate-vilanterol [Breo Ellipta] 100-25 mcg/dose blister with device 1 inh inhalation DAILY Qty: 90 2RF sertraline 100 mg tablet 150 mg PO DAILY Qty: 45 2RF (DME) Blood Glucose Test Strip See Rx Instructions .Route Qty: 50 6RF Rx Instructions: As directed, bid testing (DME) lancets [Accu-Chek Softclix Lancets] Mis See Rx Instructions .Route Qty: 100 6RF Rx Instructions: As directed, bid testing (DME) blood-glucose meter [Blood Glucose Monitoring] Kit See Rx Instructions .Route Qty: 1 0RF Rx Instructions: As directed, bid testing Ozempic 0.25 mg or 0.5 mg (2 mg/3 mL) pen injector 0.5 mg SQ QWEEK 28 Days Qty: 2.944 5RF Rx Instructions: for 4 weeks losartan-hydrochlorothiazide 50-12.5 mg tablet 1 tab PO DAILY Qty: 90 1RF atorvastatin 40 mg tablet See Rx Instructions .ROUTE .COMPLEX Qty: 90 1RF Dose Instruction: TAKE ONE TABLET BY MOUTH EVERY DAY Rx Instructions: TAKE ONE TABLET BY MOUTH EVERY DAY Jardiance 25 mg tablet See Rx Instructions .ROUTE .COMPLEX Qty: 90 2RF Dose Instruction: TAKE ONE TABLET BY MOUTH EVERY DAY Rx Instructions: TAKE ONE TABLET BY MOUTH EVERY DAY oxybutynin chloride 15 mg tablet extended release 24hr See Rx Instructions .ROUTE .COMPLEX Qty: 30 2RF Dose Instruction: TAKE ONE TABLET BY MOUTH EVERY DAY FOR OVERACTIVE FOR BLADDER Rx Instructions: TAKE ONE TABLET BY MOUTH EVERY DAY FOR OVERACTIVE FOR BLADDER albuterol sulfate 0.63 mg/3 mL solution for nebulization 0.63 mg inhalation Q4-6H PRN (Reason: shortness of breath or wheezing) Qty: 90 2RF (DME) pen needle, diabetic [Comfort EZ Pen [place]] 32 gauge x 5/16 needle See Rx Instructions .Route Qty: 100 2RF Rx Instructions: As directed cetirizine 10 mg tablet See Rx Instructions .ROUTE .COMPLEX Qty: 30 3RF Dose Instruction: TAKE ONE TABLET BY MOUTH DAILY Rx Instructions: TAKE ONE TABLET BY MOUTH DAILY Referrals Follow up/Referrals: Jessi Wright APRN [Primary Care Provider, Family Practice] - See instructions Activity Restrictions/Add. Instructions Additional Instructions/Restrictions: Take the antibiotics as prescribed. 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 To the emergency department for any acute or worsening shortness of breath if you were requiring more oxygen than your baseline or if you have any other acute concerns. Clinical Impressions Clinical Impression: Pneumonia, Urinary tract infection Instructions Patient Instructions: Urinary Tract Infection, Atypical Pneumonia Print Language Print Language: Bangladeshi Discharge ED Provider: Lazaro Pinzon General Adult HPI <Cierrapedro Giang (ED), PRIMARY HEALTH CARE NURSE - Last Filed: 01/17/25 18:32> General Chief complaint: Upper Respiratory Infection Stated complaint: SOA, cough, wheezing, Diarrhea Time Seen by Provider: 01/17/25 13:59 Mode of Arrival: Ambulatory Source of Information: Patient and Spouse Description of Symptoms (Recalled from ER Triage Doc. by RN): Pt presents for evaluation for concern that she has pneumonia. Pt states she is baseline short of breath, but it has become worse over the last week. Pt states she has had a strong cough, that is slightly productive. Pt states she attempted to be seen by PCP, and was advised to go to [facility] or ER to be seen. Pt states she went to the [facility] and was advised to come here and be seen due to her oxygen level being low but is unsure how low it was. History of Present Illness HPI narrative: 64-year-old female presents to the ED for complaint of possible pneumonia. She has been coughing with production of sputum for over a week. She has had a headache. Her sugar has been running anywhere from 300-600. She does wear 3 L nasal cannula at baseline all the time. She has a past medical history of heart disease, kidney disease, thyroid disease and DKA. Patient states that her sugar was low at [facility] but does not know how low it was. Upon arrival here her O2 was 95% on room air. Related Data Home Medications ?Medication ?Instructions ?Recorded ?Confirmed acetaminophen 650 mg 650 mg PO Q12H 09/19/2405/28 tablet,extended release (Tylenol Arthritis Pain) blood-glucose meter (Accu-Chek #1 ea 10/11/24 11/27/24 Guide [place] Glucose Meter) pen needle, diabetic 31 gauge x #1,200 ea 10/11/2408/16 insulin glargine 100 unit/mL (3 unit SQ 11/27/2412/03 mL) subcutaneous pen (Lantus Solostar U-100 Insulin) Previous Rx's ?Medication ?Instructions ?Recorded sertraline 100 mg tablet 150 mg (1.5 x 100 mg) PO CAROLANN LY #45 08/24/23 tabs metoprolol succinate 200 mg 200 mg PO DAILY #30 tabs 0 12/05/23 tablet,extended release 24 hr aspirin 81 mg tablet,delayed 81 mg PO DAILY history of cardiac 05/29/24 release stents #90 tabs blood sugar diagnostic (Blood #50 ea 05/30/24 Glucose Test strips) blood-glucose meter (Blood Glucose #1 ea 05/30/24 Monitoring kit) lancets (Accu-Chek Softclix #100 ea 05/30/24 Lancets) semaglutide 0.25 mg or 0.5 mg (2 0.5 mg (0.736 mL) SQ QWEEK 4 weeks 07/09/24 mg/3 mL) subcutaneous pen injector #2.944 mL (Ozempic) losartan 50 mg-hydrochlorothiazide 1 tab PO DAILY #90 tabs 08/01/24 12.5 mg tablet atorvastatin 40 mg tablet See Rx Instructions .Route 0 08/23/24 .COMPLEX #90 tabs levothyroxine 25 mcg tablet See Rx Instructions .Route 08/23/24 .COMPLEX #90 tabs empagliflozin 25 mg tablet See Rx Instructions .Route 09/13/24 (Jardiance) .COMPLEX #90 tabs oxybutynin chloride 15 mg See Rx Instructions .Route 0 09/13/24 tablet,extended release 24 hr .COMPLEX #30 tabs albuterol sulfate 0.63 mg/3 mL 0.63 mg (3 mL) inhalati on Q4-6H 09/17/24 solution for nebulization PRN shortness of breath or wheezing #90 mL fluticasone furoate 100 1 inh inhalation DAILY #90 e a 11/05/24 mcg-vilanterol 25 mcg/dose inhalation powder (Breo Ellipta) pen needle, diabetic 32 gauge x #100 ea 11/06/24 5/16 (Comfort EZ Pen [place]) blood-glucose,rock drill operator,cont #1 ea 11/07/24 (Dexcom G7 Space Control Agent) blood-glucose sensor (Dexcom G7 #9 ea 11/11/24 Sensor device) insulin glargine 100 unit/mL 15 unit (0.15 mL) SQ HS # 10 mL 11/11/24 subcutaneous solution (Lantus U-100 Insulin) repaglinide 1 mg tablet 1 mg PO BID #60 tabs 5 doxycycline hyclate 100 mg tablet 100 mg PO BID 14 day s #28 tabs 11/27/24 triamcinolone acetonide 0.1 % 1 applic topical BID #30 grams 11/27/24 topical ointment cetirizine 10 mg tablet See Rx Instructions .Route 1 .COMPLEX #30 tabs azithromycin 500 mg tablet 500 mg PO DAILY 5 days #5 t abs 01/17/25 cefdinir 300 mg capsule 300 mg PO BID 10 days #20 ca ps 01/17/25 Allergies Allergy/AdvReac Type Severity Reaction Status Date / Time insulin lispro Allergy Intermediate Vomiting Verified 12/03/24 14:32 venom-honey bee (BEE VENOM Allergy Unknown Unknown Verified 12/03/24 14:32 (HONEY BEE)) allergy reaction chocolate flavor AdvReac Hyper Verified 12/03/24 14:32 PFS <Cierra Giang (ED), PRIMARY HEALTH CARE NURSE - Last Filed: 01/17/25 18:32> PFS Disclaimer: The information contained in this section may have been updated after the patient was seen, as this information can be updated by other users. Medical History (Updated 01/17/25 @ 18:10 by Jennifer Browne DO) Trouble swallowing Pre-op exam Cough Right-sided chest wall pain Infection of lower respiratory tract Dehydration Candidiasis Sore throat Influenza A with pneumonia UTI (urinary tract infection) Abnormal nuclear cardiac imaging test Acute pain of left knee Fall Contusion of knee Oxygen dependent Encounter for screening for malignant neoplasm of lung Nodule of right lung History of smoking 30 or more pack years Dyspnea on exertion SOB (shortness of breath) on exertion Palpitations Typical angina Edema of both lower extremities Diastolic dysfunction Foot pain, bilateral DKA (diabetic ketoacidosis) CAD (coronary artery disease) COPD (chronic obstructive pulmonary disease) Sinus tachycardia Gastroesophageal reflux disease Urinary incontinence Chest pain Dyspnea Dyspnea and respiratory abnormalities Coronary artery disease Ex-smoker for more than 1 year Emphysema of lung Diabetes mellitus type 2 in obese Hyperlipidemia Hypertensive disorder Surgical History History of partial hysterectomy History of intravascular stent placement H/O eye surgery Family History Other Family history of diabetes mellitus Family history of heart disease No significant family history Social History Smoking Status: Current every day smoker tobacco type: cigarettes packs per day: 1 years smoked: 20 smoking status stop date: 2006 how long ago did patient quit smoking: stopped for 7 years and when in Mar 2024 started smoking again alcohol intake: former substance use type: denies use current occupational status: unemployed Travel in the last 8 weeks?: None housing: house lives independently: Yes marital status: number of children: 1 current occupational exposures/hazards: No other: passed Mar 2024 caffeine: Yes Have you lived/traveled outside [place] in past 30 days?: No Contact w/someone who lives/traveled outside US past 30 days?: No Exposure to someone with infectious disease in past 14 days?: No Do you have a fever (greater than 100.4 F or 38 C)?: No Have you tested positive for COVID-19?: No Exposed to someone with COVID-19 in past 14 days?: No Do you have a sore throat?: No Do you have a cough?: No Do you have any weakness?: No Do you have any diarrhea?: No Are you experiencing any unusual bleeding?: No Do you have any muscle aches/pain?: No Do you have any abdominal pain?: No Are you experiencing loss of taste or smell?: No Other Medical History Have you received the Flu Vaccine for this season: No Have you received the Pneumonia Vaccine: Yes <Cierra Giang (ED), PRIMARY HEALTH CARE NURSE - Last Filed: 01/17/25 18:32> ROS Obtained: Yes Systems reviewed as appropriate & no additional complaints except as documented Constitutional Constitutional: Reports as per HPI Physical Exam <Cierra Giang (ED), PRIMARY HEALTH CARE NURSE - Last Filed: 01/17/25 18:32> General General appearance: alert Head Head exam: normocephalic Eye Eye exam: Present PERRL and EOMI ENT ENT exam: Present normal oropharynx and mucous membranes moist Neck Neck exam: Present full ROM and trachea midline Respiratory Respiratory exam: Present wheezes Cardiovascular Cardiovascular exam: Present normal rhythm, tachycardia, normal heart sounds, +S1 and +S2 Abdominal Exam Abdominal exam: Present soft and normal bowel sounds Extremities Exam Extremities exam: Present full ROM and normal capillary refill Neurological Exam Neurological exam: Present alert, oriented X3 and normal gait Skin Skin exam: Present warm, dry and intact Medical Decision Making <Cierra Giang (ED), PRIMARY HEALTH CARE NURSE - Last Filed: 01/17/25 18:32> Medical Records Screening: Per USPSTF and CDC recommendations, given the prevalence of disease in our region, it is our hospital?s policy to screen for HIV and viral Hepatitis for all patients aged 18 and over and those with ongoing risk factors. Dewayne Inquiry Pt receiving controlled substance: No Dewayne was queried for this patient: No Vital Signs: 01/17/25 13:55 01/17/25 14:06 01/17/25 14:30 Temperature 98.4 F Temperature Source Oral Pulse Rate 99 H 90 Pulse Rate [Right] 101 H Respiratory Rate 18 23 Blood Pressure 179/80 H 174/88 H Blood Pressure [Right Arm] 146/83 H Blood Pressure Mean [Right Arm] 104 Blood Pressure Source Blood Pressure Source [Right Arm] Manual Cuff/ Palpation Blood Pressure Position 02 Sat by Pulse Oximetry 95 99 99 Oxygen Delivery Method Room Air Oxygen Flow Rate (LPM) 01/17/25 15:00 01/17/25 15:30 01/17/25 15:48 Temperature Temperature Source Pulse Rate 91 H 106 H 88 Pulse Rate [Right] Respiratory Rate 14 25 H Blood Pressure 183/87 H 157/69 H Blood Pressure [Right Arm] Blood Pressure Mean [Right Arm] Blood Pressure Source Blood Pressure Source [Right Arm] Blood Pressure Position 02 Sat by Pulse Oximetry 97 96 92 L Oxygen Delivery Method Nasal Cannula Nasal Cannula Oxygen Flow Rate (LPM) 3 01/17/25 16:00 01/17/25 16:30 01/17/25 17:00 Temperature Temperature Source Pulse Rate 109 H 104 H 96 H Pulse Rate [Right] Respiratory Rate 22 18 15 Blood Pressure 154/70 H 152/78 H 125/66 Blood Pressure [Right Arm] Blood Pressure Mean [Right Arm] Blood Pressure Source Blood Pressure Source [Right Arm] Blood Pressure Position 02 Sat by Pulse Oximetry 97 96 96 Oxygen Delivery Method Nasal Cannula Nasal Cannula Oxygen Flow Rate (LPM) 01/17/25 17:30 01/17/25 18:00 01/17/25 18:30 Temperature Temperature Source Pulse Rate 106 H 108 H 102 H Pulse Rate [Right] Respiratory Rate 20 20 Blood Pressure 164/77 H 142/59 H 132/64 Blood Pressure [Right Arm] Blood Pressure Mean [Right Arm] Blood Pressure Source Blood Pressure Source [Right Arm] Blood Pressure Position 02 Sat by Pulse Oximetry 95 98 95 Oxygen Delivery Method Room Air Oxygen Flow Rate (LPM) 01/17/25 18:36 Temperature 98.6 F Temperature Source Oral Pulse Rate 105 H Pulse Rate [Right] Respiratory Rate 16 Blood Pressure 132/64 Blood Pressure [Right Arm] Blood Pressure Mean [Right Arm] Blood Pressure Source Automatic Cuff Blood Pressure Source [Right Arm] Blood Pressure Position Supine 02 Sat by Pulse Oximetry Oxygen Delivery Method Nasal Cannula Oxygen Flow Rate (LPM) 3 Lab Data Lab Results 01/17/25 14:00: SARS-CoV-2 (PCR) Not detected, Influenza A Untype (PCR) Not detected, Influenza Type B (PCR) Not detected 01/17/25 14:26: WBC 5.9, RBC 4.87, Hgb 14.1, Hct 43.4, MCV 89.1, MCH 29.0, MCHC 32.5, RDW 14.1, Plt Count 229, MPV 11.0 H, Neut % (Auto) 57.4, Lymph % (Auto) 31.0, [place] % (Auto) 8.7, Eos % (Auto) 2.0, Baso % (Auto) 0.7, Neut # (Auto) 3.4, Lymph # (Auto) 1.8, [place] # (Auto) 0.5, Eos # (Auto) 0.1, Baso # (Auto) 0.0, S odium 134 L, Potassium 4.0, Chloride 98, Carbon Dioxide 28, Anion Gap 12.0, BUN 18 H, Creatinine 0.60, Estimated Creat Clear 66, Estimated GFR 100, Est GFR ( Amer) 121, Glucose 466 H*, Calcium 9.0, Magnesium 1.7, Total Bilirubin 0.3, AST 37 H, ALT 21, Alkaline Phosphatase 129 H, Troponin I < 0.01, NT-Pro-B Natriuret Pep 90.1 01/17/25 14:26: NT-Pro-B Natriuret Pep 85.4, Total Protein 7.2, Albumin 3.9, G lobulin 3.3 H, Albumin/Globulin Ratio 1.2, Lipase 117, Acetone Level None detected 01/17/25 14:29: VBG pH 7.38, VBG pCO2 44.8, VBG pO2 45.2 H, VBG HCO3 26.0, VBG Total CO2 27.3 H, VBG O2 Saturation 83.6 H, VBG Base Excess 0.9, VBG Lactic Acid 2.0 01/17/25 15:48: Urine Color Yellow, Urine Appearance Clear, Urine pH 5.5, Ur Specific [place] 1.015, Urine Protein 2+ A, Urine Glucose (UA) 3+, Urine Ketones Negative, Urine Blood Trace-i, Urine Nitrate Positive A, Urine Bilirubin Negative, Urine Urobilinogen 0.2, Ur Leukocyte Esterase Negative, Urine RBC 3-5, Urine WBC 20-50, Ur Squamous Epith Cells 10-20, Urine Bacteria 3+ 01/17/25 17:03: Troponin I < 0.01 01/17/25 14:26 01/17/25 14:26 Orders (Tests/Meds): ED MEDICATIONS Generic Name Dose Route Start Last Admin Trade Name Freq PRN Reason Stop Dose Admin Ceftriaxone Sodium 2 gm/ 100 mls @ 200 mls/hr 01/17/25 17:15 01/17/25 17:47 Sodium Chloride IV 01/27/25 17:14 Infused Q24H ALTA Infusion Azithromycin 500 mg/ Sodium 250 mls @ 250 mls/hr 01/17/25 17:15 01/17/25 18:28 Chloride IV 01/27/25 17:14 Infused Q24H ALTA Infusion Sodium Chloride 10 ml 01/17/25 15:32 01/17/25 15:33 Sodium Chloride 0.9% 10ml Syr (Rad Only) IV 02/16/25 15:31 10 ml NEEDED PRN Administration Maintain IV Site Discontinued Medications Generic Name Dose Route Start Last Admin Trade Name Freq PRN Reason Stop Dose Admin Albuterol/Ipratropium 9 ml 01/17/25 14:13 01/17/25 14:42 Ipratropium/Albuterol 3 Ml Neb IH 01/17/25 14:14 9 ml ONCE ONE Administration Magnesium Sulfate 2 gm in 50 mls @ 50 mls/hr 01/17/25 14:13 01/17/25 15:51 Magnesium Sulfate 2gm/50ml Premix IV 01/17/25 15:12 Infused ONCE ONE Infusion Lactated Ringer's 1,000 mls @ 999 mls/hr 01/17/25 16:13 01/17/25 17:23 Lactated Ringer's 1000 Ml Bag IV 01/17/25 17:13 Infused .Q1H1M ONE Infusion Insulin Human Regular 5 unit 01/17/25 15:25 01/17/25 15:35 Insulin Human Regular 100 Units/Ml 10ml Vial IVP 01/17/25 15:26 5 unit ONCE ONE Administration Iopamidol 70 ml 01/17/25 15:32 01/17/25 15:33 Iopamidol-370 (76%);100ml Bottle IV 01/17/25 15:33 70 ml ONCE ONE Administration Methylprednisolone Sodium Succinate 125 mg 01/17/25 14:43 01/17/25 14:44 Methylprednisolone Sod Succ 125mg Vial IV 01/17/25 14:44 125 mg ONCE ONE Administration Sodium Chloride 50 ml 01/17/25 15:32 01/17/25 15:33 0.9 % Sodium Chloride 50 Ml Vial IV 01/17/25 15:33 50 ml ONCE ONE Administration ORDERS Category Date Time Status CTA Chest [CT angio chest PE protocol] Stat Cat Scan 01/17/25 14:13 Completed Acetone, Serum (Rapid) Stat Lab 01/17/25 14:26 Completed BNP [NT Pro Brain Natriuretic Pep.] Stat Lab 01/17/25 14:26 Completed BNP [NT Pro Brain Natriuretic Pep.] Stat Lab 01/17/25 14:26 Completed CBC [Complete Blood Count Auto Diff] Stat Lab 01/17/25 14:26 Completed Comprehensive Metabolic Panel Stat Lab 01/17/25 14:26 Completed Lipase Stat Lab 01/17/25 14:26 Completed Magnesium Stat Lab 01/17/25 14:26 Completed Rapid PCR Covid and Flu A/B Stat Lab 01/17/25 14:00 Completed Trop I [Troponin I] Stat Lab 01/17/25 14:26 Completed Troponin I Q3H Lab 01/17/25 17:03 Completed Troponin I Q3H Lab 01/17/25 20:15 Ordered Urinalysis and Microscopic Stat Lab 01/17/25 15:48 Completed Urine Culture Stat Micro 01/17/25 15:48 Received Venous Blood Gas Stat RT 01/17/25 14:29 Completed HEART Score History (anamnesis): Slightly suspicious ECG: Normal Age: 45-65 years Risk factors: 1-2 risk factors Troponin: </= normal limit HEART Score: 2 Medical Decision Narrative: patient is a 64-year-old female presenting to the emergency department for evaluation of cough. Patient is hemodynamically stable and nontoxic-appearing upon arrival, afebrile. Differential diagnosis includes pneumonia, ACS, among others. Workup will be conducted with hematologic labs, specific imaging. Initial inventions include crystalloid bolus, analgesics, antibiotics. Initial workup reviewed by me hematologic labs are remarkable for normal white count of 5.9, pH on the VBG was 7.38, BUN was 18 creatinine was 0.60 and initial glucose was 466 her glucose now was 368, troponins were less than 0.01 she does have a nitrate positive UTI acetone was negative.. CT showed bronchopneumonia which we treated with azithromycin here in the ED and sending patient home on cefdinir for both UTI and pneumonia. Also giving patient a Zithromax to take home. Patient safe for discharge home. Discussed patient with Dr. Browne. Lazaro Pinzon MD: I was consulted by the JAMI, and we discussed the complexity of the problems being addressed. I approved the treatment and management plan for this patient's care in the emergency department, thus performing a substantive portion of the medical decision making. Initial workup largely nonactionable with the exception of significant hyperglycemia without evidence of DKA without acidosis for which insulin was ordered. Remainder of workup and final disposition pending at time of transfer care to the oncoming physician, Dr. Browne. <Lazaro Pinzon MD - Last Filed: 01/17/25 15:36> Vital Signs: 01/17/25 13:55 01/17/25 14:06 01/17/25 14:30 Temperature 98.4 F Temperature Source Oral Pulse Rate 99 H 90 Pulse Rate [Right] 101 H Respiratory Rate 18 23 Blood Pressure 179/80 H 174/88 H Blood Pressure [Right Arm] 146/83 H Blood Pressure Mean [Right Arm] 104 Blood Pressure Source Blood Pressure Source [Right Arm] Manual Cuff/ Palpation Blood Pressure Position 02 Sat by Pulse Oximetry 95 99 99 Oxygen Delivery Method Room Air Oxygen Flow Rate (LPM) 01/17/25 15:00 01/17/25 15:30 01/17/25 15:48 Temperature Temperature Source Pulse Rate 91 H 106 H 88 Pulse Rate [Right] Respiratory Rate 14 25 H Blood Pressure 183/87 H 157/69 H Blood Pressure [Right Arm] Blood Pressure Mean [Right Arm] Blood Pressure Source Blood Pressure Source [Right Arm] Blood Pressure Position 02 Sat by Pulse Oximetry 97 96 92 L Oxygen Delivery Method Nasal Cannula Nasal Cannula Oxygen Flow Rate (LPM) 3 01/17/25 16:00 01/17/25 16:30 01/17/25 17:00 Temperature Temperature Source Pulse Rate 109 H 104 H 96 H Pulse Rate [Right] Respiratory Rate 22 18 15 Blood Pressure 154/70 H 152/78 H 125/66 Blood Pressure [Right Arm] Blood Pressure Mean [Right Arm] Blood Pressure Source Blood Pressure Source [Right Arm] Blood Pressure Position 02 Sat by Pulse Oximetry 97 96 96 Oxygen Delivery Method Nasal Cannula Nasal Cannula Oxygen Flow Rate (LPM) 01/17/25 17:30 01/17/25 18:00 01/17/25 18:30 Temperature Temperature Source Pulse Rate 106 H 108 H 102 H Pulse Rate [Right] Respiratory Rate 20 20 Blood Pressure 164/77 H 142/59 H 132/64 Blood Pressure [Right Arm] Blood Pressure Mean [Right Arm] Blood Pressure Source Blood Pressure Source [Right Arm] Blood Pressure Position 02 Sat by Pulse Oximetry 95 98 95 Oxygen Delivery Method Room Air Oxygen Flow Rate (LPM) 01/17/25 18:36 Temperature 98.6 F Temperature Source Oral Pulse Rate 105 H Pulse Rate [Right] Respiratory Rate 16 Blood Pressure 132/64 Blood Pressure [Right Arm] Blood Pressure Mean [Right Arm] Blood Pressure Source Automatic Cuff Blood Pressure Source [Right Arm] Blood Pressure Position Supine 02 Sat by Pulse Oximetry Oxygen Delivery Method Nasal Cannula Oxygen Flow Rate (LPM) 3 Lab Data Lab Results 01/17/25 14:00: SARS-CoV-2 (PCR) Not detected, Influenza A Untype (PCR) Not detected, Influenza Type B (PCR) Not detected 01/17/25 14:26: WBC 5.9, RBC 4.87, Hgb 14.1, Hct 43.4, MCV 89.1, MCH 29.0, MCHC 32.5, RDW 14.1, Plt Count 229, MPV 11.0 H, Neut % (Auto) 57.4, Lymph % (Auto) 31.0, [place] % (Auto) 8.7, Eos % (Auto) 2.0, Baso % (Auto) 0.7, Neut # (Auto) 3.4, Lymph # (Auto) 1.8, [place] # (Auto) 0.5, Eos # (Auto) 0.1, Baso # (Auto) 0.0, S odium 134 L, Potassium 4.0, Chloride 98, Carbon Dioxide 28, Anion Gap 12.0, BUN 18 H, Creatinine 0.60, Estimated Creat Clear 66, Estimated GFR 100, Est GFR ( Amer) 121, Glucose 466 H*, Calcium 9.0, Magnesium 1.7, Total Bilirubin 0.3, AST 37 H, ALT 21, Alkaline Phosphatase 129 H, Troponin I < 0.01, NT-Pro-B Natriuret Pep 90.1 01/17/25 14:26: NT-Pro-B Natriuret Pep 85.4, Total Protein 7.2, Albumin 3.9, G lobulin 3.3 H, Albumin/Globulin Ratio 1.2, Lipase 117, Acetone Level None detected 01/17/25 14:29: VBG pH 7.38, VBG pCO2 44.8, VBG pO2 45.2 H, VBG HCO3 26.0, VBG Total CO2 27.3 H, VBG O2 Saturation 83.6 H, VBG Base Excess 0.9, VBG Lactic Acid 2.0 01/17/25 15:48: Urine Color Yellow, Urine Appearance Clear, Urine pH 5.5, Ur Specific [place] 1.015, Urine Protein 2+ A, Urine Glucose (UA) 3+, Urine Ketones Negative, Urine Blood Trace-i, Urine Nitrate Positive A, Urine Bilirubin Negative, Urine Urobilinogen 0.2, Ur Leukocyte Esterase Negative, Urine RBC 3-5, Urine WBC 20-50, Ur Squamous Epith Cells 10-20, Urine Bacteria 3+ 01/17/25 17:03: Troponin I < 0.01 Orders (Tests/Meds): ED MEDICATIONS Generic Name Dose Route Start Last Admin Trade Name Freq PRN Reason Stop Dose Admin Ceftriaxone Sodium 2 gm/ 100 mls @ 200 mls/hr 01/17/25 17:15 01/17/25 17:47 Sodium Chloride IV 01/27/25 17:14 Infused Q24H ALTA Infusion Azithromycin 500 mg/ Sodium 250 mls @ 250 mls/hr 01/17/25 17:15 01/17/25 18:28 Chloride IV 01/27/25 17:14 Infused Q24H ALTA Infusion Sodium Chloride 10 ml 01/17/25 15:32 01/17/25 15:33 Sodium Chloride 0.9% 10ml Syr (Rad Only) IV 02/16/25 15:31 10 ml NEEDED PRN Administration Maintain IV Site Discontinued Medications Generic Name Dose Route Start Last Admin Trade Name Freq PRN Reason Stop Dose Admin Albuterol/Ipratropium 9 ml 01/17/25 14:13 01/17/25 14:42 Ipratropium/Albuterol 3 Ml Neb IH 01/17/25 14:14 9 ml ONCE ONE Administration Magnesium Sulfate 2 gm in 50 mls @ 50 mls/hr 01/17/25 14:13 01/17/25 15:51 Magnesium Sulfate 2gm/50ml Premix IV 01/17/25 15:12 Infused ONCE ONE Infusion Lactated Ringer's 1,000 mls @ 999 mls/hr 01/17/25 16:13 01/17/25 17:23 Lactated Ringer's 1000 Ml Bag IV 01/17/25 17:13 Infused .Q1H1M ONE Infusion Insulin Human Regular 5 unit 01/17/25 15:25 01/17/25 15:35 Insulin Human Regular 100 Units/Ml 10ml Vial IVP 01/17/25 15:26 5 unit ONCE ONE Administration Iopamidol 70 ml 01/17/25 15:32 01/17/25 15:33 Iopamidol-370 (76%);100ml Bottle IV 01/17/25 15:33 70 ml ONCE ONE Administration Methylprednisolone Sodium Succinate 125 mg 01/17/25 14:43 01/17/25 14:44 Methylprednisolone Sod Succ 125mg Vial IV 01/17/25 14:44 125 mg ONCE ONE Administration Sodium Chloride 50 ml 01/17/25 15:32 01/17/25 15:33 0.9 % Sodium Chloride 50 Ml Vial IV 01/17/25 15:33 50 ml ONCE ONE Administration ORDERS Category Date Time Status CTA Chest [CT angio chest PE protocol] Stat Cat Scan 01/17/25 14:13 Completed Acetone, Serum (Rapid) Stat Lab 01/17/25 14:26 Completed BNP [NT Pro Brain Natriuretic Pep.] Stat Lab 01/17/25 14:26 Completed BNP [NT Pro Brain Natriuretic Pep.] Stat Lab 01/17/25 14:26 Completed CBC [Complete Blood Count Auto Diff] Stat Lab 01/17/25 14:26 Completed Comprehensive Metabolic Panel Stat Lab 01/17/25 14:26 Completed Lipase Stat Lab 01/17/25 14:26 Completed Magnesium Stat Lab 01/17/25 14:26 Completed Rapid PCR Covid and Flu A/B Stat Lab 01/17/25 14:00 Completed Trop I [Troponin I] Stat Lab 01/17/25 14:26 Completed Troponin I Q3H Lab 01/17/25 17:03 Completed Troponin I Q3H Lab 01/17/25 20:15 Ordered Urinalysis and Microscopic Stat Lab 01/17/25 15:48 Completed Urine Culture Stat Micro 01/17/25 15:48 Received Venous Blood Gas Stat RT 01/17/25 14:29 Completed ECG Data Tracing #1: Independently interpreted by me rate is 94, rhythm is regular, axis is rightward deviated, no ST elevation in anatomical contiguous leads, QTc 404 Medical Decision Narrative: patient is a 64-year-old female presenting to the emergency department for evaluation of cough. Patient is hemodynamically stable and nontoxic-appearing upon arrival, afebrile. Differential diagnosis includes pneumonia, ACS, among others. Workup will be conducted with hematologic labs, specific imaging. Initial inventions include crystalloid bolus, analgesics, antibiotics. Initial workup reviewed by me [hematologic labs are remarkable for:]. [Imaging informally interpreted by me and remarkable for:] [Formal imaging read remarkable for:] Upon repeat evaluation [patient's pain is improved, appears better perfused, appears the same, appears worse, etc.]. Due to this [additional interventions, patient is appropriate for discharge, patient requires admission, etc.]. Lazaro Pinzon MD: I was consulted by the JAMI, and we discussed the complexity of the problems being addressed. I approved the treatment and management plan for this patient's care in the emergency department, thus performing a substantive portion of the medical decision making. Initial workup largely nonactionable with the exception of significant hyperglycemia without evidence of DKA without acidosis for which insulin was ordered. Remainder of workup and final disposition pending at time of transfer care to the oncoming physician, Dr. Browne. <Jennifer Browne, - Last Filed: 01/17/25 18:44> Medical Records Medical records reviewed: Yes I reviewed the patient's medical records. Vital Signs: 01/17/25 13:55 01/17/25 14:06 01/17/25 14:30 Temperature 98.4 F Temperature Source Oral Pulse Rate 99 H 90 Pulse Rate [Right] 101 H Respiratory Rate 18 23 Blood Pressure 179/80 H 174/88 H Blood Pressure [Right Arm] 146/83 H Blood Pressure Mean [Right Arm] 104 Blood Pressure Source Blood Pressure Source [Right Arm] Manual Cuff/ Palpation Blood Pressure Position 02 Sat by Pulse Oximetry 95 99 99 Oxygen Delivery Method Room Air Oxygen Flow Rate (LPM) 01/17/25 15:00 01/17/25 15:30 01/17/25 15:48 Temperature Temperature Source Pulse Rate 91 H 106 H 88 Pulse Rate [Right] Respiratory Rate 14 25 H Blood Pressure 183/87 H 157/69 H Blood Pressure [Right Arm] Blood Pressure Mean [Right Arm] Blood Pressure Source Blood Pressure Source [Right Arm] Blood Pressure Position 02 Sat by Pulse Oximetry 97 96 92 L Oxygen Delivery Method Nasal Cannula Nasal Cannula Oxygen Flow Rate (LPM) 3 01/17/25 16:00 01/17/25 16:30 01/17/25 17:00 Temperature Temperature Source Pulse Rate 109 H 104 H 96 H Pulse Rate [Right] Respiratory Rate 22 18 15 Blood Pressure 154/70 H 152/78 H 125/66 Blood Pressure [Right Arm] Blood Pressure Mean [Right Arm] Blood Pressure Source Blood Pressure Source [Right Arm] Blood Pressure Position 02 Sat by Pulse Oximetry 97 96 96 Oxygen Delivery Method Nasal Cannula Nasal Cannula Oxygen Flow Rate (LPM) 01/17/25 17:30 01/17/25 18:00 01/17/25 18:30 Temperature Temperature Source Pulse Rate 106 H 108 H 102 H Pulse Rate [Right] Respiratory Rate 20 20 Blood Pressure 164/77 H 142/59 H 132/64 Blood Pressure [Right Arm] Blood Pressure Mean [Right Arm] Blood Pressure Source Blood Pressure Source [Right Arm] Blood Pressure Position 02 Sat by Pulse Oximetry 95 98 95 Oxygen Delivery Method Room Air Oxygen Flow Rate (LPM) 01/17/25 18:36 Temperature 98.6 F Temperature Source Oral Pulse Rate 105 H Pulse Rate [Right] Respiratory Rate 16 Blood Pressure 132/64 Blood Pressure [Right Arm] Blood Pressure Mean [Right Arm] Blood Pressure Source Automatic Cuff Blood Pressure Source [Right Arm] Blood Pressure Position Supine 02 Sat by Pulse Oximetry Oxygen Delivery Method Nasal Cannula Oxygen Flow Rate (LPM) 3 Lab Data Lab Results 01/17/25 14:00: SARS-CoV-2 (PCR) Not detected, Influenza A Untype (PCR) Not detected, Influenza Type B (PCR) Not detected 01/17/25 14:26: WBC 5.9, RBC 4.87, Hgb 14.1, Hct 43.4, MCV 89.1, MCH 29.0, MCHC 32.5, RDW 14.1, Plt Count 229, MPV 11.0 H, Neut % (Auto) 57.4, Lymph % (Auto) 31.0, [place] % (Auto) 8.7, Eos % (Auto) 2.0, Baso % (Auto) 0.7, Neut # (Auto) 3.4, Lymph # (Auto) 1.8, [place] # (Auto) 0.5, Eos # (Auto) 0.1, Baso # (Auto) 0.0, S odium 134 L, Potassium 4.0, Chloride 98, Carbon Dioxide 28, Anion Gap 12.0, BUN 18 H, Creatinine 0.60, Estimated Creat Clear 66, Estimated GFR 100, Est GFR ( Amer) 121, Glucose 466 H*, Calcium 9.0, Magnesium 1.7, Total Bilirubin 0.3, AST 37 H, ALT 21, Alkaline Phosphatase 129 H, Troponin I < 0.01, NT-Pro-B Natriuret Pep 90.1 01/17/25 14:26: NT-Pro-B Natriuret Pep 85.4, Total Protein 7.2, Albumin 3.9, G lobulin 3.3 H, Albumin/Globulin Ratio 1.2, Lipase 117, Acetone Level None detected 01/17/25 14:29: VBG pH 7.38, VBG pCO2 44.8, VBG pO2 45.2 H, VBG HCO3 26.0, VBG Total CO2 27.3 H, VBG O2 Saturation 83.6 H, VBG Base Excess 0.9, VBG Lactic Acid 2.0 01/17/25 15:48: Urine Color Yellow, Urine Appearance Clear, Urine pH 5.5, Ur Specific [place] 1.015, Urine Protein 2+ A, Urine Glucose (UA) 3+, Urine Ketones Negative, Urine Blood Trace-i, Urine Nitrate Positive A, Urine Bilirubin Negative, Urine Urobilinogen 0.2, Ur Leukocyte Esterase Negative, Urine RBC 3-5, Urine WBC 20-50, Ur Squamous Epith Cells 10-20, Urine Bacteria 3+ 01/17/25 17:03: Troponin I < 0.01 Orders (Tests/Meds): ED MEDICATIONS Generic Name Dose Route Start Last Admin Trade Name Julia PRN Reason Stop Dose Admin Ceftriaxone Sodium 2 gm/ 100 mls @ 200 mls/hr 01/17/25 17:15 01/17/25 17:47 Sodium Chloride IV 01/27/25 17:14 Infused Q24H ALTA Infusion Azithromycin 500 mg/ Sodium 250 mls @ 250 mls/hr 01/17/25 17:15 01/17/25 18:28 Chloride IV 01/27/25 17:14 Infused Q24H ALTA Infusion Sodium Chloride 10 ml 01/17/25 15:32 01/17/25 15:33 Sodium Chloride 0.9% 10ml Syr (Rad Only) IV 02/16/25 15:31 10 ml NEEDED PRN Administration Maintain IV Site Discontinued Medications Generic Name Dose Route Start Last Admin Trade Name Julia PRN Reason Stop Dose Admin Albuterol/Ipratropium 9 ml 01/17/25 14:13 01/17/25 14:42 Ipratropium/Albuterol 3 Ml Neb IH 01/17/25 14:14 9 ml ONCE ONE Administration Magnesium Sulfate 2 gm in 50 mls @ 50 mls/hr 01/17/25 14:13 01/17/25 15:51 Magnesium Sulfate 2gm/50ml Premix IV 01/17/25 15:12 Infused ONCE ONE Infusion Lactated Ringer's 1,000 mls @ 999 mls/hr 01/17/25 16:13 01/17/25 17:23 Lactated Ringer's 1000 Ml Bag IV 01/17/25 17:13 Infused .Q1H1M ONE Infusion Insulin Human Regular 5 unit 01/17/25 15:25 01/17/25 15:35 Insulin Human Regular 100 Units/Ml 10ml Vial IVP 01/17/25 15:26 5 unit ONCE ONE Administration Iopamidol 70 ml 01/17/25 15:32 01/17/25 15:33 Iopamidol-370 (76%);100ml Bottle IV 01/17/25 15:33 70 ml ONCE ONE Administration Methylprednisolone Sodium Succinate 125 mg 01/17/25 14:43 01/17/25 14:44 Methylprednisolone Sod Succ 125mg Vial IV 01/17/25 14:44 125 mg ONCE ONE Administration Sodium Chloride 50 ml 01/17/25 15:32 01/17/25 15:33 0.9 % Sodium Chloride 50 Ml Vial IV 01/17/25 15:33 50 ml ONCE ONE Administration ORDERS Category Date Time Status CTA Chest [CT angio chest PE protocol] Stat Cat Scan 01/17/25 14:13 Completed Acetone, Serum (Rapid) Stat Lab 01/17/25 14:26 Completed BNP [NT Pro Brain Natriuretic Pep.] Stat Lab 01/17/25 14:26 Completed BNP [NT Pro Brain Natriuretic Pep.] Stat Lab 01/17/25 14:26 Completed CBC [Complete Blood Count Auto Diff] Stat Lab 01/17/25 14:26 Completed Comprehensive Metabolic Panel Stat Lab 01/17/25 14:26 Completed Lipase Stat Lab 01/17/25 14:26 Completed Magnesium Stat Lab 01/17/25 14:26 Completed Rapid PCR Covid and Flu A/B Stat Lab 01/17/25 14:00 Completed Trop I [Troponin I] Stat Lab 01/17/25 14:26 Completed Troponin I Q3H Lab 01/17/25 17:03 Completed Troponin I Q3H Lab 01/17/25 20:15 Ordered Urinalysis and Microscopic Stat Lab 01/17/25 15:48 Completed Urine Culture Stat Micro 01/17/25 15:48 Received Venous Blood Gas Stat RT 01/17/25 14:29 Completed HEART Score HEART Score: 2 Medical Decision Narrative: Patient is a 64-year-old female presenting to the emergency department for evaluation of cough. Patient is hemodynamically stable and nontoxic-appearing upon arrival, afebrile. Differential diagnosis includes pneumonia, ACS, DKA, HHS, dehydration, UTI, viral syndrome, among others. Workup will be conducted with hematologic labs, specific imaging. Initial inventions include crystalloid bolus, analgesics, antibiotics. Initial workup reviewed by mo hematologic labs are remarkable for normal white count of 5.9, pH on the VBG was 7.38, BUN was 18 creatinine was 0.60 and initial glucose was 466 her glucose now was 368, troponins were less than 0.01 she does have a nitrate positive UTI acetone was negative.. CT showed bronchopneumonia which we treated with azithromycin and rocephin here in the ED and sending patient home on cefdinir and azithromycin for both UTI and pneumonia. Patient safe for discharge home, not requiring more oxyfen then her usual. Discussed patient with Dr. Browne. Return precuations were discussed. Lazaro Pinzon MD: I was consulted by the JAMI, and we discussed the complexity of the problems being addressed. I approved the treatment and management plan for this patient's care in the emergency department, thus performing a substantive portion of the medical decision making. Initial workup largely nonactionable with the exception of significant hyperglycemia without evidence of DKA without acidosis for which insulin was ordered. Remainder of workup and final disposition pending at time of transfer care to the oncoming physician, Dr. Browne. Critical Care <Lazaro Pinzon MD - Last Filed: 01/17/25 15:36> Critical Care Time Critical Care Time: No
--- NOTE | 2025-01-17 14:27 | PC.NURSE ---
Glucose 422. Nurse and MD notified.
[2025-01-17 14:35] LABS: Lactate Venous 2.0 mmol/L (0.4-2.0); VBG HCO3 26.0 mmol/L (23-30); VBG PCO2 44.8 mmol/L (35-51); VBG PH 7.38 mmol/L (7.31-7.41); VBG PO2 45.2 mmol/L (28-40)
[2025-01-17 14:37] LABS: Hematocrit 43.4 % (37.0-47.0); Hemoglobin 14.1 g/dL (12.2-16.2); Immature Granulocytes % 0.2 %; Mean Corpuscular HGB Conc 32.5 g/dL (31.8-35.4); Mean Corpuscular Hemoglobin 29.0 pg (27.0-31.2); Mean Corpuscular Volume 89.1 fl (81-99); Nucleated Red Blood Cells % 0 %; Platelet Count 229 K/mm3 (142-424); Red Blood Count 4.87 M/mm3 (4.20-5.40); Red Cell Distribution Width-SD 45.1 fL; White Blood Count 5.9 K/mm3 (4.8-10.8)
[2025-01-17] MEDS: IPRATROPIUM/ALBUTEROL 3 ML NEB 9 ML IH (14:42)
[2025-01-17] MEDS: MAGNESIUM SULFATE IN WATER 2 GM/50 ML PIGGYBACK IV (14:42)
[2025-01-17] MEDS: METHYLPREDNISOLONE SOD SUCC 125MG VIAL 125 MG IV (14:44)
--- OUTSIDE RECORDS SUMMARY | 2025-01-17 15:03 | XMS_ITS | CCD ---
Author Organization Unknown Care Team Providers Care Hand Clipper Name Role Phone Unavailable Primary Care Provider Unavailabl e Unavailable Chronic Care Management Unavaila ble Summary Purpose Data[employer] Insurance Providers Payer name Policy type / Coverage type Covered libertarian ID Effective Begin Date Effective End Date [facility] [id number] Unknown Unknown Family History Family History data not found Medication Administered No Medication Administered data Reason For Visit No Reason For Visit data Medical Equipment No Medical Equipment data Advance Directives No Advance Directive data
[2025-01-17 15:05] LABS: Albumin Level 3.9 g/dl (3.5-5.0); Chloride 98 mmol/L (98-107); Potassium 4.0 mmoL/L (3.5-5.1); Sodium 134 mmol/L (136-145)
[2025-01-17 15:07] LABS: Acetone, Serum (Rapid) None Detected (None Detect)
[2025-01-17 15:08] LABS: Alanine Aminotransferase 21 U/L (12-78); Albumin/Globulin Ratio 1.2 (1.1-1.8); Alkaline Phosphatase 129 U/L (38-126); Anion Gap 12.0 mEq/L (5-15); Aspartate Amino Transferase 37 U/L (14-36); Bilirubin,Total 0.3 mg/dl (0.2-1.3); Blood Urea Nitrogen 18 mg/dl (7-17); Calcium 9.0 mg/dl (8.4-10.2); Carbon Dioxide 28 mmol/L (22.0-30.0); Creatinine Clearance Estimated 66 mL/min (50-200); Creatinine,Serum 0.60 mg/dl (0.52-1.04); Estimated Glomerular Filt Rate 100 ml/min (>60); GFR (African American) 121 ML/MIN (>60); Globulin 3.3 g/dL (1.3-3.2); Lipase 117 U/L (23-300); Total Protein,Serum 7.2 g/dl (6.3-8.2)
[2025-01-17 15:09] LABS: Magnesium 1.7 mg/dl (1.6-2.3)
[2025-01-17 15:13] LABS: Glucose 466 mg/dl (74-100)
[2025-01-17 15:17] LABS: NT Pro Brain Natriuretic Pep. 90.1 pg/mL (0-125)
[2025-01-17 15:18] LABS: NT Pro Brain Natriuretic Pep. 85.4 pg/mL (0-125)
[2025-01-17 15:22] LABS: Troponin I < 0.01 ng/ml (0.00-0.034)
[2025-01-17] MEDS: IOPAMIDOL-370 (76%);100ML BOTTLE 70 ML IV (15:33)
[2025-01-17] MEDS: 0.9 % SODIUM CHLORIDE 50 ML VIAL IV (15:33)
[2025-01-17] MEDS: SODIUM CHLORIDE 0.9% 10ML SYR (RAD ONLY) 10 ML IV (15:33)
[2025-01-17] MEDS: INSULIN HUMAN REGULAR 100 UNITS/ML 10ML VIAL 5 UNIT IVP (15:35)
[2025-01-17 15:52] LABS: Microscopic, Urine URINE MICROSCOPIC (MICROSCOPIC)
[2025-01-17 15:58] LABS: Bilirubin,Urine Negative (Negative); Color,Urine YELLOW (Yellow); Glucose,Urine (UA) 3+ (Negative); Ketones,Urine Negative (Negative); Leukocyte Esterase,Urine Negative (Negative); PH,Urine 5.5 (5.0-8.5); Protein,Urine 2+ (Negative); Specific Gravity, Urine 1.015 (1.005-1.030); Urobilinogen,Urine 0.2 EU/dl (0.2)
--- NOTE | 2025-01-17 16:16 | PC.NURSE ---
recheck bg [phone]
[2025-01-17] MEDS: LACTATED RINGERS 1000ML 1,000 ML 999 ML IV (16:20)
[2025-01-17 16:32] LABS: Bacteria,Urine 3+ /lpf; WBC,Urine 20-50 #/hpf (0-3)
--- NOTE | 2025-01-17 17:07 | PC.NURSE ---
provider states cultures not needed
[2025-01-17] MEDS: AZITHROMYCIN 500 MG in 0.9 % SODIUM CHLORIDE 250 ML 250 MG IV (17:23)
[2025-01-17 17:40] LABS: Troponin I < 0.01 ng/ml (0.00-0.034)
--- NOTE | 2025-01-17 18:10 | PC.NURSE ---
FSBS [phone]
--- NOTE | 2025-01-20 11:14 | PC.NURSE ---
Final urine culture discussed with . No change needed to the pts treatment.
== END 2025-01-17 18:44 | disposition home or self-care (01) ==
PROVIDERS: Nurse Practitioner; Emergency Provider Emergency Medicine; PCP Family Medicine
DX: J18.9 Pneumonia, unspecified organism (principal); N39.0 Urinary tract infection, site not specified; F17.210 Nicotine dependence, cigarettes, uncomplicated
CPT/HCPCS: 71275; 80053; 81001; 82009; 82803; 83690; 83735; 83880; 84484; 85025; 87086; 87088; 87186; 87636; 93005; 96365; 96367; 96375; 99285; J0456; J0696; J2919; J3475; J7050; J7120; Q9967

== ENCOUNTER 2025-03-03 13:30 | Inpatient (IN) | payer MEDICARE, SELFPAY ==
[2025-03-03] VITALS (23 sets, daily range): BP systolic 83–157; BP diastolic 53–92; PULSE 84–106; RESP 14–22; TEMP 36.4–36.8; O2SAT 88–99; BMI 31.1
--- NOTE | 2025-03-03 13:36 | ECG_ITS ---
APPROVED REPORT Exam: Resting ECG HR:96 bpm ECG Measurements Heart Rate 96 AXES IN 136 P 68 QRSd 90 QRS 103 QT 348 T 71 QTc 402 Conclusion SINUS RHYTHM RIGHT AXIS DEVIATION [QRS AXIS > 100] ABNORMAL ECG Electronically signed by : PHILLIP ESCALANTE, 03/04/2025 17:17:53
--- NOTE | 2025-03-03 13:39 | ED_ITS ---
Discharge Plan Disposition Patient Disposition: Admitted Condition: Fair Clinical Impressions Clinical Impression: Non-ST elevation (NSTEMI) myocardial infarction Discharge ED Provider: Stevie Joy JR [facility] General Chief Complaint: Chest Pain Stated Complaint: Chest Pain Time Seen by Provider: 03/03/25 13:33 Mode of Arrival: Wheelchair Source of Information: Patient Description of Symptoms (Recalled from ER Triage Doc. by RN): Pt presents with chest pain since yesterday. Pt states she was just sitting there when she felt this intense pressure. Pt denies any radiating pain History of Present Illness HPI narrative: 64-year-old female presents the emergency department with substernal chest pain nonradiating that occurred yesterday, patient denies any trauma or injury per history, patient states the pain is not worsened or improved with exertion, patient denies any alleviating factors, patient describes her pain as an 8 out of 10 with initial presentation, currently an 8 out of 10, she endorses dyspnea, productive cough, as well as chills, denies any fever, denies any nausea vomiting abdominal pain no constipation or diarrhea no urinary symptomatology, patient is a current everyday smoker, denies any alcohol or drug use, patient has other past medical history consistent with CAD status post 2-3 stent placements this is data deficient, T2DM, CKD, hyperlipidemia, hypertension, COPD, pulmonary nodules, GERD, hypothyroidism. Initial triage vitals are notable for tachycardia otherwise unremarkable Please note that above description of symptoms, in this electronic medical record under categorization of recalled from ER triage doctor by RN are reflective of an initial nursing assessment, however, is not reflective of my full history and physical exam that was personally taken and clarified. Consequentially, this preceding description of symptoms, which may include the patient's categorized chief complaint in the EMR, do not reflect my personal clinical impression, and the ultimate description of history of present illness and patient stated complaints should be deferred to this section of the note. Unless stated otherwise or congruent with this section of the note, additional signs, symptoms, or incongruence should be interpreted as inaccurate with my clinical impression. MD complaint: chest pain Onset (ago): day(s) Related Data Home Medications ?Medication ?Instructions ?Recorded ?Confirmed acetaminophen 650 mg 650 mg PO Q12H 09/19/24 09/0 05/28 tablet,extended release (Tylenol Arthritis Pain) blood-glucose meter (Accu-Chek #1 ea 10/11/24 11/27/24 Guide Me Glucose Meter) pen needle, diabetic 31 gauge x #1,200 ea 10/11/2408/16 insulin glargine 100 unit/mL (3 unit SQ 11/27/2412/03 mL) subcutaneous pen (Lantus Solostar U-100 Insulin) Previous Rx's ?Medication ?Instructions ?Recorded sertraline 100 mg tablet 150 mg (1.5 x 100 mg) PO CAROLANN LY #45 08/24/23 tabs metoprolol succinate 200 mg 200 mg PO DAILY #30 tabs 0 12/05/23 tablet,extended release 24 hr aspirin 81 mg tablet,delayed 81 mg PO DAILY history of cardiac 05/29/24 release stents #90 tabs blood sugar diagnostic (Blood #50 ea 05/30/24 Glucose Test strips) blood-glucose meter (Blood Glucose #1 ea 05/30/24 Monitoring kit) lancets (Accu-Chek Softclix #100 ea 05/30/24 Lancets) losartan 50 mg-hydrochlorothiazide 1 tab PO DAILY #90 tabs 08/01/24 12.5 mg tablet atorvastatin 40 mg tablet See Rx Instructions .Route 0 08/23/24 .COMPLEX #90 tabs levothyroxine 25 mcg tablet See Rx Instructions .Route 08/23/24 .COMPLEX #90 tabs empagliflozin 25 mg tablet See Rx Instructions .Route 09/13/24 (Jardiance) .COMPLEX #90 tabs oxybutynin chloride 15 mg See Rx Instructions .Route 0 09/13/24 tablet,extended release 24 hr .COMPLEX #30 tabs albuterol sulfate 0.63 mg/3 mL 0.63 mg (3 mL) inhalati on Q4-6H 09/17/24 solution for nebulization PRN shortness of breath or wheezing #90 mL fluticasone furoate 100 1 inh inhalation DAILY #90 e a 11/05/24 mcg-vilanterol 25 mcg/dose inhalation powder (Breo Ellipta) pen needle, diabetic 32 gauge x #100 ea 11/06/2408/16 (Comfort EZ Pen [place]) blood-glucose,cover cutter,cont #1 ea 11/07/24 (Dexcom G7 [place]keep) blood-glucose sensor (Dexcom G7 #9 ea 11/11/24 Sensor device) insulin glargine 100 unit/mL 15 unit (0.15 mL) SQ HS # 10 mL 11/11/24 subcutaneous solution (Lantus U-100 Insulin) repaglinide 1 mg tablet 1 mg PO BID #60 tabs 5 doxycycline hyclate 100 mg tablet 100 mg PO BID 14 day s #28 tabs 11/27/24 triamcinolone acetonide 0.1 % 1 applic topical BID #30 grams 11/27/24 topical ointment cetirizine 10 mg tablet See Rx Instructions .Route 1 .COMPLEX #30 tabs azithromycin 500 mg tablet 500 mg PO DAILY 5 days #5 t abs 01/17/25 cefdinir 300 mg capsule 300 mg PO BID 10 days #20 ca ps 01/17/25 semaglutide 0.25 mg or 0.5 mg (2 See Rx Instructions . Route 02/11/25 mg/3 mL) subcutaneous pen injector .COMPLEX #3 mL (Ozempic) Allergies Allergy/AdvReac Type Severity Reaction Status Date / Time insulin lispro Allergy Intermediate Vomiting Verified 12/03/24 14:32 venom-honey bee (BEE VENOM Allergy Unknown Unknown Verified 12/03/24 14:32 (HONEY BEE)) allergy reaction chocolate flavor AdvReac Hyper Verified 12/03/24 14:32 [facility] Disclaimer: The information contained in this section may have been updated after the patient was seen, as this information can be updated by other users. Medical History (Updated 03/03/25 @ 15:56 by Miley Turk APRN) Trouble swallowing Pre-op exam Cough Right-sided chest wall pain Infection of lower respiratory tract Dehydration Candidiasis Sore throat Influenza A with pneumonia UTI (urinary tract infection) Abnormal nuclear cardiac imaging test Acute pain of left knee Fall Contusion of knee Oxygen dependent Encounter for screening for malignant neoplasm of lung Nodule of right lung History of smoking 30 or more pack years Dyspnea on exertion SOB (shortness of breath) on exertion Palpitations Typical angina Edema of both lower extremities Diastolic dysfunction Foot pain, bilateral DKA (diabetic ketoacidosis) CAD (coronary artery disease) COPD (chronic obstructive pulmonary disease) Sinus tachycardia Gastroesophageal reflux disease Urinary incontinence Chest pain Dyspnea Dyspnea and respiratory abnormalities Coronary artery disease Ex-smoker for more than 1 year Emphysema of lung Diabetes mellitus type 2 in obese Hyperlipidemia Hypertensive disorder Surgical History History of partial hysterectomy History of intravascular stent placement H/O eye surgery Family History Other Family history of diabetes mellitus Family history of heart disease No significant family history Social History Smoking Status: Current every day smoker tobacco type: cigarettes packs per day: 1 years smoked: 20 smoking status stop date: 2006 how long ago did patient quit smoking: stopped for 7 years and when in Mar 2024 started smoking again alcohol intake: former substance use type: denies use current occupational status: unemployed Travel in the last 8 weeks?: None housing: house lives independently: Yes marital status: number of children: 1 current occupational exposures/hazards: No other: passed Mar 2024 caffeine: Yes Have you lived/traveled outside [place] in past 30 days?: No Contact w/someone who lives/traveled outside US past 30 days?: No Exposure to someone with infectious disease in past 14 days?: No Do you have a fever (greater than 100.4 F or 38 C)?: No Have you tested positive for COVID-19?: No Exposed to someone with COVID-19 in past 14 days?: No Do you have a sore throat?: No Do you have a cough?: No Do you have any weakness?: No Do you have any diarrhea?: No Are you experiencing any unusual bleeding?: No Do you have any muscle aches/pain?: No Do you have any abdominal pain?: No Are you experiencing loss of taste or smell?: No Other Medical History Have you received the Flu Vaccine for this season: No Have you received the Pneumonia Vaccine: Yes ROS Obtained: Yes All systems reviewed & no additional complaints except as documented Physical Exam General General appearance: alert and in no apparent distress Head Head exam: atraumatic and normocephalic Eye Eye exam: Present normal appearance, PERRL and EOMI Neck Neck exam: Present full ROM; Absent meningismus Chest Chest inspection: Present normal inspection Respiratory Respiratory exam: Absent respiratory distress, wheezes, stridor, accessory muscle use or prolonged expiratory phase Cardiovascular Cardiovascular exam: Present normal rhythm, tachycardia and other (Pulses equal and symmetric in bilateral upper and lower extremities) Abdominal Exam Abdominal exam: Absent distention, tenderness, guarding, rebound or rigidity Extremities Exam Extremities exam: Absent edema Neurological Exam Neurological exam: Present alert Psychiatric Psychiatric exam: Present normal affect Skin Skin exam: Present warm and dry HEART Score HEART Score HEART Score assessment performed?: Yes HEART Score: 5 Critical Care Critical Care Time Critical Care Time: No Medical Decision Making Medical Records Medical records reviewed: Yes I reviewed the patient's medical records. Dewayne Inquiry Pt receiving controlled substance: Yes Dewayne was queried for this patient: No Reason not queried -: Emergent pt cond-no time Risks and benefits of using a controlled substance: were discussed with pt by me Vital Signs Vital Signs: 03/03/25 13:34 03/03/25 14:01 03/03/25 14:38 Temperature 97.5 F L Temperature Source Oral Pulse Rate 97 H 99 H Pulse Rate [Right] 106 H Respiratory Rate 22 Blood Pressure 113/65 Blood Pressure [Right Arm] 157/80 H Blood Pressure Mean 82 Blood Pressure Mean [Right Arm] 105 Blood Pressure Source Blood Pressure Source [Right Arm] Automatic Cuff Blood Pressure Position Blood Pressure Position [Right Arm] Sitting 02 Sat by Pulse Oximetry 95 93 L 88 L Oxygen Delivery Method Room Air Room Air Oxygen Flow Rate (LPM) 03/03/25 14:41 03/03/25 15:00 03/03/25 15:39 Temperature Temperature Source Pulse Rate 99 H 90 84 Pulse Rate [Right] Respiratory Rate 18 Blood Pressure 112/68 130/77 153/91 H Blood Pressure [Right Arm] Blood Pressure Mean 111 Blood Pressure Mean [Right Arm] Blood Pressure Source Blood Pressure Source [Right Arm] Blood Pressure Position Blood Pressure Position [Right Arm] 02 Sat by Pulse Oximetry 95 99 98 Oxygen Delivery Method Nasal Cannula Nasal Cannula Nasal Cannula Oxygen Flow Rate (LPM) 3 3 3 03/03/25 15:50 Temperature 98.2 F Temperature Source Oral Pulse Rate 97 H Pulse Rate [Right] Respiratory Rate 18 Blood Pressure 118/75 Blood Pressure [Right Arm] Blood Pressure Mean Blood Pressure Mean [Right Arm] Blood Pressure Source Automatic Cuff Blood Pressure Source [Right Arm] Blood Pressure Position Sitting Blood Pressure Position [Right Arm] 02 Sat by Pulse Oximetry Oxygen Delivery Method Nasal Cannula Oxygen Flow Rate (LPM) 3 Lab Data Lab results reviewed: Yes I reviewed the patient's lab results. Labs: Lab Results 03/03/25 13:39: WBC 9.4, RBC 5.25, Hgb 15.2, Hct 47.0, MCV 89.5, MCH 29.0, MCHC 32.3, RDW 13.2, Plt Count 249, MPV 11.6 H, Neut % (Auto) 75.1, Lymph % (Auto) 16.0, [place] % (Auto) 7.6, Eos % (Auto) 0.7, Baso % (Auto) 0.3, Neut # (Auto) 7.1, Lymph # (Auto) 1.5, [place] # (Auto) 0.7, Eos # (Auto) 0.1, Baso # (Auto) 0.0, PT 9.8 L, INR 0.87 L, D-Dimer 0.68 H, Sodium 130 L, Potassium 4.1, Chloride 97 L, Carbon Dioxide 25, Anion Gap 12.1, BUN 19 H, Creatinine 0.70, Estimated Creat Clear 66, Estimated GFR 84, Est GFR ( Amer) 102, Glucose 577 H*, H emoglobin A1c 13.1 H D, Calcium 9.5, Magnesium 1.8, Total Bilirubin 0.7, AST 34, ALT 25, Alkaline Phosphatase 178 H, Troponin I 0.43 H, NT-Pro-B Natriuret Pep 330 H, Total Protein 8.1, Albumin 4.4, Globulin 3.7 H, Albumin/Globulin Ratio 1.2 03/03/25 14:24: SARS-CoV-2 (PCR) Not detected, Influenza A Untype (PCR) Not detected, Influenza Type B (PCR) Not detected 03/03/25 15:05: VBG pH 7.44 H, VBG pCO2 35.8, VBG pO2 45.2 H, VBG HCO3 23.6, VBG Total CO2 24.7, VBG O2 Saturation 83.7 H, VBG Base Excess -0.7, VBG Lactic Acid 1.7 03/03/25 13:39 03/03/25 13:39 Response Orders (Tests/Meds): ED MEDICATIONS Generic Name Dose Route Start Last Admin Trade Name Freq PRN Reason Stop Dose Admin Acetaminophen 650 mg 03/03/25 15:07 Acetaminophen 325mg Tab PO 04/02/25 15:06 Q4HP PRN Fever or Mild Pain (1-3) Hydrocodone Bitart/Acetaminophen 1 tab 03/03/25 15:07 Hydrocodone/Apap 5/325 Mg Tablet PO 04/02/25 15:06 Q4HP PRN Mild to Moderate Pain (1-6) Albuterol/Ipratropium 3 ml 03/03/25 16:03 Ipratropium/Albuterol 3 Ml Neb IH 04/02/25 16:02 Q6HP PRN Shortness Of Breath Diazepam 5 mg 03/03/25 15:10 Diazepam 5mg Tablet PO 03/04/25 03:10 ONCE PRN Anxiety Enoxaparin Sodium 40 mg 03/04/25 09:00 Enoxaparin 40mg/0.4ml Syringe SUBCUT 04/03/25 08:59 DAILY ALTA Fentanyl Citrate 50 mcg 03/03/25 15:10 Fentanyl 100mcg/2ml Vial IV 03/04/25 03:10 Q3MINP PRN Sedation Fentanyl Citrate 25 mcg 03/03/25 15:10 Fentanyl 100mcg/2ml Vial IV 03/04/25 03:10 Q3MINP PRN Sedation Flumazenil 0.2 mg 03/03/25 15:10 Flumazenil 0.1mg/Ml 5ml Vial IV 03/04/25 03:10 NEEDED PRN Sedation Heparin Sodium (Porcine) 5,000 unit 03/03/25 15:10 Heparin 1,000 Units/Ml 10ml Vial ([employer]) IV 03/03/25 19:10 NEEDED PRN Emergency Box [employer] Tucker Hydralazine HCl 20 mg 03/03/25 15:10 Hydralazine 20mg/Ml Vial IV 03/03/25 19:10 ONCE PRN sbp>160 Adenosine 180 mg/ Sodium 90 mls @ 404.152 mls/hr 03/03/25 15:10 Chloride IV 03/03/25 19:10 ONCE PRN fractional flow reserve 180 MCG/KG/MIN Adenosine 90 mg/ Sodium 90 mls @ 808.304 mls/hr 03/03/25 15:10 Chloride IV 03/03/25 19:10 ONCE PRN fractional flow reserve 180 MCG/KG/MIN Sodium Chloride 500 mls @ 25 mls/hr 03/03/25 15:15 Sod Chloride 0.9% 500ml Bag IV 03/04/25 15:10 .Q20H ALTA Ceftriaxone Sodium 2 gm/ 100 mls @ 200 mls/hr 03/03/25 16:00 Sodium Chloride IV 03/13/25 15:59 1300 [facility] Insulin Human Lispro 0 unit 03/03/25 16:30 Humalog 100 Units/Ml 10ml Vial (Ssi) SUBCUT 04/02/25 16:29 ACHS [facility] Protocol Labetalol HCl 20 mg 03/03/25 15:10 Labetalol 20mg/4ml Syringe IV 03/03/25 19:10 ONCE PRN sbp>160 Lorazepam 1 mg 03/03/25 15:10 Lorazepam 2mg/Ml Vial IV 03/04/25 03:10 ONCE PRN Anxiety Midazolam HCl 1 mg 03/03/25 15:10 Midazolam 2mg/2ml Vial IV 03/04/25 03:10 Q3MINP PRN Sedation Midazolam HCl 1 mg 03/03/25 15:10 Midazolam Hcl 1mg/Ml 5ml Vial IV 03/04/25 03:10 Q3MINP PRN Sedation Naloxone HCl 0.4 mg 03/03/25 15:10 Naloxone 0.4mg/Ml Vial IV 03/04/25 03:10 Q5MINP PRN Decreased Respirations Nicotine 21 mg 03/03/25 16:03 Nicotine 21mg/24hr Patch TD 04/02/25 16:02 DAILYP PRN Nicotine Cravings Nitroglycerin 800 mcg 03/03/25 15:10 Nitroglycerin 800mcg/8ml Syr ([employer]) IA 03/03/25 19:10 NEEDED PRN Emergency [employer] [place] Ondansetron HCl 4 mg 03/03/25 15:10 Ondansetron 4mg/2ml Vial IV 03/04/25 03:10 NEEDED PRN Nausea Ondansetron HCl 4 mg 03/03/25 15:07 Ondansetron 4mg/2ml Vial IV 04/02/25 15:06 Q8HP PRN Nausea Promethazine HCl 25 mg 03/03/25 15:10 Promethazine Hcl 25mg/Ml 1ml Vial IV 03/04/25 03:10 NEEDED PRN Nausea And Vomiting Protamine Sulfate 50 mg 03/03/25 15:10 Protamine Sulfate 50mg/5ml Vial ([employer]) IV 03/03/25 19:10 ONCE PRN act>200 Sodium Chloride 10 ml 03/03/25 14:35 03/03/25 14:37 Sodium Chloride 0.9% 10ml Syr (Rad Only) IV 04/02/25 14:34 10 ml NEEDED PRN Administration Maintain IV Site Sodium Chloride 10 ml 03/03/25 15:10 Sodium Chloride 0.9% 10ml Vial IV 04/02/25 15:09 NEEDED PRN to Dilute Lorazepam inj Discontinued Medications Generic Name Dose Route Start Last Admin Trade Name Freq PRN Reason Stop Dose Admin Aspirin 162 mg 03/03/25 15:08 03/03/25 15:32 Aspirin 81mg Chewable Tablet PO 03/03/25 15:09 162 mg ONCE ONE Administration Diphenhydramine HCl 50 mg 03/03/25 15:10 Diphenhydramine 50mg/Ml Vial IV 03/03/25 15:11 ONCE ONE Fentanyl Citrate 50 mcg 03/03/25 15:16 Fentanyl 100mcg/2ml Vial IV 03/04/25 03:17 Q3MINP PRN Sedation Fentanyl Citrate 25 mcg 03/03/25 15:16 Fentanyl 100mcg/2ml Vial IV 03/04/25 03:17 Q3MINP PRN Sedation Flumazenil 0.2 mg 03/03/25 15:16 Flumazenil 0.1mg/Ml 5ml Vial IV 03/04/25 03:17 NEEDED PRN Sedation Heparin Sodium/Sodium Chloride 3,000 unit 03/03/25 15:10 Heparin 1,000 Units/500ml Ns ([employer]) IV 03/03/25 15:11 ONCE ONE Insulin Human Lispro 10 unit 03/03/25 15:07 03/03/25 15:32 Humalog 100 Units/Ml 10ml Vial (Ssi) IVP 03/03/25 15:08 10 unit ONCE ONE Administration Iopamidol 70 ml 03/03/25 14:35 03/03/25 14:37 Iopamidol-370 (76%);100ml Bottle IV 03/03/25 14:36 70 ml ONCE ONE Administration Lidocaine HCl 10 ml 03/03/25 15:10 Lidocaine 1% 10ml Mdv IJ 03/03/25 15:11 ONCE ONE Lidocaine HCl 10 ml 03/03/25 15:10 Lidocaine 1% 5ml Pf Vial IJ 03/03/25 15:11 ONCE ONE Midazolam HCl 1 mg 03/03/25 15:16 Midazolam 2mg/2ml Vial IV 03/04/25 03:17 Q3MINP PRN Sedation Midazolam HCl 1 mg 03/03/25 15:16 Midazolam Hcl 1mg/Ml 5ml Vial IV 03/04/25 03:17 Q3MINP PRN Sedation Morphine Sulfate 4 mg 03/03/25 13:53 03/03/25 14:25 Morphine 4mg/Ml Syringe IV 03/03/25 13:54 4 mg ONCE ONE Administration Morphine Sulfate 4 mg 03/03/25 15:10 Morphine 4mg/Ml Syringe IV 03/03/25 15:11 ONCE ONE Naloxone HCl 0.4 mg 03/03/25 15:16 Naloxone 0.4mg/Ml Vial IV 03/04/25 03:17 Q5MINP PRN Decreased Respirations Nitroglycerin 0.4 mg 03/03/25 13:54 03/03/25 14:25 Nitroglycerin 0.4mg Sl Tablet SL 03/03/25 13:55 0.4 mg ONCE ONE Administration Nitroglycerin 1 gm 03/03/25 14:56 03/03/25 14:58 Nitroglycerin 1 Gm Ointment TD 03/03/25 14:57 1 gm ONCE ONE Administration Ondansetron HCl 4 mg 03/03/25 13:54 03/03/25 14:25 Ondansetron 4mg/2ml Vial IV 03/03/25 13:55 4 mg ONCE ONE Administration Ondansetron HCl 4 mg 03/03/25 15:16 Ondansetron 4mg/2ml Vial IV 03/04/25 03:17 NEEDED PRN Nausea Promethazine HCl 25 mg 03/03/25 15:16 Promethazine Hcl 25mg/Ml 1ml Vial IV 03/04/25 03:17 NEEDED PRN Nausea And Vomiting Sodium Chloride 50 ml 03/03/25 14:35 03/03/25 14:37 0.9 % Sodium Chloride 50 Ml Vial IV 03/03/25 14:36 50 ml ONCE ONE Administration Sodium Chloride 25 ml 03/03/25 15:10 Sodium Chloride 0.9% 25ml Bag IV 03/03/25 15:11 ONCE ONE Sodium Chloride 25 ml 03/03/25 15:16 Sodium Chloride 0.9% 25ml Bag IV 03/03/25 15:17 ONCE ONE Verapamil HCl 2.5 mg 03/03/25 15:10 Verapamil 2.5mg/Ml 2ml Vial IV 03/03/25 15:11 ONCE ONE ORDERS Category Date Time Status CT angio chest PE protocol Stat Cat Scan 03/03/25 14:26 Taken Cardiology Consult [Consult to Cardiology] [CONS] Cons 03/03/25 15:07 Active Routine Consult to Cardiology [CONS] Routine Cons 03/03/25 14:47 Active XR chest portable Stat Exams 03/03/25 13:46 Completed Complete Blood Count Auto Diff AMLAB Lab 03/04/25 06:00 Ordered Complete Blood Count Auto Diff AMLAB Lab 03/05/25 06:00 Ordered Complete Blood Count Auto Diff AMLAB Lab 03/06/25 06:00 Ordered Complete Blood Count Auto Diff Stat Lab 03/03/25 13:39 Completed Comprehensive Metabolic Panel AMLAB Lab 03/04/25 06:00 Ordered Comprehensive Metabolic Panel AMLAB Lab 03/05/25 06:00 Ordered Comprehensive Metabolic Panel AMLAB Lab 03/06/25 06:00 Ordered Comprehensive Metabolic Panel Stat Lab 03/03/25 13:39 Completed D-Dimer Stat Lab 03/03/25 13:39 Completed Hemoglobin A1C Stat Lab 03/03/25 13:39 Completed Lipid Panel AMLAB Lab 03/04/25 06:00 Ordered Magnesium AMLAB Lab 03/04/25 06:00 Ordered Magnesium AMLAB Lab 03/05/25 06:00 Ordered Magnesium Stat Lab 03/03/25 13:39 Completed NT Pro Brain Natriuretic Pep. Stat Lab 03/03/25 13:39 Completed PT INR [Prothrombin Time INR] Stat Lab 03/03/25 13:39 Completed Rapid PCR Covid and Flu A/B Stat Lab 03/03/25 14:24 Completed TSH [Thyroid Stimulating Hormone] Routine Lab 03/03/25 13:39 Received Troponin I Q3H Lab 03/03/25 17:00 Ordered Troponin I Q3H Lab 03/03/25 20:00 Ordered Troponin I Stat Lab 03/03/25 13:39 Completed VBG [Venous Blood Gas] Stat RT 03/03/25 15:05 Completed CA echo doppler complete Routine Y 03/03/25 15:07 Completed ECG Request NEEDED Y 03/03/25 15:07 Ordered MDM Narrative Medical Decision Narrative: 64-year-old female presents to the emergency department with chest pain started yesterday, see HPI for detail past medical history differential diagnose include but not limited to, ACS, cardiac arrhythmia, costochondritis, anxiety, panic attack, gastritis, GERD, PE, pneumonia, pleural effusion, pneumothorax, viral URI, bronchitis, among others. I discussed this patient's case with the attending physician Dr. Joy Obtain basic laboratory studies, chest x-ray, D-dimer magnesium level proBNP, rapid PCR COVID and flu, coags, troponin, VBG, EKG, will give 4 mg IV Zofran for nausea and 4 mg IV morphine for pain and 0.4 mg sublingual nitroglycerin. CBC is unremarkable Coags are notable for PT 9.8 and INR of 0.87 D-dimer 0.68, will obtain CTA chest without contrast PE protocol. Mild hyponatremia 130, hyperglycemia 577, ALP is mildly elevated at 178 Troponin is elevated at 0.43, proBNP is elevated at 330. Also of note, nursing staff notified me the patient utilizes 3 L nasal cannula at home, thus patient was placed on 3 L nasal cannula Reexamination of patient at approximately 2:45 PM, patient states her chest pain is improved to a 5 out of 10, after medications however she is still having some pain. I discussed this patient's case with on-call cardiology provider Jude Turk PA-C at approximately 2:47 PM, he reviewed the patient's EKG today as well as previous EKGs. He will see the patient in consultation in the emergency department. To determine need for urgent cath versus admission with full cardiac workup trending troponins for NSTEMI. He recommends placing Nitropaste on the patient, titrating the patient's chest pain, patient be placed on the [employer] schedule for today, recommends admission for NSTEMI. I discussed this patient's case with the hospitalist provider Kiara Turk APRN she is in agreement with the current admission plan/treatment plan, will go ahead and give patient full dose of aspirin as she has taken 2 baby aspirin today, will give 162 mg p.o. for full dose aspirin. Patient will be admitted. Patient is in agreement with the current treatment plan/admission plan, discussed with hospitalist provider that chest x-ray read, CTA read and VBG are still pending, would not oil changer, patient to be admitted with cardiac catheterization today at around 4:15 PM according to cardiology. VBG is unremarkable I reviewed the patient's chest x-ray along the corresponding radiologic report, right lower lobe opacity with central lucency cavitary lesion not excluded, recommend follow-up CT chest with contrast. COVID-19 is negative via PCR influenza negative via PCR
--- NOTE | 2025-03-03 13:46 | XR_ITS ---
FINAL REPORT TECHNIQUE: Single view chest CLINICAL HISTORY: SOA and CP COMPARISON: No prior exams submitted for comparison. FINDINGS: A single view of the chest was obtained. The heart and mediastinum are within normal limits. Patchy rounded opacities are seen in the right lower lobe, one with central lucency. Cavitary lesion not excluded. There is no pneumothorax. IMPRESSION: Right lower lobe opacity with central lucency. Cavitary lesion not excluded. Recommend follow-up chest CT with contrast. Reviewed, Interpreted and Dictated by Massiel Davenport MD Transcribed by Josefa Brantley Authenticated and . [facility]
[2025-03-03 13:54] LABS: Hematocrit 47.0 % (37.0-47.0); Hemoglobin 15.2 g/dL (12.2-16.2); Immature Granulocytes % 0.3 %; Mean Corpuscular HGB Conc 32.3 g/dL (31.8-35.4); Mean Corpuscular Hemoglobin 29.0 pg (27.0-31.2); Mean Corpuscular Volume 89.5 fl (81-99); Nucleated Red Blood Cells % 0 %; Platelet Count 249 K/mm3 (142-424); Red Blood Count 5.25 M/mm3 (4.20-5.40); Red Cell Distribution Width-SD 43.3 fL; White Blood Count 9.4 K/mm3 (4.8-10.8)
[2025-03-03 14:01] LABS: INR 0.87 (0.9-1.1); Prothrombin Time 9.8 seconds (10.1-12.5)
[2025-03-03 14:07] LABS: Alanine Aminotransferase 25 U/L (12-78); Albumin Level 4.4 g/dl (3.5-5.0); Albumin/Globulin Ratio 1.2 (1.1-1.8); Alkaline Phosphatase 178 U/L (38-126); Anion Gap 12.1 mEq/L (5-15); Aspartate Amino Transferase 34 U/L (14-36); Bilirubin,Total 0.7 mg/dl (0.2-1.3); Blood Urea Nitrogen 19 mg/dl (7-17); Calcium 9.5 mg/dl (8.4-10.2); Carbon Dioxide 25 mmol/L (22.0-30.0); Chloride 97 mmol/L (98-107); Creatinine Clearance Estimated 66 mL/min (50-200); Creatinine,Serum 0.70 mg/dl (0.52-1.04); Estimated Glomerular Filt Rate 84 ml/min (>60); GFR (African American) 102 ML/MIN (>60); Globulin 3.7 g/dL (1.3-3.2); Magnesium 1.8 mg/dl (1.6-2.3); Potassium 4.1 mmoL/L (3.5-5.1); Sodium 130 mmol/L (136-145); Total Protein,Serum 8.1 g/dl (6.3-8.2)
[2025-03-03 14:13] LABS: D-Dimer 0.68 ug/mL (0.0-0.5)
[2025-03-03 14:16] LABS: NT Pro Brain Natriuretic Pep. 330 pg/mL (0-125)
[2025-03-03 14:20] LABS: Glucose 577 mg/dl (74-100)
--- NOTE | 2025-03-03 14:20 | PC.NURSE ---
Critical Lab value called from Karen in lab @[id number]. Glucose of 577 reported to @0346
[2025-03-03 14:24] LABS: Troponin I 0.43 ng/ml (0.00-0.034)
[2025-03-03] MEDS: ONDANSETRON 4MG/2ML VIAL 4 MG IV (14:25)
[2025-03-03] MEDS: MORPHINE 4MG/ML SYRINGE 4 MG IV (14:25)
[2025-03-03] MEDS: NITROGLYCERIN 0.4MG SL TABLET 0.4 MG SL (14:25)
--- NOTE | 2025-03-03 14:26 | CT_ITS ---
FINAL REPORT TECHNIQUE: Axial imaging of the chest is obtained after the administration of contrast. 3-D MIP reformatted images were also obtained and reviewed per PE protocol. This study was performed with techniques to keep radiation doses as low as reasonably achievable (ALARA). Individualized dose reduction techniques using automated exposure control or adjustment of mA and/or kV according to the patient's size were employed. CLINICAL HISTORY: Elevated D-dimer, SOA, and CP COMPARISON: 01/17/2025 FINDINGS: The pulmonary arteries are well filled. There is no evidence of pulmonary embolus. There is no aortic dissection. Heart size is normal. There is no mediastinal, hilar, or axillary lymphadenopathy. There are moderate opacities in the right middle lobe with the largest measuring up to 17 mm favored to be infectious or inflammatory. No cavitation is seen as previously thought from plain film. Lungs are otherwise clear. There is no pleural or pericardial effusion. Limited evaluation of the upper abdomen is without acute abnormality. No acute osseous abnormality. IMPRESSION: No evidence of pulmonary embolism or aortic dissection. New right middle lobe nodular opacities most consistent with pneumonia. Reviewed, Interpreted and Dictated by Massiel Davenport MD Transcribed by Josefa Branltey Authenticated and [facility]
[2025-03-03 14:27] LABS: Coronavirus 19, PCR Not Detected (NotDetected); Influenza A, PCR Not Detected (NotDetected); Influenza B, PCR Not Detected (NotDetected)
[2025-03-03] MEDS: 0.9 % SODIUM CHLORIDE 50 ML VIAL IV (14:37)
[2025-03-03] MEDS: IOPAMIDOL-370 (76%);100ML BOTTLE 70 ML IV (14:37)
[2025-03-03] MEDS: SODIUM CHLORIDE 0.9% 10ML SYR (RAD ONLY) 10 ML IV (14:37)
--- NOTE | 2025-03-03 14:38 | PC.NURSE ---
I rounded on the pt and helped her reposition in the bed. I placed her on 3LNC as she states she uses oxygen 24/10. No new complaints. no needs voiced. call phipps in reach
--- NOTE | 2025-03-03 14:50 | PC.NURSE ---
La GOMEZ speaking to Marysol GOMEZ from cardiology.
--- NOTE | 2025-03-03 14:53 | PC.NURSE ---
Marysol cardiology PA bedside speaking with the pt.
[2025-03-03] MEDS: NITROGLYCERIN 1 GM OINTMENT TD (14:58)
--- NOTE | 2025-03-03 15:03 | PC.NURSE ---
JASON Hickey speaking with Jude Turk at this time.
--- NOTE | 2025-03-03 15:03 | EXP.CARD.CON ---
History of Present Illness History of Present Illness Consult date: 03/03/25 Requesting physician: Dagoberto Elizabeth Consult reason: chest pain Chief complaint: chest pain/NSTEMI Additional Medical History:: 1. CAD A. Prior stents to circumflex and RCA along with bifurcating LAD/diagonal stents. B. Cardiac cath, 11/2023, medical management recommended. 2. Diabetes mellitus, poorly controlled with Hgb A1C 11.0 in 11/2024 3. Hypertension 4. Hyperlipidemia with LDL 102 11/2024 5. Continued tobacco use with pulmonary emphysema 6. PAD of LE's 7. Chronic abnormal EKG with repolarization changes in the inferior and lateral leads. Dating back to 2019. History of present illness: 64-year-old white female presented to the emergency department with approximately 1 day of substernal heavy discomfort described as indigestion heartburn type sensation rated as an 8 out of 10. She did receive a combination of medication including nitro sublingual in the ER with improvement of symptoms down to 5 out of 10 at the time of my visit. She had quit smoking for about 7 years but after the of her last year she began smoking again. Initial troponin elevated at 0.43 with baseline abnormal EKG with early repolarization like changes in the inferior and lateral leads noted on tracings dating back to 2019. Case discussed with Dr. Berger who recommends proceeding with cardiac catheterization today. [facility] Disclaimer: The information contained in this section may have been updated after the patient was seen, as this information can be updated by other users. Medical History (Updated 03/04/25 @ 11:03 by Miley Turk APRN) Trouble swallowing Pre-op exam Cough Right-sided chest wall pain Infection of lower respiratory tract Dehydration Candidiasis Sore throat Influenza A with pneumonia UTI (urinary tract infection) Abnormal nuclear cardiac imaging test Acute pain of left knee Fall Contusion of knee Oxygen dependent Encounter for screening for malignant neoplasm of lung Nodule of right lung History of smoking 30 or more pack years Dyspnea on exertion SOB (shortness of breath) on exertion Palpitations Typical angina Edema of both lower extremities Diastolic dysfunction Foot pain, bilateral DKA (diabetic ketoacidosis) CAD (coronary artery disease) COPD (chronic obstructive pulmonary disease) Sinus tachycardia Gastroesophageal reflux disease Urinary incontinence Chest pain Dyspnea Dyspnea and respiratory abnormalities Coronary artery disease Ex-smoker for more than 1 year Emphysema of lung Diabetes mellitus type 2 in obese Hyperlipidemia Hypertensive disorder Surgical History History of partial hysterectomy History of intravascular stent placement H/O eye surgery Family History Other Family history of diabetes mellitus Family history of heart disease No significant family history Social History (Updated 03/03/25 @ 17:49 by Connie Colon, RN) Smoking Status: Current every day smoker tobacco type: cigarettes packs per day: 1 years smoked: 20 smoking status stop date: 2006 how long ago did patient quit smoking: stopped for 7 years and when in Mar 2024 started smoking again alcohol intake: former substance use type: denies use current occupational status: unemployed Travel in the last 8 weeks?: None housing: house lives independently: Yes marital status: number of children: 1 current occupational exposures/hazards: No other: passed Mar 2024 caffeine: Yes Review of Systems Review of Systems Review of systems:: pertinent systems reviewed and negative unless documented below *Cardiovascular Cardiovascular: Reports chest pain *Respiratory Respiratory: Reports cough and Denies wheezing *Gastrointestinal Gastrointestinal: Reports dyspepsia Allergic/Immunologic Allergic/Immunologic: Denies wheezing Exam Data for Last 24 hours Vital signs and Labs for Last 24 Hours: Temp Pulse Resp BP Pulse Ox O2 Del Method O2 Flow Rate 97.5 F L 90 22 130/77 99 Nasal Cannula 3 03/03/25 13:34 03/03/25 15:00 03/03/25 13:34 03/03/25 15:00 03/03/25 15:00 03/03/25 15:00 03/03/25 15:00 Laboratory Results - last 24 hr 03/03/25 13:39: WBC 9.4, RBC 5.25, Hgb 15.2, Hct 47.0, MCV 89.5, MCH 29.0, MCHC 32.3, RDW 13.2, Plt Count 249, MPV 11.6 H, Neut % (Auto) 75.1, Lymph % (Auto) 16.0, [place] % (Auto) 7.6, Eos % (Auto) 0.7, Baso % (Auto) 0.3, Neut # (Auto) 7.1, Lymph # (Auto) 1.5, [place] # (Auto) 0.7, Eos # (Auto) 0.1, Baso # (Auto) 0.0, PT 9.8 L, INR 0.87 L, D-Dimer 0.68 H, Sodium 130 L, Potassium 4.1, Chloride 97 L, Carbon Dioxide 25, Anion Gap 12.1, BUN 19 H, Creatinine 0.70, Estimated Creat Clear 66, Estimated GFR 84, Est GFR ( Amer) 102, Glucose 577 H*, Calcium 9.5, Magnesium 1.8, Total Bilirubin 0.7, AST 34, ALT 25, Alkaline Phosphatase 178 H, Troponin I 0.43 H, NT-Pro-B Natriuret Pep 330 H, Total Protein 8.1, Albumin 4.4, Globulin 3.7 H, Albumin/Globulin Ratio 1.2 I & O for Last 24 hours: Intake & Output 03/01/25 03/02/25 03/03/25 03/04/25 11:59 11:59 11:59 11:59 Weight 165 lb Constitutional Constitutional: mild distress *Routine Respiratory Exam Respiratory: Absent rales, rhonchi or wheezes *Routine Cardiovascular Exam Cardiovascular: Present RRR; Absent murmur, gallop or rubs *Routine Extremities Exam Extremities: Absent edema Meds Home Medications and Allergies Home Medications ?Medication ?Instructions ?Recorded ?Confirmed ?Type sertraline 100 mg tablet 150 mg (1.5 x 100 mg) PO DAILY #45 08/24/23 03/04/25 Rx tabs metoprolol succinate 200 mg 200 mg PO DAILY #30 tabs 12/05/23 03/04/25 Rx tablet,extended release 24 hr aspirin 81 mg tablet,delayed 81 mg PO DAILY history of cardiac 05/29/24 03/03/25 Rx release stents #90 tabs blood sugar diagnostic (Blood #50 ea 05/30/24 11/27/24 Rx Glucose Test strips) losartan 50 mg-hydrochlorothiazide 1 tab PO DAILY #90 tabs 08/01/24 03/03/25 Rx 12.5 mg tablet albuterol sulfate 0.63 mg/3 mL 0.63 mg (3 mL) inhalation Q4-6H 09/17/24 03/03/25 Rx solution for nebulization PRN shortness of breath or wheezing #90 mL acetaminophen 650 mg 650 mg PO Q12H 09/19/24 03/03/25 History tablet,extended release (Tylenol Arthritis Pain) fluticasone furoate 100 1 inh inhalation DAILY #90 ea 11/05/24 03/03/25 Rx mcg-vilanterol 25 mcg/dose inhalation powder (Breo Ellipta) insulin glargine 100 unit/mL 15 unit (0.15 mL) SQ HS #10 mL 11/11/24 03/03/25 Rx subcutaneous solution (Lantus U-100 Insulin) repaglinide 1 mg tablet 1 mg PO BID #60 tabs 11/11/24 03/03/25 Rx cetirizine 10 mg tablet 10 mg PO DAILY 03/03/25 03/03/25 History empagliflozin 25 mg tablet 25 mg PO DAILY 03/03/25 03/03/25 History (Jardiance) levothyroxine 25 mcg tablet 25 mcg PO DAILY 03/03/25 03/03/25 History oxybutynin chloride 15 mg 15 mg PO DAILY 03/03/25 03/04/25 History tablet,extended release 24 hr semaglutide 0.25 mg or 0.5 mg (2 0.5 mg SQ WEEKLY 03/03/25 03/03/25 History mg/3 mL) subcutaneous pen injector (Ozempic) atorvastatin 40 mg tablet 80 mg (2 x 40 mg) PO HS #60 tabs 03/04/25 03/04/25 Rx doxycycline hyclate 100 mg tablet 100 mg PO Q12H 5 days #9 tabs 03/04/25 Rx ticagrelor 90 mg tablet (Brilinta) 90 mg PO BID 30 days #60 tabs 03/04/25 Rx New Prescriptions to Start Prescriptions: doxycycline hyclate Miley Turk ticagrelor [Brilinta] Miley Turk Allergies Allergy/AdvReac Type Severity Reaction Status Date / Time insulin lispro Allergy Intermediate Vomiting Verified 12/03/24 14:32 venom-honey bee (BEE VENOM Allergy Unknown Unknown Verified 12/03/24 14:32 (HONEY BEE)) allergy reaction chocolate flavor AdvReac Hyper Verified 12/03/24 14:32 Assessment and Plan *Assessment and plan (1) NSTEMI (non-ST elevated myocardial infarction): Status: Acute Category: Medical Code(s): I21.4 - Non-ST elevation (NSTEMI) myocardial infarction (2) Type 2 diabetes mellitus with diabetic peripheral angiopathy without gangrene: Status: Acute Qualifiers: Diabetes mellitus half-way insulin use: with long term care phlebotomist use Qualified Code(s): E11.51 - Type 2 diabetes mellitus with diabetic peripheral angiopathy without gangrene; Z79.4 - terminal worker (current) use of insulin Category: Medical Code(s): E11.51 - Type 2 diabetes mellitus with diabetic peripheral angiopathy without gangrene (3) Essential hypertension: Status: Chronic Category: Medical Code(s): I10 - Essential (primary) hypertension (4) Hyperlipidemia: Status: Acute Qualifiers: Hyperlipidemia type: unspecified Qualified Code(s): E78.5 - Hyperlipidemia, unspecified Category: Medical Code(s): E78.5 - Hyperlipidemia, unspecified (5) CAD (coronary artery disease): Status: Chronic Qualifiers: Associated angina: with other forms of angina Coronary Disease-Associated Artery/Lesion type: [place] artery [place] vs. transplanted heart: [place] heart Qualified Code(s): I25.118 - Atherosclerotic heart disease of [place] coronary artery with other forms of angina pectoris Category: Medical Code(s): I25.10 - Atherosclerotic heart disease of [place] coronary artery without angina pectoris (6) History of smoking 30 or more pack years: Status: Acute Category: Social Hx Code(s): Z87.891 - Personal history of nicotine dependence (7) COPD (chronic obstructive pulmonary disease): Status: Chronic Qualifiers: COPD type: unspecified COPD Qualified Code(s): J44.9 - Chronic obstructive pulmonary disease, unspecified Category: Medical Code(s): J44.9 - Chronic obstructive pulmonary disease, unspecified (8) Emphysema of lung: Status: Chronic Category: Medical Code(s): J43.9 - Emphysema, unspecified Plan 1. Non-STEMI with ongoing chest pain and elevated troponin in the setting of baseline abnormal EKG -Patient has received aspirin and sublingual nitroglycerin and will add nitroglycerin paste -Proceed with cardiac catheterization today 2. Diabetes mellitus, poorly controlled despite insulin and Jardiance and Ozempic -Presenting blood sugar over 500 today 3. Tobacco use, continued with COPD/emphysema -Followed by pulmonary -History of chronic oxygen use 4. Hyperlipidemia -On statin therapy 6. PAD of LE's -recommend JONATHON Cardiac catheterization today with further recommendations to follow. Echo to assess LVEF check lipids, Hgb A1C
--- NOTE | 2025-03-03 15:05 | PC.NURSE ---
per elvira fairbanks pt is going to civil laboratory technician today. house aware.
--- NOTE | 2025-03-03 15:06 | INFXCTL.NOTE ---
I notified Gina in resp that a green top has been sent to the lab for the VBG
--- NOTE | 2025-03-03 15:07 | CA_ITS ---
APPROVED REPORT EXAM: Comprehensive 2D, Doppler, and color-flow Echocardiogram Glue Machine Operator: Milagros Valdez CRT Ht: 5 ft 1 in Wt: 165lbs BSA: 1.74 BP: 130/77 mmHg Indications: Chest Pain, Non STEMI, Diabetes, Peripheral Edema, CAD, Hyperlipidemia, Hypertension/HDD, COPD, Stents TDE coughed thru exam 2D Dimensions LA Volume 19.40 mL LA Volume Index 10.90 mL/m2 (M/F) 16-34 M-Mode Dimensions RVDd 3.47 cm (0.9-2.6) LA Diam 3.63 cm (1.9-4.0) LVDd 4.01 cm (3.5-5.7) LVDs 2.61 cm (3.5-5.7) IVSd 1.25 cm (0.6-1.1) PWd 0.72 cm (0.6-1.1) EF (Teich) 64.80% FS 34.90% EDV (Teich) 70.40 mL TAPSE 1.82 (<1.7) ESV (Teich) 24.80 mL LV Diastology E Decel Time 133 (160-240 msec) E/A Ratio 0.58 MED A' 11.20 cm/s LAT A' 11.50 cm/s Aortic Valve AO Peak GR. 5.70 mmHg Mitral Valve MV A Velocity 95.0 (40-130 cm/s) E/A Ratio 0.58 Pulmonary Valve PV Peak Velocity 95.0 (50-150 cm/s) Tricuspid Valve TR P. Velocity 138.00 cm/s RAP Estimate 10.00 mmHg RVSP 17.70 mmHg Left Ventricle The left ventricle is normal size. Left ventricular systolic function is hyperdynamic. There is increased left ventricular wall thickness. There is normal LV segmental wall motion. Transmitral Doppler flow pattern suggests impaired LV relaxation. LVEF is 70% Right Ventricle The right ventricle is moderately dilated. The right ventricular systolic function is mildly reduced. Atria The left atrium size is normal. The right atrium size is normal. There is no color Doppler evidence of interatrial shunt. Aortic Valve The aortic valve is mildly thickened. There is no hemodynamically significant aortic valvular stenosis. No aortic regurgitation is present. Mitral Valve The mitral valve is normal in structure. No evidence of mitral valve stenosis. Trace mitral regurgitation is present. Tricuspid Valve The tricuspid valve leaflets are thin and pliable. Trace tricuspid regurgitation. There is insufficient TR jet to estimate RVSP. Pulmonic Valve The pulmonary valve is grossly normal in structure. Trace pulmonic valve regurgitation is present. Great Vessels The aortic root is normal in size. IVC is normal in size and collapses >50% with inspiration. Pericardium Trivial, anterior pericardial effusion is present. No echo indications of tamponade. Other Information Study Quality: Technically Difficult Conclusion Hyperdynamic LV systolic function (LVEF 70%). Moderate RV dilation with mild reduction in RV function. No significant valvular stenosis or regurgitation. Trivial, anterior pericardial effusion is present. No echo indications of tamponade. Electronically signed by : Mandy Sheikh MD 03/03/2025 21:58:49
[2025-03-03 15:11] LABS: Lactate Venous 1.7 mmol/L (0.4-2.0); VBG HCO3 23.6 mmol/L (23-30); VBG PCO2 35.8 mmol/L (35-51); VBG PH 7.44 mmol/L (7.31-7.41); VBG PO2 45.2 mmol/L (28-40)
--- NOTE | 2025-03-03 15:14 | P.HP_ITS ---
<Statement entered by Dagoberto Elizabeth MD - 03/03/25 16:33> Rounded on patient with nurse practitioner. Personally examined and interviewed patient. Agree with exam findings and care plan as documented. History of Present Illness *Admission Date: 03/03/25 *Reason for visit:: chest pain *History of present illness: Ms. Wright is a 64-year-old female who to the emergency department today with substernal, nonradiating chest pain that started yesterday afternoon. Patient states the pain has been consistent, does not worsen or improve with exertion, denies alleviating factors, does endorse increased stress recently, dyspnea, cough, chills. Denies fever, nausea, vomiting, abdominal pain, urinary symptoms. She rates the pain 8/10. She is a current everyday smoker but denies alcohol or drug use. She does have a previous medical history of CAD with multiple GHANSHYAM, uncontrolled insulin-dependent diabetes mellitus, HLD, HTN, COPD with baseline 2 L O2, known pulmonary nodules, GERD, hypothyroidism, depression/anxiety, OAB. [facility] Disclaimer: The information contained in this section may have been updated after the patient was seen, as this information can be updated by other users. Medical History (Updated 03/03/25 @ 15:56 by Miley Turk APRN) Trouble swallowing Pre-op exam Cough Right-sided chest wall pain Infection of lower respiratory tract Dehydration Candidiasis Sore throat Influenza A with pneumonia UTI (urinary tract infection) Abnormal nuclear cardiac imaging test Acute pain of left knee Fall Contusion of knee Oxygen dependent Encounter for screening for malignant neoplasm of lung Nodule of right lung History of smoking 30 or more pack years Dyspnea on exertion SOB (shortness of breath) on exertion Palpitations Typical angina Edema of both lower extremities Diastolic dysfunction Foot pain, bilateral DKA (diabetic ketoacidosis) CAD (coronary artery disease) COPD (chronic obstructive pulmonary disease) Sinus tachycardia Gastroesophageal reflux disease Urinary incontinence Chest pain Dyspnea Dyspnea and respiratory abnormalities Coronary artery disease Ex-smoker for more than 1 year Emphysema of lung Diabetes mellitus type 2 in obese Hyperlipidemia Hypertensive disorder Surgical History History of partial hysterectomy History of intravascular stent placement H/O eye surgery Family History Other Family history of diabetes mellitus Family history of heart disease No significant family history Social History Smoking Status: Current every day smoker tobacco type: cigarettes packs per day: 1 years smoked: 20 smoking status stop date: 2006 how long ago did patient quit smoking: stopped for 7 years and when in Mar 2024 started smoking again alcohol intake: former substance use type: denies use current occupational status: unemployed Travel in the last 8 weeks?: None housing: house lives independently: Yes marital status: number of children: 1 current occupational exposures/hazards: No other: passed Mar 2024 caffeine: Yes Have you lived/traveled outside [place] in past 30 days?: No Contact w/someone who lives/traveled outside US past 30 days?: No Exposure to someone with infectious disease in past 14 days?: No Do you have a fever (greater than 100.4 F or 38 C)?: No Have you tested positive for COVID-19?: No Exposed to someone with COVID-19 in past 14 days?: No Do you have a sore throat?: No Do you have a cough?: No Do you have any weakness?: No Do you have any diarrhea?: No Are you experiencing any unusual bleeding?: No Do you have any muscle aches/pain?: No Do you have any abdominal pain?: No Are you experiencing loss of taste or smell?: No Other Medical History Have you received the Flu Vaccine for this season: No Have you received the Pneumonia Vaccine: Yes Review of Systems Constitutional Constitutional: Reports chills, Denies fatigue, Denies fever(s), Denies frequent falls, Denies headache(s) and Denies weakness Eyes Eyes: Denies blurry vision and Denies change in vision ENT Ears, Nose, Mouth, and Throat: Denies dizziness and Denies headache(s) *Cardiovascular Cardiovascular: Reports chest pain, Reports chest pain at rest, Reports chest pain with activity, Reports dyspnea, Reports dyspnea on exertion, Denies leg edema and Denies palpitations *Respiratory Respiratory: Reports cough, Reports dyspnea and Reports dyspnea on exertion *Gastrointestinal Gastrointestinal: Denies constipation, Reports diarrhea, Denies hematemesis, Denies hematochezia, Denies melena and Denies vomiting *Genitourinary Genitourinary: Denies difficulty voiding, Denies dysuria and Denies hematuria *Neurologic Neurologic: Denies dizziness, Denies frequent falls, Denies headache(s) and Denies weakness Psychiatric Psychiatric: Reports anxiety and Reports depression Endocrine Endocrine: Denies fatigue and Denies palpitations Meds Home Medications and Allergies Home Medications ?Medication ?Instructions ?Recorded ?Confirmed ?Type sertraline 100 mg tablet 150 mg (1.5 x 100 mg) PO CAROLANN LY #45 08/24/23 12/03/24 Rx tabs metoprolol succinate 200 mg 200 mg PO DAILY #30 tabs 0 12/05/23 12/03/24 Rx tablet,extended release 24 hr aspirin 81 mg tablet,delayed 81 mg PO DAILY history of cardiac 05/29/24 12/03/24 Rx release stents #90 tabs blood sugar diagnostic (Blood #50 ea 05/30/24 11/27/24 Rx Glucose Test strips) blood-glucose meter (Blood Glucose #1 ea 05/30/2411/02 Rx Monitoring kit) lancets (Accu-Chek Softclix #100 ea 05/30/24 11/27/24 Rx Lancets) losartan 50 mg-hydrochlorothiazide 1 tab PO DAILY #90 tabs 08/01/24 12/03/24 Rx 12.5 mg tablet atorvastatin 40 mg tablet See Rx Instructions .Route 0 08/23/24 12/03/24 Rx .COMPLEX #90 tabs levothyroxine 25 mcg tablet See Rx Instructions .Route 08/23/24 12/03/24 Rx .COMPLEX #90 tabs empagliflozin 25 mg tablet See Rx Instructions .Route 09/13/24 12/03/24 Rx (Jardiance) .COMPLEX #90 tabs oxybutynin chloride 15 mg See Rx Instructions .Route 0 09/13/24 12/03/24 Rx tablet,extended release 24 hr .COMPLEX #30 tabs albuterol sulfate 0.63 mg/3 mL 0.63 mg (3 mL) inhalati on Q4-6H 09/17/24 12/03/24 Rx solution for nebulization PRN shortness of breath or wheezing #90 mL acetaminophen 650 mg 650 mg PO Q12H 09/19/2405/28 History tablet,extended release (Tylenol Arthritis Pain) blood-glucose meter (Accu-Chek #1 ea 10/11/24 11/27/24 History Guide Me Glucose Meter) pen needle, diabetic 31 gauge x #1,200 ea 10/11/24 History 5/16 fluticasone furoate 100 1 inh inhalation DAILY #90 e a 11/05/24 12/03/24 Rx mcg-vilanterol 25 mcg/dose inhalation powder (Breo Ellipta) pen needle, diabetic 32 gauge x #100 ea 11/06/2411/27 Rx 5/16 (Comfort EZ Pen [place]) blood-glucose,weapons officer,cont #1 ea 11/07/24 11/27/24 Rx (Dexcom G7 Auto [place]) blood-glucose sensor (Dexcom G7 #9 ea 11/11/24 5 Rx Sensor device) insulin glargine 100 unit/mL 15 unit (0.15 mL) SQ HS # 10 mL 11/11/24 12/03/24 Rx subcutaneous solution (Lantus U-100 Insulin) repaglinide 1 mg tablet 1 mg PO BID #60 tabs 5 12/03/24 Rx doxycycline hyclate 100 mg tablet 100 mg PO BID 14 day s #28 tabs 11/27/24 12/03/24 Rx insulin glargine 100 unit/mL (3 unit SQ 11/27/2412/03 History mL) subcutaneous pen (Lantus Solostar U-100 Insulin) triamcinolone acetonide 0.1 % 1 applic topical BID #30 grams 11/27/24 12/03/24 Rx topical ointment cetirizine 10 mg tablet See Rx Instructions .Route 1 Rx .COMPLEX #30 tabs azithromycin 500 mg tablet 500 mg PO DAILY 5 days #5 t abs 01/17/25 Rx cefdinir 300 mg capsule 300 mg PO BID 10 days #20 ca ps 01/17/25 Rx semaglutide 0.25 mg or 0.5 mg (2 See Rx Instructions . Route 02/11/25 Rx mg/3 mL) subcutaneous pen injector .COMPLEX #3 mL (Ozempic) New Prescriptions to Start Prescriptions: Allergies Allergy/AdvReac Type Severity Reaction Status Date / Time insulin lispro Allergy Intermediate Vomiting Verified 12/03/24 14:32 venom-honey bee (BEE VENOM Allergy Unknown Unknown Verified 12/03/24 14:32 (HONEY BEE)) allergy reaction chocolate flavor AdvReac Hyper Verified 12/03/24 14:32 Exam Data for Last 24 hours Vital signs and Labs for Last 24 Hours: Temp Pulse Resp BP Pulse Ox O2 Del Method O2 Flow Rate 97.5 F L 90 22 130/77 99 Nasal Cannula 3 03/03/25 13:34 03/03/25 15:00 03/03/25 13:34 03/03/25 15:00 03/03/25 15:00 03/03/25 15:00 03/03/25 15:00 Laboratory Results - last 24 hr 03/03/25 13:39: WBC 9.4, RBC 5.25, Hgb 15.2, Hct 47.0, MCV 89.5, MCH 29.0, MCHC 32.3, RDW 13.2, Plt Count 249, MPV 11.6 H, Neut % (Auto) 75.1, Lymph % (Auto) 16.0, [place] % (Auto) 7.6, Eos % (Auto) 0.7, Baso % (Auto) 0.3, Neut # (Auto) 7.1, Lymph # (Auto) 1.5, [place] # (Auto) 0.7, Eos # (Auto) 0.1, Baso # (Auto) 0.0, PT 9.8 L, INR 0.87 L, D-Dimer 0.68 H, Sodium 130 L, Potassium 4.1, Chloride 97 L, Carbon Dioxide 25, Anion Gap 12.1, BUN 19 H, Creatinine 0.70, Estimated Creat Clear 66, Estimated GFR 84, Est GFR ( Amer) 102, Glucose 577 H*, Calcium 9.5, Magnesium 1.8, Total Bilirubin 0.7, AST 34, ALT 25, Alkaline Phosphatase 178 H, Troponin I 0.43 H, NT-Pro-B Natriuret Pep 330 H, Total Protein 8.1, Albumin 4.4, Globulin 3.7 H, Albumin/Globulin Ratio 1.2 03/03/25 15:05: VBG pH 7.44 H, VBG pCO2 35.8, VBG pO2 45.2 H, VBG HCO3 23.6, VBG Total CO2 24.7, VBG O2 Saturation 83.7 H, VBG Base Excess -0.7, VBG Lactic Acid 1.7 Temp Pulse Resp BP Pulse Ox 98.4 F 106 H 22 162/84 H 94 L 01/07/22 04:19 01/07/22 05:30 01/07/22 05:30 01/07/22 05:30 01/07/22 05:30 Laboratory Results - last 24 hr 01/07/22 03:55: Urine Color Yellow, Urine Appearance Clear, Urine pH 5.5, Ur Specific [place] <= 1.005, Urine Protein Negative, Urine Glucose (UA) 3+, Urine Ketones Trace, Urine Blood 2+, Urine Nitrate Negative, Urine Bilirubin Negative, Urine Urobilinogen 0.2, Ur Leukocyte Esterase Negative, Urine RBC 10-20, Urine WBC 3-5, Urine Bacteria 2+ 01/07/22 04:01: WBC 7.8, RBC 5.54 H, Hgb 16.3 H, Hct 62.2 H*, MCV 112.4 H, MCH 29.5, MCHC 26.3 L, RDW 14.1, Plt Count 247, MPV 9.3, Neut % (Auto) 86.6 H, Lymph % (Auto) 8.2 L, [place] % (Auto) 4.2, Eos % (Auto) 0.2, Baso % (Auto) 0.8, Neut # (Auto) 6.8, Lymph # (Auto) 0.6 L, [place] # (Auto) 0.3, Eos # (Auto) 0.0, Baso # (Auto) 0.1, Total Counted 100, Neutrophils % (Manual) 88 H, Lymphocytes % ( Manual) 11, Monocytes % (Manual) 1 L, Platelet Estimate Normal, Macrocytosis 2+ 01/07/22 04:01: Total Creatine Kinase 69, CK-MB (CK-2) 2.0, CK-MB (CK-2) Rel Index 2.9, Troponin I < 0.01 01/07/22 04:01: Sodium 122 L, Potassium 6.3 H*, Chloride 77 L, Carbon Dioxide 18 L, Anion Gap 33.3 H, BUN 72 H, Creatinine 1.10 H, Estimated Creat Clear 93, Estimated GFR 50 L, Est GFR ( Amer) 61, Glucose 2006 H*, Calcium 9.6, Total Bilirubin 0.4, AST 39 H, ALT 48, Alkaline Phosphatase 191 H, Total Protein 7.1, Albumin 4.6, Globulin 2.5, Albumin/Globulin Ratio 1.8 01/07/22 04:01: Lactate 4.8 H 01/07/22 04:01: SARS-CoV-2 (PCR) Not detected, Influenza A Untype (PCR) Not detected, Influenza Type B (PCR) Not detected 01/07/22 04:01: Acetone Level Small 01/07/22 04:01: Magnesium 2.1 01/07/22 04:01: Lipase 96 01/07/22 04:05: VBG pH 7.24 L, VBG pCO2 46.9, VBG pO2 44.6 H, VBG HCO3 19.7 L, VBG Total CO2 21.2 L, VBG O2 Saturation 74.4 H, VBG Base Excess -7.6 L I & O for Last 24 hours: Intake & Output 02/28/25 03/01/25 03/02/25 03/03/25 23:59 23:59 23:59 23:59 Weight 74.843 kg Intake & Output 01/04/22 01/05/22 01/06/22 01/07/22 23:59 23:59 23:59 23:59 Output Total 1250 / 1250 Balance -1250 / -1250 Weight 111.13 kg Constitutional Constitutional: no acute distress, obese, chronically ill appearing and cooperative *Routine HEENT Exam Head: Present normocephalic and atraumatic Eye: Present EOMI ENT: Present mucous membranes moist *Routine Neck Exam Neck: Present supple, full ROM and trachea midline; Absent JVD *Routine Respiratory Exam Respiratory: Present CTA bilaterally and normal respiratory effort; Absent wheezes or crackles *Routine Cardiovascular Exam Cardiovascular: Present Normal S1 and Normal S2; Absent murmur *Routine Abdominal Exam Abdominal: Present soft, normoactive bowel sounds, obese and hernia; Absent tenderness or distended Comments: Umbilical hernia with discoloration *Routine Rectal Exam Rectal:: deferred *Routine Genitalia Exam Genitalia:: deferred *Routine Extremities Exam Extremities: Present pulses intact and normal capillary refill; Absent cyanosis, clubbing or edema Comments: Discoloration noted to bilateral lower extremities *Routine Skin Exam Skin: Present intact and dry; Absent rash *Routine Neurological Exam Neurological: Present alert, oriented X3, vision grossly intact, hearing grossly intact and normal speech Comments: Routine Psychiatric Exam Psychiatric: Present normal affect Assessment and Plan *Assessment and plan (1) NSTEMI (non-ST elevated myocardial infarction): Status: Acute Category: Medical Code(s): I21.4 - Non-ST elevation (NSTEMI) myocardial infarction (2) CAD (coronary artery disease): Status: Chronic Qualifiers: Associated angina: with other forms of angina Coronary Disease- Associated Artery/Lesion type: [place] artery [place] vs. transplanted heart: [place] heart Qualified Code(s): I25.118 - Atherosclerotic heart disease of [place] coronary artery with other forms of angina pectoris Category: Medical Code(s): I25.10 - Atherosclerotic heart disease of [place] coronary artery without angina pectoris (3) Essential hypertension: Status: Chronic Category: Medical Code(s): I10 - Essential (primary) hypertension (4) Hyperlipidemia: Status: Acute Qualifiers: Hyperlipidemia type: unspecified Qualified Code(s): E78.5 - Hyperlipidemia, unspecified Category: Medical Code(s): E78.5 - Hyperlipidemia, unspecified (5) Stented coronary artery: Status: Acute Category: Surgical Code(s): Z95.5 - Presence of coronary angioplasty implant and graft (6) Urinary tract infection: Status: Acute Category: Medical Code(s): N39.0 - Urinary tract infection, site not specified (7) Hyperglycemia due to type 2 diabetes mellitus: Status: Acute Qualifiers: Diabetes mellitus chcf insulin use: with intermediate accountant use Qualified Code(s): E11.65 - Type 2 diabetes mellitus with hyperglycemia; Z79.4 - long term care social worker (current) use of insulin Category: Medical Code(s): E11.65 - Type 2 diabetes mellitus with hyperglycemia (8) Insulin dependent diabetes mellitus: Status: Acute Category: Medical (9) Tobacco use disorder: Status: Acute Category: Medical Code(s): F17.200 - Nicotine dependence, unspecified, uncomplicated (10) History of smoking 30 or more pack years: Status: Acute Category: Social Hx Code(s): Z87.891 - Personal history of nicotine dependence Plan Ms. Wright is a 64-year-old female who to the emergency department today with substernal, nonradiating chest pain that started yesterday afternoon. Patient states the pain has been consistent, does not worsen or improve with exertion, denies alleviating factors, does endorse increased stress recently, dyspnea, cough, chills. Denies fever, nausea, vomiting, abdominal pain, urinary symptoms. She rates the pain 8/10. She is a current everyday smoker but denies alcohol or drug use. She does have a previous medical history of CAD with multiple GHANSHYAM, uncontrolled insulin-dependent diabetes mellitus, HLD, HTN, COPD with baseline 2 L O2, known pulmonary nodules, emphysema, GERD, hypothyroidism, depression/anxiety, OAB. Workup in the emergency department was notable for hyponatremia of 130, hyperglycemia of 577, elevated initial troponin of 0.43, proBNP 330. CBC was unremarkable, negative rapid PCR for COVID/flu, EKG shows sinus rhythm. D-dimer slightly elevated at 0.68, chest CTA for PE protocol is pending. I personally reviewed patient's chest x-ray which showed no acute cardiopulmonary process, RLL opacity with central lucency?seen on prior exams. Dr. Elizabeth and myself assessed the patient in the emergency department and she states her pain has gotten better rating it now a 5/10 after receiving sublingual nitro, Nitropaste, & morphine IV. Patient did not have notable edema, lungs CTA, no abdominal pain to palpation, no dyspnea. I discussed the case with JASON Tineo who requested admission for NSTEMI. I agreed to admit the patient, plan of care as follows: #NSTEMI #Elevated troponin #CAD/HLD/HTN ? Cardiology was consulted from the emergency department, the case was discussed with Dr. Dubose, manufacturing millwright on-call who recommends proceeding with heart cath today to evaluate NSTEMI. ? Patient has history of prior stents to circumflex and RCA along with bifurcating LAD/diagonal stents, cardiac cath 11/2023 recommended medical management at the time. Patient remains hemodynamically stable at this time, EKG shows repolarization changes in the inferior and lateral leads?appears to be chronic. No ST elevation or depression noted on EKG. ? Patient took 2 aspirin 81 mg prior to coming to the emergency department, an additional 2 aspirin 81 mg were given in the ED. Nitropaste applied, patient agreeable to cardiac cath today. ? Echo ordered, currently pending. Previous echo in 2023 showed EF of 60%. ? Will continue cardiac medications after med reconciliation. ? CBC, CMP, TSH, magnesium, lipid panel ordered for the a.m. #Urinary tract infection ? Patient's urinalysis looks significant for 2+ protein, 3+ glucose, trace blood, positive nitrates, 20?50 WBC, 3+ bacteria. Urine culture pending, patient denies urinary symptoms. Will treat empirically with ceftriaxone 2 g IV daily. #Insulin-dependent diabetes mellitus, uncontrolled #Hyperglycemia ? Patient blood sugar on admission 577, no signs of DKA. Anion gap 12.1. Patient sees endocrinology and is currently prescribed Ozempic, Jardiance, insulin glargine, and sliding scale insulin. Patient endorses noncompliance with diabetic medication and diet. A1c p 13.1%. Patient given regular insulin 10 units IV x 1 prior to cath. ? Patient initiated on high intensity sliding scale insulin, and ACHS fingersticks for close monitoring. #COPD/emphysema #Tobacco use disorder ? Patient wears O2 baseline 2-3 L continuously, patient O2 saturation 98% on 3 L, weaning as tolerated to keep O2 saturation above 90%. Patient denies dyspnea currently. Lungs CTA. DuoNebs ordered every 6 hours as needed for shortness of breath. I personally interpreted patient's chest x-ray which showed no acute process but was notable for RLL opacity. Chest CTA pending at this time. ? Patient smoked for many years, she states she quit approximately 7 years ago but her approximately 1 year ago and she began smoking again, endorses smoking about half PPD. ? Discussed smoking cessation with patient, nicotine patches ordered as needed daily. #MDD/anxiety: Patient endorses depression and anxiety. Feels as though this may have exacerbated her chest pain. She states that her approximately 1 year ago and she found him and since then she has been depressed and noncompliant with her medication. She states she is trying to do better, we will continue home medication when reconciled. Full code N.p.o. for heart cath, cardiac diet post cath Continuous cardiac telemetry Ambulate as tolerated VTE?Lovenox
--- NOTE | 2025-03-03 15:19 | PC.NURSE ---
dr sanchez at bedside
[2025-03-03] MEDS: humaLOG 100 UNITS/ML 10ML VIAL (SSI) 10 UNIT IVP (15:32)
[2025-03-03] MEDS: ASPIRIN 81MG CHEWABLE TABLET 162 MG PO (15:32)
[2025-03-03 15:37] LABS: Hemoglobin A1C 13.1 % (4.0-6.0)
--- NOTE | 2025-03-03 15:38 | IR_ITS ---
APPROVED REPORT Patient Location: Inpatient Network Administrator: MARS Retana RT (R) PROCEDURES 1. Left heart catheterization 2. Selective coronary arteriography 3. Left ventriculography 4. PTCA/stent of the fourth obtuse marginal branch of the circumflex INDICATION 1. Non-Q wave myocardial infarction, 2. Coronary artery disease SCAI INDICATION Patient is 64-year-old white female who presented with increasing pressure and tightness in the chest and increasing shortness of breath. Leak at cardiac enzymes. Continued chest pain. Secondary to this referred directly from the emergency room to the cardiac catheterization laboratory Informed consent was obtained prior to the procedure. COMPLICATIONS NONE Estimated Blood Loss: LESS THAN 10 ML TECHNIQUE Radial access was attempted and unsuccessful. We were unable to get the wire to go through. Secondary to this we used right groin access. 4 [place] system initially which was eventually upsized to 6 [place]. JL 4 and JL 5 catheters were used for the diagnostic cardiac catheterization with an EBU 3.5 guide catheter for intervention ANGIOGRAPHIC RESULTS The left main artery Angiographically normal The left anterior descending artery Had smooth 30% proximal stenosis. Long stent in the proximal/mid left anterior descending with smooth 20% in-stent stenosis. Across the first diagonal branch. First diagonal branch with the stent in its ostial/proximal portion with smooth 20 to 30% napkin ring ostial stenosis. RAF-3 flow to the mid left anterior descending as well as the first diagonal branch The circumflex artery Large size vessel and nondominant. Long area of stents throughout the proximal/mid vessel which extended into a very large fourth obtuse marginal branch. Cross the 1st, 2nd and 3rd obtuse marginal branches which were small in size. Just after the end of the stent there was 100% occlusion in the fourth obtuse marginal branch in its proximal portion. There was no compromise of the true circumflex. RAF 0 flow into the fourth obtuse marginal branch The right coronary artery Moderate in size and dominant. Stent in the proximal vessel free of disease. Smooth 20% mid stenosis with smooth 20% distal stenosis and normal flow into the posterior descending artery and posterior lateral branch The KWON ventriculogram reveals Normal left ventricular systolic function with an ejection fraction of 55 to 60%. No wall motion or maladies. No gradient on pullback of the catheter. No noted mitral insufficiency The left ventricular end-diastolic pressure 8 After diagnostic cardiac catheterization was performed a 5 [place] sheath was changed for 6 [place] sheath. Heparin was given. ACT greater than 300. Went in with a guide catheter left main coronary artery. Crossed into the fourth obtuse marginal branch easily with a Choice PT wire. I predilated the lesion with a 2.0 x 20 mm balloon twice. Took this up to 12 stephanie for 15 seconds in both locations right at the end of the stented area in the fourth obtuse marginal. Resulted in RAF-3 flow down the vessel. You could see the ruptured plaque right at the end of the stent. Secondary to this I stented with a 2.5 x 18 mm Yousif frontier drug-eluting stent in the proximal/mid fourth obtuse marginal branch at 16 stephanie for 10 seconds. Resulted in 0% residual stenosis. Flared the proximal portion of that stent taking the balloon up again at 18 stephanie for 10 seconds. Resulted in 0% residual stenosis down the fourth obtuse marginal branch with RAF-3 flow with no compromise of any other branch or the true circumflex Right, retrograde femoral arteriogram performed. She placed a right common femoral artery. Angio-Seal device deployed without difficulty IMPRESSION 1. Critical 100% occlusion of the proximal large fourth obtuse marginal branch of the circumflex just after a stent 2. Patent stents throughout the proximal/mid left circumflex extending into the fourth obtuse marginal branch 3. Long patent stent in the proximal/mid left anterior descending 4. Patent stent in the ostial/proximal first diagonal branch of the left anterior descending with mild smooth in-stent stenosis at the ostium 5. Patent stent in the proximal dominant right coronary artery 6. Normal left ventricular systolic function 7. Normal left ventricular end-diastolic pressure 8. Successful angioplasty and stenting of the proximal/mid large fourth obtuse marginal branch of the circumflex with an [place] frontier drug-eluting stent resulting in 0% residual stenosis and RAF-3 flow 9. Successful placement of an Angio-Seal device in the right common femoral artery PLAN 1. Patient was not on antiplatelets. Will give Brilinta 180 mg x 1 now then 90 mg twice daily. Aggressive risk factor modification. High-dose statin. Beta-leonel as tolerated as well as AYAD inhibitor. Aggressive risk factor modification. Follow-up with primary traffic control officer 1 to 2 weeks after discharge Electronically signed by : Mo Dubose MD 03/03/2025 17:07:49
--- NOTE | 2025-03-03 16:19 | PC.NURSE ---
called report to luisa basurto rn
[2025-03-03 16:21] LABS: Thyroid Stimulating Hormone 1.72 uIU/mL (0.465-4.68)
[2025-03-03] MEDS: LIDOCAINE 1% 10ML MDV 10 ML IJ (16:21)
[2025-03-03] MEDS: HEPARIN 1,000 UNITS/500ML NS (CATH LAB) 3000 UNIT IV (16:21)
[2025-03-03] MEDS: HEPARIN 1,000 UNITS/ML 10ML VIAL (CATH LAB) 5000 UNIT IV (16:22)
[2025-03-03] MEDS: 0.9 % SODIUM CHLORIDE 500 ML 25 ML IV (16:31)
[2025-03-03] MEDS: FENTANYL 100MCG/2ML VIAL 50 MCG IV (16:50)
[2025-03-03] MEDS: MIDAZOLAM HCL 1MG/ML 5ML VIAL 1 MG IV (16:50)
[2025-03-03 17:23] LABS: CATHL Activated Clotting Time > 400 SEC (74-125)
--- NOTE | 2025-03-03 18:50 | PC.NURSE ---
Give 2300 Brilinta dose per Glenn CAMERON. Pt is curretnly resting in bed. Son at bedside. No complaints at this time. DSG to Femoral cath site C/D/I. Additional DSG noted to (R) radial. Pt is now currently on RA. VS currently stable. Call ight within reach. Safety measures in place.
[2025-03-03 20:09] LABS: POC Glucose,Bedside 130 gm/dL (70-110)
[2025-03-03] MEDS: ATORVASTATIN 40MG TABLET 40 MG PO (20:47)
[2025-03-03] MEDS: INSULIN GLARGINE 100 UNITS/ML 3ML FLEXPEN 20 UNIT SUBCUT (20:48)
[2025-03-04] VITALS: BP 126/74; PULSE 100; PULSE 99; RESP 16; TEMP 37.3; O2SAT 95
[2025-03-04 00:15] VITALS: BP 116/66; PULSE 90; RESP 14; TEMP 36.9; O2SAT 97
[2025-03-04 04:00] VITALS: BP 84/64; PULSE 84; PULSE 90; RESP 16; TEMP 36.8; O2SAT 93; BMI 31.2
[2025-03-04 05:53] VITALS: BP 90/54
[2025-03-04 05:59] LABS: POC Glucose,Bedside 296 gm/dL (70-110)
[2025-03-04] MEDS: humaLOG 100 UNITS/ML 10ML VIAL (SSI) SUBCUT ×2 (06:04→11:13)
[2025-03-04 06:19] LABS: Hematocrit 40.2 % (37.0-47.0); Immature Granulocytes % 0.4 %; Mean Corpuscular HGB Conc 32.8 g/dL (31.8-35.4); Mean Corpuscular Hemoglobin 29.0 pg (27.0-31.2); Mean Corpuscular Volume 88.4 fl (81-99); Nucleated Red Blood Cells % 0 %; Platelet Count 198 K/mm3 (142-424); Red Blood Count 4.55 M/mm3 (4.20-5.40); Red Cell Distribution Width-SD 43.1 fL; White Blood Count 9.3 K/mm3 (4.8-10.8)
[2025-03-04 06:26] LABS: Albumin Level 3.3 g/dl (3.5-5.0)
[2025-03-04 06:27] LABS: Chloride 105 mmol/L (98-107); Potassium 3.9 mmoL/L (3.5-5.1); Sodium 139 mmol/L (136-145)
[2025-03-04 06:29] LABS: Alanine Aminotransferase 22 U/L (12-78); Alkaline Phosphatase 115 U/L (38-126); Anion Gap 11.9 mEq/L (5-15); Aspartate Amino Transferase 92 U/L (14-36); Bilirubin,Total 0.5 mg/dl (0.2-1.3); Blood Urea Nitrogen 15 mg/dl (7-17); Carbon Dioxide 26 mmol/L (22.0-30.0); Creatinine Clearance Estimated 66 mL/min (50-200); Creatinine,Serum 0.70 mg/dl (0.52-1.04); Estimated Glomerular Filt Rate 84 ml/min (>60); GFR (African American) 102 ML/MIN (>60); Hemoglobin 12.9 g/dL (12.2-16.2)
[2025-03-04 06:30] LABS: Albumin/Globulin Ratio 1.1 (1.1-1.8); Calcium 8.3 mg/dl (8.4-10.2); Cholesterol 191 mg/dl (140-200); Globulin 2.9 g/dL (1.3-3.2); Glucose 298 mg/dl (74-100); HDL Cholesterol 40 mg/dl (40-60); Magnesium 1.8 mg/dl (1.6-2.3); Total Protein,Serum 6.2 g/dl (6.3-8.2); Triglycerides 113 mg/dl (30-150)
[2025-03-04 08:00] VITALS: BP 110/65; PULSE 100; PULSE 103; RESP 18; TEMP 36.8; O2SAT 98
[2025-03-04] MEDS: ASPIRIN EC 81MG TABLET 81 MG PO (08:04)
--- NOTE | 2025-03-04 09:12 | [facility].PHAAMS2 ---
- Antimicrobial Stewardship Review culture & sensitivity review Stewardship interventions: culture & sensitivity review Comments: NO CULTURES ORDERED, DIAGNOSED PATIENT WITH PNEUMONIA BASED ON CHEST CTA, TREATED EMPIRICALLY WITH DOXYCYCLINE.
[2025-03-04] MEDS: LEVOTHYROXINE 25MCG (0.025MG) TAB 25 MCG PO (09:22)
[2025-03-04] MEDS: EMPAGLIFLOZIN 25MG TABLET 25 MG PO (09:22)
[2025-03-04] MEDS: LORATADINE 10MG TABLET 10 MG PO (09:22)
[2025-03-04] MEDS: DOXYCYCLINE HYCL 100 MG TABLET PO (09:22)
[2025-03-04] MEDS: SERTRALINE 100MG TABLET 150 MG PO (09:23)
[2025-03-04] MEDS: METOPROLOL SUCCINATE XL 100MG TABLET 200 MG PO (09:23)
--- NOTE | 2025-03-04 09:25 | P.DS_ITS ---
<Statement entered by Paul Becker MD - 03/11/25 15:54> Agree with plan of care as outlined by the [facility]. General Admission date:: 03/03/25 Discharge date: 03/04/25 HPI HPI HPI: Ms. Wright is a 64-year-old female who to the emergency department today with substernal, nonradiating chest pain that started yesterday afternoon. Patient states the pain has been consistent, does not worsen or improve with exertion, denies alleviating factors, does endorse increased stress recently, dyspnea, cough, chills. Denies fever, nausea, vomiting, abdominal pain, urinary symptoms. She rates the pain 8/10. She is a current everyday smoker but denies alcohol or drug use. She does have a previous medical history of CAD with multiple GHANSHYAM, uncontrolled insulin-dependent diabetes mellitus, HLD, HTN, COPD with baseline 2 L O2, known pulmonary nodules, GERD, hypothyroidism, depression/anxiety, OAB. Hospital Course Hospital Course Hospital Course: Ms. Wright is a 64-year-old female who to the emergency department yesterday with substernal, nonradiating chest pain that started the day prior. Patient stated that the pain has been consistent, did not worsen or improve with exertion, denied alleviating factors, she did endorse increased stress recently, dyspnea, cough, chills. Denied fever, nausea, vomiting, abdominal pain, urinary symptoms. She rated the pain 8/10. She is a current everyday smoker but denies alcohol or drug use. She does have a previous medical history of CAD with multiple GHAN[place]YAM, uncontrolled insulin-dependent diabetes mellitus, HLD, HTN, COPD with baseline 2 L O2, known pulmonary nodules, emphysema, GERD, hypothyroidism, depression/anxiety, OAB. Workup in the emergency department was notable for hyponatremia of 130, hyperglycemia of 577, elevated initial troponin of 0.43, proBNP 330. CBC was unremarkable, negative rapid PCR for COVID/flu, EKG shows sinus rhythm. D-dimer slightly elevated at 0.68, chest CTA for PE protocol is pending. I personally reviewed patient's chest x-ray which showed RLL opacity with central lucency?seen on prior exams. Dr. Elizabeth and myself assessed the patient in the emergency department and she stated her pain had gotten better, rating it now a 5/10 after receiving sublingual nitro, Nitropaste, & morphine IV. Patient did not have notable edema, lungs CTA, no abdominal pain to palpation, no dyspnea. I discussed the case with JASON Tineo who requested admission for NSTEMI. I agreed to admit the patient, hospital course as follows: #NSTEMI #Elevated troponin #CAD/HLD/HTN ? Cardiology was consulted from the emergency department, the case was discussed with Dr. Dubose, consulting technical manager on-call who recommends proceeding with heart cath today to evaluate NSTEMI. Patient underwent right heart cath which revealed critical 100% occlusion of the proximal large fourth obtuse marginal branch and the circumflex just after current stent. Successful angioplasty and stenting of the proximal/mid large fourth obtuse marginal branch of the circumflex with an Sanders frontier drug-eluting stent resulting in 0% residual stenosis and RAF?3 flow. Patient had no complications post procedure and was transported back to the medical surgical floor for observation overnight. Patient was assessed this morning and denied any chest pain, worked with PT, was able to ambulate in the halls and appears to be at baseline functionality. PT did recommend home health for improved physical ability, patient is agreeable. remelt worker consulted for continued home health arrangements. ? Patient has history of prior stents to circumflex and RCA along with bifurcating LAD/diagonal stents, cardiac cath 11/2023 recommended medical management at the time. Patient remained hemodynamically stable during admission, EKG not significant for ST depression or elevation. ? Patient took 2 aspirin 81 mg prior to coming to the emergency department, an additional 2 aspirin 81 mg were given in the ED. Nitropaste applied. Chest pain has resolved post cath. ? Echo showed hyperdynamic LV systolic function of 70%. ? Patient will be discharged home on cardiac regimen of: Brilinta 90 mg twice daily, aspirin 81 mg daily, active Acet 80 mg at bedtime, Jardiance 25 mg daily, losartan?HCTZ 1 tab daily, & metoprolol succinate 200 mg daily. ? CBC day of discharge unremarkable, no anemia, no elevated WBC. No electrolyte abnormalities, normal kidney function, patient is hyperglycemic. TSH 1.72. # Right middle lobe pneumonia ? Patient's urinalysis looks significant for 2+ protein, 3+ glucose, trace blood, positive nitrates, 20?50 WBC, 3+ bacteria. Urine culture pending, patient denies urinary symptoms. Will treat empirically with ceftriaxone 2 g IV daily. #Insulin-dependent diabetes mellitus, uncontrolled #Hyperglycemia ? Patient blood sugar on admission 577, no signs of DKA. Anion gap 12.1. Patient sees endocrinology and is currently prescribed Ozempic, Jardiance, repaglinide 1 mg twice daily, insulin glargine, and sliding scale insulin. Patient endorses noncompliance with diabetic medication and diet. A1c p 13.1%. Discussed with patient in depth the need for close monitoring of blood sugars and following with endocrinology. Medication compliance and adherence. She states understanding at this time. #COPD/emphysema #Tobacco use disorder #Right middle lobe pneumonia, POA ? Patient wears O2 baseline 2-3 L continuously, patient O2 saturation 98% on 3 L, weaning as tolerated to keep O2 saturation above 90%. Patient denies dyspnea. Lungs CTA. Chest CTA shows no evidence of PE or aortic dissection, is notable for right middle lobe nodular opacity consistent with pneumonia. Patient started on doxycycline 100 mg twice daily x 5 days. Patient has DuoNebs at home, continue every 4-6 hours as needed for shortness of breath and wheezing. At time of discharge patient is on room air with O2 saturation of 98%. ? Patient smoked for many years, she states she quit approximately 7 years ago but her approximately 1 year ago and she began smoking again, endorses smoking about half PPD. Smoking cessation discussed with patient. #MDD/anxiety: Patient endorses depression and anxiety. Feels as though this may have exacerbated her chest pain. She states that her approximately 1 year ago and she found him and since then she has been depressed and noncompliant with her medication. She states she is trying to do better, we will continue home medication when reconciled. Patient to resume sertraline 150 mg daily at discharge. #Hypothyroidism: Patient TSH 1.72, continue levothyroxine 25 mcg daily. Additional medications/adjustments: Doxycycline 100 mg twice daily x 5 days Brilinta 90 mg twice daily Increased atorvastatin to 80 mg at bedtime Total time spent on discharge 37 minutes in counseling, documentation, chart review, and direct care with patient. Exam Data for Last 24 hours Vital signs and Labs for Last 24 Hours: Temp Pulse Resp BP Pulse Ox O2 Del Method O2 Flow Rate 98.2 F 103 H 18 110/65 98 Room Air 1 03/04/25 08:00 03/04/25 08:00 03/04/25 08:00 03/04/25 08:00 03/04/25 08:00 03/04/25 08:00 03/03/25 18:15 Laboratory Results - last 24 hr 03/03/25 13:39: WBC 9.4, RBC 5.25, Hgb 15.2, Hct 47.0, MCV 89.5, MCH 29.0, MCHC 32.3, RDW 13.2, Plt Count 249, MPV 11.6 H, Neut % (Auto) 75.1, Lymph % (Auto) 16.0, Coffey % (Auto) 7.6, Eos % (Auto) 0.7, Baso % (Auto) 0.3, Neut # (Auto) 7.1, Lymph # (Auto) 1.5, Coffey # (Auto) 0.7, Eos # (Auto) 0.1, Baso # (Auto) 0.0, PT 9.8 L, INR 0.87 L, D-Dimer 0.68 H, Sodium 130 L, Potassium 4.1, Chloride 97 L, Carbon Dioxide 25, Anion Gap 12.1, BUN 19 H, Creatinine 0.70, Estimated Creat Clear 66, Estimated GFR 84, Est GFR ( Amer) 102, Glucose 577 H*, Hemoglobin A1c 13.1 H D, Calcium 9.5, Magnesium 1.8, Total Bilirubin 0.7, AST 34, ALT 25, Alkaline Phosphatase 178 H, Troponin I 0.43 H, NT-Pro-B Natriuret Pep 330 H, Total Protein 8.1, Albumin 4.4, Globulin 3.7 H, Albumin/Globulin Ratio 1.2, TSH 1.72 03/03/25 14:24: SARS-CoV-2 (PCR) Not detected, Influenza A Untype (PCR) Not detected, Influenza Type B (PCR) Not detected 03/03/25 15:05: VBG pH 7.44 H, VBG pCO2 35.8, VBG pO2 45.2 H, VBG HCO3 23.6, VBG Total CO2 24.7, VBG O2 Saturation 83.7 H, VBG Base Excess -0.7, VBG Lactic Acid 1.7 03/03/25 17:36: Activated Clotting Time > 400 H* 03/03/25 20:01: POC Glucose 130 H 03/04/25 05:51: POC Glucose 296 H 03/04/25 06:07: WBC 9.3, RBC 4.55, Hgb 12.9 D, Hct 40.2, MCV 88.4, MCH 29.0, MCHC 32.8, RDW 13.3, Plt Count 198, MPV 11.6 H, Neut % (Auto) 74.9, Lymph % (Auto) 12.8, Coffey % (Auto) 10.8 H, Eos % (Auto) 0.7, Baso % (Auto) 0.4, Neut # (Auto) 7.0, Lymph # (Auto) 1.2, Coffey # (Auto) 1.0, Eos # (Auto) 0.1, Baso # (Auto) 0.0, Sodium 139, Potassium 3.9, Chloride 105, Carbon Dioxide 26, Anion Gap 11.9, BUN 15, Creatinine 0.70, Estimated Creat Clear 66, Estimated GFR 84, Est GFR ( Amer) 102, Glucose 298 H D, Calcium 8.3 L, Magnesium 1.8, Total Bilirubin 0.5, AST 92 H D, ALT 22, Alkaline Phosphatase 115, Total Protein 6.2 L , Albumin 3.3 L D, Globulin 2.9, Albumin/Globulin Ratio 1.1, Triglycerides 113, Cholesterol 191, LDL Cholesterol Direct 122.19, VLDL Cholesterol 23, HDL Cholesterol 40, Cholesterol/HDL Ratio 4.8 H Temp Pulse Resp BP Pulse Ox 98.2 F 73 16 109/60 L 96 01/09/22 03:26 01/09/22 03:26 01/09/22 03:26 01/09/22 03:26 01/09/22 03:26 Laboratory Results - last 24 hr 01/08/22 07:35: VBG pH 7.42 H, VBG pCO2 46.0, VBG pO2 41.0 H, VBG HCO3 28.8, VBG Total CO2 30.2 H, VBG O2 Saturation 78.5 H, VBG Base Excess 4.3 H 01/08/22 08:00: Phosphorus 3.0 D 01/08/22 08:00: WBC 13.0 H, RBC 4.82, Hgb 14.0 D, Hct 44.3, MCV 91.8, MCH 29.0, MCHC 31.6 L, RDW 14.5, Plt Count 211, MPV 10.5 H, Neut % (Auto) 74.0, Lymph % (Auto) 19.8, Coffey % (Auto) 4.5, Eos % (Auto) 0.2, Baso % (Auto) 1.5, Neut # (Auto) 9.6 H, Lymph # (Auto) 2.6, Coffey # (Auto) 0.6, Eos # (Auto) 0.0, Baso # (Auto) 0.2 01/08/22 08:00: Sodium 141, Potassium 3.9, Chloride 101, Carbon Dioxide 31 H, Anion Gap 12.9, BUN 45 H, Creatinine 0.70, Estimated Creat Clear 86, Estimated GFR 85, Est GFR ( Amer) 103, Glucose 351 H, Calcium 8.7, Total Bilirubin 0.2, AST 38 H, ALT 31 D, Alkaline Phosphatase 99, Total Protein 6.3, Albumin 3.5 D, Globulin 2.8, Albumin/Globulin Ratio 1.3 01/08/22 08:00: Hemoglobin A1c > 14.0 H 01/08/22 11:14: POC Glucose 335 H* 01/08/22 16:07: POC Glucose 277 H 01/08/22 20:08: POC Glucose 157 H 01/09/22 05:53: POC Glucose 172 H I & O for Last 24 hours: Intake & Output 03/01/25 03/02/25 03/03/25 03/04/25 23:59 23:59 23:59 23:59 Intake Total 100 / 340 831.25 / 831.25 Output Total 700 / 700 0 / 0 Balance -600 / -360 831.25 / 831.25 Weight 74.843 kg 75.07 kg Intake & Output 01/06/22 01/07/22 01/08/22 01/09/22 23:59 23:59 23:59 23:59 Intake Total 1458 / 1458 2662 / 2782 120 / 120 Output Total 2625 / 2625 650 / 650 200 / 200 Balance -1167 / -1167 2011 -80 / -80 Weight 92.27 kg 93.6 kg 94.1 kg Microbiology Reports for the Last 24 Hours: Microbiology 01/07/22 03:55 Urine,Catheterized Urine Culture - Final Enterobacter cloacae 01/07/22 04:15 Blood Blood Culture - Preliminary NO GROWTH AFTER 48 HOURS 01/07/22 04:15 Blood Blood Culture - Preliminary NO GROWTH AFTER 48 HOURS Constitutional Constitutional: no acute distress, obese, chronically ill appearing and cooperative *Routine HEENT Exam Head: Present normocephalic Eye: Present EOMI and PERRL ENT: Present mucous membranes moist *Routine Neck Exam Neck: Present supple; Absent lymphadenopathy *Routine Respiratory Exam Respiratory: Present CTA bilaterally, prolonged expiratory phase and normal respiratory effort; Absent wheezes or crackles *Routine Cardiovascular Exam Cardiovascular: Present RRR, Normal S1 and Normal S2; Absent murmur *Routine Abdominal Exam Abdominal: Present soft, normoactive bowel sounds and tenderness (non focal mild diffuse) Comments: 1in umbilical hernia, reducable *Routine Rectal Exam Patient deferred: visual exam *Routine Exam Patient deferred: external exam *Routine Extremities Exam Extremities: Present full ROM; Absent cyanosis, clubbing or edema *Routine Skin Exam Skin: Present intact, dry and warm; Absent rash *Routine Neurological Exam Neurological: Present alert, oriented X3, hearing grossly intact and normal speech; Absent sensory deficit or motor deficit Routine Psychiatric Exam Psychiatric: Present normal affect Results Data Completed and Pending Labs on day of discharge: Labs from last 24 hours 03/04/25 03/04/25 03/03/25 06:07 05:51 20:01 WBC 9.3 RBC 4.55 Hgb 12.9 D Hct 40.2 MCV 88.4 MCH 29.0 MCHC 32.8 RDW 13.3 Plt Count 198 MPV 11.6 H Neut % (Auto) 74.9 Lymph % (Auto) 12.8 Coffey % (Auto) 10.8 H Eos % (Auto) 0.7 Baso % (Auto) 0.4 Neut # (Auto) 7.0 Lymph # (Auto) 1.2 Coffey # (Auto) 1.0 Eos # (Auto) 0.1 Baso # (Auto) 0.0 PT INR Activated Clotting Time D-Dimer VBG pH VBG pCO2 VBG pO2 VBG HCO3 VBG Total CO2 VBG O2 Saturation VBG Base Excess VBG Lactic Acid Sodium 139 Potassium 3.9 Chloride 105 Carbon Dioxide 26 Anion Gap 11.9 BUN 15 Creatinine 0.70 Estimated Creat Clear 66 Estimated GFR 84 Est GFR ( Amer) 102 Glucose 298 H D POC Glucose 296 H 130 H Hemoglobin A1c Calcium 8.3 L Magnesium 1.8 Total Bilirubin 0.5 AST 92 H D ALT 22 Alkaline Phosphatase 115 Troponin I NT-Pro-B Natriuret Pep Total Protein 6.2 L Albumin 3.3 L D Globulin 2.9 Albumin/Globulin Ratio 1.1 Triglycerides 113 Cholesterol 191 LDL Cholesterol Direct 122.19 VLDL Cholesterol 23 HDL Cholesterol 40 Cholesterol/HDL Ratio 4.8 H TSH SARS-CoV-2 (PCR) Influenza A Untype (PCR) Influenza Type B (PCR) 03/03/25 03/03/25 03/03/25 17:36 15:05 14:24 WBC RBC Hgb Hct MCV MCH MCHC RDW Plt Count MPV Neut % (Auto) Lymph % (Auto) Coffey % (Auto) Eos % (Auto) Baso % (Auto) Neut # (Auto) Lymph # (Auto) Coffey # (Auto) Eos # (Auto) Baso # (Auto) PT INR Activated Clotting Time > 400 H* D-Dimer VBG pH 7.44 H VBG pCO2 35.8 VBG pO2 45.2 H VBG HCO3 23.6 VBG Total CO2 24.7 VBG O2 Saturation 83.7 H VBG Base Excess -0.7 VBG Lactic Acid 1.7 Sodium Potassium Chloride Carbon Dioxide Anion Gap BUN Creatinine Estimated Creat Clear Estimated GFR Est GFR ( Amer) Glucose POC Glucose Hemoglobin A1c Calcium Magnesium Total Bilirubin AST ALT Alkaline Phosphatase Troponin I NT-Pro-B Natriuret Pep Total Protein Albumin Globulin Albumin/Globulin Ratio Triglycerides Cholesterol LDL Cholesterol Direct VLDL Cholesterol HDL Cholesterol Cholesterol/HDL Ratio TSH SARS-CoV-2 (PCR) Not detected Influenza A Untype (PCR) Not detected Influenza Type B (PCR) Not detected 03/03/25 13:39 WBC 9.4 RBC 5.25 Hgb 15.2 Hct 47.0 MCV 89.5 MCH 29.0 MCHC 32.3 RDW 13.2 Plt Count 249 MPV 11.6 H Neut % (Auto) 75.1 Lymph % (Auto) 16.0 Coffey % (Auto) 7.6 Eos % (Auto) 0.7 Baso % (Auto) 0.3 Neut # (Auto) 7.1 Lymph # (Auto) 1.5 Coffey # (Auto) 0.7 Eos # (Auto) 0.1 Baso # (Auto) 0.0 PT 9.8 L INR 0.87 L Activated Clotting Time D-Dimer 0.68 H VBG pH VBG pCO2 VBG pO2 VBG HCO3 VBG Total CO2 VBG O2 Saturation VBG Base Excess VBG Lactic Acid Sodium 130 L Potassium 4.1 Chloride 97 L Carbon Dioxide 25 Anion Gap 12.1 BUN 19 H Creatinine 0.70 Estimated Creat Clear 66 Estimated GFR 84 Est GFR ( Amer) 102 Glucose 577 H* POC Glucose Hemoglobin A1c 13.1 H D Calcium 9.5 Magnesium 1.8 Total Bilirubin 0.7 AST 34 ALT 25 Alkaline Phosphatase 178 H Troponin I 0.43 H NT-Pro-B Natriuret Pep 330 H Total Protein 8.1 Albumin 4.4 Globulin 3.7 H Albumin/Globulin Ratio 1.2 Triglycerides Cholesterol LDL Cholesterol Direct VLDL Cholesterol HDL Cholesterol Cholesterol/HDL Ratio TSH 1.72 SARS-CoV-2 (PCR) Influenza A Untype (PCR) Influenza Type B (PCR) DS: Diagnosis Discharge Diagnosis (1) NSTEMI (non-ST elevated myocardial infarction): Status: Acute Code(s): I21.4 - Non-ST elevation (NSTEMI) myocardial infarction (2) CAD (coronary artery disease): Status: Chronic Code(s): I25.10 - Atherosclerotic heart disease of [place] coronary artery without angina pectoris Qualifiers: Associated angina: with other forms of angina Coronary Disease- Associated Artery/Lesion type: [place] artery [place] vs. transplanted heart: [place] heart Qualified Code(s): I25.118 - Atherosclerotic heart disease of [place] coronary artery with other forms of angina pectoris (3) Essential hypertension: Status: Chronic Code(s): I10 - Essential (primary) hypertension (4) Hyperlipidemia: Status: Acute Code(s): E78.5 - Hyperlipidemia, unspecified Qualifiers: Hyperlipidemia type: unspecified Qualified Code(s): E78.5 - Hyperlipidemia, unspecified (5) Stented coronary artery: Status: Acute Code(s): Z95.5 - Presence of coronary angioplasty implant and graft (6) Hyperglycemia due to type 2 diabetes mellitus: Status: Acute Code(s): E11.65 - Type 2 diabetes mellitus with hyperglycemia Qualifiers: Diabetes mellitus assisted insulin use: with right of way cutter use Qualified Code(s): E11.65 - Type 2 diabetes mellitus with hyperglycemia; Z79.4 - group home (current) use of insulin (7) Insulin dependent diabetes mellitus: Status: Acute (8) Tobacco use disorder: Status: Acute Code(s): F17.200 - Nicotine dependence, unspecified, uncomplicated (9) History of smoking 30 or more pack years: Status: Acute Code(s): Z87.891 - Personal history of nicotine dependence (10) Right middle lobe pneumonia: Status: Acute Code(s): J18.9 - Pneumonia, unspecified organism Meds Home Medications and Allergies Home Medications ?Medication ?Instructions ?Recorded ?Confirmed ?Type sertraline 100 mg tablet 150 mg (1.5 x 100 mg) PO CAROLANN LY #45 08/24/23 03/04/25 Rx tabs metoprolol succinate 200 mg 200 mg PO DAILY #30 tabs 0 12/05/23 03/04/25 Rx tablet,extended release 24 hr aspirin 81 mg tablet,delayed 81 mg PO DAILY history of cardiac 05/29/24 03/03/25 Rx release stents #90 tabs blood sugar diagnostic (Blood #50 ea 05/30/24 11/27/24 Rx Glucose Test strips) losartan 50 mg-hydrochlorothiazide 1 tab PO DAILY #90 tabs 08/01/24 03/03/25 Rx 12.5 mg tablet albuterol sulfate 0.63 mg/3 mL 0.63 mg (3 mL) inhalati on Q4-6H 09/17/24 03/03/25 Rx solution for nebulization PRN shortness of breath or wheezing #90 mL acetaminophen 650 mg 650 mg PO Q12H 09/19/2404/27 History tablet,extended release (Tylenol Arthritis Pain) fluticasone furoate 100 1 inh inhalation DAILY #90 e a 11/05/24 03/03/25 Rx mcg-vilanterol 25 mcg/dose inhalation powder (Breo Ellipta) insulin glargine 100 unit/mL 15 unit (0.15 mL) SQ HS # 10 mL 11/11/24 03/03/25 Rx subcutaneous solution (Lantus U-100 Insulin) repaglinide 1 mg tablet 1 mg PO BID #60 tabs 2 5 03/03/25 Rx cetirizine 10 mg tablet 10 mg PO DAILY 03/03/2504/27 History empagliflozin 25 mg tablet 25 mg PO DAILY 03/03/2504/27 History (Jardiance) levothyroxine 25 mcg tablet 25 mcg PO DAILY 03/03/25 1 05/04/24 History oxybutynin chloride 15 mg 15 mg PO DAILY 03/03/2505/28 History tablet,extended release 24 hr semaglutide 0.25 mg or 0.5 mg (2 0.5 mg SQ WEEKLY 04/2703/03/25 History mg/3 mL) subcutaneous pen injector (Ozempic) atorvastatin 40 mg tablet 80 mg (2 x 40 mg) PO HS #60 tabs 03/04/25 03/04/25 Rx doxycycline hyclate 100 mg tablet 100 mg PO Q12H 5 day s #9 tabs 03/04/25 Rx ticagrelor 90 mg tablet (Brilinta) 90 mg PO BID 30 day s #60 tabs 03/04/25 Rx New Prescriptions to Start Prescriptions: doxycycline hyclate Miley Turk ticagrelor [Brilinta] Miley Turk Allergies Allergy/AdvReac Type Severity Reaction Status Date / Time insulin lispro Allergy Intermediate Vomiting Verified 12/03/24 14:32 venom-honey bee (BEE VENOM Allergy Unknown Unknown Verified 12/03/24 14:32 (HONEY BEE)) allergy reaction chocolate flavor AdvReac Hyper Verified 12/03/24 14:32 Discharge Plan Disposition Patient Disposition: Home Health Service Condition: Fair Discharge Order Discharge Orders: Discharge Order (Routine); Ordered 03/04/25 Ordered By: Miley Turk Follow up Plan Follow up with: Jessi Wright APRN [Primary Care Provider, Family Practice] - 03/12/25 2:20 pm Bertha French MD [Staff Physician, Endocrinology] - 03/13/25 11:00 am Philip Sheikh MD [Staff Physician, Cardiology] - 03/11/25 1:30 pm Prescriptions/Medication Reconciliation: New doxycycline hyclate 100 mg Tablet 100 mg PO Q12H 5 Days Qty: 9 0RF ticagrelor [Brilinta] 90 mg Tablet 90 mg PO BID 30 Days Qty: 60 0RF Continued metoprolol succinate 200 mg tablet extended release 24 hr 200 mg PO DAILY Qty: 30 5RF aspirin 81 mg tablet,delayed release (DR/EC) 81 mg PO DAILY Qty: 90 1RF insulin glargine [Lantus U-100 Insulin] 100 unit/mL solution 15 unit SQ HS Qty: 10 4RF repaglinide 1 mg tablet 1 mg PO BID Qty: 60 2RF Rx Instructions: administer within 30 minutes of a meal or snack acetaminophen [Tylenol Arthritis Pain] 650 mg tablet extended release 650 mg PO Q12H fluticasone furoate-vilanterol [Breo Ellipta] 100-25 mcg/dose blister with device 1 inh inhalation DAILY Qty: 90 2RF sertraline 100 mg tablet 150 mg PO DAILY Qty: 45 2RF (DME) Blood Glucose Test Strip See Rx Instructions .Route Qty: 50 6RF Rx Instructions: As directed, bid testing losartan-hydrochlorothiazide 50-12.5 mg tablet 1 tab PO DAILY Qty: 90 1RF albuterol sulfate 0.63 mg/3 mL solution for nebulization 0.63 mg inhalation Q4-6H PRN (Reason: shortness of breath or wheezing) Qty: 90 2RF Ozempic 0.25 mg or 0.5 mg (2 mg/3 mL) pen injector 0.5 mg SQ WEEKLY oxybutynin chloride 15 mg tablet extended release 24hr 15 mg PO DAILY cetirizine 10 mg tablet 10 mg PO DAILY levothyroxine 25 mcg tablet 25 mcg PO DAILY Jardiance 25 mg tablet 25 mg PO DAILY Changed atorvastatin 40 mg tablet 80 mg PO HS Qty: 60 0RF Other Ambulatory Orders: Consult to Cardiac Rehabilitation (Routine) Facility: [facility] - Location: Cardiac Rehabilitation Ordered By: Koby Rios Basic Metabolic Panel (Routine) Timeframe: 20250311 Facility: [facility] - Location: Laboratory Ordered By: Koby Rios Complete Blood Count Auto Diff (Routine) Timeframe: 20250311 Facility: [facility] - Location: Laboratory Ordered By: Koby Rios Problem Reconciliation Problems Reviewed?: Yes Patient Discharge Instructions ACTIVITY: Continue current activity and No heavy lifting DIET: continue same diet Patient Instructions: DI for Heart Attack, DI for Coronary Stenting, DI for Surgical Site Infection Print Language: Mauritian Providers Primary Care Provider: Jessi Wright Admit Provider: Dagoberto Elizabeth Attending Provider: Dagoberto Elizabeth
--- NOTE | 2025-03-04 09:30 | HMH.OTEV ---
OT Evaluation Rehab OT IP Evaluation Start: 03/03/25 17:52 Freq: ONCE Status: Active Protocol: Document 03/04/25 09:21 CORDELL (Rec: 03/04/25 09:29 [facility] [id number]) Rehab OT IP Assessment Subjective History Pt oriented x 3 on arrival. Pt admitted on 03/03/25 due to STEMI/chest pain. History and physical: Ms. Wright is a 64-year-old female who to the emergency department today with substernal, nonradiating chest pain that started yesterday afternoon. Patient states the pain has been consistent , does not worsen or improve with exertion, denies alleviating factors, does endorse increased stress recently, dyspnea, cough, chills. Denies fever, nausea , vomiting, abdominal pain, urinary symptoms. She rates the pain 8/10. She is a current everyday smoker but denies alcohol or drug use. She does have a previous medical history of CAD with multiple GHANSHYAM, uncontrolled insulin-dependent diabetes mellitus, HLD, HTN, COPD with baseline 2 L O2, known pulmonary nodules , GERD, hypothyroidism, depression/anxiety, OAB. Subjective Prior to being in the hospital, pt lived at home alone. Pt claims normally she is independent with all ADLS and light IADLs. Pt does have a friend that visits several times a week to assist with heavier IADLs. Pt uses a cane during functional transfers. Pt does drive intermittently as needed. Usually pt's friend assists with grocery shopping and medical appointments. Objective Patient Orientation Person,Place,Birthday Right Upper WFL Extremity Gross ROM Left Upper Extremity WFL Gross ROM Bed Mobility bed mobility-scooting,bed mobility - supine/sit Assist Level Supervision/Stand by Transfer Training Sit/Stand Transfer Assist Level Supervision/Stand by Lower Body Dressing Standby Assistance Ability Rehab OT IP prob,goals,plan Problems Date of Evaluation: 03/04/25 Rehab Potential Rehab Potential Innapropriate for Skilled Therapy Discharge Plan OT Discharge Plan Pt appears to be at her baseline with functional transfers and ADL independence. Pt can return home once she is medically stable per physician. Therapist recommend OT evaluation upon returning home for possible environmental adaptations. Eval Complexity Eval Charge Codes 19543 - Moderate Complexity PHYSICIAN CERTIFICATION: I certify the specified therapy services for Georgia Torreszier are required, authorized, and reviewed every 30 days.
--- NOTE | 2025-03-04 10:35 | SW/DCPLANNER ---
Addendum entered by Kavya Christensen 03/04/25 11:30: Per Gloria patient has been accepted for services. Addendum entered by Kavya Christensen 03/04/25 10:53: Patient information/order faxed to Gloria friedman/ [facility]. Original Note: I spoke w/ patient regarding plans once medically stable for discharge. PT/OT evaluated patient and recommended home health services. Patient is agreeable to home health w/ no agency preference. CM will set up home health services at time of discharge. Patient should discharge home later today.
--- NOTE | 2025-03-04 11:03 | HMH.PTEV ---
Physical Therapy Evaluation Rehab PT IP Evaluation Start: 03/03/25 17:52 Freq: ONCE Status: Active Protocol: Document 03/04/25 09:00 TAMMI (Rec: 03/04/25 11:03 PHOJIM [id number]) Subjective/History History History 64-year-old female who to the emergency department today with substernal, nonradiating chest pain that started yesterday afternoon. Patient states the pain has been consistent, does not worsen or improve with exertion, denies alleviating factors, does endorse increased stress recently, dyspnea, cough, chills. Denies fever, nausea, vomiting, abdominal pain, urinary symptoms. She rates the pain 8/10. She is a current everyday smoker but denies alcohol or drug use. She does have a previous medical history of CAD with multiple GHANSHYAM, uncontrolled insulin-dependent diabetes mellitus, HLD, HTN, COPD with baseline 2 L O2, known pulmonary nodules, GERD, hypothyroidism, depression/ anxiety, OAB. Subjective Subjective Pt reports she lives alone, 4 ROYA the home, and she is generally independent with all mobility and ADLs using a cane. [facility] How much help from another person do you currently need... Turning from your None back to your side while in a flat bed without using bedrails? Moving from lying on None back to sitting on the side of a flat bed without using bedrails? Moving to and from a None bed to a chair ( including a wheelchair)? Standing up from a None chair using your arms? (e.g., wheelchair, bedside chair) Walking in hospital None room? Climbing 3-5 steps None with a railing? Mobility Score 24 Mobility Level [facility] Mobility 8 Walk 250 feet or more Mobility Calculator Rehab PT IP Eval Objective Appearance Patient Behavior Appropriate Patient Orientation Person,Place,Time Difficulty following none instructions Speech Pattern Clear Ambulation Patient Able to Yes Ambulate Ambulation Observation IP General Gait Shuffling Step Pattern Observation Ambulation Distance 100 (feet) Ambulation Assistive Straight Cane Device Ambulation Ability Independent Balance Ability to Arise Able, uses arms to help Sitting Balance Steady, safe Standing Balance Steady, wide stance Dynamic Sitting Good Balance Ability Dynamic Standing Fair Balance Ability Transfers Bed Transfer Ability Independent Chair Transfer Independent Ability Sit to Stand Bed Independent Transfer Ability Sit to Stand Chair Independent Transfer Ability Rehab PT IP prob,goals,plan Problems Date of Evaluation: 03/04/25 Discharge Plan PT Discharge Plan Pt is currently appropriate to return home once medically stable for d/c. No current skilled acute therapy needs. Eval Complexity Eval Charge Codes 32288 - Moderate Complexity PHYSICIAN CERTIFICATION: I certify the specified therapy services for Georgia Wright are required, authorized, and reviewed every 30 days.
[2025-03-04 11:11] LABS: POC Glucose,Bedside 297 gm/dL (70-110)
--- NOTE | 2025-03-04 12:29 | EXP.CARD.PN ---
Subjective Subjective Date: 03/04/25 Time: 12:30 Principal diagnosis: NSTEMI Interval history: 64-year-old white female sitting on edge of bedside in no acute distress. Chest discomfort has resolved since coronary stenting yesterday. Right wrist site looks good Hemoglobin A1c noted to be 13.1. Patient states she takes her medications and tries to watch what she eats but would like some dietary information. Exam Data for Last 24 hours Vital signs and Labs for Last 24 Hours: Temp Pulse Resp BP Pulse Ox O2 Del Method O2 Flow Rate 98.2 F 103 H 18 110/65 98 Room Air 1 03/04/25 08:00 03/04/25 08:00 03/04/25 08:00 03/04/25 08:00 03/04/25 08:00 03/04/25 11:00 03/03/25 18:15 Laboratory Results - last 24 hr 03/03/25 13:39: WBC 9.4, RBC 5.25, Hgb 15.2, Hct 47.0, MCV 89.5, MCH 29.0, MCHC 32.3, RDW 13.2, Plt Count 249, MPV 11.6 H, Neut % (Auto) 75.1, Lymph % (Auto) 16.0, [place] % (Auto) 7.6, Eos % (Auto) 0.7, Baso % (Auto) 0.3, Neut # (Auto) 7.1, Lymph # (Auto) 1.5, [place] # (Auto) 0.7, Eos # (Auto) 0.1, Baso # (Auto) 0.0, PT 9.8 L, INR 0.87 L, D-Dimer 0.68 H, Sodium 130 L, Potassium 4.1, Chloride 97 L, Carbon Dioxide 25, Anion Gap 12.1, BUN 19 H, Creatinine 0.70, Estimated Creat Clear 66, Estimated GFR 84, Est GFR ( Amer) 102, Glucose 577 H*, Hemoglobin A1c 13.1 H D, Calcium 9.5, Magnesium 1.8, Total Bilirubin 0.7, AST 34, ALT 25, Alkaline Phosphatase 178 H, Troponin I 0.43 H, NT-Pro-B Natriuret Pep 330 H, Total Protein 8.1, Albumin 4.4, Globulin 3.7 H, Albumin/Globulin Ratio 1.2, TSH 1.72 03/03/25 14:24: SARS-CoV-2 (PCR) Not detected, Influenza A Untype (PCR) Not detected, Influenza Type B (PCR) Not detected 03/03/25 15:05: VBG pH 7.44 H, VBG pCO2 35.8, VBG pO2 45.2 H, VBG HCO3 23.6, VBG Total CO2 24.7, VBG O2 Saturation 83.7 H, VBG Base Excess -0.7, VBG Lactic Acid 1.7 03/03/25 17:36: Activated Clotting Time > 400 H* 03/03/25 20:01: POC Glucose 130 H 03/04/25 05:51: POC Glucose 296 H 03/04/25 06:07: WBC 9.3, RBC 4.55, Hgb 12.9 D, Hct 40.2, MCV 88.4, MCH 29.0, MCHC 32.8, RDW 13.3, Plt Count 198, MPV 11.6 H, Neut % (Auto) 74.9, Lymph % (Auto) 12.8, [place] % (Auto) 10.8 H, Eos % (Auto) 0.7, Baso % (Auto) 0.4, Neut # (Auto) 7.0, Lymph # (Auto) 1.2, [place] # (Auto) 1.0, Eos # (Auto) 0.1, Baso # (Auto) 0.0, Sodium 139, Potassium 3.9, Chloride 105, Carbon Dioxide 26, Anion Gap 11.9, BUN 15, Creatinine 0.70, Estimated Creat Clear 66, Estimated GFR 84, Est GFR ( Amer) 102, Glucose 298 H D, Calcium 8.3 L, Magnesium 1.8, Total Bilirubin 0.5, AST 92 H D, ALT 22, Alkaline Phosphatase 115, Total Protein 6.2 L, Albumin 3.3 L D, Globulin 2.9, Albumin/Globulin Ratio 1.1, Triglycerides 113, Cholesterol 191, LDL Cholesterol Direct 122.19, VLDL Cholesterol 23, HDL Cholesterol 40, Cholesterol/HDL Ratio 4.8 H 03/04/25 11:04: POC Glucose 297 H I & O for Last 24 hours: Intake & Output 03/02/25 03/03/25 03/04/25 03/05/25 11:59 11:59 11:59 11:59 Intake Total 931.25 / 931.25 Output Total 700 / 700 Balance 231.25 / 231.25 Weight 165 lb 8 oz Constitutional Constitutional: no acute distress *Routine Respiratory Exam Respiratory: Present CTA bilaterally *Routine Cardiovascular Exam Cardiovascular: Present RRR; Absent murmur, gallop or rubs *Routine Extremities Exam Extremities: Absent edema *Routine Neurological Exam Neurological: Present alert, oriented X3 and CN II-XII intact Progress Note: A&P Assessment and plan (1) NSTEMI (non-ST elevated myocardial infarction): Status: Acute (2) Type 2 diabetes mellitus with diabetic peripheral angiopathy without gangrene: Status: Acute (3) Essential hypertension: Status: Chronic (4) Hyperlipidemia: Status: Acute (5) CAD (coronary artery disease): Status: Chronic (6) History of smoking 30 or more pack years: Status: Acute (7) COPD (chronic obstructive pulmonary disease): Status: Chronic (8) Emphysema of lung: Status: Chronic Assessment and Plan Assessment and Plan for All Diagnoses:: 1. Non-STEMI with ongoing chest pain and elevated troponin in the setting of baseline abnormal EKG -GHANSHYAM to large 4th OM. Patent stents in circumflex, LAD and RCA. -ASA and Brilinta -Echo this admission EF 70% with moderate RV dilation, mild RV function reduction. No significant valve disease. 2. Diabetes mellitus, poorly controlled despite insulin and Jardiance and Ozempic -Presenting blood sugar over 500 today -Hemoglobin A1c 13.1 -Dietary consult today 3. Tobacco use, continued with COPD/emphysema -Followed by pulmonary -History of chronic oxygen use 4. Hyperlipidemia -On statin therapy -LDL 121. Will need to consider Repatha as outpatient. 6. PAD of LE's -recommend JONATHON as outpatient Stable from a cardiac standpoint for discharge home. Home medication recommendations: Aspirin 81 mg daily Brilinta 90 mg twice daily Atorvastatin 80 mg daily Jardiance 25 mg daily Losartan HCTZ 50/12.5 mg daily Metoprolol succinate 200 mg daily Follow-up in our office in 1 week
--- NOTE | 2025-03-04 12:34 | DIET.NUTRFU ---
Reviewed handouts for diabetic diet and cardiac diet, reviewed her usual meals. She skips multiple meals/day- encouraged 3 meals/day with 2 carbs/fiber and protein. Also provided contact information for further follow-up as needed
--- NOTE | 2025-03-05 10:06 | SW/DCPLANNER ---
Spoke with patient on the phone. Patient stated that she is doing well. Patient stated she is aware of her upcoming appointments. Patient stated that she was able to leaf size picker her new medicine from clinic pharmacy. Patient stated that she has no concerns or questions at this time. Mariola King
== END 2025-03-04 12:34 | disposition home health service (06) | DRG 321 ==
LOC: ER 15:11 → CATHLAB 15:42 → 2ND 17:03
PROVIDERS: Internal Medicine Cardiovascular Disease; Physician Assistant; Admitting Provider Internal Medicine Adolescent Medicine; Emergency Provider Student in an Organized Health Care Education/Training Program; PCP Family Medicine; Visit Provider Internal Medicine Adolescent Medicine
PROC: 4A023N7 Measurement of Cardiac Sampling and Pressure, Left Heart, Percutaneous Approach (ICD-10-PCS; CPT 93452; principal; 2025-03-03 15:10)
DX: I21.4 Non-ST elevation (NSTEMI) myocardial infarction (principal); J18.9 Pneumonia, unspecified organism; E87.1 Hypo-osmolality and hyponatremia; J44.0 Chronic obstructive pulmonary disease with (acute) lower respiratory infection; E78.5 Hyperlipidemia, unspecified; Z95.5 Presence of coronary angioplasty implant and graft; E11.65 Type 2 diabetes mellitus with hyperglycemia; Z79.4 Long term (current) use of insulin; E03.9 Hypothyroidism, unspecified; K21.9 Gastro-esophageal reflux disease without esophagitis; F41.9 Anxiety disorder, unspecified; J43.9 Emphysema, unspecified; Z79.82 Long term (current) use of aspirin; Z79.84 Long term (current) use of oral hypoglycemic drugs; Z79.85 Long-term (current) use of injectable non-insulin antidiabetic drugs; F32.9 Major depressive disorder, single episode, unspecified; Z91.148 Patient's other noncompliance with medication regimen for other reason; Z79.890 Hormone replacement therapy; I12.9 Hypertensive chronic kidney disease with stage 1 through stage 4 chronic kidney disease, or unspecified chronic kidney disease; N18.9 Chronic kidney disease, unspecified; E11.22 Type 2 diabetes mellitus with diabetic chronic kidney disease; Z99.81 Dependence on supplemental oxygen; F17.210 Nicotine dependence, cigarettes, uncomplicated; E11.51 Type 2 diabetes mellitus with diabetic peripheral angiopathy without gangrene; I25.10 Atherosclerotic heart disease of native coronary artery without angina pectoris
CPT/HCPCS: 36415; 71045; 71275; 80053; 80061; 82803; 82962; 83036; 83735; 83880; 84443; 84484; 85025; 85347; 85378; 85610; 87636; 93005; 93306; 97162; 97166; 99152; 99153; 99285; C1725; C1769; C1874; C1894; J0696; J1200; J1644; J2250; J2270; J2405; J3010; J7040; Q9967

== ENCOUNTER 2025-03-12 15:45 | Outpatient (CLI) | payer MEDICARE, SELFPAY ==
[2025-03-12 20:44] LABS: Hematocrit 47.1 % (37.0-47.0); Hemoglobin 14.8 g/dL (12.2-16.2); Immature Granulocytes % 0.4 %; Mean Corpuscular HGB Conc 31.4 g/dL (31.8-35.4); Mean Corpuscular Hemoglobin 28.2 pg (27.0-31.2); Mean Corpuscular Volume 89.9 fl (81-99); Nucleated Red Blood Cells % 0 %; Platelet Count 352 K/mm3 (142-424); Red Blood Count 5.24 M/mm3 (4.20-5.40); Red Cell Distribution Width-SD 43.3 fL; White Blood Count 7.3 K/mm3 (4.8-10.8)
[2025-03-12 21:59] LABS: Albumin Level 4.0 g/dl (3.5-5.0); Chloride 102 mmol/L (98-107)
[2025-03-12 22:00] LABS: Potassium 5.1 mmoL/L (3.5-5.1); Sodium 144 mmol/L (136-145)
[2025-03-12 22:02] LABS: Blood Urea Nitrogen 17 mg/dl (7-17); Creatinine,Serum 0.70 mg/dl (0.52-1.04); Estimated Glomerular Filt Rate 84 ml/min (>60); GFR (African American) 102 ML/MIN (>60)
[2025-03-12 22:03] LABS: Alanine Aminotransferase 20 U/L (12-78); Albumin/Globulin Ratio 1.1 (1.1-1.8); Alkaline Phosphatase 153 U/L (38-126); Anion Gap 17.1 mEq/L (5-15); Aspartate Amino Transferase 25 U/L (14-36); Bilirubin,Total 0.4 mg/dl (0.2-1.3); Calcium 9.3 mg/dl (8.4-10.2); Carbon Dioxide 30 mmol/L (22.0-30.0); Globulin 3.5 g/dL (1.3-3.2); Glucose 360 mg/dl (74-100); Total Protein,Serum 7.5 g/dl (6.3-8.2)
== END 2025-03-12 23:59 ==
LOC: LAB.DROPOF 03-14 10:26
PROVIDERS: PCP Family Medicine; Visit Provider Family Medicine
DX: E11.9 Type 2 diabetes mellitus without complications (principal); Z79.4 Long term (current) use of insulin
CPT/HCPCS: 80053; 85025

== ENCOUNTER 2025-03-22 21:17 | Emergency (ER) | payer MEDICARE, SELFPAY ==
--- NOTE | 2025-03-22 21:29 | ECG_ITS ---
APPROVED REPORT Exam: Resting ECG HR:95 bpm ECG Measurements Heart Rate 95 AXES WY 161 P 73 QRSd 86 QRS 97 QT 335 T 34 QTc 388 Conclusion Normal sinus rhythm no ST elevation ST depression or T wave inversions concerning for ischemia Electronically signed by : Fernanda Mayer, 03/22/2025 23:01:11
--- NOTE | 2025-03-22 21:29 | CT_ITS ---
PROCEDURE INFORMATION: Exam: CTA Chest With Contrast Exam date and time: 03/22/2025 10:32 PM Age: 64 years old Clinical indication: Shortness of breath TECHNIQUE: Imaging protocol: Computed tomographic angiography of the chest with contrast. Exam focused on the arteries. 3D rendering (Not supervised by radiologist): MIP and/or 3D reconstructed images were created by the technologist. Radiation optimization: All CT scans at this facility use at least one of these dose optimization techniques: automated exposure control; mA and/or kV adjustment per patient size (includes targeted exams where dose is matched to clinical indication); or iterative reconstruction. Contrast material: ISOVUE; Contrast volume: 70 ml; Contrast route: INTRAVENOUS (IV); COMPARISON: CT ANGIO CHEST PE PROTOCOL 03/03/2025 2:33 PM FINDINGS: Pulmonary arteries: Normal. No pulmonary emboli. Aorta: Unremarkable. No aortic aneurysm. No aortic dissection. Other arteries: Advanced abdominal atherosclerotic disease. Lungs: Left lower lobe opacities. Peripheral right middle lobe opacities. COPD changes of the lung apices. Pleural spaces: Unremarkable. No pneumothorax. No pleural effusion. Heart: Unremarkable. No cardiomegaly. No pericardial effusion. Coronary arteries: Advanced coronary calcified atherosclerotic disease. Lymph nodes: Unremarkable. No enlarged lymph nodes. Pancreas: Atrophy of the pancreas. Kidneys: Benign left renal cyst. Bones/joints: Degenerative change of the spine. Soft tissues: Unremarkable. IMPRESSION: 1. No pulmonary embolus. No acute vascular findings. 2. Basilar lung opacities concerning for pneumonia in the correct clinical setting predominantly of the left lower lobe. COMMENTS: Consistent with the [employer]'s Incidental Findings Committee white paper (J Am Laxmi Radiol 2018): Any incidental renal lesion less than 1 cm or classified as too small to characterize, or any incidental cystic renal lesion characterized as simple-appearing, is likely benign. No follow-up imaging is recommended for these lesions per consensus recommendations based on imaging criteria.
[2025-03-22 21:31] VITALS: BP 156/82; PULSE 93; RESP 23; TEMP 36.6; O2SAT 95; BMI 31.7
--- OUTSIDE RECORDS SUMMARY | 2025-03-22 21:32 | XMS_ITS | CCD ---
Author Organization Unknown Care Team Providers Care Set Up Mechanic Name Role Phone Unavailable Primary Care Provider Unavailabl e Unavailable Chronic Care Management Unavaila ble Summary Purpose DataExchange Insurance Providers Payer name Policy type / Coverage type Covered constitution party ID Effective Begin Date Effective End Date [facility] [id number] Unknown Unknown Family History Family History data not found Medication Administered No Medication Administered data Reason For Visit No Reason For Visit data Medical Equipment No Medical Equipment data Advance Directives No Advance Directive data
--- OUTSIDE RECORDS SUMMARY | 2025-03-22 21:32 | XMS_ITS | Clinical Summary ---
Author Organization [facility] Address [address] [place] [address] Care Team Providers Care Sports Attorney Name Role Phone Antonia Hendrickson DANIEL Primary Care Provider [phone] Allergies Active Allergy Reactions Criticality Noted Date [...] Years Used Date Smoking Tobacco: Former Cigarettes 0 Q uit: 2017 Smokeless Tobacco: Never Tobacco [...] [facility]-Bone Density Scan 1959 [facility]-Depression Screening 1959 [facility]-Diabetes: Hemoglobin A1C 1959 [facility]-Hepatitis C Screening 1959 [facility]-Medicare Annual Wellness (AWV) 1959 [facility]-Infant/Child/Adol SDOH Screenings 1960 [id number] Vaccine (#1) 01/09/1960 Diabetes: Dental Exam 07/09/1969 [facility]- SDOH Screenings 07/09/1977 [facility]-Adult SDOH Screenings 07/09/1977 CT Colonography 07/09/2004 Colonoscopy 07/09/2004 FIT-DNA 07/09/2004 FIT 07/09/2004 FOBT 07/09/2004 Sigmoidoscopy 07/09/2004 [facility]-Colorectal Cancer Screening 07/09/2004 [facility]-Breast Cancer Screening 07/09/2009 [facility]-RSV Vaccine: 60+ Years o r (1 - Risk 50-74 years 1-dose series) 07/09/2009 [facility]-Influenza Vaccine (#1) 2024 01/21/2016 [facility]-DTaP,Tdap,and Td Vaccine s (2 - Td or Tdap) 09/27/2032 09/27/2022 [facility]-Pneumococcal Vaccine: 50 + Years Completed 07/20/2022 [facility]-Zoster Vaccines Completed 09/27/2022, 07/20/2022 HPV Vaccines (No Doses Required) Completed [facility]-HIB Vaccines Aged Out No longer e [...] patient's age to complete this topic Insurance [place] [id number] [employer] MEDICARE Care Teams Sports Attorney Relationship Specialty Start Date End Date Antonia Hendrickson APRN [address] [place] [address] [place] [id number] PCP - General 4/6/22
--- NOTE | 2025-03-22 21:33 | ED_ITS ---
Discharge Plan Disposition Patient Disposition: Home, Self-Care Condition: Good Prescriptions Prescriptions: New prednisone 50 mg tablet 50 mg PO DAILY 5 Days Qty: 5 0RF azithromycin 250 mg tablet See Rx Instructions .ROUTE .COMPLEX Qty: 6 0RF Rx Instructions: For 250 mg dose pack: take 500 mg today (day 1), then 250 mg for 4 days (days 2-5) amoxicillin-pot clavulanate 875-125 mg tablet 1 tab PO Q12H 5 Days Qty: 10 0RF No Action metoprolol succinate 200 mg tablet extended release 24 hr 200 mg PO DAILY Qty: 30 5RF aspirin 81 mg tablet,delayed release (DR/EC) 81 mg PO DAILY Qty: 90 1RF insulin glargine [Lantus U-100 Insulin] 100 unit/mL solution 15 unit SQ HS Qty: 10 4RF repaglinide 1 mg tablet 1 mg PO BID Qty: 60 2RF Rx Instructions: administer within 30 minutes of a meal or snack acetaminophen [Tylenol Arthritis Pain] 650 mg tablet extended release 650 mg PO Q12H fluticasone furoate-vilanterol [Breo Ellipta] 100-25 mcg/dose blister with device 1 inh inhalation DAILY Qty: 90 2RF (DME) Blood Glucose Test Strip See Rx Instructions .Route Qty: 50 6RF Rx Instructions: As directed, bid testing albuterol sulfate 0.63 mg/3 mL solution for nebulization 0.63 mg inhalation Q4-6H PRN (Reason: shortness of breath or wheezing) Qty: 90 2RF sertraline 100 mg tablet 150 mg PO DAILY Qty: 45 1RF losartan-hydrochlorothiazide 50-12.5 mg tablet 1 tab PO DAILY Qty: 90 1RF Ozempic 0.25 mg or 0.5 mg (2 mg/3 mL) pen injector 0.5 mg SQ WEEKLY oxybutynin chloride 15 mg tablet extended release 24hr 15 mg PO DAILY cetirizine 10 mg tablet 10 mg PO DAILY levothyroxine 25 mcg tablet 25 mcg PO DAILY Jardiance 25 mg tablet 25 mg PO DAILY doxycycline hyclate 100 mg Tablet 100 mg PO Q12H 5 Days Qty: 9 0RF ticagrelor [Brilinta] 90 mg Tablet 90 mg PO BID 30 Days Qty: 60 0RF atorvastatin 40 mg tablet 80 mg PO HS Qty: 60 0RF Referrals Follow up/Referrals: Jessi Wright APRN [Primary Care Provider, Family Practice] - See instructions Activity Restrictions/Add. Instructions Additional Instructions/Restrictions: Please take antibiotics and steroids as prescribed for treatment of pneumonia. Please follow-up with your primary care provider. Please return to the emergency department if you develop any new or worsening symptoms or become concerned for your health. Consider repeat imaging with your PCP to confirm that the pneumonia resolved Clinical Impressions Clinical Impression: Pneumonia Print Language Print Language: Hong [place]er Discharge ED Provider: Fernanda Mayer HPI <Cierra Giang (ED), MUTUAL [employer]D ACCOUNTANT - Last Filed: 03/22/25 22:05> General Chief Complaint: Shortness of Breath/Dyspnea Stated Complaint: SOA,productive cough-clear,ribs sore Time Seen by Provider: 03/22/25 21:27 History of Present Illness HPI narrative: 64-year-old female presents to the ED today for complaint of coughing, chest pain down to her abdomen from coughing. She says it is sore and at times sharp pain. She says when she starts coughing she cannot stop. She says that she has had stents placed and since she had stents placed she has had pneumonia.She was here on 0 and was hospitalized with critical 100% occlusion of the proximal large fourth circumflex after a stent. Patient was placed on Brilinta twice a day along with a high-dose statin and with beta-leonel. She also had pneumonia at this time as well. She says she has been taken doxycycline for the pneumonia. Related Data Home Medications ?Medication ?Instructions ?Recorded ?Confirmed acetaminophen 650 mg 650 mg PO Q12H 09/19/2403/03 tablet,extended release (Tylenol Arthritis Pain) cetirizine 10 mg tablet 10 mg PO DAILY 03/03/2503/03 empagliflozin 25 mg tablet 25 mg PO DAILY 03/03/2502/25 (Jardiance) levothyroxine 25 mcg tablet 25 mcg PO DAILY 03/03/25 1 05/14/24 oxybutynin chloride 15 mg 15 mg PO DAILY 03/03/2503/03 tablet,extended release 24 hr semaglutide 0.25 mg or 0.5 mg (2 0.5 mg SQ WEEKLY 04/2703/13/25 mg/3 mL) subcutaneous pen injector (Ozempic) Previous Rx's ?Medication ?Instructions ?Recorded metoprolol succinate 200 mg 200 mg PO DAILY #30 tabs 0 12/05/23 tablet,extended release 24 hr aspirin 81 mg tablet,delayed 81 mg PO DAILY history of cardiac 05/29/24 release stents #90 tabs blood sugar diagnostic (Blood #50 ea 05/30/24 Glucose Test strips) albuterol sulfate 0.63 mg/3 mL 0.63 mg (3 mL) inhalati on Q4-6H 09/17/24 solution for nebulization PRN shortness of breath or wheezing #90 mL fluticasone furoate 100 1 inh inhalation DAILY #90 e a 11/05/24 mcg-vilanterol 25 mcg/dose inhalation powder (Breo Ellipta) insulin glargine 100 unit/mL 15 unit (0.15 mL) SQ HS # 10 mL 11/11/24 subcutaneous solution (Lantus U-100 Insulin) repaglinide 1 mg tablet 1 mg PO BID #60 tabs 5 atorvastatin 40 mg tablet 80 mg (2 x 40 mg) PO HS #60 tabs 03/04/25 doxycycline hyclate 100 mg tablet 100 mg PO Q12H 5 day s #9 tabs 03/04/25 ticagrelor 90 mg tablet (Brilinta) 90 mg PO BID 30 day s #60 tabs 03/04/25 sertraline 100 mg tablet 150 mg (1.5 x 100 mg) PO CAROLANN LY #45 03/05/25 tabs losartan 50 mg-hydrochlorothiazide 1 tab PO DAILY #90 tabs 03/10/25 12.5 mg tablet amoxicillin 875 mg-potassium 1 tab PO Q12H 5 days #10 tabs 03/22/25 clavulanate 125 mg tablet azithromycin 250 mg tablet See Rx Instructions PO .COM PLEX #6 03/22/25 tabs prednisone 50 mg tablet 50 mg PO DAILY 5 days #5 tab s 03/22/25 Allergies Allergy/AdvReac Type Severity Reaction Status Date / Time insulin lispro Allergy Intermediate Vomiting Verified 03/13/25 10:43 venom-honey bee (BEE VENOM Allergy Unknown Unknown Verified 03/13/25 10:43 (HONEY BEE)) allergy reaction chocolate flavor AdvReac Hyper Verified 03/13/25 10:43 PFSH <Cierra Scarletdeborah (ED), MUTUAL FUND ACCOUNTANT - Last Filed: 03/22/25 22:05> [facility] Disclaimer: The information contained in this section may have been updated after the patient was seen, as this information can be updated by other users. Medical History (Updated 03/23/25 @ 00:59 by Shyam Hermosillo MD) NSTEMI (non-ST elevated myocardial infarction) Urinary tract infection Painful swallowing Bloating Globus sensation Visual disturbance Colon cancer screening Cataract of right eye Nerve pain Finger pain, left Breast cancer screening by mammogram Palpable abd. aorta Insomnia Visual hallucinations Hallucinations Gait abnormality Restless sleeper Daytime somnolence Onychodystrophy Gait instability Urinary incontinence Trouble swallowing Pre-op exam Cough Right-sided chest wall pain Infection of lower respiratory tract Dehydration Candidiasis Sore throat Influenza A with pneumonia UTI (urinary tract infection) Abnormal nuclear cardiac imaging test Acute pain of left knee Fall Contusion of knee Oxygen dependent Encounter for screening for malignant neoplasm of lung Nodule of right lung History of smoking 30 or more pack years Dyspnea on exertion SOB (shortness of breath) on exertion Palpitations Typical angina Edema of both lower extremities Diastolic dysfunction Foot pain, bilateral DKA (diabetic ketoacidosis) CAD (coronary artery disease) COPD (chronic obstructive pulmonary disease) Sinus tachycardia Gastroesophageal reflux disease Urinary incontinence Chest pain Dyspnea Dyspnea and respiratory abnormalities Coronary artery disease Ex-smoker for more than 1 year Emphysema of lung Diabetes mellitus type 2 in obese Hyperlipidemia Hypertensive disorder Surgical History History of partial hysterectomy History of intravascular stent placement H/O eye surgery Family History Other Family history of diabetes mellitus Family history of heart disease No significant family history Social History Smoking Status: Current every day smoker tobacco type: cigarettes packs per day: 1 years smoked: 20 smoking status stop date: 2006 how long ago did patient quit smoking: stopped for 7 years and when in Mar 2024 started smoking again alcohol intake: former substance use type: denies use current occupational status: unemployed Travel in the last 8 weeks?: None housing: house lives independently: Yes marital status: number of children: 1 current occupational exposures/hazards: No other: passed Mar 2024 caffeine: Yes Have you lived/traveled outside [place] in past 30 days?: No Contact w/someone who lives/traveled outside US past 30 days?: No Exposure to someone with infectious disease in past 14 days?: No Do you have a fever (greater than 100.4 F or 38 C)?: No Have you tested positive for COVID-19?: No Exposed to someone with COVID-19 in past 14 days?: No Do you have a sore throat?: No Do you have a cough?: Yes Do you have any weakness?: No Do you have any diarrhea?: No Are you experiencing any unusual bleeding?: No Do you have any muscle aches/pain?: No Do you have any abdominal pain?: No Are you experiencing loss of taste or smell?: No Other Medical History Have you received the Flu Vaccine for this season: No Have you received the Pneumonia Vaccine: Yes <Cierra Giang (ED), MUTUAL [employer]D ACCOUNTANT - Last Filed: 03/22/25 22:05> ROS Obtained: Yes Systems reviewed as appropriate & no additional complaints except as documented Constitutional Constitutional: Reports as per HPI Physical Exam <Cierra Giang (ED), MUTUAL FUND ACCOUNTANT - Last Filed: 03/22/25 22:05> General General appearance: alert and anxious Head Head exam: normocephalic Eye Eye exam: Present PERRL and EOMI ENT ENT exam: Present normal oropharynx and mucous membranes moist Neck Neck exam: Present full ROM and trachea midline Respiratory Respiratory exam: Present wheezes Cardiovascular Cardiovascular exam: Present normal rhythm, bradycardia, normal heart sounds, +S1 and +S2 Extremities Exam Extremities exam: Present full ROM and normal capillary refill Neurological Exam Neurological exam: Present alert and oriented X3 Skin Skin exam: Present warm and dry HEART Score <Cierra Giang (ED), MUTUAL FUND ACCOUNTANT - Last Filed: 03/22/25 22:05> HEART Score HEART Score assessment performed?: Yes History (anamnesis): Moderately suspicious ECG: Non-specific disturbance Age: 45-65 years Risk factors: 3 or more risk factors Troponin: </= normal limit HEART Score: 5 <Fernanda Mayer MD - Last Filed: 03/22/25 22:52> HEART Score HEART Score: 5 <Shyam Hermosillo MD - Last Filed: 03/23/25 00:59> HEART Score HEART Score: 5 Critical Care <Cierra Ginag (ED), MUTUAL FUND ACCOUNTANT - Last Filed: 03/22/25 22:05> Critical Care Time Critical Care Time: No Medical Decision Making <Cierra Giang (ED), MUTUAL FUND ACCOUNTANT - Last Filed: 03/22/25 22:05> Dewayne Inquiry Pt receiving controlled substance: No Dewayne was queried for this patient: No Vital Signs Vital Signs: 03/22/25 21:31 03/22/25 23:31 Temperature 97.8 F 97.9 F Temperature Source Oral Pulse Rate 87 Pulse Rate [Right] 93 H Respiratory Rate 23 18 Blood Pressure 138/96 H Blood Pressure [Right Arm] 156/82 H Blood Pressure Mean [Right Arm] 106 Blood Pressure Source [Right Arm] Automatic Cuff Blood Pressure Position [Right Arm] Sitting 02 Sat by Pulse Oximetry 95 Oxygen Delivery Method Room Air Room Air Lab Data Labs: Lab Results 03/22/25 21:44: WBC 8.7, RBC 4.55, Hgb 12.9, Hct 39.8, MCV 87.5, MCH 28.4, MCHC 32.4, RDW 12.9, Plt Count 254, MPV 11.5 H, Neut % (Auto) 65.3, Lymph % (Auto) 22.1, Faulkner % (Auto) 10.1 H, Eos % (Auto) 1.7, Baso % (Auto) 0.5, Neut # (Auto) 5.7, Lymph # (Auto) 1.9, Faulkner # (Auto) 0.9, Eos # (Auto) 0.2, Baso # (Auto) 0.0, Sodium 134 L, Potassium 4.1, Chloride 103, Carbon Dioxide 27, Anion Gap 8.1, BUN 17, Creatinine 0.60, Estimated Creat Clear 67, Estimated GFR 100, Est GFR ( Amer) 121, Glucose 373 H, Calcium 9.5, Magnesium 1.6, Total Bilirubin 0.4, AST 23, ALT 17, Alkaline Phosphatase 123, Troponin I < 0.01, NT-Pro-B Natriuret Pep 604 H, Total Protein 7.3, Albumin 3.8, Globulin 3.5 H, Albumin/Globulin Ratio 1.1, Lipase 38 03/22/25 21:55: SARS-CoV-2 (PCR) Not detected, Influenza A Untype (PCR) Not detected, Influenza Type B (PCR) Not detected 03/22/25 22:27: Lactate 1.3 03/22/25 21:44 03/22/25 21:44 Response Orders (Tests/Meds): ED MEDICATIONS Discontinued Medications Generic Name Dose Route Start Last Admin Trade Name Julia PRN Reason Stop Dose Admin Albuterol/Ipratropium 9 ml 03/22/25 21:29 03/22/25 21:49 Ipratropium/Albuterol 3 Ml Neb IH 03/22/25 21:30 9 ml ONCE ONE Administration Aspirin 325 mg 03/22/25 21:29 03/22/25 21:49 Aspirin 325mg Tablet PO 03/22/25 21:30 325 mg ONCE ONE Administration Magnesium Sulfate 2 gm in 50 mls @ 50 mls/hr 03/22/25 21:29 03/22/25 23:13 Magnesium Sulfate 2gm/50ml Premix IV 03/22/25 22:28 Infused ONCE ONE Infusion Ceftriaxone Sodium 1 gm/ 50 mls @ 100 mls/hr 03/22/25 23:00 03/22/25 23:07 Sodium Chloride IV 04/01/25 22:59 100 mls/hr Q24H ALTA Administration Iopamidol 70 ml 03/22/25 22:33 03/22/25 22:34 Iopamidol-370 (76%);100ml Bottle IV 03/22/25 22:34 70 ml ONCE ONE Administration Methylprednisolone Sodium Succinate 125 mg 03/22/25 21:29 03/22/25 22:06 Methylprednisolone Sod Succ 125mg Vial IM 03/22/25 21:30 Not Given ONCE ONE Methylprednisolone Sodium Succinate 125 mg 03/22/25 22:05 03/22/25 22:07 Methylprednisolone Sod Succ 125mg Vial IV 03/22/25 22:06 125 mg ONCE ONE Administration Sodium Chloride 50 ml 03/22/25 22:33 03/22/25 22:34 0.9 % Sodium Chloride 50 Ml Vial IV 03/22/25 22:34 50 ml ONCE ONE Administration Sodium Chloride 10 ml 03/22/25 22:33 03/22/25 22:34 Sodium Chloride 0.9% 10ml Syr (Rad Only) IV 03/22/25 22:34 10 ml ONCE ONE Administration ORDERS Category Date Time Status CTA Chest [CT angio chest PE protocol] Stat Cat Scan 03/22/25 21:29 Completed BNP [NT Pro Brain Natriuretic Pep.] Stat Lab 03/22/25 21:44 Completed CBC [Complete Blood Count Auto Diff] Stat Lab 03/22/25 21:44 Completed Comprehensive Metabolic Panel Stat Lab 03/22/25 21:44 Completed Lactic Acid Stat Lab 03/22/25 22:27 Completed Lipase Stat Lab 03/22/25 21:44 Completed Magnesium Stat Lab 03/22/25 21:44 Completed Rapid PCR Covid and Flu A/B Stat Lab 03/22/25 21:55 Completed Trop I [Troponin I] Stat Lab 03/22/25 21:44 Completed Blood Culture Stat Micro 03/22/25 23:06 Received MDM Narrative Medical Decision Narrative: patient is a 64-year-old female presenting to the emergency department for evaluation of shortness of breath, cough, chest and abdominal soreness from the cough. Patient is hemodynamically stable and nontoxic-appearing upon arrival, afebrile. Differential diagnosis includes pneumonia, PE, ACS, CAD, among others. Workup will be conducted with hematologic labs, specific imaging. Initial inventions include crystalloid bolus, analgesics, antibiotics. <Fernanda Mayer MD - Last Filed: 03/22/25 22:52> Vital Signs Vital Signs: 03/22/25 21:31 03/22/25 23:31 Temperature 97.8 F 97.9 F Temperature Source Oral Pulse Rate 87 Pulse Rate [Right] 93 H Respiratory Rate 23 18 Blood Pressure 138/96 H Blood Pressure [Right Arm] 156/82 H Blood Pressure Mean [Right Arm] 106 Blood Pressure Source [Right Arm] Automatic Cuff Blood Pressure Position [Right Arm] Sitting 02 Sat by Pulse Oximetry 95 Oxygen Delivery Method Room Air Room Air Lab Data Labs: Lab Results 03/22/25 21:44: WBC 8.7, RBC 4.55, Hgb 12.9, Hct 39.8, MCV 87.5, MCH 28.4, MCHC 32.4, RDW 12.9, Plt Count 254, MPV 11.5 H, Neut % (Auto) 65.3, Lymph % (Auto) 22.1, Faulkner % (Auto) 10.1 H, Eos % (Auto) 1.7, Baso % (Auto) 0.5, Neut # (Auto) 5.7, Lymph # (Auto) 1.9, Faulkner # (Auto) 0.9, Eos # (Auto) 0.2, Baso # (Auto) 0.0, Sodium 134 L, Potassium 4.1, Chloride 103, Carbon Dioxide 27, Anion Gap 8.1, BUN 17, Creatinine 0.60, Estimated Creat Clear 67, Estimated GFR 100, Est GFR ( Amer) 121, Glucose 373 H, Calcium 9.5, Magnesium 1.6, Total Bilirubin 0.4, AST 23, ALT 17, Alkaline Phosphatase 123, Troponin I < 0.01, NT-Pro-B Natriuret Pep 604 H, Total Protein 7.3, Albumin 3.8, Globulin 3.5 H, Albumin/Globulin Ratio 1.1, Lipase 38 03/22/25 21:55: SARS-CoV-2 (PCR) Not detected, Influenza A Untype (PCR) Not detected, Influenza Type B (PCR) Not detected 03/22/25 22:27: Lactate 1.3 Response Orders (Tests/Meds): ED MEDICATIONS Discontinued Medications Generic Name Dose Route Start Last Admin Trade Name Freq PRN Reason Stop Dose Admin Albuterol/Ipratropium 9 ml 03/22/25 21:29 03/22/25 21:49 Ipratropium/Albuterol 3 Ml Neb IH 03/22/25 21:30 9 ml ONCE ONE Administration Aspirin 325 mg 03/22/25 21:29 03/22/25 21:49 Aspirin 325mg Tablet PO 03/22/25 21:30 325 mg ONCE ONE Administration Magnesium Sulfate 2 gm in 50 mls @ 50 mls/hr 03/22/25 21:29 03/22/25 23:13 Magnesium Sulfate 2gm/50ml Premix IV 03/22/25 22:28 Infused ONCE ONE Infusion Ceftriaxone Sodium 1 gm/ 50 mls @ 100 mls/hr 03/22/25 23:00 03/22/25 23:07 Sodium Chloride IV 04/01/25 22:59 100 mls/hr Q24H ALTA Administration Iopamidol 70 ml 03/22/25 22:33 03/22/25 22:34 Iopamidol-370 (76%);100ml Bottle IV 03/22/25 22:34 70 ml ONCE ONE Administration Methylprednisolone Sodium Succinate 125 mg 03/22/25 21:29 03/22/25 22:06 Methylprednisolone Sod Succ 125mg Vial IM 03/22/25 21:30 Not Given ONCE ONE Methylprednisolone Sodium Succinate 125 mg 03/22/25 22:05 03/22/25 22:07 Methylprednisolone Sod Succ 125mg Vial IV 03/22/25 22:06 125 mg ONCE ONE Administration Sodium Chloride 50 ml 03/22/25 22:33 03/22/25 22:34 0.9 % Sodium Chloride 50 Ml Vial IV 03/22/25 22:34 50 ml ONCE ONE Administration Sodium Chloride 10 ml 03/22/25 22:33 03/22/25 22:34 Sodium Chloride 0.9% 10ml Syr (Rad Only) IV 03/22/25 22:34 10 ml ONCE ONE Administration ORDERS Category Date Time Status CTA Chest [CT angio chest PE protocol] Stat Cat Scan 03/22/25 21:29 Completed BNP [NT Pro Brain Natriuretic Pep.] Stat Lab 03/22/25 21:44 Completed CBC [Complete Blood Count Auto Diff] Stat Lab 03/22/25 21:44 Completed Comprehensive Metabolic Panel Stat Lab 03/22/25 21:44 Completed Lactic Acid Stat Lab 03/22/25 22:27 Completed Lipase Stat Lab 03/22/25 21:44 Completed Magnesium Stat Lab 03/22/25 21:44 Completed Rapid PCR Covid and Flu A/B Stat Lab 03/22/25 21:55 Completed Trop I [Troponin I] Stat Lab 03/22/25 21:44 Completed Blood Culture Stat Micro 03/22/25 23:06 Received MDM Narrative Medical Decision Narrative: patient is a 64-year-old female presenting to the emergency department for evaluation of shortness of breath, cough, chest and abdominal soreness from the cough. Patient is hemodynamically stable and nontoxic-appearing upon arrival, afebrile. Differential diagnosis includes pneumonia,bronchitis, PE, ACS, copd exacerbation, CAD, among others. Workup will be conducted with hematologic labs, specific imaging. Initial inventions include crystalloid bolus, analgesics, antibiotics. Laboratory workup significant for hyperglycemia. EKG personally interpreted and significant for normal sinus rhythm no ST elevation ST depression or T wave inversions concerning for ischemia. CTPE with RLL consolidation. Pt has finished a 5 day course of doxycyline. susupicous for copd exacerbation complicated by CAP. Will broaden coverage with Augmentin and azithromcyin due to significant comorbidities and prednisone for COPD exacerbation. Pt unsure if she can get antibiotics tomorrow, so will give a dose of ceftrixone in ED. At 11 P BLU to oncoming physician pending final CTPE read. <Shyam Hermosillo MD - Last Filed: 03/23/25 00:59> Vital Signs Vital Signs: 03/22/25 21:31 03/22/25 23:31 Temperature 97.8 F 97.9 F Temperature Source Oral Pulse Rate 87 Pulse Rate [Right] 93 H Respiratory Rate 23 18 Blood Pressure 138/96 H Blood Pressure [Right Arm] 156/82 H Blood Pressure Mean [Right Arm] 106 Blood Pressure Source [Right Arm] Automatic Cuff Blood Pressure Position [Right Arm] Sitting 02 Sat by Pulse Oximetry 95 Oxygen Delivery Method Room Air Room Air Lab Data Labs: Lab Results 03/22/25 21:44: WBC 8.7, RBC 4.55, Hgb 12.9, Hct 39.8, MCV 87.5, MCH 28.4, MCHC 32.4, RDW 12.9, Plt Count 254, MPV 11.5 H, Neut % (Auto) 65.3, Lymph % (Auto) 22.1, Faulkner % (Auto) 10.1 H, Eos % (Auto) 1.7, Baso % (Auto) 0.5, Neut # (Auto) 5.7, Lymph # (Auto) 1.9, Faulkner # (Auto) 0.9, Eos # (Auto) 0.2, Baso # (Auto) 0.0, Sodium 134 L, Potassium 4.1, Chloride 103, Carbon Dioxide 27, Anion Gap 8.1, BUN 17, Creatinine 0.60, Estimated Creat Clear 67, Estimated GFR 100, Est GFR ( Amer) 121, Glucose 373 H, Calcium 9.5, Magnesium 1.6, Total Bilirubin 0.4, AST 23, ALT 17, Alkaline Phosphatase 123, Troponin I < 0.01, NT-Pro-B Natriuret Pep 604 H, Total Protein 7.3, Albumin 3.8, Globulin 3.5 H, Albumin/Globulin Ratio 1.1, Lipase 38 03/22/25 21:55: SARS-CoV-2 (PCR) Not detected, Influenza A Untype (PCR) Not detected, Influenza Type B (PCR) Not detected 03/22/25 22:27: Lactate 1.3 Response Orders (Tests/Meds): ED MEDICATIONS Discontinued Medications Generic Name Dose Route Start Last Admin Trade Name Julia PRN Reason Stop Dose Admin Albuterol/Ipratropium 9 ml 03/22/25 21:29 03/22/25 21:49 Ipratropium/Albuterol 3 Ml Neb IH 03/22/25 21:30 9 ml ONCE ONE Administration Aspirin 325 mg 03/22/25 21:29 03/22/25 21:49 Aspirin 325mg Tablet PO 03/22/25 21:30 325 mg ONCE ONE Administration Magnesium Sulfate 2 gm in 50 mls @ 50 mls/hr 03/22/25 21:29 03/22/25 23:13 Magnesium Sulfate 2gm/50ml Premix IV 03/22/25 22:28 Infused ONCE ONE Infusion Ceftriaxone Sodium 1 gm/ 50 mls @ 100 mls/hr 03/22/25 23:00 03/22/25 23:07 Sodium Chloride IV 04/01/25 22:59 100 mls/hr Q24H ALTA Administration Iopamidol 70 ml 03/22/25 22:33 03/22/25 22:34 Iopamidol-370 (76%);100ml Bottle IV 03/22/25 22:34 70 ml ONCE ONE Administration Methylprednisolone Sodium Succinate 125 mg 03/22/25 21:29 03/22/25 22:06 Methylprednisolone Sod Succ 125mg Vial IM 03/22/25 21:30 Not Given ONCE ONE Methylprednisolone Sodium Succinate 125 mg 03/22/25 22:05 03/22/25 22:07 Methylprednisolone Sod Succ 125mg Vial IV 03/22/25 22:06 125 mg ONCE ONE Administration Sodium Chloride 50 ml 03/22/25 22:33 03/22/25 22:34 0.9 % Sodium Chloride 50 Ml Vial IV 03/22/25 22:34 50 ml ONCE ONE Administration Sodium Chloride 10 ml 03/22/25 22:33 03/22/25 22:34 Sodium Chloride 0.9% 10ml Syr (Rad Only) IV 03/22/25 22:34 10 ml ONCE ONE Administration ORDERS Category Date Time Status CTA Chest [CT angio chest PE protocol] Stat Cat Scan 03/22/25 21:29 Completed BNP [NT Pro Brain Natriuretic Pep.] Stat Lab 03/22/25 21:44 Completed CBC [Complete Blood Count Auto Diff] Stat Lab 03/22/25 21:44 Completed Comprehensive Metabolic Panel Stat Lab 03/22/25 21:44 Completed Lactic Acid Stat Lab 03/22/25 22:27 Completed Lipase Stat Lab 03/22/25 21:44 Completed Magnesium Stat Lab 03/22/25 21:44 Completed Rapid PCR Covid and Flu A/B Stat Lab 03/22/25 21:55 Completed Trop I [Troponin I] Stat Lab 03/22/25 21:44 Completed Blood Culture Stat Micro 03/22/25 23:06 Received MDM Narrative Medical Decision Narrative: patient is a 64-year-old female presenting to the emergency department for evaluation of shortness of breath, cough, chest and abdominal soreness from the cough. Patient is hemodynamically stable and nontoxic-appearing upon arrival, afebrile. Differential diagnosis includes pneumonia,bronchitis, PE, ACS, copd exacerbation, CAD, among others. Workup will be conducted with hematologic labs, specific imaging. Initial inventions include crystalloid bolus, analgesics, antibiotics. Laboratory workup significant for hyperglycemia. EKG personally interpreted and significant for normal sinus rhythm no ST elevation ST depression or T wave inversions concerning for ischemia. CTPE with RLL consolidation. Pt has finished a 5 day course of doxycyline. susupicous for copd exacerbation complicated by CAP. Will broaden coverage with Augmentin and azithromcyin due to significant comorbidities and prednisone for COPD exacerbation. Pt unsure if she can get antibiotics tomorrow, so will give a dose of ceftrixone in ED. At 11 P BLU to oncoming physician pending final CTPE read. Jaimee CAMERON: I assumed care of the patient at the time of handoff from the prior provider. On reassessment patient angie hemodynamically stable and feels better. CT imaging was independently turbid by me and significant only for left lower lobe pneumonia. No evidence of PE. Given this, patient seemed appropriate discharge outpatient management. She was given prescriptions for antibiotics and steroids. Return precautions given. I was consulted by the JAMI, and we discussed the complexity of the problems being addressed. I approved the treatment and management plan for this patient?s care in the Emergency Department, thus performing a substantive portion of the medical decision making. Shyam Hermosillo MD
[2025-03-22] MEDS: ASPIRIN 325MG TABLET 325 MG PO (21:49)
[2025-03-22] MEDS: IPRATROPIUM/ALBUTEROL 3 ML NEB 9 ML IH (21:49)
[2025-03-22] MEDS: MAGNESIUM SULFATE IN WATER 2 GM/50 ML PIGGYBACK IV (21:50)
[2025-03-22 21:53] LABS: Hematocrit 39.8 % (37.0-47.0); Hemoglobin 12.9 g/dL (12.2-16.2); Immature Granulocytes % 0.3 %; Mean Corpuscular HGB Conc 32.4 g/dL (31.8-35.4); Mean Corpuscular Hemoglobin 28.4 pg (27.0-31.2); Mean Corpuscular Volume 87.5 fl (81-99); Nucleated Red Blood Cells % 0 %; Platelet Count 254 K/mm3 (142-424); Red Blood Count 4.55 M/mm3 (4.20-5.40); Red Cell Distribution Width-SD 41.3 fL; White Blood Count 8.7 K/mm3 (4.8-10.8)
[2025-03-22 22:05] LABS: Coronavirus 19, PCR Not Detected (NotDetected); Influenza A, PCR Not Detected (NotDetected); Influenza B, PCR Not Detected (NotDetected)
[2025-03-22] MEDS: METHYLPREDNISOLONE SOD SUCC 125MG VIAL 125 MG IV (22:07)
[2025-03-22 22:08] LABS: Albumin Level 3.8 g/dl (3.5-5.0); Chloride 103 mmol/L (98-107)
[2025-03-22 22:09] LABS: Potassium 4.1 mmoL/L (3.5-5.1); Sodium 134 mmol/L (136-145)
[2025-03-22 22:11] LABS: Alanine Aminotransferase 17 U/L (12-78); Aspartate Amino Transferase 23 U/L (14-36); Blood Urea Nitrogen 17 mg/dl (7-17); Creatinine Clearance Estimated 67 mL/min (50-200); Creatinine,Serum 0.60 mg/dl (0.52-1.04); Estimated Glomerular Filt Rate 100 ml/min (>60); GFR (African American) 121 ML/MIN (>60)
[2025-03-22 22:12] LABS: Albumin/Globulin Ratio 1.1 (1.1-1.8); Alkaline Phosphatase 123 U/L (38-126); Anion Gap 8.1 mEq/L (5-15); Bilirubin,Total 0.4 mg/dl (0.2-1.3); Calcium 9.5 mg/dl (8.4-10.2); Carbon Dioxide 27 mmol/L (22.0-30.0); Globulin 3.5 g/dL (1.3-3.2); Glucose 373 mg/dl (74-100); Lipase 38 U/L (23-300); Magnesium 1.6 mg/dl (1.6-2.3); Total Protein,Serum 7.3 g/dl (6.3-8.2)
[2025-03-22 22:24] LABS: Troponin I < 0.01 ng/ml (0.00-0.034)
[2025-03-22] MEDS: SODIUM CHLORIDE 0.9% 10ML SYR (RAD ONLY) 10 ML IV (22:34)
[2025-03-22] MEDS: IOPAMIDOL-370 (76%);100ML BOTTLE 70 ML IV (22:34)
[2025-03-22] MEDS: 0.9 % SODIUM CHLORIDE 50 ML VIAL IV (22:34)
[2025-03-22 22:41] LABS: NT Pro Brain Natriuretic Pep. 604 pg/mL (0-125)
[2025-03-22] MEDS: CEFTRIAXONE 1 GM 1 GM in 0.9 % SODIUM CHLORIDE 50 ML IV (23:07)
[2025-03-22 23:31] VITALS: BP 138/96; PULSE 87; RESP 18; TEMP 36.6; O2SAT 98
--- OUTSIDE RECORDS SUMMARY | 2025-05-03 19:00 | XMS_ITS | Clinical Summary ---
Author Organization Unknown Care Team Providers Care Rn Gynecology Name Role Phone [employer]IO MANAGER, CIRILO Unavailable Unavailable SOURAV PT, CHIP Unavailable Unavailable LUL TOOL FILER HAND, BEN Unavailable Unavailable FEEZOR OT, RICA Unavailable Unavailable Payers Payer Name Policy Type Policy Number Effective Date Expira tion Date MARCOAUTH [id number] Problems Condition Name Condition Details Condition Category Status Onset Date Resolution Date Last Treatment Date Treating Clinician Comments NON-ST ELEVATION (NSTEMI) MYOCARDIAL INFARCTION Active 2024-04 00:00: 00 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 2024-04 00:00: 00 TYPE 2 DIABETES MELLITUS WITH HYPERGLYCEMI A Active 2024-04 00:00: 00 URINARY TRACT INFECTION, SITE NOT SPECIFIED Active 2024-04 00:00: 00 ESSENTIAL (PRIMARY) HYPERTENSION Active 2024-04 00:00: 00 CHRONIC OBSTRUCTIVE PULMONARY DISEASE, UNSPECIFIED Active 2024-04 00:00: 00 HYPERLIPIDEM IA, UNSPECIFIED Active 2024-04 00:00: 00 EMPHYSEMA, UNSPECIFIED Active 04-03 00:00: 00 HYPOTHYROIDI SM, UNSPECIFIED Active 04-03 00:00: 00 ANXIETY DISORDER, UNSPECIFIED Active 04-03 00:00: 00 DEPRESSION, UNSPECIFIED Active 04-03 00:00: 00 NICOTINE DEPENDENCE, CIGARETTES, UNCOMPLICATE D Active 04-03 00:00: 00 TYPE 2 DIABETES W DIABETIC PERIPHERAL ANGIOPATH W/O GANGRENE Active 04-03 00:00: 00 DEPENDENCE ON SUPPLEMENTAL OXYGEN Active 04-03 00:00: 00 CARE HOME (CURRENT) USE OF ORAL HYPOGLYCEMIC DRUGS Active 04-03 00:00: 00 CARE HOME (CURRENT) USE OF INSULIN Active 04-03 00:00: 00 LNG TRM (CRNT) USE INJECTABLE NON-INSULIN ANTIDIABETIC DRUGS Active 04-03 00:00: 00 PRESENCE OF CORONARY ANGIOPLASTY IMPLANT AND GRAFT Active 2024-04 00:00: 00 Allergies, Adverse Reactions, Alerts Allergy Name Allergy Type Status Severity Reaction(s) Onset Date Inactive Date Treating Clinician Comments BEE VENOM (HONEY BEE) Propensity to adverse reactions Active 2024-04 16:19: 15 INSULIN LISPRO,SHAY N REC.ANLOG Propensity to adverse reactions Active 2024-04 16:19: 20 CHOCOLATE FLAVOR Propensity to adverse reactions Active 2024-04 16:19: 26 Medications Ordered Medication Name Filled Medication Name Start Date Stop Date Current Medication? Ordering Clinician Indication Dosage Frequency Signature (SIG) Comments Components sulfamethox azole 800 mg-trimetho prim 160 mg tablet 09-19 00:00: 00 11-13 23:59 :00 No [id number] ATB 800 mg TWICE DAILY FOR 10 DAYS 800 mg TWICE DAILY FOR 10 DAYS (route: oral) Med Classific ation: Anti-Infe ctive Agents albuterol sulfate 0.63 mg/3 mL solution for nebulizatio n 09-17 00:00: 00 03-03 23:59 :00 No [id number] SHORTNESS OF BREATH 3 mL EVERY 4 TO 6 HOURS NEEDED 3 mL EVERY 4 TO 6 HOURS NEEDED (route: inhalation ) Med Classific ation: Respirato ry Therapy Agents Jardiance 25 mg tablet 09-13 00:00: 00 03-03 23:59 :00 No [id number] DM 25 mg EVERY DAY 25 mg EVERY DAY (route: oral) Med Classific ation: Endocrine oxybutynin chloride ER 15 mg tablet,exte nded release 24 hr 09-13 00:00: 00 03-03 23:59 :00 No [id number] BLADDER 15 mg EVERY DAY 15 mg EVERY DAY (route: oral) Med Classific ation: Genitouri nary Therapy Ozempic 0.25 mg or 0.5 mg (2 mg/3 mL) subcutaneou s pen injector 09-09 00:00: 03-03 23:59 :00 No [id number] Unavailable Per instruc tions 05mg SUBCUTANEO USLY every WEEK Per instructio ns 05mg SUBCUTANEO USLY every WEEK (route: subcutaneo us) Med Classific ation: Endocrine acetaminoph en 300 mg-codeine 60 mg tablet 10-08 00:00: 11-13 23:59 :00 No [id number] PAIN 300 mg 2 TIMES DAILY 300 mg 2 TIMES DAILY (route: oral) Med Classific ation: Analgesic , Anti-infl ammatory or Antipyret ic aspirin 81 mg tablet 10-08 00:00: 00 03-03 23:59 :00 No [id number] BLOOD THINNER 81 mg DAILY 81 mg DAILY (route: oral) Med Classific ation: Hematolog ical Agents atorvastati n 20 mg tablet 10-08 00:00: 10-15 23:59 :00 No [id number] CHOLESTEROL 20 mg BEDTIME 20 mg BEDTIME (route: oral) Med Classific ation: Cardiovas cular Therapy Agents clopidogrel 75 mg tablet 10-08 00:00: 03-03 23:59 :00 No [id number] ANTIPLATELE T 75 mg DAILY 75 mg DAILY (route: oral) Med Classific ation: Hematolog ical Agents glipizide 10 mg tablet 10-08 00:00: 11-13 23:59 :00 No [id number] DM 10 mg 2 TIMES DAILY 10 mg 2 TIMES DAILY (route: oral) Med Classific ation: Endocrine guaifenesin ER 600 mg tablet, extended release 12 hr 10-08 00:00: 03-03 23:59 :00 No [id number] NEEDED FOR COUGH 600 mg EVERY 12 HOURS 600 mg EVERY 12 HOURS (route: oral) Med Classific ation: Respirato ry Therapy Agents ipratropium 0.5 mg-albutero l 3 mg (2.5 mg base)/3 mL nebulizatio n soln 10-08 00:00: 00 03-03 23:59 :00 No [id number] NEEDED FOR SHORTNESS OF BREATH 3 mL EVERY 4 HOURS 3 mL EVERY 4 HOURS (route: inhalation ) Med Classific ation: Respirato ry Therapy Agents levothyroxi ne 100 mcg capsule 10-08 00:00: 00 03-03 23:59 :00 No [id number] THYROID 100 mcg DAILY 100 mcg DAILY (route: oral) Med Classific ation: Endocrine losartan 100 mg-hydrochl orothiazide 12.5 mg tablet 10-08 00:00: 00 10-15 23:59 :00 No [id number] HTN 100 mg DAILY 100 mg DAILY (route: oral) Med Classific ation: Cardiovas cular Therapy Agents metoprolol succinate ER 100 mg tablet,exte nded release 24 hr 10-08 00:00: 00 11-13 23:59 :00 No [id number] HTN 100 mg DAILY 100 mg DAILY (route: oral) Med Classific ation: Cardiovas cular Therapy Agents mirabegron ER 50 mg tablet,exte nded release 24 hr 10-08 00:00: 00 11-13 23:59 :00 No [id number] OVERACTIVE BLADDER 50 mg DAILY 50 mg DAILY (route: oral) Med Classific ation: Genitouri nary Therapy pantoprazol e 40 mg tablet,leo yed release 10-08 00:00: 00 03-03 23:59 :00 No [id number] GERD 40 mg DAILY 40 mg DAILY (route: oral) Med Classific ation: Gastroint estinal Therapy Agents sertraline 100 mg tablet 10-08 00:00: 00 03-03 23:59 :00 No [id number] DEPRESSION 100 mg DAILY 100 mg DAILY (route: oral) Med Classific ation: Central Nervous System Agents Soliqua 100/33 100 unit-33 mcg/mL subcutaneou s insulin pen 10-08 00:00: 00 11-13 23:59 :00 No [id number] DM 15 unit DAILY 15 unit DAILY (route: subcutaneo us) Med Classific ation: Endocrine spironolact one 25 mg tablet 10-08 00:00: 00 11-13 23:59 :00 No [id number] HTN 25 mg 2 TIMES DAILY 25 mg 2 TIMES DAILY (route: oral) Med Classific ation: Cardiovas cular Therapy Agents Trelegy Ellipta 100 mcg-62.5 mcg-25 mcg powder for inhalation 10-08 00:00: 00 11-13 23:59 :00 No [id number] COPD 1 inhalat ion DAILY 1 inhalation DAILY (route: inhalation ) Med Classific ation: Respirato ry Therapy Agents atorvastati n 40 mg tablet 10-15 00:00: 00 03-03 23:59 :00 No [id number] CHLORESTORO L 40 mg BEDTIME 40 mg BEDTIME (route: oral) Med Classific ation: Cardiovas cular Therapy Agents bromphenira mine-pseudo ephedrine-D M 2 mg-30 mg-10 mg/5 mL oral syrup 10-15 00:00: 00 03-03 23:59 :00 No [id number] FOR COUGH 5 mL EVERY 4 HOURS 5 mL EVERY 4 HOURS (route: oral) Med Classific ation: Respirato ry Therapy Agents cetirizine 10 mg tablet 10-15 00:00: 00 03-03 23:59 :00 No [id number] ALLERGIES 10 mg DAILY 10 mg DAILY (route: oral) Med Classific ation: Respirato ry Therapy Agents losartan 50 mg-hydrochl orothiazide 12.5 mg tablet 10-15 00:00: 00 03-03 23:59 :00 No [id number] BP 1 tablet DAILY 1 tablet DAILY (route: oral) Med Classific ation: Cardiovas cular Therapy Agents metformin ER 500 mg tablet,exte nded release 24 hr 10-15 00:00: 00 03-03 23:59 :00 No [id number] DIABETES 2 tablet DAILY 2 tablet DAILY (route: oral) Med Classific ation: Endocrine Tylenol Arthritis Pain 650 mg tablet,exte nded release 10-15 00:00: 00 03-03 23:59 :00 No [id number] FOR ARTHRITIS 3 tablet DAILY 3 tablet DAILY (route: oral) Med Classific ation: Analgesic , Anti-infl ammatory or Antipyret ic Breo Ellipta 100 mcg-25 mcg/dose powder for inhalation 11-13 00:00: 00 03-03 23:59 :00 No [id number] COPD 1 inhalat ion 2 TIMES A WEEK 1 inhalation 2 TIMES A WEEK (route: inhalation ) Med Classific ation: Respirato ry Therapy Agents metoprolol succinate ER 200 mg tablet,exte nded release 24 hr 2023-04 00:00: 00 03-03 23:59 :00 No [id number] BP 200 mg DAILY 200 mg DAILY (route: oral) Med Classific ation: Cardiovas cular Therapy Agents repaglinide 1 mg tablet 11-11 00:00: 00 03-03 23:59 :00 No [id number] STOMACH 1 mg 2 TIMES DAILY 1 mg 2 TIMES DAILY (route: oral) Med Classific ation: Endocrine Tums Gas Relief 750 mg-80 mg chewable tablet 11-13 00:00: 00 03-03 23:59 :00 No [id number] ACID REFLUX Per instruc tions DAILY Per instructio ns DAILY (route: oral) Med Classific ation: Gastroint estinal Therapy Agents doxycycline hyclate 100 mg tablet 11-27 00:00: 00 12-11 23:59 :00 No [id number] LYME DX Per instruc tions 2 TIMES DAILY Per instructio ns 2 TIMES DAILY (route: oral) Med Classific ation: Anti-Infe ctive Agents triamcinolo ne acetonide 0.1 % topical ointment 11-27 00:00: 00 03-03 23:59 :00 No [id number] ITCHING Per instruc tions NEEDED Per instructio ns NEEDED (route: topical) Med Classific ation: Dermatolo gical doxycycline hyclate 100 mg tablet 2024-04 2 00:00: 00 Yes [id number] ANTIBIOTIC 1 tablet EVERY 12 HOURS 1 tablet EVERY 12 HOURS (route: oral) Med Classific ation: Anti-Infe ctive Agents ticagrelor 90 mg tablet 2024-04 2- 00:00: 00 Yes [id number] HEART ATTACK PREVENTION 1 tablet 2 TIMES DAILY 1 tablet 2 TIMES DAILY (route: oral) Med Classific ation: Hematolog ical Agents Ozempic 0.25 mg or 0.5 mg (2 mg/3 mL) subcutaneou s pen injector 2024-04 1- 00:00: 00 Yes [id number] DIABETES Per instruc tions 05MG SUBCUTANEO USLY ONCE Per instructio ns 05MG SUBCUTANEO USLY ONCE (route: subcutaneo us) Med Classific ation: Endocrine albuterol sulfate 0.63 mg/3 mL solution for nebulizatio n 2024-04 00:00: 00 Yes [id number] SHORTNESS OF AIR Per instruc tions EVERY 4 HOURS Per instructio ns EVERY 4 HOURS (route: inhalation ) Med Classific ation: Respirato ry Therapy Agents aspirin 81 mg tablet 2024-04 2 00:00: 00 Yes [id number] CLOT PREVENTION 1 tablet DAILY 1 tablet DAILY (route: oral) Med Classific ation: Hematolog ical Agents cetirizine 10 mg tablet 2024-04 2- 00:00: 00 Yes [id number] ALLERGIES 1 tablet DAILY 1 tablet DAILY (route: oral) Med Classific ation: Respirato ry Therapy Agents fluticasone furoate 100 mcg-vilante rol 25 mcg/dose inhalation powder 2024-04 2- 00:00: 00 Yes [id number] COPD 1 inhalat ion DAILY 1 inhalation DAILY (route: inhalation ) Med Classific ation: Respirato ry Therapy Agents insulin glargine (U-100) 100 unit/mL (3 mL) subcutaneou s pen 2024-04 2- 00:00: 00 Yes [id number] DIABETES 15 unit BEDTIME 15 unit BEDTIME (route: subcutaneo us) Med Classific ation: Endocrine Jardiance 25 mg tablet 2024-04 2- 00:00: 00 Yes [id number] DIABETES 1 tablet DAILY 1 tablet DAILY (route: oral) Med Classific ation: Endocrine levothyroxi ne 25 mcg tablet 2024-04 2- 00:00: 00 Yes [id number] THYROID 1 tablet DAILY 1 tablet DAILY (route: oral) Med Classific ation: Endocrine losartan 50 mg-hydrochl orothiazide 12.5 mg tablet 2024-04 00:00: 00 Yes [id number] BLOOD PRESSURE 1 tablet DAILY 1 tablet DAILY (route: oral) Med Classific ation: Cardiovas cular Therapy Agents metoprolol succinate ER 200 mg tablet,exte nded release 24 hr 2024-04 00:00: 00 Yes [id number] BLOOD PRESSURE 1 tablet DAILY 1 tablet DAILY (route: oral) Med Classific ation: Cardiovas cular Therapy Agents oxybutynin chloride ER 15 mg tablet,exte nded release 24 hr 2024-04 00:00: 00 Yes [id number] BLADDER 1 tablet DAILY 1 tablet DAILY (route: oral) Med Classific ation: Genitouri nary Therapy Pain Relief (acetaminop hen) 650 mg tablet,exte nded release 2024-04 00:00: 00 Yes [id number] PAIN 1 tablet EVERY 12 HOURS 1 tablet EVERY 12 HOURS (route: oral) Med Classific ation: Analgesic , Anti-infl ammatory or Antipyret ic repaglinide 1 mg tablet 2024-04 00:00: 00 Yes [id number] BLOOD SUGAR 1 tablet 2 TIMES DAILY 1 tablet 2 TIMES DAILY (route: oral) Med Classific ation: Endocrine sertraline 100 mg tablet 2024-04 00:00: 00 Yes [id number] MOOD 1.5 tablet DAILY 1.5 tablet DAILY (route: oral) Med Classific ation: Central Nervous System Agents oxygen gas for inhalation 2024-04 00:00: 00 Yes [id number] COPD 3 Liter O2 - CONTINUOUS 3 Liter O2 - CONTINUOUS (route: inhalation ) Med Classific ation: Medical Supplies and Durable Medical Equipment (DME) Vital Signs Vital Name Observation Time Observation Value Commen ts Temperature 2025-03-06 12:14:00.000 97.6 [degF] BMI (%) 2025-03-06 12:14:00.000 32 kg/m2 Height 2025-03-06 12:14:00.000 61 [in_us] Pulse 2025-03-06 12:14:00.000 76 /min O2 Saturation (%) 2025-03-06 12:14:00.000 97 % Respirations 2025-03-06 12:14:00.000 18 /min Weight (lbs) 2025-03-06 12:14:00.000 171.6 [lb_av] Systolic Blood Pressure 2025-03-06 12:14:00.000 110 mm [Hg] Diastolic Blood Pressure 2025-03-06 12:14:00.000 72 mm [Hg] Plan of Treatment Planned Activity Planned Date Details Comments Future Scheduled Test AGENCY MAY PERFORM A RESUMPTION OF CARE VISIT FOLLOWING ANY HOSPITAL ADMISSION. PT TO EVALUATE, OBSERVE / ASSESS, AND MONITOR, TOOL FILER HAND TO OBSERVE AND MONITOR, PROVIDE SKILLED THERAPEUTIC INTERVENTION, ACTIVITY, EDUCATION, AND TRAINING TO ADDRESS; GAIT, TRANSFERS AND LE STRENGTH PT 1W1 2W2 1W6 VO FROM MANUEL ELKINS NP [code = AGENCY MAY PERFORM A RESUMPTION OF CARE VISIT FOLLOWING ANY HOSPITAL ADMISSION. PT TO EVALUATE, OBSERVE / ASSESS, AND MONITOR, TOOL FILER HAND TO OBSERVE AND MONITOR, PROVIDE SKILLED THERAPEUTIC INTERVENTION, ACTIVITY, EDUCATION, AND TRAINING TO ADDRESS; GAIT, TRANSFERS AND LE STRENGTH PT 1W1 2W2 1W6 VO FROM MANUEL ELKINS NP] Future Scheduled Test SIT TO/FRO M STAND TRANSFERS (PT/TOOL FILER HAND) [code = SIT TO/FROM STAND TRANSFERS (PT/TOOL FILER HAND)] Future Scheduled Test PT/TOOL FILER HAND TO PROVIDE GAIT TRAINING FOR IMPROVED MOBILITY AND /OR TO NORMALIZE GAIT PATTERN [code = PT/TOOL FILER HAND TO PROVIDE GAIT TRAINING FOR IMPROVED MOBILITY AND /OR TO NORMALIZE GAIT PATTERN] Future Scheduled Test NEUROMUSCU LAR RE-EDUCATION / BALANCE / POSTURAL CONTROL (PT) [code = NEUROMUSCULAR RE-EDUCATION / BALANCE / POSTURAL CONTROL (PT)] Future Scheduled Test THERAPEUTI C EXERCISES AND ESTABLISHING A HOME EXERCISE PROGRAM (PT/TOOL FILER HAND) [code = THERAPEUTIC EXERCISES AND ESTABLISHING A HOME EXERCISE PROGRAM (PT/TOOL FILER HAND)] Future Scheduled Test PT/TOOL FILER HAND TO IDENTIFY FALL RISK FACTORS; EDUCATE THE PATIENT/CAREGIVER ON WAYS TO REDUCE FALL RISK FACTORS AND ESTABLISH HOME EXERCISE PROGRAM TO MINIMIZE FALL RISK. MAY TEACH THE PATIENT FLOOR RECOVERY WHEN CLINICALLY APPROPRIATE [code = PT/TOOL FILER HAND TO IDENTIFY FALL RISK FACTORS; EDUCATE THE PATIENT/CAREGIVER ON WAYS TO REDUCE FALL RISK FACTORS AND ESTABLISH HOME EXERCISE PROGRAM TO MINIMIZE FALL RISK. MAY TEACH THE PATIENT FLOOR RECOVERY WHEN CLINICALLY APPROPRIATE] Future Scheduled Test PT / TOOL FILER HAND T O EDUCATE ON HEART FAILURE SELF-MANAGEMENT [code = PT / TOOL FILER HAND TO EDUCATE ON HEART FAILURE SELF-MANAGEMENT] Future Scheduled Test PT / TOOL FILER HAND T O EDUCATE ON MYOCARDIAL INFARCT SELF-MANAGEMENT [code = PT / TOOL FILER HAND TO EDUCATE ON MYOCARDIAL INFARCT SELF-MANAGEMENT] Future Scheduled Test PT / TOOL FILER HAND T O EDUCATE ON DIABETES SELF- MANAGEMENT [code = PT / TOOL FILER HAND TO EDUCATE ON DIABETES SELF- MANAGEMENT] Future Scheduled Test PT TO ASSE SS / TOOL FILER HAND TO MONITOR FOR HEART FAILURE EXACERBATION AND RECORD PATIENT REPORTED WEIGHT, AND NOTIFY THE PHYSICIAN AND/OR THE RN CLINICAL JUNIOR NETWORK ADMINISTRATOR FOR PHYSICIAN NOTIFICATION OF HF EXACERBATION (2LB WEIGHT GAIN IN 1 DAY, 5LBS IN A WEEK OR 5 LBS OVER BASELINE; INCREASED SOB, EDEMA, NEEDING MORE PILLOWS AT NIGHT, CRACKLES IN BASIS OF THE LUNGS OR PMI SHIFT) [code = PT TO ASSESS / TOOL FILER HAND TO MONITOR FOR HEART FAILURE EXACERBATION AND RECORD PATIENT REPORTED WEIGHT, AND NOTIFY THE PHYSICIAN AND/OR THE RN CLINICAL JUNIOR NETWORK ADMINISTRATOR FOR PHYSICIAN NOTIFICATION OF HF EXACERBATION (2LB WEIGHT GAIN IN 1 DAY, 5LBS IN A WEEK OR 5 LBS OVER BASELINE; INCREASED SOB, EDEMA, NEEDING MORE PILLOWS AT NIGHT, CRACKLES IN BASIS OF THE LUNGS OR PMI SHIFT)] Future Scheduled Test PT / TOOL FILER HAND T O INSTRUCT PATIENT/CAREGIVER ON RISK FOR HOSPITALIZATION/EMERGENCY ROOM VISITS, TEACH SIGNS AND SYMPTOMS THAT PUT PATIENT AT RISK, WHEN TO NOTIFY NURSE/PHYSICIAN OF COMPLICATIONS/DECLINE, AND WHEN TO CALL 911. [code = PT / TOOL FILER HAND TO INSTRUCT PATIENT/CAREGIVER ON RISK FOR HOSPITALIZATION/EMERGENCY ROOM VISITS, TEACH SIGNS AND SYMPTOMS THAT PUT PATIENT AT RISK, WHEN TO NOTIFY NURSE/PHYSICIAN OF COMPLICATIONS/DECLINE, AND WHEN TO CALL 911.] Future Scheduled Test PT / TOOL FILER HAND T O MONITOR AND EDUCATE ON OXYGEN SATURATION DURING ADLS/IADLS, NOTIFY PHYSICIAN AND/OR THE RN CLINICAL JUNIOR NETWORK ADMINISTRATOR FOR PHYSICIAN NOTIFICATION AND IF O2 SATS BELOW PHYSICIAN ORDERED PARAMETERS AFTER 10 MIN OF REST [code = PT / TOOL FILER HAND TO MONITOR AND EDUCATE ON OXYGEN SATURATION DURING ADLS/IADLS, NOTIFY PHYSICIAN AND/OR THE RN CLINICAL JUNIOR NETWORK ADMINISTRATOR FOR PHYSICIAN NOTIFICATION AND IF O2 SATS BELOW PHYSICIAN ORDERED PARAMETERS AFTER 10 MIN OF REST] Future Scheduled Test PT TO ASSE SS / TOOL FILER HAND TO MONITOR CARDIO/RESPIRATORY SYSTEM; AND NOTIFY THE PHYSICIAN AND/OR THE RN CLINICAL JUNIOR NETWORK ADMINISTRATOR FOR PHYSICIAN NOTIFICATION FOR EARLY SIGNS AND SYMPTOMS OF EXACERBATION OR DETERIORATION. [code = PT TO ASSESS / TOOL FILER HAND TO MONITOR CARDIO/RESPIRATORY SYSTEM; AND NOTIFY THE PHYSICIAN AND/OR THE RN CLINICAL JUNIOR NETWORK ADMINISTRATOR FOR PHYSICIAN NOTIFICATION FOR EARLY SIGNS AND SYMPTOMS OF EXACERBATION OR DETERIORATION.] Goal Patient Goal - I MPROVE FUNCTIONAL MOBILITY AND INDEPENDENCE Goal Provider Goal - Goal Provider Goal - PT STG: PATIENT WILL DEMONSTRATE IMPROVED ABILITY TO PERFORM SIT TO/FROM STAND TRANSFERS TO REDUCE THE RISK OF SKIN BREAKDOWN AND REDUCE FALL RISK FROM MIN A TO CGA WITHIN 4 WEEKS PT LTG: PATIENT WILL DEMONSTRATE IMPROVED ABILITY TO PERFORM SIT TO/FROM STAND TRANSFERS TO REDUCE THE RISK OF SKIN BREAKDOWN AND REDUCE FALL RISK FROM MIN A TO IND WITHIN 9 WEEKS Goal Provider Goal - PT STG: PATIENT WILL IMPROVE AMBULATION TOLERANCE AND STABILITY OVER EVEN SURFACES FROM MIN A TO CGA WITH LRAD IN 4 WEEKS IN ORDER TO IMPROVE HOUSEHOLD AMBULATION AND ADL TOLERANCE. PT LTG: PATIENT WILL DEMONSTRATE REDUCED GAIT DEVIATIONS TO REDUCE THE RISK FOR FALLING AND MINIMIZE STRAIN ON KNEES/HIPS AND BACK EVIDENCED BY IMPROVED UPRIGHT POSTURE AND FOOT CLEARANCE USING WALKER TO WALK 150 FEET WITH SBA IN ORDER TO IMPROVE ACCESS TO HOME WITHIN 9 WEEKS Goal Provider Goal - PT LTG: PATIENT WILL DEMONSTRATE REDUCED FALL RISK EVIDENCED BY TUG TEST (CUT SCORE >11 SECONDS INDICATES INCREASED FALL RISK) IMPROVING FROM UNABLE TO 30 SEC WITHIN 9 WEEKS Goal Provider Goal - PT LTG: PATIENT WILL DEMONSTRATE IMPROVED FUNCTIONAL STRENGTH EVIDENCED BY FIVE TIMES SIT TO STAND TEST (CUT SCORE >12 SECONDS INDICATES AN INCREASED FALL RISK) IMPROVING FROM UNABLE TO 45 SEC WITHIN 9 WEEKS IN ORDER TO IMPROVE FUNCTIONAL TRANSFER STABILITY Goal Provider Goal - PT LTG: PATIENT/CAREGIVER WILL DEMONSTRATE ADHERENCE TO FALL REDUCTION SELF-MANAGEMENT AND REDUCING FALL RISK FACTORS TO MINIMIZE FALL RISK BY END OF EPISODE. PT LTG: PATIENT WILL BE INDEPENDENT WITH IMPLEMENTATION OF HEP WITHIN 9 WEEKS PT LTG: CAREGIVER WILL BE INDEPENDENT ASSISTING PATIENT TO COMPLETE HEP WITHIN 9 WEEKS Goal Provider Goal - PT STG: PATIENT WILL BE ABLE TO WEIGH SELF WITH USE OF WALKER AND SUP ASSIST WITHIN 4 WEEKS. PT LTG: PATIENT/CAREGIVER WILL BE ABLE TO IDENTIFY SIGNS OF EXACERBATION OF HEART FAILURE AND VERBALIZE / DEMONSTRATE HOW TO MANAGE SYMPTOMS AND HOW TO ADHERE TO HEART FAILURE SELF-MANAGEMENT AND LIFE-STYLE CHANGES BY END OF EPISODE. Goal Provider Goal - PT GOAL: PATIENT/CAREGIVER WILL BE ABLE TO IDENTIFY SIGNS OF MYOCARDIAL INFARCT AND VERBALIZE/DEMONSTRATE AN ABILITY TO ADHERE TO MYOCARDIAL INFARCT SELF-MANAGEMENT AND LIFE-STYLE CHANGES BY END OF EPISODE. Goal Provider Goal - PATIENT/CAREGIVER WILL BE ABLE TO IDENTIFY SIGNS OF HYPER- AND HYPOGLYCEMIA AND VERBALIZE HOW TO MANAGE SYMPTOMS. Goal Provider Goal - PT GOAL: PATIENT S HEART FAILURE WILL REMAIN WELL CONTROLLED THROUGHOUT EPISODE OF CARE. Goal Provider Goal - PT GOAL: PATIENT/CAREGIVER WILL VERBALIZE UNDERSTANDING OF SIGNS AND SYMPTOMS THAT PUT THE PATIENT AT RISK FOR HOSPITALIZATION /EMERGENCY ROOM VISITS, WHEN TO NOTIFY NURSE/PHYSICIAN OF COMPLICATIONS/DECLINE AND WHEN TO CALL 911. Goal Provider Goal - PT LTG: PATIENT WILL MAINTAIN OXYGEN SATURATION WITHIN PHYSICIAN ORDERED PARAMETERS THROUGHOUT EPISODE OF CARE. Goal Provider Goal - PT LTG: PATIENT WILL NOT EXPERIENCE CARDIAC OR RESPIRATORY COMPLICATIONS THROUGHOUT THE EPISODE OF CARE. Encounters Start Date/Time End Date/Time Encounter Type Admission Type Attending [facility] Care Department Encounter ID Discharge Date Discharge Status Discharge Condition Discharge Reason Percent Goals Met 2025-03-06 00:00:00 2025-05-04 00:00:00 Outpatient [facility] [id number]
== END 2025-03-22 23:50 | disposition home or self-care (01) ==
PROVIDERS: Nurse Practitioner; Emergency Provider Student in an Organized Health Care Education/Training Program; PCP Family Medicine
DX: J44.1 Chronic obstructive pulmonary disease with (acute) exacerbation (principal); J44.0 Chronic obstructive pulmonary disease with (acute) lower respiratory infection; J18.9 Pneumonia, unspecified organism; R07.9 Chest pain, unspecified; E11.65 Type 2 diabetes mellitus with hyperglycemia; I10 Essential (primary) hypertension; F17.210 Nicotine dependence, cigarettes, uncomplicated; Z86.79 Personal history of other diseases of the circulatory system; Z95.5 Presence of coronary angioplasty implant and graft; Z79.4 Long term (current) use of insulin
CPT/HCPCS: 71275; 80053; 83605; 83690; 83735; 83880; 84484; 85025; 87040; 87636; 93005; 96365; 96367; 96375; 99285; J0696; J2919; J3475; Q9967